=== PATIENT | female | born 1985 | race Caucasian/White ===

== ENCOUNTER 2018-05-14 17:45 | Emergency (ER) | payer MEDICAID, SELFPAY ==
[2018-05-14 17:47] VITALS: BP 125/72; PULSE 72; RESP 18; TEMP 37; O2SAT 99; BMI 26.4
--- NOTE | 2018-05-14 19:09 | ED.RN ---
CALLED FOR PT, NO ANSWER
== END 2018-05-14 19:31 | disposition left against medical advice (07) ==
LOC: ED 19:28
PROVIDERS: Emergency Provider Emergency Medicine; Family Provider Internal Medicine; PCP Internal Medicine
DX: R69 Illness, unspecified (principal)

== ENCOUNTER 2018-08-30 18:57 | Emergency (ER) | payer MEDICAID, SELFPAY ==
[2018-08-30 18:58] VITALS: BP 123/68; PULSE 89; RESP 15; TEMP 37.2; O2SAT 100; BMI 26.9
--- NOTE | 2018-08-30 19:32 | EKG12_ITS ---
Test Reason : WEAKNESS Blood Pressure : / mmHG Vent. Rate : 066 BPM Atrial Rate : 066 BPM P-R Int : 178 ms QRS Dur : 086 ms QT Int : 402 ms P-R-T Axes : 040 047 047 degrees QTc Int : 421 ms Normal sinus rhythm Normal ECG Confirmed by VANESA COKER, MATTEO ([id number]), editor producer ALEX JOSHI ([id number]) on 09/03/2018 9:01:15 AM Referred By: MAIKEL Confirmed By:MATTEO ALEXIS MD
--- NOTE | 2018-08-30 19:33 | CT_ITS ---
STUDY: CT BRAIN WITHOUT CONTRAST REASON FOR EXAM: Female, 32 years old. Dizziness. RADIATION DOSAGE (If Supplied By Facility): CTDIvol = ( 44.99 ) mGy, DLP = ( 745.49 ) mGycm TECHNIQUE: Transaxial CT imaging of the brain was performed without administration of intravenous contrast material. Individualized dose optimization techniques were used for this CT. COMPARISON: No relevant priors. FINDINGS: Normal soft tissue structures. Normal calvarium. Normal size ventricles and extra-axial spaces for the patient's age. Normal white matter tracts of the cerebral hemispheres. Normal basal ganglia and thalami. Normal brainstem. Normal cerebellum. There is no intracranial hemorrhage. There are no findings of an acute ischemic infarction. Normal visualized paranasal sinuses. CT/Brain/Head without Contrast IMPRESSION: No acute intracranial process. Electronically Signed: Kayla Borden MD at 20:53 EDT Tel , Service support ,
--- NOTE | 2018-08-30 19:45 | ED.VISSUMM ---
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 but for the most part she really has no past medical history and is on no routine daily meds, her chief complaint now really is the harsh nature of the cough she is not dizzy she denies being she has no cardiovascular history no history of [place] PE DVT stroke she is eating and drinking well bowel habits are normal urinary habits are normal denies Physical Examination: [] Vital signs within normal range General, no distress resting comfortably HEENT is generally unremarkable for some rhinorrhea, her head exam and facial exams unremarkable she can move her head in every direction without nystagmus or complaints of dizziness The neck is supple no adenopathy Cardiovascular, regular rate and rhythm Lungs, clear bilateral Abdomen, soft nontender Extremities, no clubbing cyanosis or edema Neurologic, awake alert answering questions appropriately moving all 4 extremities NIH is 0 she has no symptoms or signs of dizziness now her speech is clear he does understand Test Results: [] Emergency Department Course and Treatment: [] She really has 2 complaints one is intermittent dizziness for months and to the harsh coughing and runny nose for the last week that may have made the dizziness slightly worse at this time screening labs are obtained Patient screening labs are all generally unremarkable EKG shows a sinus rhythm nothing acute, head CT shows no acute abnormality no signs of sinusitis I explained all the test results the patient I explained to the exact etiology of the intermittent dizziness had for months is unclear she likely has a URI she is to continue the antibiotic she was in by her physicians provide an inhaler suggest use [id number] Flonase nasal steroid follow with her outpatient providers and return for change in symptoms and she is comfortable with this plan Treatment Plan: [] Disposition: [] Home stable Impression: [] URI with harsh cough, intermittent dizziness for months This note was generated with [employer] software. It may contain incorrect words, spelling, and punctuation that were not noted in review of the chart prior to signing ED Disposition - Plan for ED Patient: Referrals: Khushi Raman MD [Primary Care Provider] -
--- NOTE | 2018-08-30 19:48 | ED.DCSUM_ITS ---
- ER Visit Summary Date of Service: 08/30/18 Chief Complaint: [] Runny nose harsh cough for about a week dizziness on and off for many months History of Present Illness: The patient is a 32 F [] patient has a history of dizziness consisting of intermittent spinning sensations for many months unrelated to the fact that recently she is developed a URI over the last week with runny nose and a harsh cough, she was seen by her physicians recently and started on azithromycin first dose was today, she indicates is a prior history for treatment treatment for sinusitis, she works in a [employer] is around sick people but for the most part she really has no past medical history and is on no routine daily meds, her chief complaint now really is the harsh nature of the cough she is not dizzy she denies being she has no cardiovascular history no history of [place] PE DVT stroke she is eating and drinking well bowel habits are normal urinary habits are normal denies Physical Examination: [] Vital signs within normal range General, no distress resting comfortably HEENT is generally unremarkable for some rhinorrhea, her head exam and facial exams unremarkable she can move her head in every direction without nystagmus or complaints of dizziness The neck is supple no adenopathy Cardiovascular, regular rate and rhythm Lungs, clear bilateral Abdomen, soft nontender Extremities, no clubbing cyanosis or edema Neurologic, awake alert answering questions appropriately moving all 4 extremities NIH is 0 she has no symptoms or signs of dizziness now her speech is clear he does understand Test Results: [] Emergency Department Course and Treatment: [] She really has 2 complaints one is intermittent dizziness for months and to the harsh coughing and runny nose for the last week that may have made the dizziness slightly worse at this time screening labs are obtained Patient screening labs are all generally unremarkable EKG shows a sinus rhythm nothing acute, head CT shows no acute abnormality no signs of sinusitis I explained all the test results the patient I explained to the exact etiology of the intermittent dizziness had for months is unclear she likely has a URI she is to continue the antibiotic she was in by her physicians provide an inhaler suggest use [id number] Flonase nasal steroid follow with her outpatient providers and return for change in symptoms and she is comfortable with this plan Treatment Plan: [] Disposition: [] Home stable Impression: [] URI with harsh cough, intermittent dizziness for months This note was generated with [employer] software. It may contain incorrect words, spelling, and punctuation that were not noted in review of the chart prior to signing ED Disposition - Plan for ED Patient: Referrals: Khushi Raman MD [Primary Care Provider] -
[2018-08-30 19:52] VITALS: PULSE 75; RESP 16
[2018-08-30] MEDS: Ipratropium/Albuterol Sulfate 3 ML AMPUL.NEB INHALATION (19:52)
[2018-08-30] MEDS: 0.9% Normal Saline 1,000 ML 1000 ML IV (20:09)
[2018-08-30 20:30] LABS: Absolute Lymphocyte Count 3.68 X10^3/ul (0.83-4.51); Absolute Neutrophil Count 3.6 X10^3/uL (2.0-7.7); Basophil# 0.02 X10^3/uL; Basophil% 0.3 % (0-1); Eosinophil# 0.12 X10^3/uL; Eosinophils% 1.5 % (0-5); Hematocrit 37.8 % (37-47); Hemoglobin 13.1 g/dl (12.0-15.0); Lymphocyte # 3.68 X10^3/ul (4.0); Lymphocyte % 47.5 % (19-41); Mean Corp Hgb Conc 34.7 g/gl (32-36); Mean Corpuscular Hgb 31.7 pg (27.0-32.0); Mean Corpuscular Volume 91.5 fL (81-99); Mean Platelet Vol. 9.3 fl (6.2-12.0); Monocyte# 0.33 X10^3/uL; Monocyte% 4.3 % (0-10); Neutrophil # 3.59 X10^3/uL (2.7-7.7); Neutrophil % 46.3 % (47-70); Platelet Count 249 K/mm3 (150-450); RBC Distribution Width CV 11.7 % (11.6-14.6); RBC Distribution Width SD 39.7 fl (35.1-43.9); Red Blood Count 4.13 M/mm3 (4.2-5.4); White Blood Count 7.8 K/mm3 (4.4-11.0)
[2018-08-30 20:31] LABS: POSITIVE COUNT NO; POSITIVE DIFFERENTIAL NO; POSITIVE MORPHOLOGY NO
--- NOTE | 2018-08-30 20:31 | RAD_ITS ---
STUDY: X-RAY CHEST REASON FOR EXAM: Female, 32 years old. Chest pain. TECHNIQUE: PA and lateral views of the chest. COMPARISON: None. FINDINGS: The lungs are clear and expanded. There is no demonstrated pleural abnormality. Normal size heart. Normal mediastinum and luis. Normal visualized pulmonary arteries. Normal visualized aortic arch and descending thoracic aorta. Normal visualized thoracic spine. Normal visualized ribs, clavicles, and shoulders. There is no demonstrated abnormality of the visualized soft tissue structures of the upper abdomen. RAD/Chest PA and Lateral IMPRESSION: No acute cardiopulmonary process. Electronically Signed: Kayla Borden MD at 20:47 EDT Tel , Service support ,
[2018-08-30 20:51] LABS: Anion Gap 5 (5-15); BUN 12 mg/dL (7-18); BUN/Creat Ratio 17.3 RATIO (10-20); Calcium,Total 8.7 mg/dL (8.5-10.1); Chloride 109 mmol/L (98-107); EST Glomerular Filtration Rate 102 mL/min (>60); Est Glom Filt Rate - Afr Amer 124 mL/min (>60); Estimated Creatinine Clearance 85.45 ml/min; Glucose 98 mg/dL (74-106); Potassium 3.4 mmol/L (3.5-5.1); Sodium Level 142 mmol/L (136-145)
[2018-08-30 20:56] LABS: Pregnancy, Serum, hCG Quali. NEGATIVE Negative (0-9 Nonpreg)
[2018-08-30 21:31] VITALS: PULSE 66; RESP 14; O2SAT 95
--- NOTE | 2018-08-30 21:50 | ED.DEP ---
ED Disposition - Plan for ED Patient: Instructions: ED Dizziness UKO, ED Upper Resp Infec No Abx Tx Prescriptions: Albuterol Inhaler [Ventolin Hfa] 1 - 2 puff INHALATION Q4H PRN PRN #1 inhaler PRN Reason: Wheezing Referrals: Khushi Raman MD [Primary Care Provider] -
== END 2018-08-30 21:58 | disposition home or self-care (01) ==
LOC: ED 19:41
PROVIDERS: Emergency Provider Emergency Medicine; Family Provider Internal Medicine; PCP Internal Medicine
DX: J06.9 Acute upper respiratory infection, unspecified (principal); R05 Cough; R42 Dizziness and giddiness
CPT/HCPCS: 70450; 71046; 80048; 84484; 84703; 85025; 93005; 94640; 96360; 99284; J7030; A4216

== ENCOUNTER → 2020-02-08 17:19 | Outpatient (CLI) | payer MEDICAID, SELFPAY | PROVIDERS: PCP Internal Medicine; Referring Provider Clinical Nurse Specialist; Visit Provider Clinical Nurse Specialist | DX: J40 Bronchitis, not specified as acute or chronic (principal); J34.89 Other specified disorders of nose and nasal sinuses; H93.8X3 Other specified disorders of ear, bilateral | CPT/HCPCS: 87635; C9803; U0003 ==

== ENCOUNTER 2020-06-26 20:28 | Emergency (ER) | payer MEDICAID, SELFPAY ==
[2020-06-26 20:29] VITALS: BP 128/72; PULSE 78; RESP 16; TEMP 36.8; O2SAT 99; BMI 27.3
--- NOTE | 2020-06-26 20:44 | ED.DCSUM_ITS ---
History of Present Illness Chief Complaint: Flank Pain Informant: Patient Narrative: 34-year-old female presenting with left flank pain. She states it radiates to the left inguinal area and left proximal thigh. Patient states this started yesterday and has been intermittent. She has nausea and sweats with this. Patient states that the onset was abrupt and the pain is sharp. Patient has a history of kidney stones but states she has a history of diverticulitis. She states he did not feel the same as this. She is not had fever or chills. She denies urinary or bowel complaints. Past Medical History - Allergies and Home Meds Allergies/Adverse Reactions: Allergies tramadol Allergy (Verified 06/26/20 20:31) [facility] Physician: Khushi Raman MD [Primary Care Provider] - Prior records reviewed: Yes Past Medical History: - - Asthma and GERD Surgical History: noncontributory Lives: Alone Smoking Status: Current every day smoker Alcohol: None Drugs: None Review of Systems General: Reports: Sweats. Denies: Chills, Fever Eyes: Denies: Visual changes - bilaterally, Diplopia ENT: Denies: Rhinorrhea, Sore throat Cardiovascular: Denies: Chest pain, Palpitations Respiratory: Denies: Dyspnea, Cough, Dyspnea on exertion Gastrointestinal: Reports: Abdominal pain, Nausea. Denies: Vomiting, Diarrhea, Constipation Genitourinary: Denies: Dysuria, Hematuria, Frequency Musculoskeletal: Reports: Back pain - Left flank. Denies: Myalgias, Arthralgias Skin: Denies: Rash, Abscess Physical Exam Vital Signs/Narrative: Vital Signs Temp Pulse Resp BP Pulse Ox 06/26/20 20:29 98.2 F 78 16 128/72 H 99 Inital Vital Signs reviewed: Yes General: Well nourished, No Acute Distress Head: Normocephalic, Atraumatic Eyes: Perrl, EOMI ENT: Moist mucous membranes, No rhinorrhea Cardiovascular: Regular rate, Regular rhythm Skin: Normal color, No rash Neurological: Alert, Oriented x3 Psychological: Normal affect, Normal Mood Diagnostic/Tx/Re-eval Clinical Impression(s) from Imaging Studies Abdomen/Pelvis CT 06/26/20 21:08 IMPRESSION: Minor diverticular changes of the descending and sigmoid colon without evidence for acute diverticulitis. No other significant abnormality Electronically Signed: Jeff Agarwal MD at 22:01 EST , Service support , Laboratory Data 06/26/20 06/26/20 06/26/20 20:37 20:50 20:50 WBC 8.6 RBC 4.17 L Hgb 13.3 Hct 39.0 MCV 93.5 MCH 31.9 MCHC 34.1 RDW Std Deviation 39.4 RDW Coeff of Jeri 11.5 L Plt Count 290 MPV 9.1 Immature Gran % (Auto) 0.200 Neut % (Auto) 55.7 Lymph % (Auto) 37.0 [place] % (Auto) 5.5 Eos % (Auto) 1.3 Baso % (Auto) 0.3 Absolute Neuts (auto) 4.8 Absolute Lymphs (auto) 3.19 Nucleated RBC % 0 Sodium 140 Potassium 3.3 L Chloride 107 Carbon Dioxide 27.0 Anion Gap 6 BUN 12 Creatinine 0.74 Estim Creat Clear Calc 79.31 Est GFR (MDRD) Af Amer 115 Est GFR (MDRD) Non-Af 95 BUN/Creatinine Ratio 16.3 Glucose 91 Calcium 9.2 Urine Color Yellow Urine Clarity Clear Urine pH 8.0 Ur Specific [place] 1.020 Urine Protein Negative Urine Glucose (UA) Normal Urine Ketones Negative Urine Occult Blood Negative Urine Nitrite Negative Urine Bilirubin Negative Urine Urobilinogen Normal Ur Leukocyte Esterase 25 H Urine RBC 0 SEEN Urine WBC 0 SEEN Ur Squamous Epith Cells 0-5 SEEN Urine Bacteria 0 SEEN Urine Mucus 0 SEEN - Medical Decision Making 34-year-old female presenting with left flank and left lower abdominal pain since yesterday. Patient does have nausea and sweats with this. Initially I thought she seemed to have a kidney stone however she has no blood in her urine. Like to get lab work and she has no leukocytosis. Her renal function electrolytes are normal. She declined more than Toradol and Zofran. She had CT of the abdomen pelvis with IV contrast did not show acute diverticulitis however given the patient's symptoms and her history of diverticulitis I will treat her with Augmentin. She requests prescription for ibuprofen 600 mg for home. She is given return precautions. She stable for discharge. Impression: 1. Acute diverticulitis ED Disposition - Plan for ED Patient: Prescriptions: Amox/Clavulanate Tablet [Augmentin Tablet] 875 mg PO Q12H #20 tab Transmission Status: Pending to [id number] Ibuprofen 600 mg PO Q8H PRN PRN #30 tab PRN Reason: Pain Transmission Status: Pending to [id number] Referrals: Khushi Raman MD [Primary Care Provider] -
[2020-06-26] MEDS: Ketorolac 15 MG/ML Vial IV (20:53)
[2020-06-26] MEDS: Ondansetron 4 MG/2 ML Vial IV (20:54)
[2020-06-26 20:57] LABS: Bacteria 0 SEEN /hpf (None Seen); Mucous, Urine 0 SEEN /hpf (<or=2+); Red Blood Cells-Urine 0 SEEN /hpf (0-5); White Blood Cells 0 SEEN /hpf (0-5)
[2020-06-26 20:58] LABS: Absolute Lymphocyte Count 3.19 X10^3/uL (0.83-4.51); Absolute Neutrophil Count 4.8 X10^3/uL (2.0-7.7); Basophil# 0.03 X10^3/uL; Basophil% 0.3 % (0-1); Eosinophil# 0.11 X10^3/uL; Eosinophils% 1.3 % (0-5); Hemoglobin 13.3 g/dL (12.0-15.0); Lymphocyte # 3.19 X10^3/ul (4.0); Mean Corp Hgb Conc 34.1 g/dL (32-36); Mean Corpuscular Hgb 31.9 pg (27.0-32.0); Mean Corpuscular Volume 93.5 fL (81-99); Mean Platelet Vol. 9.1 fl (6.2-12.0); Monocyte# 0.47 X10^3/uL; Monocyte% 5.5 % (0-10); NRBC Flagged by Analyzer 0 % (0-5); Neutrophil # 4.79 X10^3/uL (2.7-7.7); Neutrophil % 55.7 % (47-70); Platelet Count 290 K/mm3 (150-450); RBC Distribution Width CV 11.5 % (11.6-14.6); RBC Distribution Width SD 39.4 fl (35.1-43.9); Red Blood Count 4.17 M/mm3 (4.2-5.4); White Blood Count 8.6 K/mm3 (4.4-11.0)
[2020-06-26 21:02] LABS: Color, Urine Yellow (Yellow); Glucose, Dipstick Normal (Normal); Ketone-Dipstick Negative (Negative); Leukocyte Esterase-Dipstick 25 /ul (Negative); Nitrite-Dipstick Negative (Negative); Occult Blood-Urine Negative /ul (Negative); Protein-Dipstick Negative (Negative); Urine Bilirubin Dipstick Negative (Negative); Urine Clarity Clear (Clear); Urine Urobilinogen Normal (Normal)
[2020-06-26 21:07] LABS: Squamous Epithelial Cells - UA 0-5 SEEN /hpf (5-10)
--- NOTE | 2020-06-26 21:08 | CT_ITS ---
STUDY: CT ABDOMEN AND PELVIS WITH CONTRAST REASON FOR EXAM: Female, 34 years old. LT ABD PAIN X ONE DAY RADIATION DOSAGE (If Supplied By Facility): CTDIvol = ( 11.21 ) mGy, DLP = ( 585.92 ) mGycm TECHNIQUE: Transaxial images were obtained from the dome of the diaphragm to the symphysis pubis without oral contrast. IV 100mL Isovue-370 was administered. Sagittal and coronal images were reconstructed. Individualized dose optimization techniques were used for this CT. COMPARISON: 10/16/2013 FINDINGS: The visualized lung bases are unremarkable. The visualized portions of the heart are within normal limits. Normal liver. Normal gallbladder and extrahepatic biliary system. Normal spleen. Normal pancreas. Normal bilateral adrenal glands. Normal right kidney. Normal left kidney. Normal visualized stomach. Normal small intestine. Minor diverticular changes in the descending and sigmoid colon without evidence for acute diverticulitis. The appendix is visualized and appears normal. Normal abdominal aorta. Normal inferior vena cava. Normal retroperitoneum. Normal urinary bladder. IUD noted within the endometrial canal of the uterine fundus Normal abdominal wall. Normal osseous structures. No significant change since prior exam CT/Abdomen/Pelvis W IV Cont ONLY IMPRESSION: Minor diverticular changes of the descending and sigmoid colon without evidence for acute diverticulitis. No other significant abnormality Electronically Signed: Jeff Agarwal MD at 22:01 EST , Service support ,
[2020-06-26 21:11] LABS: Anion Gap 6 (5-15); BUN 12 mg/dL (7-18); BUN/Creat Ratio 16.3 RATIO (10-20); Calcium,Total 9.2 mg/dL (8.5-10.1); Chloride 107 mmol/L (98-107); Creatinine, Serum 0.74 mg/dL (0.55-1.02); EST Glomerular Filtration Rate 95 mL/min (>60); Est Glom Filt Rate - Afr Amer 115 mL/min (>60); Estimated Creatinine Clearance 79.31 ml/min; Glucose 91 mg/dL (74-106); Potassium 3.3 mmol/L (3.5-5.1); Sodium Level 140 mmol/L (136-145)
[2020-06-26] MEDS: Amox/Clavulanate 875 MG Tablet PO (22:44)
[2020-06-26] MEDS: Ibuprofen 600 MG Tablet PO (22:44)
[2020-06-26 22:47] VITALS: BP 110/66; PULSE 78; RESP 15; O2SAT 98
== END 2020-06-26 22:50 | disposition home or self-care (01) ==
PROVIDERS: Emergency Provider Student in an Organized Health Care Education/Training Program; PCP Internal Medicine
DX: K57.32 Diverticulitis of large intestine without perforation or abscess without bleeding (principal); K21.9 Gastro-esophageal reflux disease without esophagitis; J45.909 Unspecified asthma, uncomplicated; Z87.442 Personal history of urinary calculi; F17.200 Nicotine dependence, unspecified, uncomplicated
CPT/HCPCS: 74177; 80048; 81001; 85025; 96374; 96375; 99283; Q9967; A4216; J2405

== ENCOUNTER 2022-03-08 18:27 | Emergency (ER) | payer MEDICAID, SELFPAY ==
[2022-03-08 18:28] VITALS: BP 134/68; PULSE 77; RESP 16; TEMP 37; O2SAT 98; BMI 26.6
== END 2022-03-08 18:44 | disposition left against medical advice (07) ==
LOC: ED 18:46
PROVIDERS: PCP Internal Medicine
DX: Z53.21 Procedure and treatment not carried out due to patient leaving prior to being seen by health care provider (principal)

== ENCOUNTER 2022-05-16 00:12 | Emergency (ER) | payer MEDICAID, SELFPAY ==
[2022-05-16 00:13] VITALS: BP 122/75; PULSE 68; RESP 18; TEMP 36.7; O2SAT 97; BMI 26.8
--- NOTE | 2022-05-16 00:31 | EDS_ITS ---
HPI History of Present Illness Chief Complaint: Lower Extremity Injury Detail of Chief Complaint: Left leg pain Informant: patient Onset/Context/Timing Onset: Days Narrative Narrative: Patient presents with intermittent left lower leg pain for the past week or so. She states she will get spasms and swelling along the lateral portion of her left lower leg. She will feel that her toes are cold. This sensation often occurs when she notes the swelling and tenseness in her leg. She has been taking ibuprofen intermittently. She states she has gastritis and stomach problems so therefore cannot take too much anti-inflammatory. Her brother had a history of a blood clot after a hernia surgery. No known family clotting disorders. PFSH PFSH no medical history Home Medications Omeprazole [Prilosec] 40 mg PO BID 02/19/13 [History Last Taken 05/30/17] cyclobenzaprine 10 mg tablet 10 mg PO TID PRN PRN Pain 07/27/15 [History Last Taken 05/30/17] levonorgestrel 20 mcg/24 hours (8 yrs) 52 mg intrauterine device (Mirena) 1 ea IY X1 06/22/16 [History Last Taken 08/19/15] albuterol sulfate 90 mcg/actuation aerosol inhaler 1 - 2 puff Inhalation Q4H PRN PRN Wheezing ##1 08/30/18 [Rx Last Taken Unknown] amoxicillin 875 mg-potassium clavulanate 125 mg tablet 875 mg PO Q12H #20 tabs 06/26/20 [Rx Last Taken Unknown] ibuprofen 600 mg tablet 600 mg PO Q8H PRN PRN Pain #30 tabs 06/26/20 [Rx Last Taken Unknown] loratadine 10 mg capsule 10 mg PO DAILY 06/26/20 [History Last Taken Unknown] Allergy/AdvReac Type Severity Reaction Status Date / Time tramadol Allergy Hives Verified 03/08/22 18:30 Social History Smoking Status: Current every day smoker tobacco type: cigarettes ROS ROS ED Constitutional Constitutional ED: Denies chills or fever(s) Eyes Eyes: Denies change in vision or discharge from eye(s) ENT ENT ED: Denies discharge from eye(s), rhinorrhea or sore throat Cardiovascular Cardiovascular: Denies chest pain or palpitations Respiratory/Chest Respiratory/Chest: Denies cough or dyspnea Gastrointestinal Gastrointestinal: Denies abdominal pain, nausea or vomiting Genitourinary Genitourinary ED: Denies dysuria Musculoskeletal Musculoskeletal: Reports extremity pain; Denies back pain Integumentary Denies Abrasions or rash Neurologic Neurologic: Denies headache(s) or weakness Psychiatric Psychiatric: Denies anxiety or depression Allergic/Immunologic Allergic/Immunologic ED: Denies lip swelling or urticaria EXAM Physical Exam Const Vital Signs: 05/16/22 00:13 Temperature 98.1 F Temperature Source Oral Pulse Rate 68 Respiratory Rate 18 Blood Pressure 122/75 H Blood Pressure Mean 90 Pulse Ox 97 Oxygen Delivery Method Room Air Positive well nourished and well developed General Appearance ED: well developed HEENT Reports normocephalic and head/scalp atraumatic Eyes PERRL and EOMs intact bilaterally Neck supple Chest Wall inspection of chest normal and palpation of chest normal Resp normal respiratory effort and clear to auscultation bilaterally Cardio regular rate and regular rhythm GI non-tender Palpation: soft Extremity normal to inspection Extremity Narrative: No obvious lower extremity edema or overlying skin change. Strong distal pulses distally. No temperature difference noted with palpation of her right leg versus left. No palpable cords. Neuro oriented x3 and no sensory deficits noted Sensorium / Orientation: alert Motor Exam: strength 5/5 throughout Psych mental status grossly normal Skin no rashes or lesions noted MDM MDM MDM Narrative Medical decision making narrative: Patient presents just after midnight for evaluation. I advised her I do not have anyone here at this time that can do an ultrasound of her leg. I will write her to come back tomorrow for an ultrasound to ensure no evidence of DVT. We discussed increasing her fluids to ensure her muscles are hydrated and therefore decreasing spasm. I recommended using topical Voltaren cream for anti-inflammatory effect so that she does not have to take so much ibuprofen given her gastritis. We discussed using an Dread wrap for light pressure support as well. Return instructions are given. Discharge Plan Triage Chief Complaint: Lower Extremity Injury ED Provider: Saranya Mercer Dx/Rx/DC Orders Clinical Impression: Acute leg pain, Muscle spasm Instructions: ED Muscle Strain, Extremity Prescriptions: No Action Omeprazole [Prilosec] 40 MG capsule 40 mg PO BID Label Comments: GERD cyclobenzaprine 10 MG tablet 10 mg PO TID PRN PRN (Reason: Pain) Label Comments: FLEXERIL Mirena 1 EACH intrauterine device 1 ea IY X1 albuterol sulfate 1 INHALER inhaler 1 - 2 puff Inhalation Q4H PRN PRN (Reason: Wheezing) Qty: 1 0RF loratadine 10 MG capsule 10 mg PO DAILY amoxicillin-pot clavulanate 875 MG tablet 875 mg PO Q12H Qty: 20 0RF ibuprofen 600 MG tablet 600 mg PO Q8H PRN PRN (Reason: Pain) Qty: 30 0RF Other Ambulatory Orders: Venous Duplex US, Unilateral (Stat) Facility: [facility] - Location: [facility] Ordered By: Dr. Saranya Mercer Primary Care Provider: Khushi Raman Referrals: Khushi Raman MD [Primary Care Provider] - Activity Restrictions/Additional Instructions: As discussed, you can use Voltaren cream topically for anti-inflammatory. This will help you avoid too much ibuprofen given your gastritis. The hospital will call you tomorrow to have you return for an ultrasound of your leg. Disposition Disposition: Home, Self Care
== END 2022-05-16 00:46 | disposition home or self-care (01) ==
LOC: ED 00:38
PROVIDERS: Emergency Provider Emergency Medicine; PCP Internal Medicine; Visit Provider Emergency Medicine
DX: M62.838 Other muscle spasm (principal); M79.606 Pain in leg, unspecified; M79.89 Other specified soft tissue disorders; F17.210 Nicotine dependence, cigarettes, uncomplicated
CPT/HCPCS: 93971; 99282

== ENCOUNTER → 2022-05-16 | Outpatient (CLI) | payer MEDICAID, SELFPAY ==
--- NOTE | 2022-05-16 10:56 | VDLE_ITS ---
Reason For Study: LEG PAIN AND SWELLING RIGHT LEFT CFV is compressible, spontaneous, phasic, GSV is normal. competent and demonstrates normal CFV is compressible, spontaneous, phasic, augmentation. competent, and demonstrates normal Procedure augmentation. This is a venous duplex using B-mode, color FV is compressible, spontaneous, phasic, flow and spectral Doppler. competent and demonstrates normal Exam performed in department. augmentation. The exam was diagnostic. POP V is compressible, spontaneous, phasic, A preliminary report was called and/or faxed competent and demonstrates normal to Dr. Raman. augmentation. T/P Trunk is compressible. PTV is compressible. LT PerV is compressible. VL/Venous Duplex US, Unilateral Interpretation Summary There is no evidence of left lower extremity deep vein thrombosis. Left great s aphenous vein appears patent and compressible segmentally. Normal flow patterns right common femoral vein Ordering Physician: Saranya Mercer Referring Physician: Khushi Raman M.D. Performed By: Stewart Leija RVT
== END | disposition home or self-care (01) ==
LOC: CVS 10:55
PROVIDERS: PCP Internal Medicine; Referring Provider Emergency Medicine; Visit Provider Emergency Medicine
DX: M79.606 Pain in leg, unspecified (principal); M79.89 Other specified soft tissue disorders
CPT/HCPCS: 93971

== ENCOUNTER 2023-06-07 21:32 | Emergency (ER) | payer MEDICAID, SELFPAY ==
[2023-06-07 21:34] VITALS: BP 125/71; PULSE 74; RESP 16; TEMP 36.2; BMI 27.8
[2023-06-07 21:36] VITALS: BP 125/71; PULSE 74; RESP 16; TEMP 36.2
--- NOTE | 2023-06-07 21:56 | EX.ED.DYSGE1 ---
HPI History of Present Illness Chief Complaint: Allergic Reaction Narrative Narrative: 37-year-old female with history of right knee pain. She states that about a week and a half ago she injured it while rollerskating with her daughter. She has been seen at [facility] and had x-rays of the knee. Initially sent home on [place] and ibuprofen. She was taken this and did not have any reactions or anything. She states she followed up again and was put on Percocet. Continues to have some mild pain in the right knee but is ambulatory. 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 She is trying knee braces [id number] and Dread wrap's but they make her leg hurt worse. Denies any new trauma. She is here today not for an evaluation of her knee but for evaluation of a rash. She has some spots on her lower neck and upper chest and some spondylotic areas on her arms and she states she started googling things and became worried that she had something severe. She states he is might be a little bit itchy but she is not really scratching on them. She states that she does scratch at them they do itch. They are not painful. She has not any systemic signs or symptoms. PFSH PFSH Home Medications Omeprazole [Prilosec] 40 mg PO BID 02/19/13 [History Last Taken 05/30/17] cyclobenzaprine 10 mg tablet 10 mg PO TID PRN PRN Pain 07/27/15 [History Last Taken 05/30/17] levonorgestrel 21 mcg/24 hours (8 yrs) 52 mg intrauterine device (Mirena) 1 ea IY X1 06/22/16 [History Last Taken 08/19/15] albuterol sulfate 90 mcg/actuation aerosol inhaler 1 - 2 puff Inhalation Q4H PRN PRN Wheezing ##1 08/30/18 [Rx Last Taken Unknown] ibuprofen 600 mg tablet 600 mg PO Q8H PRN PRN Pain #30 tabs 06/26/20 [Rx Last Taken Unknown] loratadine 10 mg capsule 10 mg PO DAILY 06/26/20 [History Last Taken Unknown] prednisone 50 mg tablet 50 mg PO DAILY #3 tabs 06/07/23 [Rx Last Taken Unknown] Allergy/AdvReac Type Severity Reaction Status Date / Time tramadol Allergy Hives Verified 01/19/24 21:33 Social History Smoking Status: Current every day smoker tobacco type: cigarettes ROS ROS ED Constitutional Constitutional ED: Denies chills, fever(s) or sweats Eyes Eyes: Denies blurry vision or change in vision ENT ENT ED: Denies ear pain or sore throat Cardiovascular Cardiovascular: Denies chest pain, palpitations or racing heartbeat Respiratory/Chest Respiratory/Chest: Denies cough, dyspnea or sputum Gastrointestinal Gastrointestinal: Denies abdominal pain, constipation, diarrhea, nausea or vomiting Genitourinary Genitourinary ED: Denies dysuria, hematuria or urinary frequency Musculoskeletal Musculoskeletal: Reports other Details: Right knee pain ; Denies arthralgias, myalgias or neck pain Integumentary Denies abscess, Abrasions or rash Neurologic Neurologic: Denies headache(s), paresthesias or weakness Psychiatric Psychiatric: Denies anxiety, depression, suicidal ideation or suicidal thoughts Endocrine Endocrinology: Denies polydipsia or polyuria EXAM Physical Exam Const Vital Signs: 06/07/23 21:34 06/07/23 21:36 Temperature 97.2 F L 97.2 F L Temperature Source Temporal Temporal Pulse Rate 74 74 Respiratory Rate 16 16 Blood Pressure 125/71 H 125/71 H Blood Pressure Mean 89 89 Positive well nourished General Appearance ED: NAD; Negative for pallor HEENT Reports moist mucous membranes Eyes PERRL and EOMs intact bilaterally Neck no lymphadenopathy Resp normal respiratory effort Cardio regular rate and regular rhythm Neuro oriented x3 and CN's II-XII intact bilaterally Sensorium / Orientation: alert Skin Skin Narrative: Small punctate areas of erythema on the forearms which are very sporadic. There are some areas on the lower neck and upper chest wall as well. She points to some small areas on her lower back. This does not appear to be hive-like. They do not look infectious. General Skin Exam: Negative for jaundice or pallor MDM MDM MDM Narrative Medical decision making narrative: Patient presenting for evaluation of rash. She states she was googling the rash and became concerned although on exam there is a very sporadic small area of erythema noted on the lower neck and upper chest as well as the back and some on the forearms. He does not look infectious or necessarily allergic. Counseled the patient if they are itchy she could use topical calamine lotion or systemic Benadryl. Counseled if this does not get better I can give her prescription for prednisone to see if that would help. I do not think it has anything infectious. The patient did speak a lot about her knee and I offered to examine it but she states she is already under care for her knee he does not need any other evaluation of her knee. She is however walking around the room with an antalgic gait. She appears to be stable. Impression: 1. Rash 2. Right knee pain Lab Data Attestation: I reviewed the patient's lab results. Discharge Plan Triage Chief Complaint: Allergic Reaction ED Provider: David Acevedo Dx/Rx/DC Orders Instructions: ED Erythema Prescriptions: New prednisone 50 mg tablet 50 mg PO DAILY Qty: 3 0RF No Action Omeprazole [Prilosec] 40 MG capsule 40 mg PO BID Patient Comments: GERD cyclobenzaprine 10 MG tablet 10 mg PO TID PRN PRN (Reason: Pain) Patient Comments: FLEXERIL Mirena 1 EACH intrauterine device 1 ea IY X1 albuterol sulfate 1 INHALER inhaler 1 - 2 puff Inhalation Q4H PRN PRN (Reason: Wheezing) Qty: 1 0RF loratadine 10 MG capsule 10 mg PO DAILY ibuprofen 600 MG tablet 600 mg PO Q8H PRN PRN (Reason: Pain) Qty: 30 0RF Primary Care Provider: Khushi Raman Referrals: Khushi Raman MD [Primary Care Provider] - Disposition Disposition: Home, Self Care
[2023-06-07] MEDS: DiphenhydrAMINE 25 MG Capsule PO (21:58)
--- OUTSIDE RECORDS SUMMARY | 2023-06-07 22:02 | XMS RPT_ITS | CCD ---
Author Name Unknown Address [address] [place] [address] Organization [facility] Care Team Providers Care Rn Lactation Consultant Name Role Phone JOSE LUIS COKER, DR VELASCO Primary Care Physician Rod Amaya MD Primary Care Provider JOSE LUIS COKER, DR VELASCO Primary Care Physician Rod Amaya MD Primary Care Provider Rod Amaya MD Primary Care Provider JEFERSON GLEZ Attending Unavailable TALAMPAS, ROD D Primary Care Unavailable AUREA CONTRERAS Attending Unavailable TALAMPAS, ROD D Primary Care Unavailable TALAMPAS, ROD D Primary Care Unavailable TALAMPAS, ROD D Primary Care Unavailable JEFERSON GLEZ Referring Unavailable TALAMPAS, ROD D Primary Care Unavailable TALAMPAS, ROD D Primary Care Unavailable TALAMPAS, ROD D Primary Care Unavailable GWYN CHACON Referring Unavailable MOHAMUD, MILAGRO Referring Unavailable TALAMPAS, ROD D Primary Care Unavailable TALAMPAS, ROD D Attending Unavailable RICHMOND FISHER Attending Unavailable TALAMPAS, ROD D Primary Care Unavailable MOHAMUD, MILAGRO Attending Unavailable TALAMPAS, ROD D Primary Care Unavailable ALMA SEYMOUR Attending Unavail able TALAMPAS, ROD D Primary Care Unavailable LINDY CASH Referring Unavailable TALAMPAS, ROD D Primary Care Unavailable MOHAMUD, MILAGRO Referring Unavailable TALAMPAS, ROD D Primary Care Unavailable TALAMPAS, ROD D Primary Care Unavailable MOHAMUD, MILAGRO Referring Unavailable MOHAMUD, MILAGRO Attending Unavailable ROD AMAYA Primary Care Unavailable JEFERSON GLEZ Referring Unavailable LINDY CASH Attending Unavailable ROD AMAYA Primary Care Unavailable JOSE LUIS COKER, DR VELASCO Primary Care Unavailable SAMANTHA TURNER Attending Unavailable Allergies Allergy Classification Reported Allergen(s) Allergy Type Date of Onset Reaction(s) Facility (20 sources) traMADol; Translations: [tramadol] Drug Allergy 04-13-2011 Other: See Comments [facility] Work Phone: Medications Current Medications Medication Drug Class(es) Dates Sig (Normalized) Sig (Original) acetaminophen 325 mg / oxyCODONE hydrochloride 5 mg oral tablet (1 source) Opioid Agonist Start: 06-05-2023 End: 06-08-2023 take 1 tablet by mouth every six hours as needed for pain Percocet 5 mg-325 mg oral tablet Dose = 1 tab(s), Oral, q6h, PRN Pain, X 3 day(s), # 12 tab(s), 0 Refill(s), Knee pain, 63.5 Start Date: 06/05/23 Stop Date: 06/08/23 Status: Ordered Albuterol (Eqv-ProAir HFA) 90 mcg/inh inhalation aerosol (6 sources) Start: 02-08-2020 Albuterol (Eqv-ProAir HFA) 90 mcg/inh inhalation aerosol 0 Refill(s) Start Date: 02/08/20 Status: Ordered amoxicillin 875 mg / clavulanate 125 mg oral tablet (9 sources) Penicillin-class Antibacterial Start: 08-02-2022 End: 08-09-2022 take 1 tablet by mouth twice daily amoxicillin-clav ulanic acid (AUGMENTIN) 875-125 mg per tablet Take 1 tablet by mouth twice daily for 7 days. 14 tablet 0 08/02/2022 08/09/2022 Active Completed/Discontinued Medications Medication Drug Class(es) Dates Sig (Normalized) Sig (Original) acetaminophen 325 mg / HYDROcodone bitartrate 5 mg oral tablet (20 sources) Opioid Agonist Start: 03-09-2022 HYDROcodone-acetam inophen (NORCO) 5-325 mg per tablet Problems Active Problems Problem Classification Problem Date Documented Da te Episodic/Chronic Adjustment disorders (20 sources) Reactive depression (situational); Translations: [Adjustment disorder with depressed mood] Onset: 8 04-02-2018 Chronic Anxiety disorders (20 sources) Generalized anxiety disorder; Translations: [Generalized anxiety disorder] Onset: 8 04-02-2018 Chronic Asthma (1 source) Exacerbation of asthma; Translations: [Unspecified asthma with (acute) exacerbation] Chronic Cancer of cervix (1 source) Atypical squamous cells of undetermined significance on cervical Papanicolaou smear; Translations: [Atypical squamous cells of undetermined significance on cytologic smear of cervix (ASC-US)] Episodic Diverticulosis and diverticulitis (7 sources) Diverticulitis of colon; Translations: [Diverticular disease] 09-14-2013 Chronic Esophageal disorders (20 sources) Gastroesophageal reflux disease; Translations: [Gastro-esophageal reflux disease without esophagitis] Onset: 9 09-14-2013 Chronic Genitourinary symptoms and ill-defined conditions (1 source) Increased frequency of urination; Translations: [Frequency of micturition] Episodic Hemorrhoids (1 source) Internal hemorrhoids; Translations: [Other hemorrhoids] 02-28-2023 Episodic Immunizations and screening for infectious disease (9 sources) Patient encounter status; Translations: [Encounter for screening for infections with a predominantly sexual mode of transmission] Episodic Malaise and fatigue (1 source) Fatigue; Translations: [Other fatigue] Episodic Nausea and vomiting (2 sources) Nausea; Translations: [Nausea] Episodic Nonmalignant breast conditions (2 sources) Breast finding ; Translations: [Dense breast tissue] 03-18-2023 Episodic Nutritional deficiencies (1 source) Vitamin D deficiency; Translations: [Vitamin D deficiency, unspecified] Chronic Other aftercare (1 source) Post-discharge follow-up; Translations: [Encounter for follow-up examination after completed treatment for conditions other than malignant neoplasm] Episodic Other connective tissue disease (6 sources) Pain in right arm 09-14-2013 Episodic Other connective tissue disease (1 source) Muscle spasm of cervical muscle of neck; Translations: [Other muscle spasm] Episodic Other connective tissue disease (1 source) Disorder of soft tissue; Translations: [Other specified soft tissue disorders] Onset: 2 Episodic Other female genital disorders (2 sources) Vaginal discharge; Translations: [Other specified noninflammatory disorders of vagina] Episodic Other female genital disorders (3 sources) History of gynecological disorder; Translations: [Personal history of other diseases of the female genital tract] Episodic Other gastrointestinal disorders (1 source) Irritable bowel syndrome; Translations: [Mixed irritable bowel syndrome] Chronic Other gastrointestinal disorders (3 sources) Abdominal bloating; Translations: [Abdominal distension (gaseous)] Episodic Other gastrointestinal disorders (3 sources) Loose stool; Translations: [Other fecal abnormalities] Episodic Other gastrointestinal disorders (1 source) Constipation; Translations: [Constipation, unspecified] Episodic Other lower respiratory disease (2 sources) Dyspnea; Translations: [Shortness of breath] Episodic Other non-traumatic joint disorders (1 source) Pain in right hip; Translations: [Right hip pain] Onset: 4 Episodic Other non-traumatic joint disorders (1 source) Pain in right knee; Translations: [Acute pain of right knee] Onset: 4 Episodic Other non-traumatic joint disorders (1 source) Pain in unspecified knee; Translations: [Pain of joint of knee] Onset: 4 Episodic Other and delivery including normal (6 sources) 01-07-2015 Episodic Past or Other Problems Problem Classification Problem Date Documented Date Episodic/Chronic Abdominal pain (14 sources) Pain in female pelvis; Translations: [Pelvic and perineal pain] Onset: 02-10-2022 Episodic Contraceptive and procreative management (4 sources) Intrauterine contraceptive device in situ; Translations: [Presence of (intrauterine) contraceptive device] Onset: 07-30-2022 Episodic Heart valve disorders (20 sources) Heart murmur; Translations: [Cardiac murmur, unspecified] Onset: 04-17-2010 05-15-2021 Episodic Inflammation; infection of eye (except that caused by tuberculosis or sexually transmitteddisease) (2 sources) Conjunctivitis; Translations: [Other mucopurulent conjunctivitis, left eye] Onset: 10-11-2022 Episodic Other connective tissue disease (1 source) Other muscle spasm; Translations: [Neck muscle spasm] Onset: 10-11-2022 Episodic Other eye disorders (1 source) Unspecified epiphora, bilateral; Translations: [Watery eyes] Onset: 10-11-2022 Episodic Ovarian cyst (4 sources) Cyst of right ovary; Translations: [Unspecified ovarian cyst, right side] Onset: 07-30-2022 Episodic Residual codes; unclassified (20 sources) Past history of procedure; Translations: [Personal history of other medical treatment] Onset: 04-12-2020 04-12-2020 Episodic Results Test Name Value Interpretation Reference Range Facil ity Vital Signs Date Time Vital Sign Value Performing Clinician Facility 06-05-2023 17:56-0500 Blood Pressure Location SAMANTHA TURNER DO [facility] 06-05-2023 17:56-0500 Blood Pressure Method SAMANTHA Reyes O [facility] 06-05-2023 17:56-0500 Body temperature 98.24 [degF] SAMANTHA TURNER DO [facility] 06-05-2023 17:56-0500 Diastolic Blood Pressure Non-Invasive 81 mm[Hg] SAMANTHA TURNER DO [facility] 06-05-2023 17:56-0500 Heart rate 76 /min SAMANTHA TURNER DO [facility] 06-05-2023 17:56-0500 Respiratory rate 18 /min SAMANTHA TURNER DO [facility] 06-05-2023 17:56-0500 Systolic Blood Pressure Non-Invasive 127 mm[Hg] SAMATNHA TURNER DO [facility] 05-02-2023 11:02-0500 Body weight 66.22 kg Celeste Guerrero MD Work Phone: [facility] 05-02-2023 11:02-0500 Diastolic blood pressure 64 mm[Hg] Celeste Guerrero MD Work Phone: [facility] 05-02-2023 11:02-0500 Systolic blood pressure 100 mm[Hg] Celeste Guerrero MD Work Phone: [facility] 03-18-2023 10:51-0400 Body height 154.9 cm Lindy Cash TIE MAKER.CNM Work Phone: [facility] 03-18-2023 10:51-0400 Body weight 66.68 kg Lindy Cash TIE MAKER.CNM Work Phone: [facility] 03-18-2023 10:51-0400 Diastolic blood pressure 70 mm[Hg] Lindy Cash TIE MAKER.CNM Work Phone: [facility] 03-18-2023 10:51-0400 Systolic blood pressure 108 mm[Hg] Lindy Cash TIE MAKER.CNM Work Phone: [facility] 11-12-2022 14:40-0400 Diastolic blood pressure 78 mm[Hg] Aurea Kalka PA-C Work Phone: [facility] 11-12-2022 14:40-0400 Heart rate 74 /min Aurea Kalka PA-C Work Phone: [facility] 11-12-2022 14:40-0400 Systolic blood pressure 128 mm[Hg] Aurea Kalka PA-C Work Phone: [facility] 09-30-2022 14:34-0400 Body temperature 98.1 [degF] Eva Glez APRN.FRAME STRIPPER Work Phone: [facility] 09-30-2022 14:34-0400 Body weight 64.86 kg Eva Glez APRN.FRAME STRIPPER Work Phone: [facility] 09-30-2022 14:34-0400 Diastolic blood pressure 78 mm[Hg] Eva Glez APRN.FRAME STRIPPER Work Phone: [facility] 09-30-2022 14:34-0400 Heart rate 75 /min Eva Glez APRN.FRAME STRIPPER Work Phone: [facility] 09-30-2022 14:34-0400 Respiratory rate 16 /min Eva Glez APRN.FRAME STRIPPER Work Phone: [facility] 09-30-2022 14:34-0400 SaO2% (BldA) [Mass fraction] 98 % Eva Glez TIE MAKER.FRAME STRIPPER Work Phone: [facility] 09-30-2022 14:34-0400 Systolic blood pressure 118 mm[Hg] Eva Glez TIE MAKER.FRAME STRIPPER Work Phone: [facility] 08-02-2022 19:22-0400 Body temperature 98.91 [degF] Miladis Older TIE MAKER.FRAME STRIPPER Work Phone: [facility] 08-02-2022 19:22-0400 Body weight 66.59 kg Miladis Older TIE MAKER.FRAME STRIPPER Work Phone: [facility] 08-02-2022 19:22-0400 Diastolic blood pressure 82 mm[Hg] Miladis Older TIE MAKER.FRAME STRIPPER Work Phone: [facility] 08-02-2022 19:22-0400 Heart rate 69 /min Miladis Older TIE MAKER.FRAME STRIPPER Work Phone: [facility] 08-02-2022 19:22-0400 Respiratory rate 16 /min Miladis Older TIE MAKER.FRAME STRIPPER Work Phone: [facility] 08-02-2022 19:22-0400 SaO2% (BldA) [Mass fraction] 96 % Miladis Older TIE MAKER.FRAME STRIPPER Work Phone: [facility] 08-02-2022 19:22-0400 Systolic blood pressure 110 mm[Hg] Miladis Older TIE MAKER.FRAME STRIPPER Work Phone: [facility] 05-15-2022 23:18-0500 Body temperature 98.06 [degF] ESTELA DORMAN MD [facility] 05-15-2022 23:18-0500 Diastolic Blood Pressure Non-Invasive 90 1 ESTELA DORMAN MD [facility] 05-15-2022 23:18-0500 Heart rate 85 /min ESTELA DORMAN MD [facility] 05-15-2022 23:18-0500 Respiratory rate 18 /min ESTELA DORMAN MD [facility] 05-15-2022 23:18-0500 Systolic Blood Pressure Non-Invasive 150 1 ESTELA DORMAN MD [facility] 05-04-2022 14:16-0500 Body weight 64.41 kg Kandy Metzger MD Work Phone: [facility] 05-04-2022 14:16-0500 Diastolic blood pressure 80 mm[Hg] Kandy Metzger MD Work Phone: [facility] 05-04-2022 14:16-0500 Systolic blood pressure 120 mm[Hg] Kandy Metzger MD Work Phone: [facility] 04-17-2022 14:41-0500 Body height 154.9 cm Lindy Cash TIE MAKER.CNM Work Phone: [facility] 04-17-2022 14:41-0500 Body weight 65.5 kg Lindy Cash APRN.CNM Work Phone: [facility] 04-17-2022 14:41-0500 Diastolic blood pressure 68 mm[Hg] Lindy Cash TIE MAKER.CNM Work Phone: [facility] 04-17-2022 14:41-0500 Systolic blood pressure 110 mm[Hg] Lindy Cash TIE MAKER.CNM Work Phone: [facility] 03-20-2022 19:08-0400 Body weight 65.32 kg Rod Amaya MD Work Phone: [facility] 03-20-2022 19:08-0400 Diastolic blood pressure 72 mm[Hg] Rod Amaya MD Work Phone: [facility] 03-20-2022 19:08-0400 Heart rate 76 /min Rod Amaya MD Work Phone: [facility] 03-20-2022 19:08-0400 SaO2% (BldA) [Mass fraction] 96 % Rod Amaya MD Work Phone: [facility] 03-20-2022 19:08-0400 Systolic blood pressure 116 mm[Hg] Rod Amaya MD Work Phone: [facility] 03-19-2022 13:29-0400 Body height 154.9 cm Analy Romero TIE MAKER.FRAME STRIPPER Work Phone: [facility] 03-19-2022 13:29-0400 Body weight 64.41 kg Analy Romero TIE MAKER.FRAME STRIPPER Work Phone: [facility] 03-19-2022 13:29-0400 Diastolic blood pressure 72 mm[Hg] Analy Romero TIE MAKER.FRAME STRIPPER Work Phone: [facility] 03-19-2022 13:29-0400 Heart rate 66 /min Analy Romero TIE MAKER.FRAME STRIPPER Work Phone: [facility] 03-19-2022 13:29-0400 Systolic blood pressure 112 mm[Hg] Analy Romero TIE MAKER.FRAME STRIPPER Work Phone: [facility] 03-08-2022 20:44-0400 Diastolic blood pressure 64 mm[Hg] ALINE CHAPA MD [facility] 03-08-2022 20:44-0400 Heart rate 70 /min ALINE CHAPA MD [facility] 03-08-2022 20:44-0400 Reason For Taking VItal Signs ALINE CHAPA MD [facility] 03-08-2022 20:44-0400 Respiratory rate 16 /min ALINE CHAPA MD [facility] 03-08-2022 20:44-0400 Systolic blood pressure 112 mm[Hg] ALINE CHAPA MD [facility] 03-08-2022 19:08-0400 Body temperature 99.14 [degF] ALINE CHAPA MD [facility] 03-08-2022 19:08-0400 Diastolic blood pressure 71 mm[Hg] ALINE CHAPA MD [facility] 03-08-2022 19:08-0400 Heart rate 69 /min ALINE CHAPA MD [facility] 03-08-2022 19:08-0400 Respiratory rate 16 /min ALINE CHAPA MD [facility] 03-08-2022 19:08-0400 Systolic blood pressure 132 mm[Hg] ALINE CHAPA MD [facility] 03-05-2022 09:22-0400 Body weight 63.96 kg Milagro Mohamud TIE MAKER.STEMHOLE BORER Work Phone: [facility] 03-05-2022 09:22-0400 Diastolic blood pressure 60 mm[Hg] Milagro Mohamud TIE MAKER.STEMHOLE BORER Work Phone: [facility] 03-05-2022 09:22-0400 Heart rate 68 /min Milagro Mohamud TIE MAKER.STEMHOLE BORER Work Phone: [facility] 03-05-2022 09:22-0400 Respiratory rate 16 /min Milagro Mohamud TIE MAKER.STEMHOLE BORER Work Phone: [facility] 03-05-2022 09:22-0400 Systolic blood pressure 108 mm[Hg] Milagro Mohamud TIE MAKER.STEMHOLE BORER Work Phone: [facility] 03-02-2022 16:05-0400 Body temperature 99.3 [degF] Jeff Smith TIE MAKER.FRAME STRIPPER Work Phone: [facility] 03-02-2022 16:05-0400 Body weight 64.41 kg Jeff Smith TIE MAKER.FRAME STRIPPER Work Phone: [facility] 03-02-2022 16:05-0400 Diastolic blood pressure 72 mm[Hg] [facility] TIE MAKER.FRAME STRIPPER Work Phone: [facility] 03-02-2022 16:05-0400 Heart rate 69 /min [facility] TIE MAKER.FRAME STRIPPER Work Phone: [facility] 03-02-2022 16:05-0400 Respiratory rate 18 /min [facility] TIE MAKER.FRAME STRIPPER Work Phone: [facility] 03-02-2022 16:05-0400 SaO2% (BldA) [Mass fraction] 97 % [facility] TIE MAKER.FRAME STRIPPER Work Phone: [facility] 03-02-2022 16:05-0400 Systolic blood pressure 112 mm[Hg] [facility] TIE MAKER.FRAME STRIPPER Work Phone: [facility] 02-10-2022 01:24-0400 Diastolic blood pressure 70 mm[Hg] DR KAROL BACA MD [facility] 02-10-2022 01:24-0400 Heart rate 72 /min DR KAROL BACA MD [facility] 02-10-2022 01:24-0400 Respiratory rate 16 /min DR KAROL BACA MD [facility] 02-10-2022 01:24-0400 Systolic blood pressure 128 mm[Hg] DR KAROL BACA MD [facility] 02-10-2022 00:02-0400 Body temperature 98.96 [degF] DR KAROL BACA MD [facility] 02-10-2022 00:02-0400 Diastolic blood pressure 79 mm[Hg] DR KAROL BACA MD [facility] 02-10-2022 00:02-0400 Heart rate 82 /min DR KAROL BACA MD [facility] 02-10-2022 00:02-0400 Respiratory rate 16 /min DR KAROL BCAA MD [facility] 02-10-2022 00:02-0400 Systolic blood pressure 128 mm[Hg] DR KAROL BACA MD [facility] 02-08-2022 11:22-0400 Body height 154.9 cm Milagro Mohamud TIE MAKER.STEMHOLE BORER Work Phone: [facility] 02-08-2022 11:22-0400 Body weight 63.5 kg Milagro Mohamud TIE MAKER.STEMHOLE BORER Work Phone: [facility] 02-08-2022 11:22-0400 Diastolic blood pressure 68 mm[Hg] Milagro Mohamud TIE MAKER.STEMHOLE BORER Work Phone: [facility] 02-08-2022 11:22-0400 Heart rate 72 /min Milagro Mohamud TIE MAKER.STEMHOLE BORER Work Phone: [facility] 02-08-2022 11:22-0400 Respiratory rate 16 /min Milagro Mohamud TIE MAKER.STEMHOLE BORER Work Phone: [facility] 02-08-2022 11:22-0400 Systolic blood pressure 102 mm[Hg] Milagro Mohamud TIE MAKER.STEMHOLE BORER Work Phone: [facility] 01-09-2022 13:50-0400 Body weight 64.86 kg Jeferson Glez MD Work Phone: [facility] 01-09-2022 13:50-0400 Diastolic blood pressure 60 mm[Hg] Jeferson Glez MD Work Phone: [facility] 01-09-2022 13:50-0400 Systolic blood pressure 100 mm[Hg] Jeferson Glez MD Work Phone: [facility] 12-22-2021 13:59-0400 Diastolic blood pressure 69 mm[Hg] Zonia Casas MD Work Phone: [facility] 12-22-2021 13:59-0400 Heart rate 84 /min Zonia Casas MD Work Phone: [facility] 12-22-2021 13:59-0400 Respiratory rate 16 /min Zonia Casas MD Work Phone: [facility] 12-22-2021 13:59-0400 SaO2% (BldA) [Mass fraction] 98 % Zonia Casas MD Work Phone: [facility] 12-22-2021 13:59-0400 Systolic blood pressure 104 mm[Hg] Zonia Casas MD Work Phone: [facility] 12-22-2021 13:42-0400 Body temperature 97.9 [degF] Zonia Casas MD Work Phone: [facility] 12-22-2021 13:05-0400 Body height 154.9 cm Zonia Casas MD Work Phone: [facility] 12-22-2021 13:05-0400 Body weight 63.05 kg Zonia Casas MD Work Phone: [facility] 11-27-2021 08:49-0400 Body height 157 cm Analy Romero TIE MAKER.FRAME STRIPPER Work Phone: [facility] 11-27-2021 08:49-0400 Body weight 63.05 kg Analy Romero TIE MAKER.FRAME STRIPPER Work Phone: [facility] 11-27-2021 08:49-0400 Diastolic blood pressure 58 mm[Hg] Analy Romero TIE MAKER.FRAME STRIPPER Work Phone: [facility] 11-27-2021 08:49-0400 Heart rate 77 /min Analy Romero TIE MAKER.FRAME STRIPPER Work Phone: [facility] 11-27-2021 08:49-0400 SaO2% (BldA) [Mass fraction] 98 % Analy Romero TIE MAKER.FRAME STRIPPER Work Phone: [facility] 11-27-2021 08:49-0400 Systolic blood pressure 98 mm[Hg] Analy Romero TIE MAKER.FRAME STRIPPER Work Phone: [facility] 09-25-2021 14:12-0400 Body weight 64.41 kg Amparoradha Cartwrighthof TIE MAKER.FRAME STRIPPER Work Phone: [facility] 09-25-2021 14:12-0400 Diastolic blood pressure 78 mm[Hg] Amparo Tannhof TIE MAKER.FRAME STRIPPER Work Phone: [facility] 09-25-2021 14:12-0400 Heart rate 79 /min Amparo Tannhof TIE MAKER.FRAME STRIPPER Work Phone: [facility] 09-25-2021 14:12-0400 Respiratory rate 16 /min Amparoradha Cartwrighthof TIE MAKER.FRAME STRIPPER Work Phone: [facility] 09-25-2021 14:12-0400 SaO2% (BldA) [Mass fraction] 97 % Amparo Tannhof TIE MAKER.FRAME STRIPPER Work Phone: [facility] 09-25-2021 14:12-0400 Systolic blood pressure 110 mm[Hg] Amparo Cartwrighthof TIE MAKER.FRAME STRIPPER Work Phone: [facility] 09-21-2021 23:12-0400 Diastolic blood pressure 70 mm[Hg] ORTEGA BUITRAGO MD [facility] 09-21-2021 23:12-0400 Heart rate 60 /min ORTEGA BUITRAGO MD [facility] 09-21-2021 23:12-0400 Respiratory rate 18 /min ORTEGA BUITRAGO MD [facility] 09-21-2021 23:12-0400 Systolic blood pressure 113 mm[Hg] ORTEGA BUITRAGO MD [facility] 09-21-2021 22:00-0400 Diastolic blood pressure 58 mm[Hg] ORTEGA BUITRAGO MD [facility] 09-21-2021 22:00-0400 Heart rate 61 /min ORTEGA BUITRAGO MD [facility] 09-21-2021 22:00-0400 Systolic blood pressure 109 mm[Hg] ORTEGA BUITRAGO MD [facility] 09-21-2021 20:39-0400 Body temperature 99.32 [degF] ORTEGA BUITRAGO MD [facility] 09-21-2021 20:39-0400 Body weight 65.8 kg ORTEGA BUITRAGO MD [facility] 09-21-2021 20:39-0400 Diastolic blood pressure 91 mm[Hg] ORTEGA BUITRAGO MD [facility] 09-21-2021 20:39-0400 Heart rate 88 /min ORTEGA BUITRAGO MD [facility] 09-21-2021 20:39-0400 Respiratory rate 16 /min ORTEGA BUITRAGO MD [facility] 09-21-2021 20:39-0400 Systolic blood pressure 138 mm[Hg] ORTEGA BUITRAGO MD [facility] 09-06-2021 15:39-0400 Body weight 65.77 kg Lindy Cash APRN.CNM Work Phone: [facility] 09-06-2021 15:39-0400 Diastolic blood pressure 64 mm[Hg] Lindy Cash APRN.CNM Work Phone: [facility] 09-06-2021 15:39-0400 Systolic blood pressure 102 mm[Hg] Lindy Cash APRN.CNM Work Phone: [facility] 04-05-2021 15:32-0500 Body temperature 98.96 [degF] TABATHA FIGUEROA MD [facility] 04-05-2021 15:32-0500 Diastolic blood pressure 72 mm[Hg] TABATHA FIGUEROA MD [facility] 04-05-2021 15:32-0500 Heart rate 82 /min TABATHA FIGUEROA MD [facility] 04-05-2021 15:32-0500 Respiratory rate 18 /min TABATHA FIGUEROA MD [facility] 04-05-2021 15:32-0500 Systolic blood pressure 111 mm[Hg] TABATHA FIGUEROA MD [facility] Encounters Encounter Date Encounter Type Care Provider Facility Start: 06-05-2023 End: 06-05-2023 Emergency department patient visit DR ROD AMAYA MD Facility:[facility] Start: 06-05-2023 End: 06-05-2023 Emergency department patient visit SAMANTHA OBDULIOSonal DICK [facility] Start: 06-03-2023 End: 06-03-2023 ambulatory [place]RO [place] Facility:[facility] Start: 05-28-2023 End: 05-28-2023 ambulatory RICHMOND FISHER Facility:[facility] Start: 05-27-2023 ambulatory [facility] Facility:[facility] Start: 05-14-2023 End: 05-14-2023 ambulatory ROD AMAYA Facility:[facility] Start: 05-02-2023 End: 05-02-2023 ambulatory JEFERSON GLEZ Facility:[facility] Start: 05-02-2023 End: 05-02-2023 Patient encounter procedure Celeste Guerrero MD Work Phone: OB/Gynecology Procedures Date Procedure Procedure Detail Performing Clinician Start: 05-02-2023 Urine test visual color cmprsn nadya Glez MD Work Phone: Start: 03-18-2023 Iadna trichomonas vaginalis amplified probe tech Lindy Cash TIE MAKER.CNM Work Phone: Start: 03-18-2023 Screening digital breast tomosynthesis bi Jeferson Glez MD Work Phone: Start: 07-30-2022 Us pelvic nonobstetric real-time image complete Martha Villalobos TIE MAKER.CNM Work Phone: Start: 05-04-2022 Urine test visual color cmprsn nadya Metzger MD Work Phone: Start: 05-02-2022 Us abdominal real time w/image limited Analy Romero TIE MAKER.FRAME STRIPPER Work Phone: Start: 05-01-2022 Us pelvic nonobstetric real-time image complete Lindy Cash TIE MAKER.CNM Work Phone: Start: 12-22-2021 Esophagogastroduodenoscopy transoral diagnostic Analy Romero TIE MAKER.FRAME STRIPPER Work Phone: Start: 09-29-2021 Us retroperitoneal real time w/image complete Amparo Arteaga TIE MAKER.FRAME STRIPPER Work Phone: Start: 09-06-2021 Urnls dip stick/tablet rgnt auto w/o microscopy Lindy Cash TIE MAKER.CNM Work Phone: delivery - delivered (finding) TABATHA FIGUEROA MD Colonoscopy TABATHA FIGUEROA MD Loop electrosurgical excision procedure of cervix TABATHA FIGUEROA MD Plan of Treatment Date Care Activity Detail Author Start: 03-18-2028 HPV Testing HPV Testing [facility] Start: 03-18-2028 Pap Testing Pap Testing [facility] Start: 03-18-2028 Screening for malign ant neoplasm of cervix [facility] Start: 04-17-2027 HPV TESTING HPV TESTING [facility] Start: 04-17-2027 PAP TESTING PAP TESTING [facility] Start: 03-31-2025 Urine microalbumin profile [facility] Start: 03-18-2024 End: 04-16-2024 TAB SCREENING W [facility]LAYNE TAB SCREENING W [facility] Radiology Routine Encounter for screening mammogram for breast cancer Dense breast tissue Expected: 03/18/2024 (Approximate), Expires: 04/16/2024 [facility] Work Phone: Immunizations Immunization Date Immunization Notes Care Provider Fa george 06-28-2017 influenza virus vaccine, unspecified formulation Scottie Cerrato MA [facility] 05-11-2015 RHO(D) immune globul in- IV or IM Rod Amaya MD Work Phone: [facility] 03-31-2015 RHO(D) immune globul in- IV or IM Rod Amaya MD Work Phone: [facility] Work Phone: 03-31-2015 tetanus toxoid, redu logan diphtheria toxoid, and acellular pertussis vaccine, adsorbed Rod Amaya MD Work Phone: [facility] Work Phone: 02-09-2015 influenza, injectabl e, quadrivalent, contains preservative Rod Amaya MD Work Phone: [facility] Work Phone: 04-07-2014 influenza, seasonal, injectable Rod Amaya MD Work Phone: [facility] 03-29-2009 novel [id number], all formulations Rod Amaya MD Work Phone: [facility] 02-23-2009 influenza virus vaccine, unspecified formulation Rod Amaya MD Work Phone: [facility] 12-16-2008 RHO(D) immune globul in- IV or IM Rod Amaya MD Work Phone: [facility] Work Phone: 12-06-2004 diphtheria and tetan us toxoids, adsorbed for pediatric use Rod Amaya MD Work Phone: [facility] Work Phone: NEGATED: Highlighted row has not occurred!05-02-2023 Human Papillomavirus 9-valent vaccine Celeste Guerrero MD Work Phone: [facility] Payers Date Payer Category Payer Medicaid [id number] 2022 Medicaid [id number] 2008 Medicaid [employer] [facility] [facility] MEDICAID [id number] 2008-Present [phone] [address] [place] [address] Medicaid [id number] 2008 Medicaid [id number] 1983 Unknown [id number] Social History Date Type Detail Facility Start: 04-23-2018 End: 06-05-2023 Heavy tobacco smoker (finding) [facility] Assigned At [facility] Start: 10-28-2014 End: 01-09-2022 Tobacco smoking status PAIS Smokes tobacco daily [facility] History of tobacco use Cigarette Smoker C [facility] Start: 06-30-2021 End: 04-17-2022 Alcohol intake Current non-drinker of alcohol (finding) [facility] Start: 1985 Sex Assigned At Not on file C [facility] Start: 06-26-2021 End: 04-20-2022 Exposure to SARS-CoV-2 (event) Not sure [facility] Start: 10-28-2014 End: 09-27-2022 Cigarettes smoked current (pack per day) - Reported 0.5 [facility] Start: 10-28-2014 End: 01-09-2022 Tobacco use and exposure Smokeless tobacco non-user [facility] Work Phone: Start: 12-25-2021 End: 01-04-2022 Exposure to SARS-CoV-2 (event) Unable to assess [facility] Start: 09-27-2022 End: 11-12-2022 Tobacco use panel [facility] Adult Depression Screening Assessment 0 [facility] Start: 03-18-2023 End: 05-02-2023 Alcohol intake Current drinker of alcohol (finding) [facility] Functional Status Date Assessment Result Facility 06-05-2023 Functional Status Independent [facility] 06-05-2023 Functional Status Standard Safet y ID band on, Allergy Band on, Call device within reach, Bed in low position, Wheels locked, Upper/Half-Length side-rails up, Bedside Cart Locked, Safety level maintained [facility] 05-15-2022 Functional Status Independent [facility] 03-08-2022 Functional Status Standard Safet y ID band on, Allergy Band on, Call device within reach, Bed in low position, Wheels locked, Upper/Half-Length side-rails up, Bedside Cart Locked, Visitor at bedside, Safety level maintained [facility] 03-08-2022 Functional Status [facility] 02-10-2022 Functional Status Assistive Device None A [facility] 02-10-2022 Functional Status Standard Safet y ID band on, Call device within reach, Bed in low position [facility] 09-21-2021 Functional Status [facility] 09-21-2021 Functional Status [facility] Mental Status Date Assessment Result Facility 06-05-2023 Mental Status Orientation Oriented x 4 [facility] 05-15-2022 Mental Status Orientation Oriented x 4 [facility] 03-08-2022 Mental Status Orientation Oriented x 4 [facility] 03-08-2022 Mental Status [facility] 03-08-2022 Mental Status [facility] 02-10-2022 Mental Status Orientation Oriented x 4 [facility] 09-21-2021 Mental Status [facility] 09-21-2021 Mental Status [facility] Clinical Notes 11-16-2014 to 06-05-2023 Patient InstructionsCeleste Guerrero MD - 05/02/2023 10:53 AM ESTTelephone Encounter - Brooke Sneed RN - 04/01/2023 2:25 PM ESTTelephone Encounter - Debbie Bryant RN - 04/01/2023 2:19 PM EST Note Date & Type Note Facility 06-05-2023 Hospital Discharge instructions Patient Education 06/05/2023 20:25:20 Knee Pain of Uncertain Cause Knee Pain with Uncertain Cause There are several common causes for knee pain. These can include: A sprain of the ligaments that support the joint An injury to the cartilage lining of the joint Arthritis from bgco-zku-oiah or inflammation There are other causes as well. There may also be swelling, reduced movement of the knee joint, and pain with walking. A definite diagnosis will still need to be made. If your symptoms don't improve, further follow-up and testing may be needed. Home care Stay off the injured leg as much as possible until pain improves. Apply an ice pack over the injured area for 15 to 20 minutes every 3 to 6 hours. You should do this for the first 24 to 48 hours. You can make an ice pack by filling a plastic bag that seals at the top with ice cubes and then wrapping it with a thin towel. Continue to use ice packs for relief of pain and swelling as needed. As the ice melts, be careful not to get your wrap, splint, or cast wet. After 48 hours, apply heat (warm shower or warm bath) for 15 to 20 minutes several times a day, or alternate ice and heat. If you have to wear a fvsd-tnl-ocpm knee brace, you can open it to apply the ice pack, or heat, directly to the knee. Never put ice directly on the skin. Always wrap the ice in a towel or other type of cloth. You may use jxtn-qdm-rpwxpwy pain medicine to control pain, unless another pain medicine was prescribed. If you have chronic liver or kidney disease or ever had a stomach ulcer or gastrointestinal bleeding, talk with your healthcare provider before using these medicines. If crutches or a walker have been recommended, don't put weight on the injured leg until you can do so without pain. Check with your healthcare provider before returning to sports or full work duties. If you have a oifm-pqh-aafo knee brace, you can remove it to bathe and sleep, unless told otherwise. Follow-up care Follow up with your healthcare provider as advised. This is usually within 1 to 2 weeks. If X-rays were taken, you will be told of any new findings that may affect your care Call 911 Call 911 if you have: Shortness of breath Chest pain When to seek medical advice Call your healthcare provider right away if any of these occur: Toes or foot becomes swollen, cold, blue, numb, or tingly Pain or swelling spreads over the knee or calf Warmth or redness appears over the knee or calf Other joints become painful Rash appears Fever of 100.4 F (38 C) or higher, or as directed by your healthcare provider Yonas [id number] [employer]. [address] [place] [address]. All rights reserved. This information is not intended as a substitute for professional medical care. Always follow your healthcare professional's instructions. Follow Up Care 06/05/2023 17:52:10 With:KENDY JOHNSON MD Address: [address] [place], [place] [address] [address] [place] [address] [phone] When:2-4 days With:ROD AMAYA MD Address: [address] [place] [address]- When:2-4 days [facility] 06-05-2023 Note Discharge Instructions Thank you for allowing [place] to assist you with your healthcare needs. The following is important discharge information regarding your hospital visit. Diagnosis from Today's Visit Knee pain Leg pain-swelling What to Do Next Instructions from Your Care Team No qualifying data available. Post Acute Orders No qualifying data available. You Need to Schedule the Following Appointments Follow Up with KENDY JOHNSON MD When Within 2-4 days Where: [address] [facility] [place] [address] [place] [address]- [phone] Follow Up with ROD AMAYA MD When Within 2-4 days Where: [address] [place] [address]- Allergies traMADol Medications Please ask your primary doctor or pharmacist before taking any other medication not listed, including over the counter drugs, herbal medications, vitamins and or supplements as they may interact with your home medications. What How Much When Why Instructions Last Dose New acetaminophen-oxyCODONE (Percocet 5 mg-325 mg oral tablet) 1 tab(s) by mouth Every 6 hours as needed for Pain Knee pain Duration: 3 Days Printed Prescription Unchanged albuterol (Albuterol (Eqv-ProAir HFA) 90 mcg/ inh inhalation aerosol) Unchanged amoxicillin-clavulanate (amoxicillin-clavulanate 875 mg-125 mg oral tablet) 1 tab(s) by mouth Every 12 hours Duration: 10 Days Unchanged azithromycin (azithromycin 250 mg oral tablet) 1 tab(s) by mouth Once a day Duration: 5 Days Unchanged cyclobenzaprine (Flexeril) by mouth Three (3) times a day Unchanged dicyclomine (dicyclomine 10 mg oral capsule) 1 cap by mouth Four (4) times a day Abdominal pain - cause unknown Duration: 7 Days Unchanged ibuprofen (ibuprofen 800 mg oral tablet) 1 tab(s) by mouth Three (3) times a day as needed for for pain Unchanged levonorgestrel (Mirena) Intrauterine Once Unchanged loratadine (loratadine 10 mg oral tablet) 1 tab(s) by mouth Once a day Unchanged omeprazole (omeprazole 40 mg oral delayed release capsule) 1 cap by mouth Once a day Unchanged ondansetron (ondansetron 4 mg oral tablet, disintegrating) 1 tab(s) by mouth Every 8 hours as needed for as needed for nausea/vomiting Unchanged promethazine (promethazine 25 mg oral tablet) 1 tab(s) by mouth Every 4 hours Abdominal pain - cause unknown Unchanged tiZANidine (tiZANidine 2 mg oral tablet) 1 tab(s) by mouth Every 8 hours Muscle spasm - tone Please take this list to your next doctor s visit. Bring all medications you take, including over the counter medications, herbals and other supplements with you to your doctor s visit. Patients and families are reminded to discard old lists and to update any records with all medication providers or retail pharmacies. Education Materials Knee Pain with Uncertain Cause There are several common causes for knee pain. These can include: A sprain of the ligaments that support the joint An injury to the cartilage lining of the joint Arthritis from uadh-kww-vmfa or inflammation There are other causes as well. There may also be swelling, reduced movement of the knee joint, and pain with walking. A definite diagnosis will still need to be made. If your symptoms don't improve, further follow-up and testing may be needed. Home care Stay off the injured leg as much as possible until pain improves. Apply an ice pack over the injured area for 15 to 20 minutes every 3 to 6 hours. You should do this for the first 24 to 48 hours. You can make an ice pack by filling a plastic bag that seals at the top with ice cubes and then wrapping it with a thin towel. Continue to use ice packs for relief of pain and swelling as needed. As the ice melts, be careful not to get your wrap, splint, or cast wet. After 48 hours, apply heat (warm shower or warm bath) for 15 to 20 minutes several times a day, or alternate ice and heat. If you have to wear a mrsk-cll-chbb knee brace, you can open it to apply the ice pack, or heat, directly to the knee. Never put ice directly on the skin. Always wrap the ice in a towel or other type of cloth. You may use ydkj-qhp-mitrkuw pain medicine to control pain, unless another pain medicine was prescribed. If you have chronic liver or kidney disease or ever had a stomach ulcer or gastrointestinal bleeding, talk with your healthcare provider before using these medicines. If crutches or a walker have been recommended, don't put weight on the injured leg until you can do so without pain. Check with your healthcare provider before returning to sports or full work duties. If you have a yuka-iot-imsb knee brace, you can remove it to bathe and sleep, unless told otherwise. Follow-up care Follow up with your healthcare provider as advised. This is usually within 1 to 2 weeks. If X-rays were taken, you will be told of any new findings that may affect your care Call 911 Call 911 if you have: Shortness of breath Chest pain When to seek medical advice Call your healthcare provider right away if any of these occur: Toes or foot becomes swollen, cold, blue, numb, or tingly Pain or swelling spreads over the knee or calf Warmth or redness appears over the knee or calf Other joints become painful Rash appears Fever of 100.4 F (38 C) or higher, or as directed by your healthcare provider [employer] [id number] [employer]. [address] [place] [address], [place] [address]. All rights reserved. This information is not intended as a substitute for professional medical care. Always follow your healthcare professional's instructions. Additional Information VACCINATE! IT SAVES LIVES! Members of the community who have not yet received the COVID-19 vaccine and would like to receive it can visit one of [facility] vaccine clinics. There are many vaccine clinic locations within the [facility]. For locations and available times, please visit [email or web address] It is important to note that some COVID mobile vaccine clinics are held outdoors and may be canceled in rainy or stormy conditions. To learn more about pediatric vaccinations (ages 5-11), we invite you to visit the [facility] webpage. [email or web address] To learn more about the COVID-19 vaccine, we invite you to visit the CDC website for a list of frequently asked questions. https://www.cdc.gov/coronavirus/2 019-ncov/vaccines/faq.html [facility] Patient Portal Access Instructions: Stay connected with your healthcare team and access your personal medical information anytime with the [facility] Patient Portal. If you would like a full copy of your medical records please contact the [facility] Medical Records Department Saturday through Saturday between 8a.m. and 4:30p.m. Please follow the directions below to access the portal: 1.Access the email account you provided upon registration to the hospital.2.Look for an invitation email from [facility].3.Open the email and access the invitation link: Accept Invitation to [facility]4.Fill in the required wilcox to create your account. Sign into [email or web address] with your username and password that you created in the above steps to stay up to date. You can then view a summary of results, a summary of your visits, and the ability to download your summaries to your computer or send the information securely to a physician. Remember that your healthcare information is confidential, so carefully consider who you will allow to register on the [facility] Patient Portal for access to your information. You can also access the [facility] Patient Portal on the [place] [facility]. Simply click on Health Records under Health Data and then click on the [facility] logo. HOW TO SAFELY DISPOSE OF PRESCRIPTION MEDICATIONS Please use one of the following methods to safely dispose of your unused medications. 1.Use a drug disposal kit: the drug disposal pouch allows you to safely discard your old and unused drugs. Ask your nurse to give you one when you are discharged.2.Visit a local take-back location: Many local pharmacies and police departments have programs that collect old and unwanted prescription drugs. Call your local pharmacy or go to http://[employer].FunPuntos/2F2Ua8b to find one close to you.3.Make use of household items: Use cat litter or old coffee grounds to dispose medications if other options are not available. Mix your drugs with these household products, seal them in an airtight container and throw it into the garbage. Call [facility]: [phone] to be sure your drugs can be disposed of in this way. Some medicines may require a different approach.4.Never flush your medications down the toilet. IF YOU HAVE BEEN PRESCRIBED AN OPIOIDS FOR PAIN If you have been prescribed an opioid (such as hydrocodone, oxycodone or morphine), it is critical to understand the possible side effects and risks of opioid pain medications. Even when taken as directed, opioids can have several side effects including: Tolerance, meaning you might need to take more of a medication for the same pain relief. Nausea, vomiting and/or constipation. Sleepiness, dizziness, dry mouth, confusion, depression or itching. Physical dependence, meaning you have withdrawal symptoms when a medication is stopped ? this can develop within a few days. KNOW YOUR RESPONSIBILITIES It is important to know exactly how much and how often to take the opioid pain medications you are prescribed. Never take opioids in higher amounts or more often than prescribed. Do not combine opioids with alcohol or other drugs that cause drowsiness, such as benzodiazepines, also known as benzos, including diazepam and alprazolam, muscle relaxants or sleep aids. Never sell or share prescription opioids. This is illegal. Store opioids in a secure place and out of reach of others (including children, family, friends and visitors). The last page(s) of this document has been signed and retained as a CHART COPY Signatures Patient Education Materials Knee Pain of Uncertain Cause Medication Leaflets My discharge plan and instructions have been reviewed and explained to me and IFARIDA MYSTICA E understand my current condition and have read and understand these discharge instructions. I have received a written copy of the plan/instructions. If I have questions, I am aware that I should contact my doctor. 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 HISTORY: ORDERING SYSTEM PROVIDED HISTORY: Reason for Exam: fall FINDINGS: No fracture or dislocation. No significant joint fluid. No radiopaque foreign body. IMPRESSION: No acute osseous abnormality by radiograph. Interpreted by: Micah Rubi Preliminary Report By: Micah Rubi Electronically signed By Micah Rubi Dictated Date: 06/05/2023 8:16:00 PM Prelim Date: 06/05/2023 8:16:28 PM Sign Date: 06/05/2023 8:16:28 PM Ordering Provider: [facility] 06-03-2023 Note HNO ID: [id number] Author: ZOEY ROWAN RT(R) Service: Radiology Author Type: Technologist Type: Progress Notes Filed: 06/03/2023 12:42 Note Text: Radiology Service Progress Note PATIENT NAME: Deena Iqbal DATE OF SERVICE: June 03, 2023 TIME: 12:29 PM PATIENT IDENTITY VERIFICATION COMPLETED USING TWO (2) IDENTIFIERS: Name and Date of confirmed by patient verbally. FALL SCREENING: Has the patient had 2 falls in the last year or 1 fall with injury or currently using an Ambulatory Assistive Device (Walker, Cane, Wheelchair, Crutches, etc.)? No PATIENT GENDER DATA: Female. status: : No status: NO. PATIENT RELEVANT IMPLANT DATA REVIEWED: Not Applicable RADIOLOGY DEPARTMENT: General X-ray: Exam(s) Completed: Lower Extremity X-Ray(s): Femur, Right PERIPHERAL IV DATA: Not applicable SIGNED BY: RT Edwige(R) June 03, 2023 12:29 PM [facility] 06-03-2023 Note HNO ID: [id number] Author: MILAGRO MOHAMUD APRN.STEMHOLE BORER Service: ? Author Type: Nurse Specialist Type: Progress Notes Filed: 06/03/2023 12:23 Note Text: SUBJECTIVE: Hepatitis B Vaccine(1 of 3 - 3-dose series) Never done Covid-19 Vaccine(1) Never done Pneumococcal Vaccine(1 of 2 - PCV) Never done Influenza Vaccine(1) due on 01/18/2023 HPI Deena Iqbal is a 37 year old female. PMH significant for ACTIVE PROBLEM LIST Gerd (Gastroesophageal Reflux Disease) Heart Murmur Generalized Anxiety Disorder Situational Depression History of Ca 125 Test Smoker Diverticulitis of Colon Cervical High Risk Hpv (Human Papillomavirus) Test Positive She presents today regarding leg pain after sustaining a fall approximately 1 week ago. She reports rollerskating and falling on a hard surface, possibly cement on her right side right hip and right knee. She has continued to note pain from the SI region down to her right knee. Moderate amount of pain. Worse with walking. Sensation of pulling when she is sitting. There is burning sensation in her knee. She notes pain to be sharp with movement. She notes not currently using compression on her knee. She notes Flexeril has helped somewhat. Tylenol IcyHot and ice and heat have not helped very much. Review of Systems Musculoskeletal: Positive for arthralgias. Objective BP 105/70 Pulse 85 Resp 16 Wt 66.7 kg (147 lb) LMP 04/30/2016 (Exact Date) BMI 27.78 kg/m? Physical Exam Vitals and nursing note reviewed. Constitutional: General: She is not in acute distress. Appearance: Normal appearance. She is not ill-appearing, toxic-appearing or diaphoretic. HENT: Head: Normocephalic and atraumatic. Neck: Vascular: No carotid bruit. Cardiovascular: Rate and Rhythm: Normal rate and regular rhythm. Pulses: Carotid pulses are 2+ on the right side and 2+ on the left side. Radial pulses are 2+ on the right side and 2+ on the left side. Dorsalis pedis pulses are 2+ on the right side and 2+ on the left side. Heart sounds: Normal heart sounds. Pulmonary: Effort: Pulmonary effort is normal. Abdominal: General: Bowel sounds are normal. Palpations: Abdomen is soft. Musculoskeletal: Right hip: Tenderness and bony tenderness present. No crepitus. Right knee: No crepitus. Decreased range of motion. Tenderness present. Right lower leg: No edema. Left lower leg: No edema. Comments: TTP patellar ligament, right SI Skin: General: Skin is warm and dry. Neurological: General: No focal deficit present. Mental Status: She is alert and oriented to person, place, and time. ALLERGIES Allergen Reactions Ultram [Tramadol] Other: See Comments nausea; felt bad Medications dicyclomine (BENTYL) 20 mg tablet Take 1 tablet by mouth three times a day as needed (for abdominal pain). cyclobenzaprine (FLEXERIL) 10 mg tablet Take 1 tablet by mouth three times a day as needed for muscle spasm or pain (May make very drowsy). omeprazole (PRILOSEC) 40 mg capsule Take 1 capsule by mouth once daily. albuterol HFA (PROVENTIL HFA, VENTOLIN HFA) 90 mcg/actuation inhaler Inhale 2 Puffs as instructed every 4 hours as needed. Bifidobacterium Infantis (ALIGN) 4 mg cap Take 1 capsule by mouth once daily. Dextran 70-Hypromellose, PF, (TEARS NATURAL PF) 0.1-0.3 % dpet Use 1 Drop in both eyes as needed. fluticasone (FLOVENT) 110 mcg/actuation inhaler Inhale 1 Puff as instructed two times a day. Shake well before use. Rinse mouth after use. cetirizine (ZYRTEC) 10 mg tablet Take 1 tablet by mouth once daily. ergocalciferol 50,000 unit capsule (VITAMIN D2, DRISDOL) Take 1 capsule by mouth one time a week. levonorgestrel (MIRENA) 20 mcg/24 hr (5 years) IUD 1 Each by INTRAUTERINE route continuous. Lidocaine-Hydrocortisone Ac 3-0.5 % crea by RECTAL route once daily as needed for up to 7 days. PAST MEDICAL HISTORY Diagnosis Date Abnormal glandular Papanicolaou smear of cervix 2002 Abn. 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 Acute pain of right knee - ICD9: 719.46, ICD10: M25.561 (primary diagnosis) 2. Right hip pain - ICD9: 719.45, ICD10: (more content not included)... [facility] 05-28-2023 Note HNO ID: [id number] Author: RICHMOND FISHER APRN.FRAME STRIPPER Service: ? Author Type: Nurse Practitioner Type: Progress Notes Filed: 05/28/2023 14:00 Note Text: SUBJECTIVE Mystica E Farida is a 37 year old female here today for a check up on her medical problems. Chief Complaint Patient presents with: F/U 6 months HPI Deena Iqbal is a 37 year old female. Here today for follow up. Seen in recently. Concerns that she is still having a lot of congestion and cough. Eyes watering a lot. Short of breath. Not having chest tightness. Some wheezing. She is a smoker, history of asthma. Albuterol helps some. Follows with Maurice VASQUEZ for stomach issues. Her medications were reviewed today and her list is now up to date. Medications Current Outpatient Medications Medication Sig cetirizine (ZYRTEC) 10 mg tablet Take 1 tablet by mouth once daily. ergocalciferol 50,000 unit capsule (VITAMIN D2, DRISDOL) Take 1 capsule by mouth one time a week. levonorgestrel (MIRENA) 20 mcg/24 hr (5 years) IUD 1 Each by INTRAUTERINE route continuous. dicyclomine (BENTYL) 20 mg tablet Take 1 tablet by mouth three times a day as needed (for abdominal pain). cyclobenzaprine (FLEXERIL) 10 mg tablet Take 1 tablet by mouth three times a day as needed for muscle spasm or pain (May make very drowsy). omeprazole (PRILOSEC) 40 mg capsule Take 1 capsule by mouth once daily. albuterol HFA (PROVENTIL HFA, VENTOLIN HFA) 90 mcg/actuation inhaler Inhale 2 Puffs as instructed every 4 hours as needed. Bifidobacterium Infantis (ALIGN) 4 mg cap Take 1 capsule by mouth once daily. Dextran 70-Hypromellose, PF, (TEARS NATURAL PF) 0.1-0.3 % dpet Use 1 Drop in both eyes as needed. fluticasone (FLOVENT) 110 mcg/actuation inhaler Inhale 1 Puff as instructed two times a day. Shake well before use. Rinse mouth after use. Lidocaine-Hydrocortisone Ac 3-0.5 % crea by RECTAL route once daily as needed for up to 7 days. No current facility-administered medications for this visit. ALLERGIES Allergen Reactions Ultram [Tramadol] Other: See Comments nausea; felt bad ACTIVE PROBLEM LIST Diverticulitis of Colon - 05/06/2023 Cervical High Risk Hpv (Human Papillomavirus) Test Positive - 05/06/2023 Comment: 02/2023 non 16/18 type. 05/11 colp w/ bx and ECC neg for dysplasia. repeat HPV in 1 year. Celeste Guerrero MD Smoker - 10/18/2020 Comment: Cigarettes History of Ca 125 Test - 04/12/2020 Comment: 04/11/20-Ca 125 mildly elevated 48 then repeat 45. Premenopausal. Repeat level with pelvic US in one year. Lindy Cash APRN.CNM Generalized Anxiety Disorder - 04/02/2018 Situational Depression - 04/02/2018 Heart Murmur - 04/17/2010 Comment: Per chart Gerd (Gastroesophageal Reflux Disease) - 03/29/2009 Social History Tobacco Use Smoking status: Every Day Packs/day: 0.50 Years: 20.00 Additional pack years: 0.00 Total pack years: 10.00 Types: Cigarettes Smokeless tobacco: Never Vaping Use Vaping Use: Never used Substance Use Topics Alcohol use: Yes Drug use: No Comment: MARIJUANA and CocaineIN PAST, NONE SINCE 2006 Review of Systems Respiratory: Positive for cough, shortness of breath and wheezing. Negative for apnea, choking, chest tightness and stridor. Cardiovascular: Negative. OBJECTIVE BP 100/60 Pulse 79 Wt 144 lb (65.3kg) SpO2 97% LMP 04/30/2016 Physical Exam Vitals and nursing note reviewed. Constitutional: General: She is awake. She is not in acute distress. Appearance: Normal appearance. She is well-developed and well-groomed. She is not ill-appearing, toxic-appearing or diaphoretic. HENT: Head: Normocephalic. Right Ear: External ear normal. Left Ear: External ear normal. Nose: Nose normal. Eyes: General: Vision grossly intact. Conjunctiva/sclera: Conjunctivae normal. Pupils: Pupils are equal, round, and reactive to light. Neck: Vascular: No JVD. Trachea: Trachea normal. Cardiovascular: Rate and Rhythm: Normal rate and regular rhythm. Pulses: Normal pulses. Heart sounds: Normal heart sounds. No murmur heard. Pulmonary: Effort: Pulmonary effort is normal. No accessory muscle usage, prolonged expiration or respiratory distress. Breath sounds: Normal breath sounds. Comments: Lung sounds tight Musculoskeletal: Cervical back: Neck supple. Skin: General: Skin is warm and dry. Capillary Refill: Capillary refill takes less than 2 seconds. Neurological: General: No focal deficit present. Mental Status: She is alert and oriented to person, place, and time. Mental status is at baseline. Psychiatric: Attention and Perception: Attention and perception normal. Mood and Affect: Mood and affect normal. Speech: Speech normal. Behavior: Behavior normal. Behavior is cooperative. Thought Content: Thought content normal. Cognition and Memory: Cognition and memory normal. Judgment: Judgment normal. ASSESSMENT/PLAN: 1. Moderate persistent a (more content not included)... [facility] 05-14-2023 Note HNO ID: [id number] Author: Zoey Rowan RT(R) Service: Radiology Author Type: Technologist Type: Progress Notes Filed: 05/14/2023 7:47 PM Note Text: Radiology Service Progress Note PATIENT NAME: Deena Iqbal DATE OF SERVICE: May 14, 2023 TIME: 7:41 PM PATIENT IDENTITY VERIFICATION COMPLETED USING TWO (2) IDENTIFIERS: Name and Date of confirmed by patient verbally. FALL SCREENING: Has the patient had 2 falls in the last year or 1 fall with injury or currently using an Ambulatory Assistive Device (Walker, Cane, Wheelchair, Crutches, etc.)? No PATIENT GENDER DATA: Female. status: : No status: NO. PATIENT RELEVANT IMPLANT DATA REVIEWED: Not Applicable RADIOLOGY DEPARTMENT: General X-ray: Exam(s) Completed: Chest X-Ray PERIPHERAL IV DATA: Not applicable SIGNED BY: RT Edwige(R) May 14, 2023 7:41 PM [facility] 05-14-2023 Note HNO ID: [id number] Author: Gwyn Chacon PA-C Service: ? Author Type: Physician Deck Specialist Type: Progress Notes Filed: 05/14/2023 7:49 PM Note Text: This note was created using [employer]. Subjective Deena Iqbal is a 37 year old female. HPI Presents with cough and wheezing over the past 4 days. She has had a fever for 4 days as well. Earlier today was 101.7 . She has been using her inhaler more. She did take a home COVID test today which was negative. Have history of asthma. No vomiting or diarrhea. Her daughter was sick with some congestion as well. Review of Systems Constitutional: Positive for fatigue and fever. HENT: Positive for congestion. Negative for ear pain. Respiratory: Positive for cough and wheezing. Cardiovascular: Negative. Gastrointestinal: Negative. Genitourinary: Negative. Musculoskeletal: Positive for myalgias. Neurological: Positive for headaches. All other systems reviewed and are negative. PAST MEDICAL HISTORY Diagnosis Date Abnormal glandular Papanicolaou smear of cervix 2002 Abn. 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 42 capsule 2 dicyclomine (BENTYL) 20 mg tablet Take 1 tablet by mouth three times daily as needed (for abdominal pain). 30 tablet 2 cetirizine (ZYRTEC) 10 mg tablet Take 1 tablet by mouth once daily. 30 tablet 11 cyclobenzaprine (FLEXERIL) 10 mg tablet Take 1 tablet by mouth three times daily as needed for muscle spasm or pain (May make very drowsy). 30 tablet 0 fluticasone (FLONASE) 50 mcg/actuation nasal spray Use 2 Sprays in each nostril once daily. Rinse mouth after use. 1 Each 5 alcaftadine (LASTACAFT ONCE DAILY RELIEF) 0.25 % drop Use 1 Drop in eyes once daily. Use antihistamine eyedrops as directed by your eye doctor albuterol HFA (PROVENTIL HFA, VENTOLIN HFA) 90 mcg/actuation inhaler Inhale 2 Puffs as instructed every 4 hours as needed. 1 Each 0 HYDROcodone-acetaminophen (NORCO) 5-325 mg per tablet promethazine (PHENERGAN) 25 mg tablet escitalopram oxalate (LEXAPRO) 5 mg tablet Take 1 tablet by mouth once daily. 30 tablet 11 ondansetron (ZOFRAN) 4 mg tablet as needed. ergocalciferol 50,000 unit capsule (VITAMIN D2, DRISDOL) Take 1 capsule by mouth one time a week. 12 capsule 3 omeprazole (PRILOSEC) 40 mg capsule Take 1 capsule by mouth once daily. 30 capsule 11 ondansetron orally disintegrating (ZOFRAN ODT) 4 mg disintegrating tablet Take 1 tablet by mouth every 8 hours as needed. 30 tablet 0 loratadine (CLARITIN) 10 mg tablet Take 1 tablet by mouth once daily. Can try this instead of cetirizine 30 Each 11 levonorgestrel (MIRENA) 20 mcg/24 hr (5 years) IUD 1 Each by INTRAUTERINE route continuous. 1 Each 0 Lidocaine-Hydrocortisone Ac 3-0.5 % crea by RECTAL route once daily as needed for up to 7 days. 7 g 0 No current facility-administered medications for this visit. PAST SURGICAL HISTORY Procedure Laterality Date ANESTH, SECTION DELIVERY ONLY 02/24/04, 2008 , low cervical DELIVERY ONLY 06/14/2015 , low transverse COLONOSCOPY 06/01/2022 COLSC FLX W/REMOVAL LESION BY HOT BX FORCEPS 07/25/2012 EGD W/O BRSH SPEC VARICIES INJ 12/22/2021 INSERT INTRAUTERINE DEVICE 05/20/2010 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 04/19/2014 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)_*FL 03/04/2003 FAMILY HISTORY Problem Relation Age of Onset No Known Problems Brother Heart Father Cancer Father small cell carcinoma of lung Cancer Maternal Grandmother stomach cancer Cancer Maternal Grandfather lung cancer Arthritis Maternal Grandfather Stroke Maternal Grandfather Heart Paternal Grandfather Heart Paternal Grandmother Diabetes Maternal Aunt other (Panic attacks) Sister Cancer Sister 29 Hodgkin's Lymphoma No Known Problems Brother Social History Tobacco Use Smoking status: Every Day Packs/day: 0.50 Years: 20.00 Additional pack years: 0.00 Total pack years: 10.00 Types: Cigarettes Smokeless tobacco: Never Vaping Use Vaping Use: Never used Substance Use Topics Alcohol use: Yes Drug use: No Comment: MARIJUANA and CocaineIN PAST, NONE SINCE 2006 Objective BP 102/70 Pulse 94 Temp 37.4 ?C (99.4 ?F) (Left Tympanic) Resp 16 Wt 66.1 kg (145 lb 12.8 oz) LMP 04/30/2016 (Exact Date) SpO2 96% BMI 27.55 kg/m? Physical Exam Vitals reviewed. Consti (more content not included)... [facility] 05-02-2023 Note HNO ID: [id number] Author: Celeste Guerrero MD Service: ? Author Type: Physician Type: Progress Notes Filed: 05/02/2023 5:13 PM Note Text: Deena is a 37 year old who presents today for a colposcopy. The patient's last pap smear was Positive HPV from February 2023. Patient has a history of abnormal pap: Yes. The patient has had prior treatment: none. test: negative UNIVERSAL PROTOCOL / SAFETY CHECKLIST Procedure to be Performed: Colposcopy with possible Biopsy Sign In: A Moment of CARE was completed. Personnel directly involved with the procedure wore the appropriate PPE (Personal Protective Equipment). Patient/Surrogate Stated/Verified: PATIENT VERIFIED(optional for EMERGENT procedures): Patient name, Date of , Relevant allergies, and The intended procedure Time Out Communication: Intended patient and procedure match the source documents. Consent documented and matches the intended procedure. Relevant labs, photos, and/or imaging studies have been reviewed. No implant(s) inserted. Sign Out: SIGN OUT (optional for EMERGENT procedures): All specimen containers correctly labeled. All instruments, equipment, possible retained foreign bodies accounted for. Post-procedure follow-up management communicated and Plan of Care Visit completed when applicable. PROCEDURE: EXTERNAL GENITALIA: Normal in appearance without lesions VAGINA: Normal in appearance without lesions CERVIX: Speculum placed in vagina and excellent visualization of cervix achieved. Cervix swabbed x 3 with 3% acetic acid solution. Cervix grossly normal. Squamocolumnar junction visualized. acetowhite changes noted 4 and 7 oclcock, punctations noted -none, mosaicism noted 4 oclock, and atypical vasculature noted -none. BIOPSY: Done at 4:00 and 7:00 ECC: done HEMOSTASIS: Obtained with silver nitrate and pressure Procedure Summary: Patient tolerated procedure well and colposcopy was adequate. ASSESSMENT: HPV effect PLAN: Specimens labeled and sent to Pathology. Will notify patient of results in 1-2 weeks. Post-procedure instructions reviewed and written material given to the patient. If indicated, lesion by colpo is amenable to office LEEP as lesion is small. encouraged HPV vaccine today and accepts- will call to schedule .Celeste Guerrero MD [facility] 05-02-2023 Instructions Celeste Guerrero MD - 05/02/2023 10:54 AM EST YOUR RECOVERY It may take a few weeks for your cervix to heal. While your cervix heals, you may have: - Vaginal bleeding (less than a normal menstrual period) - Mild cramping - A brown-black vaginal discharge (similar to coffee grounds) which is a result of the paste used to help stop bleeding from the procedure Do NOT put anything in the vagina for 1 week after your colposcopy if your doctor does a biopsy of your cervix. This includes sex, tampons, and douches. If you have any discomfort, you may take an over the counter pain medication (motrin, advil, ibuprofen, tylenol, etc). If this does not relieve your discomfort, contact your doctor's office for a prescription strength pain medication. It is okay to wear a sanitary pad until the discharge and spotting stops. RISKS Although problems seldom occur with colposcopy, there can be some complications. You may feel faint during and shortly after the procedure as well as have some bleeding and vaginal discharge after the procedure. There is also a risk of infection after the procedure. These complications are rare and can be easily treated. You should contact you doctor is you have any of the following: - Heavy bleeding (more than your normal period) - Bleeding with clots - Severe abdominal pain - Fever (more than 100.4F) - Foul smelling vaginal discharge RESULTS If a biopsy was taken, we will have the results of your biopsy in 1-2 weeks. If you do not hear the results of your biopsy after 2 weeks, please contact your physicians office for the results. Depending on the biopsy results, your doctor will determine your follow up plan which may include further testing or treatments. STAYING HEALTHY After the procedure, you will need to see your doctor for follow up visits during the year. At these visits your doctor will check the health of your cervix with a pap smear. After three normal pap smears, your doctor will allow you to return to having exams once a year. If you have another abnormal pap smear, you may need closer follow up for longer or you may need additional treatment. By making a few lifestyle changes after the procedure, you can help protect the health of your cervix: - Have regular pelvic exams and pap smears as ordered by your doctor. - Stop smoking as smoking increases your risk of developing a cancer of the cervix - If you have more than one sexual partner, limit your number of partners and use condoms to reduce your risks of STDs. If you have any additional questions, please contact your doctor's office. Gardasil Gardasil is a vaccine to protect against Human Papillomavirus (HPV) types 6, 11, 16, 18, 31,33,45, 52, 58. These viruses cause cancer and precancerous lesions on the cervix (opening between vagina and uterus), in the vagina and on the vulva (skin around the outside of the vagina) as well as genital warts. The vaccine cannot cause these diseases and cannot treat them if already present. Gardasil works best if given before contact with HPV. Most people are exposed to HPV soon after starting sexual activity. The vaccine is recommended between the ages of 9 and 45. Gardasil does not protect against all strains of HPV. Women who receive the vaccine still need to have regular pelvic exams and cervical cancer screening with the pap smear. You should ask your doctor if Gardasil is right for you if you have a weakened immune system, a bleeding disorder, plan to become soon or have a current illness causing fever. Gardasil is not recommended for women. You should be sure your doctor is aware of any allergies you have and all medications and herbal supplements you take. Gardasil is given to those ages 9-14 in 2 doses at 0 and 8 months. In ages 15-45, three injections are given at 0,2,6 months. Common side effects include pain, redness, itching and swelling at the injection site, nausea, fever, dizziness and fainting. Rare but potentially serious reactions have been reported. These include allergic reaction, swollen glands, joint and muscle pain, weakness and Guillain-Appleton syndrome. documented in this encounter [facility] 05-02-2023 History of Present illness Narrative Deena is a 37 year old who presents today for a colposcopy. The patient's last pap smear was Positive HPV from February 2023. Patient has a history of abnormal pap: Yes. The patient has had prior treatment: none. test: negative UNIVERSAL PROTOCOL / SAFETY CHECKLIST Procedure to be Performed: Colposcopy with possible Biopsy Sign In: A Moment of CARE was completed. Personnel directly involved with the procedure wore the appropriate PPE (Personal Protective Equipment). Patient/Surrogate Stated/Verified: PATIENT VERIFIED(optional for EMERGENT procedures): Patient name, Date of , Relevant allergies, and The intended procedure Time Out Communication: Intended patient and procedure match the source documents. Consent documented and matches the intended procedure. Relevant labs, photos, and/or imaging studies have been reviewed. No implant(s) inserted. Sign Out: SIGN OUT (optional for EMERGENT procedures): All specimen containers correctly labeled. All instruments, equipment, possible retained foreign bodies accounted for. Post-procedure follow-up management communicated and Plan of Care Visit completed when applicable. PROCEDURE: EXTERNAL GENITALIA: Normal in appearance without lesions VAGINA: Normal in appearance without lesions CERVIX: Speculum placed in vagina and excellent visualization of cervix achieved. Cervix swabbed x 3 with 3% acetic acid solution. Cervix grossly normal. Squamocolumnar junction visualized. acetowhite changes noted 4 and 7 oclcock, punctations noted -none, mosaicism noted 4 oclock, and atypical vasculature noted -none. BIOPSY: Done at 4:00 and 7:00 ECC: done HEMOSTASIS: Obtained with silver nitrate and pressure Procedure Summary: Patient tolerated procedure well and colposcopy was adequate. ASSESSMENT: HPV effect PLAN: Specimens labeled and sent to Pathology. Will notify patient of results in 1-2 weeks. Post-procedure instructions reviewed and written material given to the patient. If indicated, lesion by colpo is amenable to office LEEP as lesion is small. encouraged HPV vaccine today and accepts- will call to schedule .Celeste Guerrero MD documented in this encounter [facility] 04-01-2023 Miscellaneous Notes Patient notified and voiced understanding. Colposcopy appointment scheduled. Brooke Sneed RN Left message for patient to call office. Debbie Bryant RN ----- Message from Lindy Cash APRN.CNM sent at 04/01/2023 12:59 PM EST ----- Based on prior ASCUS HPV other HR positive and current HPV other HR positive, patient needs a colposcopy. Please schedule with a physician. Lindy Cash APRN.CNM Patient calling for results of PAP and HPV testing done on 03/18. Patient notified PAP is negative and HPV is positive. What follow up do you recommend for patient? Brooke Sneed RN documented in this encounter [facility] 03-18-2023 Note HNO ID: [id number] Author: Lindy Cash APRN.CNM Service: ? Author Type: Telephone Order Clerk Room Service Type: Progress Notes Filed: 03/18/2023 3:27 PM Note Text: Deena is a 37 year old who presents for an annual gynecologic exam Menses: Mirena IUD in place. 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 PAST MEDICAL HISTORY Diagnosis Date Abnormal glandular Papanicolaou smear of cervix 2002 Abn. 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 Rh negative state in antepartum period 11/16/2014 Sciatic pain Smoker 10/18/2020 Cigarettes Unspecified , without mention of complication, unspecified PAST SURGICAL HISTORY Procedure Laterality Date ANESTH, SECTION DELIVERY ONLY 02/24/04, 2008 , low cervical DELIVERY ONLY 06/14/2015 , low transverse COLONOSCOPY 06/01/2022 COLSC FLX W/REMOVAL LESION BY HOT BX FORCEPS 07/25/2012 EGD W/O BRSH SPEC VARICIES INJ 12/22/2021 INSERT INTRAUTERINE DEVICE 05/20/2010 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 04/19/2014 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00 Types: Cigarettes Smokeless tobacco: Never Vaping Use Vaping Use: Never used Substance Use Topics Alcohol use: Yes Drug use: No Comment: MARIJUANA and CocaineIN PAST, NONE SINCE 2006 REVIEW OF SYSTEMS Abdomen: No abdominal pain, nausea, vomiting, diarrhea, or constipation. No bloating, early satiety, indigestion, or increased flatulence. Bladder: No dysuria, gross hematuria, urinary frequency, urinary urgency, or incontinence. Breast: No breast lumps, nipple d/c, overlying skin changes, redness or skin retraction. Allergies and current medication updated:Yes EXAM: BP 108/70 Ht 5' 1 (1.55m) Wt 147 lb (66.7kg) LMP 04/30/2016 BMI 27.79 kg/(m2). GENERAL: pleasant, female in no apparent distress HEENT: Normocephalic, atraumatic, mucus membranes moist, and no lesions NECK: Supple, full range of motion, no adenopathy, and thyroid normal DERMATOLOGY: Normal, without lesions, non-icteric, and non-hirsute BREAST: soft, non-tender, symmetric, no dominant mass, normal nipple-areolar complex, no lymphadenopathy, and no nipple discharge CHEST: Clear to auscultation, Normal inspiratory effort, Regular rate and rhythm, and No murmurs, clicks, rubs or gallops ABDOMEN: soft, non-tender, and no masses PELVIC: external genitalia normal, normal Bartholin's glands, urethra, [place]'s glands, no vulvar lesions, no cervical lesions, good vaginal support, physiologic discharge present, normal appearing perineal body and perianal region BIMANUAL: uterus normal size, shape and consistency, no adnexal masses, and non-tender RECTOVAGINAL: deferred. NEURO: alert and oriented x3,exam grossly non-focal EXTREMITIES: normal ASSESSMENT/PLAN: 1. Encounter for gynecological examination (general) (routine) with abnormal findings - ICD9: V72.31, ICD10: Z01.411 (primary diagnosis) - Completed pelvic and breast exam - Encouraged monthly BSE - Follow up for annual exam in one year. - PAP TEST - SEVEN/TRICHOMONAS NAAT - BACTERIAL VAGINOSIS NAAT - GONORRHEA/CHLAMYDIA NAAT 2. Screening for cervical cancer - ICD9: V76.2, ICD10: Z12.4 - Completed pelvic and breast exam - Encouraged monthly BSE - Follow up for annual exam in one year. - PAP TEST 3. Encounter for screening for human papillomavirus (HPV) - ICD9: V73.81, ICD10: Z11.51 - PAP TEST 4. Encounter for screening mammogram for breast cancer - ICD9: V76.12, ICD10: Z12.31 - Completed pelvic and breast exam - Encouraged monthly BSE - (more content not included)... [facility] 03-18-2023 Note HNO ID: [id number] Author: Natasha Sosa, Mammo Efficient [employer] Conversion Service: ? Author Type: Senior Control Systems Engineer Type: Progress Notes Filed: 03/18/2023 10:37 AM Note Text: Radiology Service Progress Note PATIENT NAME: Deena Iqbal DATE OF SERVICE: March 18, 2023 TIME: 10:17 AM PATIENT IDENTITY VERIFICATION COMPLETED USING TWO (2) IDENTIFIERS: Name and Date of confirmed by patient verbally. FALL SCREENING: Has the patient had 2 falls in the last year or 1 fall with injury or currently using an Ambulatory Assistive Device (Walker, Cane, Wheelchair, Crutches, etc.)? No PATIENT GENDER DATA: Female. status: : No status: NO. PATIENT RELEVANT IMPLANT DATA REVIEWED: Not Applicable RADIOLOGY DEPARTMENT: Mammography PERIPHERAL IV DATA: Not applicable SIGNED BY: Maria M Sextono Tech March 18, 2023 10:17 AM [facility] 03-18-2023 Instructions Lindy Cash APRN.CNM - 03/18/2023 11:17 AM EDT [facility] LOW FODMAP diet documented in this encounter [facility] 03-18-2023 Miscellaneous Notes March 20, 2023 PID: [id number] Deena Farley [address] [place] [address] Dear Ms. Iqbal, We are pleased to inform you that the results of your recent breast imaging exam on 03/18/2023 are normal. Your mammogram demonstrates that you have dense breast tissue, which could hide abnormalities. Dense breast tissue, in and of itself, is a relatively common condition. Therefore, this information is not provided to cause undue concern; rather, it is to raise your awareness and promote discussion with your health care provider regarding the presence of dense breast tissue in addition to other risk factors. Early detection of cancer is very important. We also understand recommendations regarding breast cancer screening are controversial. Please discuss with your primary care provider which strategy is best for you and whether a mammogram is right for you. Your imaging studies and report will be kept on file at [facility] as part of your permanent medical record and are available for your continuing care. Thank you for allowing us to help in meeting your health care needs. Sincerely, Dr. Godwin Interpreting Radiologist [facility] (Normal over 40) documented in this encounter [facility] 03-18-2023 History of Present illness Narrative Deena is a 37 year old who presents for an annual gynecologic exam Menses: Mirena IUD in place. 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 PAST MEDICAL HISTORY Diagnosis Date Abnormal glandular Papanicolaou smear of cervix 2002 Abn. 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 Rh negative state in antepartum period 11/16/2014 Sciatic pain Smoker 10/18/2020 Cigarettes Unspecified , without mention of complication, unspecified PAST SURGICAL HISTORY Procedure Laterality Date ANESTH, SECTION DELIVERY ONLY 02/24/04, 2008 , low cervical DELIVERY ONLY 06/14/2015 , low transverse COLONOSCOPY 06/01/2022 COLSC FLX W/REMOVAL LESION BY HOT BX FORCEPS 07/25/2012 EGD W/O BRSH SPEC VARICIES INJ 12/22/2021 INSERT INTRAUTERINE DEVICE 05/20/2010 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 04/19/2014 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00 Types: Cigarettes Smokeless tobacco: Never Vaping Use Vaping Use: Never used Substance Use Topics Alcohol use: Yes Drug use: No Comment: MARIJUANA and CocaineIN PAST, NONE SINCE 2006 REVIEW OF SYSTEMS Abdomen: No abdominal pain, nausea, vomiting, diarrhea, or constipation. No bloating, early satiety, indigestion, or increased flatulence. Bladder: No dysuria, gross hematuria, urinary frequency, urinary urgency, or incontinence. Breast: No breast lumps, nipple d/c, overlying skin changes, redness or skin retraction. Allergies and current medication updated:Yes EXAM: BP 108/70 Ht 5' 1 (1.55m) Wt 147 lb (66.7kg) LMP 04/30/2016 BMI 27.79 kg/(m^2). GENERAL: pleasant, female in no apparent distress HEENT: Normocephalic, atraumatic, mucus membranes moist, and no lesions NECK: Supple, full range of motion, no adenopathy, and thyroid normal DERMATOLOGY: Normal, without lesions, non-icteric, and non-hirsute BREAST: soft, non-tender, symmetric, no dominant mass, normal nipple-areolar complex, no lymphadenopathy, and no nipple discharge CHEST: Clear to auscultation, Normal inspiratory effort, Regular rate and rhythm, and No murmurs, clicks, rubs or gallops ABDOMEN: soft, non-tender, and no masses PELVIC: external genitalia normal, normal Bartholin's glands, urethra, [place]'s glands, no vulvar lesions, no cervical lesions, good vaginal support, physiologic discharge present, normal appearing perineal body and perianal region BIMANUAL: uterus normal size, shape and consistency, no adnexal masses, and non-tender RECTOVAGINAL: deferred. NEURO: alert and oriented x3,exam grossly non-focal EXTREMITIES: normal ASSESSMENT/PLAN: 1. Encounter for gynecological examination (general) (routine) with abnormal findings - ICD9: V72.31, ICD10: Z01.411 (primary diagnosis) - Completed pelvic and breast exam - Encouraged monthly BSE - Follow up for annual exam in one year. - PAP TEST - SEVEN/TRICHOMONAS NAAT - BACTERIAL VAGINOSIS NAAT - GONORRHEA/CHLAMYDIA NAAT 2. Screening for cervical cancer - ICD9: V76.2, ICD10: Z12.4 - Completed pelvic and breast exam - Encouraged monthly BSE - Follow up for annual exam in one year. - PAP TEST 3. Encounter for screening for human papillomavirus (HPV) - ICD9: V73.81, ICD10: Z11.51 - PAP TEST 4. Encounter for screening mammogram for breast cancer - ICD9: V76.12, ICD10: Z12.31 - Completed pelvic and breast exam - Encouraged monthly BSE - Follow up for annual exam in one year. - TAB SCREENING W BLAYNE 5. Dense breast tissue - ICD9: 793.82, ICD10: R92.30 - TAB SCREENING W BLAYNE 6. History of ovarian cyst - ICD9: V13.29, ICD10: Z87.42 -Repeat US 08/10, will schedule. 1) Health maintenance: Pap/HPV up to date. Mammogram ordered. Nutrition, exercise and routine health maintenance exams reviewed. Calcium/Vitamin D supplementation information provided. Smoking cessation: Smoking cessation encouraged and resources provided. Lipids/glucose: followed by PCP Vitamin D: followed by PCP 2) Contraception: IUD. Contraceptive options reviewed and information provided. 3) STD screening: Accepted STD check for Gonorrhea and Chlamydia. 4) Follow up one year or sooner as needed Lindy Cash APRN.CNM documented in this encounter [facility] 03-18-2023 History of Present illness Narrative Radiology Service Progress Note PATIENT NAME: Deena Iqbal DATE OF SERVICE: March 18, 2023 TIME: 10:17 AM PATIENT IDENTITY VERIFICATION COMPLETED USING TWO (2) IDENTIFIERS: Name and Date of confirmed by patient verbally. FALL SCREENING: Has the patient had 2 falls in the last year or 1 fall with injury or currently using an Ambulatory Assistive Device (Walker, Cane, Wheelchair, Crutches, etc.)? No PATIENT GENDER DATA: Female. status: : No status: NO. PATIENT RELEVANT IMPLANT DATA REVIEWED: Not Applicable RADIOLOGY DEPARTMENT: Mammography PERIPHERAL IV DATA: Not applicable SIGNED BY: Maria M Sextono Viral March 18, 2023 10:17 AM documented in this encounter [facility] 02-28-2023 Miscellaneous Notes Addended by: AUREA CONTRERAS on: 02/28/2023 08:50 AM Modules accepted: Orders Patient called in stating that she had some bright red blood in one of her bowel movements. She had another bowel movement the blood was a little darker. Once she had a third bowel movement the blood was gone. Patient did state that she was straining during those bowel movements. Suggested that she could take an otc stool softener to help with the straining. Patient has an upcoming appointment on 05/21/23. documented in this encounter [facility] 01-22-2023 Miscellaneous Notes 1st call attempt, left vm PSS please contact pt and assist with scheduling yearly and mammogram. Concepción Van LPN Filed Jeferson Glez MD Patient requesting Mammogram and annual exam with ALFREDITO on the same day. Needs Mamm with BLAYNE order due to dense breast tissue. Once signed, please forward to PSS to call patient and assist with scheduling. Saranya Bhatia RN documented in this encounter [facility] 11-12-2022 Note HNO ID: [id number] Author: Aurea Contreras PA-C Service: ? Author Type: Physician Deck Specialist Type: Progress Notes Filed: 11/12/2022 3:11 PM Note Text: abdominal bloating after meals, discuss possible sibo HPI Mystica E Farida is a 36 year old female here today for bloating, discuss SIBO testing. Admits to chronic issues with bloating for the past year. Has tested neg for Celiac, H. Pylori via EGD 12/2021. Bms are formed to loose, no blood. Last solid BM was today. Includes that certain dietary changes will worsen bloating for her such as carb rich foods. Has looked into FODMAP diet but has not tried yet. Admits to flank/abd pains that will subside with BM. Denies weight loss. Colon 05/2022 Impression: - Normal mucosa in the entire examined colon. Biopsied. - Internal hemorrhoids. - The examined portion of the ileum was normal. FINAL DIAGNOSIS A. Colon, random, biopsy: -Colonic mucosa with no diagnostic abnormality. EGD 12/2021 Impression: - Z-line irregular, 36 cm from the incisors. - Erythematous mucosa in the antrum. Biopsied. - Normal duodenal bulb and second portion of the duodenum. Biopsied. - Normal gastric fundus and gastric body. FINAL DIAGNOSIS A. Duodenum, biopsy: - Duodenal mucosa with no diagnostic alteration. - No evidence of celiac sprue. B. Stomach, biopsy: - Antral mucosa with mild foveolar hyperplasia; no evidence of H. pylori. Record Review: [facility] records reviewed Current Outpatient Medications Medication Sig cetirizine (ZYRTEC) 10 mg tablet Take 1 tablet by mouth once daily. cyclobenzaprine (FLEXERIL) 10 mg tablet Take 1 tablet by mouth three times daily as needed for muscle spasm or pain (May make very drowsy). fluticasone (FLONASE) 50 mcg/actuation nasal spray Use 2 Sprays in each nostril once daily. Rinse mouth after use. alcaftadine (LASTACAFT ONCE DAILY RELIEF) 0.25 % drop Use 1 Drop in eyes once daily. Use antihistamine eyedrops as directed by your eye doctor albuterol HFA (PROVENTIL HFA, VENTOLIN HFA) 90 mcg/actuation inhaler Inhale 2 Puffs as instructed every 4 hours as needed. HYDROcodone-acetaminophen (NORCO) 5-325 mg per tablet promethazine (PHENERGAN) 25 mg tablet escitalopram oxalate (LEXAPRO) 5 mg tablet Take 1 tablet by mouth once daily. ondansetron (ZOFRAN) 4 mg tablet as needed. ergocalciferol 50,000 unit capsule (VITAMIN D2, DRISDOL) Take 1 capsule by mouth one time a week. omeprazole (PRILOSEC) 40 mg capsule Take 1 capsule by mouth once daily. ondansetron orally disintegrating (ZOFRAN ODT) 4 mg disintegrating tablet Take 1 tablet by mouth every 8 hours as needed. loratadine (CLARITIN) 10 mg tablet Take 1 tablet by mouth once daily. Can try this instead of cetirizine levonorgestrel (MIRENA) 20 mcg/24 hr (5 years) IUD 1 Each by INTRAUTERINE route continuous. No current facility-administered medications for this visit. ALLERGIES Allergen Reactions Ultram [Tramadol] Other: See Comments nausea; felt bad Social History Tobacco Use Smoking status: Every Day Packs/day: 0.50 Years: 20.00 Pack years: 10.00 Types: Cigarettes Smokeless tobacco: Never Vaping Use Vaping Use: Never used Substance Use Topics Alcohol use: No Comment: history of being recovering alcholic Drug use: No Comment: MARIJUANA and CocaineIN PAST, NONE SINCE 2006 PAST MEDICAL HISTORY Diagnosis Date Abnormal glandular Papanicolaou smear of cervix 2002 Abn. 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 Rh negative state in antepartum period 11/16/2014 Sciatic pain Smoker 10/18/2020 Cigarettes Unspecified , without mention of complication, unspecified PAST SURGICAL HISTORY Procedure Laterality Date ANESTH, SECTION DELIVERY ONLY 02/24/04, 2008 , low cervical DELIVERY ONLY 06/14/2015 , low transverse COLONOSCOPY 06/01/2022 COLSC FLX W/REMOVAL LESION BY HOT BX FORCEPS 07/25/2012 EGD W/O BRSH SPEC VARICIES INJ 12/22/2021 INSERT INTRAUTERINE DEVICE 05/20/2010 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 04/19/2014 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)_*FL 03/04/2003 FAMILY HISTORY Problem Relation Age of Onset No Known Problems Brother Heart Father Cancer Father small cell carcinoma of lung Cancer Maternal Grandmother stomach cancer Cancer Maternal Grandfather lung cancer Arthritis Maternal Grandfather Stroke Maternal Grandfather Heart Paternal Grandfather Heart Paternal Grandmother Diabetes Maternal Aunt other (Panic attacks) Sister Cancer Sister 29 Hodgkin's Lymphoma No Known Problems Brother REVIEW OF SYSTEMS Review of Systems Gastrointestinal: Positive for abdominal di (more content not included)... [facility] 11-12-2022 Instructions Aurea Contreras PA-C - 11/12/2022 3:00 PM EDT - Start Align - Drink around 64 oz water daily - Benefiber daily: 2 teaspoons added to 8 ounces of water up to 3 times daily. - If no relief with fiber powder, start Miralax daily to induce bowel movement Miralax generally will help produce bowel movement in 1-3 days Fill to top of white section in cap which is marked to indicate the correct dose (17 g) Stir and dissolve in any 8 ounces of non-carbonated beverage (cold, hot or room temperature) then drink If diarrhea occurs, reduce usage to every other day Irritable Bowel Syndrome (IBS) Irritable bowel syndrome (IBS) goes by many names. Some people call this condition nervous stomach. Others call it irritable bowel, irritable colon, or spastic colon. The condition most often occurs in people in their late teens to early forties. Women suffer from IBS more often than men, and it might affect more than one family member. What is IBS? IBS is a common though uncomfortable disorder of the colon or lower bowel. While the basic cause of IBS is unknown, researchers have found that the colon muscle in people with IBS contracts more readily than in people without IBS. Also, patients with IBS have a lower tolerance for pain. A number of factors can trigger IBS, including certain foods, medicines, and emotional stress. Some research has suggested that excess bacteria in the GI tract may contribute to symptoms. The good news is that IBS is not a life-threatening condition. IBS does not make a person more likely to develop other colon conditions, such as colitis, Crohn's disease, or colon cancer. Yet, IBS can be frustrating because it can come and go throughout life. What are the symptoms of IBS? Some people think of IBS as the gut's response to stress in the world. Symptoms include: Abdominal pains or cramps, usually in the lower half of the abdomen Excess gas Harder or looser bowel movements than usual Diarrhea, constipation, or an alternating pattern between the two Because these symptoms can happen over and over, a person with IBS can feel stressed or saddened by his or her condition. These feelings often become less severe as the person gains control over IBS. Who treats IBS? If you are having symptoms and think you may have irritable bowel syndrome (IBS), you should talk to your primary care physician or other health care provider. Your doctor may treat you or may refer you to a collector. A collector is a physician who specializes in the diagnosis and treatment of diseases of the digestive system. These diseases include, among others: IBS, colorectal cancer, liver disease, swallowing and esophageal disorders, and pancreas disorders. In some cases of IBS, the symptoms may not respond to the medical treatment prescribed by the doctor. In these cases, the patient may be referred for psychosocial therapies. Some patients may improve with counseling and alternative treatments such as hypnosis and biofeedback. How can my health care provider help? Your health care provider can: Make sure there is no other cause for your symptoms Order blood tests or X-rays if needed Offer appropriate medicines Suggest dietary therapies Answer any questions you have about stress and other IBS triggers Advise you about calcium supplements, if needed Offer support as you gain control over IBS How is IBS diagnosed? When you see your doctor about irritable bowel syndrome (IBS), he or she will take your medical history and perform a physical examination. Depending on your symptoms, your doctor may want to run certain tests in order to make a diagnosis, including blood tests and stool samples. These tests are usually normal, but they rule out other diseases which may mimic IBS. Depending on the symptoms and other pertinent factors in the medical history, your doctor may perform a procedure called flexible sigmoidoscopy. Flexible sigmoidoscopy is a routine outpatient procedure in which the inside of the lower large intestine is examined. Flexible sigmoidoscopies are commonly used to evaluate bowel disorders, rectal bleeding, or polyps (benign growths). During the procedure, a physician uses a sigmoidoscope (a long, flexible instrument about 1/2 inch in diameter) to view the lining of the rectum and lower portion of the colon. The sigmoidoscope is inserted through the rectum and advanced to the descending colon. Another option for examining the colon is a colonoscopy. Colonoscopy is also an outpatient procedure, similar to a sigmoidoscopy, in which the entire colon is examined with a colonoscope. If necessary during a colonoscopy, small amounts of tissue can be removed for analysis (biopsy) and polyps can be identified and removed. In many cases, colonoscopy allows accurate diagnosis and treatment without the need for a major operation. How can I gain control over IBS? Nearly all people with IBS can be helped, but no one treatment works for everyone. Usually, with a few basic changes in diet and activities, IBS will improve over time. Here are some steps you can take to help you reduce symptoms of IBS: Avoid caffeine (found in coffee, teas, and sodas). Minimize lactose-containing foods. Lactose is the sugar found in milk products. Increase fiber in your diet (found in fruits, vegetables, grains, and nuts). Drink three to four glasses of water per day. Don't smoke. Learn to relax, either by getting more exercise or by reducing stress in your life. Try limiting how much milk you consume. (Women should get 1,500 milligrams of calcium per day. If you have IBS and are concerned about your calcium intake, you can try other sources of calcium. These sources include broccoli, spinach, turnip greens, tofu, yogurt, sardines and salmon with bones, calcium-fortified breads, calcium supplements, and some calcium carbonate antacid tablets). Keep a record of foods you eat so you can figure out which foods bring on bouts of IBS. Common food triggers of IBS are red peppers, green onions, red wine, wheat, and milk. You can also ask a veneer splicer for samples of healthy diets to follow. documented in this encounter [facility] 11-12-2022 History of Present illness Narrative abdominal bloating after meals, discuss possible sibo HPI Deena Iqbal is a 36 year old female here today for bloating, discuss SIBO testing. Admits to chronic issues with bloating for the past year. Has tested neg for Celiac, H. Pylori via EGD 12/2021. Bms are formed to loose, no blood. Last solid BM was today. Includes that certain dietary changes will worsen bloating for her such as carb rich foods. Has looked into FODMAP diet but has not tried yet. Admits to flank/abd pains that will subside with BM. Denies weight loss. Colon 05/2022 Impression: - Normal mucosa in the entire examined colon. Biopsied. - Internal hemorrhoids. - The examined portion of the ileum was normal. FINAL DIAGNOSIS A. Colon, random, biopsy: -Colonic mucosa with no diagnostic abnormality. EGD 12/2021 Impression: - Z-line irregular, 36 cm from the incisors. - Erythematous mucosa in the antrum. Biopsied. - Normal duodenal bulb and second portion of the duodenum. Biopsied. - Normal gastric fundus and gastric body. FINAL DIAGNOSIS A. Duodenum, biopsy: - Duodenal mucosa with no diagnostic alteration. - No evidence of celiac sprue. B. Stomach, biopsy: - Antral mucosa with mild foveolar hyperplasia; no evidence of H. pylori. Record Review: [facility] records reviewed Current Outpatient Medications Medication Sig cetirizine (ZYRTEC) 10 mg tablet Take 1 tablet by mouth once daily. cyclobenzaprine (FLEXERIL) 10 mg tablet Take 1 tablet by mouth three times daily as needed for muscle spasm or pain (May make very drowsy). fluticasone (FLONASE) 50 mcg/actuation nasal spray Use 2 Sprays in each nostril once daily. Rinse mouth after use. alcaftadine (LASTACAFT ONCE DAILY RELIEF) 0.25 % drop Use 1 Drop in eyes once daily. Use antihistamine eyedrops as directed by your eye doctor albuterol HFA (PROVENTIL HFA, VENTOLIN HFA) 90 mcg/actuation inhaler Inhale 2 Puffs as instructed every 4 hours as needed. HYDROcodone-acetaminophen (NORCO) 5-325 mg per tablet promethazine (PHENERGAN) 25 mg tablet escitalopram oxalate (LEXAPRO) 5 mg tablet Take 1 tablet by mouth once daily. ondansetron (ZOFRAN) 4 mg tablet as needed. ergocalciferol 50,000 unit capsule (VITAMIN D2, DRISDOL) Take 1 capsule by mouth one time a week. omeprazole (PRILOSEC) 40 mg capsule Take 1 capsule by mouth once daily. ondansetron orally disintegrating (ZOFRAN ODT) 4 mg disintegrating tablet Take 1 tablet by mouth every 8 hours as needed. loratadine (CLARITIN) 10 mg tablet Take 1 tablet by mouth once daily. Can try this instead of cetirizine levonorgestrel (MIRENA) 20 mcg/24 hr (5 years) IUD 1 Each by INTRAUTERINE route continuous. No current facility-administered medications for this visit. ALLERGIES Allergen Reactions Ultram [Tramadol] Other: See Comments nausea; felt bad Social History Tobacco Use Smoking status: Every Day Packs/day: 0.50 Years: 20.00 Pack years: 10.00 Types: Cigarettes Smokeless tobacco: Never Vaping Use Vaping Use: Never used Substance Use Topics Alcohol use: No Comment: history of being recovering alcholic Drug use: No Comment: MARIJUANA and CocaineIN PAST, NONE SINCE 2006 PAST MEDICAL HISTORY Diagnosis Date Abnormal glandular Papanicolaou smear of cervix 2002 Abn. 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 Rh negative state in antepartum period 11/16/2014 Sciatic pain Smoker 10/18/2020 Cigarettes Unspecified , without mention of complication, unspecified PAST SURGICAL HISTORY Procedure Laterality Date ANESTH, SECTION DELIVERY ONLY 02/24/04, 2008 , low cervical DELIVERY ONLY 06/14/2015 , low transverse COLONOSCOPY 06/01/2022 COLSC FLX W/REMOVAL LESION BY HOT BX FORCEPS 07/25/2012 EGD W/O BRSH SPEC VARICIES INJ 12/22/2021 INSERT INTRAUTERINE DEVICE 05/20/2010 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 04/19/2014 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)_*FL 03/04/2003 FAMILY HISTORY Problem Relation Age of Onset No Known Problems Brother Heart Father Cancer Father small cell carcinoma of lung Cancer Maternal Grandmother stomach cancer Cancer Maternal Grandfather lung cancer Arthritis Maternal Grandfather Stroke Maternal Grandfather Heart Paternal Grandfather Heart Paternal Grandmother Diabetes Maternal Aunt other (Panic attacks) Sister Cancer Sister 29 Hodgkin's Lymphoma No Known Problems Brother REVIEW OF SYSTEMS Review of Systems Gastrointestinal: Positive for abdominal distention, abdominal pain and constipation. Gas, heartburn, nausea All other systems reviewed and are negative. PHYSICAL EXAM BP 128/78 Pulse 74 LMP 04/30/2016 (Exact Date) Physical Exam Constitutional: General: She is not in acute distress. Appearance: Normal appearance. She is normal weight. She is not diaphoretic. HENT: Head: Normocephalic and atraumatic. Eyes: Extraocular Movements: Extraocular movements intact. Conjunctiva/sclera: Conjunctivae normal. Pupils: Pupils are equal, round, and reactive to light. Neck: Vascular: No carotid bruit. Cardiovascular: Rate and Rhythm: Normal rate and regular rhythm. Heart sounds: Normal heart sounds. No murmur heard. No friction rub. No gallop. Pulmonary: Effort: Pulmonary effort is normal. No respiratory distress. Breath sounds: Normal breath sounds. No wheezing or rales. Chest: Chest wall: No tenderness. Abdominal: General: Bowel sounds are normal. There is no distension. Palpations: Abdomen is soft. There is no mass. Tenderness: There is no abdominal tenderness. There is no guarding or rebound. Hernia: No hernia is present. Musculoskeletal: General: Normal range of motion. Cervical back: Normal range of motion and neck supple. No rigidity or tenderness. Lymphadenopathy: Cervical: No cervical adenopathy. Skin: General: Skin is warm and dry. Neurological: General: No focal deficit present. Mental Status: She is alert and oriented to person, place, and time. Psychiatric: Mood and Affect: Mood and affect normal. Behavior: Behavior normal. Assessment/Plan (R14.0) Abdominal bloating (primary encounter diagnosis) (K58.2) Irritable bowel syndrome with both constipation and diarrhea 1. Abdominal bloating - BREATH TEST - LACTULOSE; Future - Bifidobacterium Infantis (ALIGN) 4 mg cap; Take 1 capsule by mouth once daily. Dispense: 42 capsule; Refill: 2 - CALPROTECTIN,FECAL - PANC ELASTASE, FECAL - US ABDOMEN COMPLETE; Future - Negative EGD, Colonoscopy w/ random biopsies - Discussed IBS and provided printed edu handout - Start Bentyl PRN - Start Align daily - Discussed starting benefiber powders - Recheck calp, check elastase, US abd - Pt interested in pursuing testing to r/o SIBO - Consider FODMAP diet pending testing results 2. Irritable bowel syndrome with both constipation and diarrhea - dicyclomine (BENTYL) 20 mg tablet; Take 1 tablet by mouth three times daily as needed (for abdominal pain). Dispense: 30 tablet; Refill: 2 - CALPROTECTIN,FECAL - PANC ELASTASE, FECAL I spent a total of 22 minutes on the date of the service which included preparing to see the patient, [id number] patient care, completing clinical documentation, obtaining and/or reviewing separately obtained history, performing a medically appropriate examination, counseling and educating the patient/family/caregiver, ordering medications, tests, or procedures, communicating with other HCPs (not separately reported), independently interpreting results (not separately reported), communicating results to the patient/family/caregiver, and care coordination (not separately reported). Aurea Contreras PA-C November 12, 2022 3:02 PM documented in this encounter [facility] 10-11-2022 Note HNO ID: [id number] Author: Milagro Mohamud APRN.[employer] BORER Service: ? Author Type: Nurse Specialist Type: Progress Notes Filed: 10/11/2022 12:21 PM Note Text: SUBJECTIVE: There are no preventive care reminders to display for this patient. HPI Deena Iqbal is a 36 year old female. PMH significant for ACTIVE PROBLEM LIST Gerd (Gastroesophageal Reflux Disease) Heart Murmur Generalized Anxiety Disorder Situational Depression History of Ca 125 Test Smoker Presents for routine follow-up visit. Since last seen in she was seen in 03/02/2022 for possible sinus infection x 8 days. Treated with Augmentin. She was seen in urgent care September 30, 2022. Treated with polymyxin/trimethoprim left eye eyedrops. Seen at 10/08/2022 for conjunctivitis, treated with ciprofloxacin eye drops. Today reports pinkeye is persisting. She notes itchy and watery eyes. States she was seen by eye doctor Jonathon within the last week and was provided with antihistamine eyedrops but did not start it. States continues to smoke. States using either cetirizine or Benadryl for allergy symptoms. Notes loratadine made her drowsy in the past. Not using Flonase. Review of Systems HENT: Positive for rhinorrhea. Eyes: Positive for discharge and itching. Respiratory: Positive for cough. Objective BP 112/70 Pulse 71 Resp 16 Wt 64 kg (141 lb) LMP 04/30/2016 (Exact Date) SpO2 98% BMI 26.64 kg/m? Physical Exam Vitals and nursing note reviewed. Constitutional: General: She is not in acute distress. Appearance: Normal appearance. She is not ill-appearing, toxic-appearing or diaphoretic. HENT: Head: Normocephalic and atraumatic. Right Ear: Tympanic membrane and ear canal normal. Left Ear: Tympanic membrane and ear canal normal. Nose: Mucosal edema and rhinorrhea present. Mouth/Throat: Lips: [place]. Mouth: Mucous membranes are moist. Pharynx: Oropharynx is clear. Eyes: General: Lids are normal. Comments: slight pink tinge bilateral eyes, watery, itchy Neck: Thyroid: No thyromegaly. Vascular: Normal carotid pulses. No carotid bruit or JVD. Cardiovascular: Rate and Rhythm: Normal rate and regular rhythm. Pulses: Carotid pulses are 2+ on the right side and 2+ on the left side. Radial pulses are 2+ on the right side and 2+ on the left side. Dorsalis pedis pulses are 2+ on the right side and 2+ on the left side. Heart sounds: Normal heart sounds. Pulmonary: Effort: Pulmonary effort is normal. Abdominal: General: Bowel sounds are normal. Palpations: Abdomen is soft. Musculoskeletal: Right lower leg: No edema. Left lower leg: No edema. Lymphadenopathy: Cervical: Left cervical: No superficial cervical adenopathy. Skin: General: Skin is warm and dry. Neurological: General: No focal deficit present. Mental Status: She is alert and oriented to person, place, and time. ALLERGIES Allergen Reactions Ultram [Tramadol] Other: See Comments nausea; felt bad Medications cetirizine (ZYRTEC) 10 mg tablet Take 1 tablet by mouth once daily. ciprofloxacin HCl (CILOXAN) 0.3 % ophthalmic solution Use 1 Drop in both eyes four times daily for 7 days. albuterol HFA (PROVENTIL HFA, VENTOLIN HFA) 90 mcg/actuation inhaler Inhale 2 Puffs as instructed every 4 hours as needed. promethazine (PHENERGAN) 25 mg tablet escitalopram oxalate (LEXAPRO) 5 mg tablet Take 1 tablet by mouth once daily. ondansetron (ZOFRAN) 4 mg tablet as needed. ergocalciferol 50,000 unit capsule (VITAMIN D2, DRISDOL) Take 1 capsule by mouth one time a week. omeprazole (PRILOSEC) 40 mg capsule Take 1 capsule by mouth once daily. ondansetron orally disintegrating (ZOFRAN ODT) 4 mg disintegrating tablet Take 1 tablet by mouth every 8 hours as needed. loratadine (CLARITIN) 10 mg tablet Take 1 tablet by mouth once daily. Can try this instead of cetirizine levonorgestrel (MIRENA) 20 mcg/24 hr (5 years) IUD 1 Each by INTRAUTERINE route continuous. cyclobenzaprine (FLEXERIL) 10 mg tablet Take 1 tablet by mouth three times daily as needed for muscle spasm or pain (May make very drowsy). fluticasone (FLONASE) 50 mcg/actuation nasal spray Use 2 Sprays in each nostril once daily. Rinse mouth after use. alcaftadine (LASTACAFT ONCE DAILY RELIEF) 0.25 % drop Use 1 Drop in eyes once daily. Use antihistamine eyedrops as directed by your eye doctor HYDROcodone-acetaminophen (NORCO) 5-325 mg per tablet TAKE 1 TABLET BY MOUTH EVERY 6 HOURS NEEDED FOR PAIN FOR 3 DAYS (Patient not taking: Reported on 10/08/2022) PAST MEDICAL HISTORY Diagnosis Date Abnormal glandular Papanicolaou smear of cervix 2002 Abn. Pap smear (cervix) Anemia with Anxiety Dysthymic disorder Depression (non-psychotic), Eczematous skin lesions GERD (Gastroesophageal Reflux Disease) 03/29/2009 Herpes exposure 07/17/2011 never had an outbreak Other abnormal heart sounds Ovarian cyst Postpart (more content not included)... [facility] 10-08-2022 Note HNO ID: [id number] Author: Delma Kemp PA-C Service: ? Author Type: Physician Deck Specialist Type: Progress Notes Filed: 10/08/2022 1:36 PM Note Text: 10/08/2022 Patient presents with: Eye Problem: left eye red and drainage x 1 week SUBJECTIVE: This is a 36 year old that is here today for Complaint(s) of BRIANA eye redness and drainage x 1 week. She was seen lat week and started on polytrim eye drops. Overall not improving. Her two daughters have had the same symptoms and were switched to cipro eye drops and seemed to improve. She does not wear contact lenses. Taking allergy medication. PAST MEDICAL HISTORY Diagnosis Date Abnormal glandular Papanicolaou smear of cervix 2002 Abn. 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 promethazine (PHENERGAN) 25 mg tablet escitalopram oxalate (LEXAPRO) 5 mg tablet Take 1 tablet by mouth once daily. cyclobenzaprine (FLEXERIL) 10 mg tablet Take 1 tablet by mouth three times daily as needed for muscle spasm. ondansetron (ZOFRAN) 4 mg tablet as needed. ergocalciferol 50,000 unit capsule (VITAMIN D2, DRISDOL) Take 1 capsule by mouth one time a week. omeprazole (PRILOSEC) 40 mg capsule Take 1 capsule by mouth once daily. ondansetron orally disintegrating (ZOFRAN ODT) 4 mg disintegrating tablet Take 1 tablet by mouth every 8 hours as needed. levonorgestrel (MIRENA) 20 mcg/24 hr (5 years) IUD 1 Each by INTRAUTERINE route continuous. cetirizine HCl (ZYRTEC ORAL) Take by mouth. HYDROcodone-acetaminophen (NORCO) 5-325 mg per tablet TAKE 1 TABLET BY MOUTH EVERY 6 HOURS NEEDED FOR PAIN FOR 3 DAYS (Patient not taking: Reported on 10/08/2022) loratadine (CLARITIN) 10 mg tablet Take 1 tablet by mouth once daily. Can try this instead of cetirizine (Patient not taking: Reported on 10/08/2022) No current facility-administered medications for this visit. SOCIAL HISTORY Social History Tobacco Use Smoking status: Every Day Packs/day: 0.50 Years: 20.00 Pack years: 10.00 Types: Cigarettes Smokeless tobacco: Never Vaping Use Vaping Use: Never used Substance Use Topics Alcohol use: No Comment: history of being recovering alcholic Drug use: No Comment: MARIJUANA and CocaineIN PAST, NONE SINCE 2006 REVIEW OF SYSTEMS See HPI OBJECTIVE: BP 118/70 Pulse 70 Temp 37.4 ?C (99.3 ?F) Resp 18 Wt 64.2 kg (141 lb 9.6 oz) LMP 04/30/2016 (Exact Date) SpO2 99% BMI 26.76 kg/m? APPEARANCE alert, in no acute distress, well-hydrated, well nourished. EYES PERRLA, conjunctiva mildly erythematous iwht clear draingae. Some matting/crusting in left lash line. EOMs intact. No periorbital edema or erythema. Limbus clear BRIANA. EARS External ears normal, canals clear. TMs normal BRIANA NOSE/SINUS Nares normal. Septum midline. Mucosa normal. No drainage or sinus tenderness. THROAT normal, no erythema NECK Supple, no adenopathy; HEART RRR with normal S1 and S2 LUNG clear to auscultation, No wheezing, rhonchi, rales. ASSESSMENT/PLAN: 1. Bacterial conjunctivitis - ICD9: 372.39, 041.9, ICD10: H10.9 - see medication orders - course and contagiousness issues discussed, including hand washing. - Instructed to call if high fever, development of periorbital redness or swelling, eye pain, visual changes, concerns or if symptoms persist. - CIPROFLOXACIN 0.3 % EYE DROPS F/u in 3-5 days if not improving, sooner if worsening The patient indicates understanding of these issues and agrees with the plan. Reviewed red flags and when to seek care sooner. Delma Kemp PA-C 10/08/2022 [facility] 09-30-2022 Note HNO ID: [id number] Author: Eva Glez APRN.FRAME STRIPPER Service: ? Author Type: Nurse Practitioner Type: Progress Notes Filed: 09/30/2022 2:56 PM Note Text: Subjective Patient came in with complaints of left eye redness irritation. Patient also has a swollen lymph node on the right and ear pressure. Patient denies any other symptoms at this time. Patient denies any eyeball pain or vision changes. The history is provided by the patient. No foreign language teacher was used. Conjunctivitis Review of Systems Constitutional: Negative. Skin: Negative. Objective Physical Exam Constitutional: Appearance: Normal appearance. Eyes: Conjunctiva/sclera: Right eye: Right conjunctiva is not injected. No exudate or hemorrhage. Left eye: Left conjunctiva is injected. No exudate or hemorrhage. Comments: Patient has erythema located in the areas marked above. Pulmonary: Effort: Pulmonary effort is normal. Neurological: Mental Status: She is alert. PAST MEDICAL HISTORY Diagnosis Date Abnormal glandular Papanicolaou smear of cervix 2002 Abn. 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 Rh negative state in antepartum period 11/16/2014 Sciatic pain Smoker 10/18/2020 Cigarettes Unspecified , without mention of complication, unspecified PAST SURGICAL HISTORY Procedure Laterality Date ANESTH, SECTION DELIVERY ONLY 02/24/04, 2008 , low cervical DELIVERY ONLY 06/14/2015 , low transverse COLONOSCOPY 06/01/2022 COLSC FLX W/REMOVAL LESION BY HOT BX FORCEPS 07/25/2012 EGD W/O BRSH SPEC VARICIES INJ 12/22/2021 INSERT INTRAUTERINE DEVICE 05/20/2010 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 04/19/2014 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)_*FL 03/04/2003 ALLERGIES Ultram [Tramadol] MEDICATIONS albuterol HFA (PROVENTIL HFA, VENTOLIN HFA) 90 mcg/actuation inhaler Inhale 2 Puffs as instructed every 4 hours as needed. HYDROcodone-acetaminophen (NORCO) 5-325 mg per tablet TAKE 1 TABLET BY MOUTH EVERY 6 HOURS NEEDED FOR PAIN FOR 3 DAYS promethazine (PHENERGAN) 25 mg tablet escitalopram oxalate (LEXAPRO) 5 mg tablet Take 1 tablet by mouth once daily. cyclobenzaprine (FLEXERIL) 10 mg tablet Take 1 tablet by mouth three times daily as needed for muscle spasm. ondansetron (ZOFRAN) 4 mg tablet as needed. ergocalciferol 50,000 unit capsule (VITAMIN D2, DRISDOL) Take 1 capsule by mouth one time a week. omeprazole (PRILOSEC) 40 mg capsule Take 1 capsule by mouth once daily. ondansetron orally disintegrating (ZOFRAN ODT) 4 mg disintegrating tablet Take 1 tablet by mouth every 8 hours as needed. loratadine (CLARITIN) 10 mg tablet Take 1 tablet by mouth once daily. Can try this instead of cetirizine levonorgestrel (MIRENA) 20 mcg/24 hr (5 years) IUD 1 Each by INTRAUTERINE route continuous. trimethoprim-polymyxin (POLYTRIM) 10,000 unit- 1 mg/mL ophthalmic solution Use 1 Drop in the left eye every 4 hours for 7 days. FAMILY HISTORY Problem Relation Age of Onset No Known Problems Brother Heart Father Cancer Father small cell carcinoma of lung Cancer Maternal Grandmother stomach cancer Cancer Maternal Grandfather lung cancer Arthritis Maternal Grandfather Stroke Maternal Grandfather Heart Paternal Grandfather Heart Paternal Grandmother Diabetes Maternal Aunt other (Panic attacks) Sister Cancer Sister 29 Hodgkin's Lymphoma No Known Problems Brother Social History Tobacco Use Smoking status: Every Day Packs/day: 0.50 Years: 20.00 Pack years: 10.00 Types: Cigarettes Smokeless tobacco: Never Vaping Use Vaping Use: Never used Substance Use Topics Alcohol use: No Comment: history of being recovering alcholic Drug use: No Comment: MARIJUANA and CocaineIN PAST, NONE SINCE 2006 ASSESSMENT/PLAN: 1. [place] eye disease of left eye - ICD9: 372.03, ICD10: H10.022 - POLYMYXIN B SULFATE 10,000 UNIT-TRIMETHOPRIM 1 MG/ML EYE DROPS She was educated about proper use of medication and supportive therapies. Patient will follow-up if signs and symptoms seem to getting worse not better. Patient was okay with this care plan. Eva Glez APRN.[facility] 09-30-2022 History of Present illness Narrative Images from the original note were not included. Subjective Patient came in with complaints of left eye redness irritation. Patient also has a swollen lymph node on the right and ear pressure. Patient denies any other symptoms at this time. Patient denies any eyeball pain or vision changes. The history is provided by the patient. No foreign language teacher was used. Conjunctivitis Review of Systems Constitutional: Negative. Skin: Negative. Objective Physical Exam Constitutional: Appearance: Normal appearance. Eyes: Conjunctiva/sclera: Right eye: Right conjunctiva is not injected. No exudate or hemorrhage. Left eye: Left conjunctiva is injected. No exudate or hemorrhage. Comments: Patient has erythema located in the areas marked above. Pulmonary: Effort: Pulmonary effort is normal. Neurological: Mental Status: She is alert. PAST MEDICAL HISTORY Diagnosis Date Abnormal glandular Papanicolaou smear of cervix 2002 Abn. 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 Rh negative state in antepartum period 11/16/2014 Sciatic pain Smoker 10/18/2020 Cigarettes Unspecified , without mention of complication, unspecified PAST SURGICAL HISTORY Procedure Laterality Date ANESTH, SECTION DELIVERY ONLY 02/24/04, 2008 , low cervical DELIVERY ONLY 06/14/2015 , low transverse COLONOSCOPY 06/01/2022 COLSC FLX W/REMOVAL LESION BY HOT BX FORCEPS 07/25/2012 EGD W/O BRSH SPEC VARICIES INJ 12/22/2021 INSERT INTRAUTERINE DEVICE 05/20/2010 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 04/19/2014 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)_*FL 03/04/2003 ALLERGIES Ultram [Tramadol] MEDICATIONS albuterol HFA (PROVENTIL HFA, VENTOLIN HFA) 90 mcg/actuation inhaler Inhale 2 Puffs as instructed every 4 hours as needed. HYDROcodone-acetaminophen (NORCO) 5-325 mg per tablet TAKE 1 TABLET BY MOUTH EVERY 6 HOURS NEEDED FOR PAIN FOR 3 DAYS promethazine (PHENERGAN) 25 mg tablet escitalopram oxalate (LEXAPRO) 5 mg tablet Take 1 tablet by mouth once daily. cyclobenzaprine (FLEXERIL) 10 mg tablet Take 1 tablet by mouth three times daily as needed for muscle spasm. ondansetron (ZOFRAN) 4 mg tablet as needed. ergocalciferol 50,000 unit capsule (VITAMIN D2, DRISDOL) Take 1 capsule by mouth one time a week. omeprazole (PRILOSEC) 40 mg capsule Take 1 capsule by mouth once daily. ondansetron orally disintegrating (ZOFRAN ODT) 4 mg disintegrating tablet Take 1 tablet by mouth every 8 hours as needed. loratadine (CLARITIN) 10 mg tablet Take 1 tablet by mouth once daily. Can try this instead of cetirizine levonorgestrel (MIRENA) 20 mcg/24 hr (5 years) IUD 1 Each by INTRAUTERINE route continuous. trimethoprim-polymyxin (POLYTRIM) 10,000 unit- 1 mg/mL ophthalmic solution Use 1 Drop in the left eye every 4 hours for 7 days. FAMILY HISTORY Problem Relation Age of Onset No Known Problems Brother Heart Father Cancer Father small cell carcinoma of lung Cancer Maternal Grandmother stomach cancer Cancer Maternal Grandfather lung cancer Arthritis Maternal Grandfather Stroke Maternal Grandfather Heart Paternal Grandfather Heart Paternal Grandmother Diabetes Maternal Aunt other (Panic attacks) Sister Cancer Sister 29 Hodgkin's Lymphoma No Known Problems Brother Social History Tobacco Use Smoking status: Every Day Packs/day: 0.50 Years: 20.00 Pack years: 10.00 Types: Cigarettes Smokeless tobacco: Never Vaping Use Vaping Use: Never used Substance Use Topics Alcohol use: No Comment: history of being recovering alcholic Drug use: No Comment: MARIJUANA and CocaineIN PAST, NONE SINCE 2006 ASSESSMENT/PLAN: 1. [place] eye disease of left eye - ICD9: 372.03, ICD10: H10.022 - POLYMYXIN B SULFATE 10,000 UNIT-TRIMETHOPRIM 1 MG/ML EYE DROPS She was educated about proper use of medication and supportive therapies. Patient will follow-up if signs and symptoms seem to getting worse not better. Patient was okay with this care plan. Eva Glez APRN.ELIAS documented in this encounter [facility] 08-02-2022 Note HNO ID: [id number] Author: Miladis Pillai APRN.CNP Service: ? Author Type: Nurse Practitioner Type: Progress Notes Filed: 08/02/2022 7:51 PM Note Text: CC: Patient presents with: Ear Pain: Right ear pain, St, cough, PAUL and fatigue x 1 week HPI: Deena Iqbal is a 36 year old female who presents to the office with complaint of respiratory symptoms for about 10 days. Symptoms are worsening Associated symptoms includes sore throat, nasal congestion, rhinorrhea, facial pain/pressure, headache, body aches, ear pressure , cough, wheezing, and fatigue. Denies fever. Treatments tried include OTC cold medicine with no relief of symptoms. Sick contacts: no. History of asthma, frequent episodes of bronchitis, chronic bronchitis, bronchiectasis or COPD: Yes asthma Smoker: Yes The ROS is otherwise negative. The patient's pmh, medications, allergies, and past visits are reviewed. PHYSICAL EXAM: BP 110/82 Pulse 69 Temp 37.2 ?C (98.9 ?F) (Tympanic) Resp 16 Wt 66.6 kg (146 lb 12.8 oz) LMP 04/30/2016 (Exact Date) SpO2 96% BMI 27.74 kg/m? General appearance: tired/ill appearing, alert, cooperative, pleasant, in no acute distress Head: Normocephalic Eyes: conjunctiva pink and moist, no icterus, sclera white, non-injected Ears: Right ear: External ear/canal- Normal, TM - clear with good landmarks, erythematous streaking. Left ear: External ear/canal- Normal, TM - clear with good landmarks, erythematous streaking Nose: mucosa erythematous and swollen, sinus tenderness over maxillary sinuses bilateral. Oropharynx:no erythema, without exudates present Neck:supple and no adenopathy Heart: Negative. RRR without obvious murmur, gallop, or rubs. No ectopy. Lungs: clear to auscultation, without rales or wheeze, good air exchange ASSESSMENT/PLAN: 1. Acute non-recurrent sinusitis, unspecified location - ICD9: 461.9, ICD10: J01.90 (primary diagnosis) - Will begin treatment with Augmentin 875 mg PO BID for 7 days - Supportive care with plenty of fluids, rest, and analgesia prn. - Follow up in 3-5 days if symptoms persist or worsen. 2. Exacerbation of asthma, unspecified asthma severity, unspecified whether persistent - ICD9: 493.92, ICD10: J45.901 Secondary to URI Start prednisone x 5 days Prescription instructions reviewed with patient as applicable. Potential red flag symptoms discussed with the patient. Reviewed appropriate action plan to take if red flag symptoms occur. Patient agreeable to treatment plan. Miladis Pillai, TIE MAKER.[facility] 08-02-2022 History of Present illness Narrative CC: Patient presents with: Ear Pain: Right ear pain, St, cough, PAUL and fatigue x 1 week HPI: Deena Iqbal is a 36 year old female who presents to the office with complaint of respiratory symptoms for about 10 days. Symptoms are worsening Associated symptoms includes sore throat, nasal congestion, rhinorrhea, facial pain/pressure, headache, body aches, ear pressure , cough, wheezing, and fatigue. Denies fever. Treatments tried include OTC cold medicine with no relief of symptoms. Sick contacts: no. History of asthma, frequent episodes of bronchitis, chronic bronchitis, bronchiectasis or COPD: Yes asthma Smoker: Yes The ROS is otherwise negative. The patient's pmh, medications, allergies, and past visits are reviewed. PHYSICAL EXAM: BP 110/82 Pulse 69 Temp 37.2 C (98.9 F) (Tympanic) Resp 16 Wt 66.6 kg (146 lb 12.8 oz) LMP 04/30/2016 (Exact Date) SpO2 96% BMI 27.74 kg/m General appearance: tired/ill appearing, alert, cooperative, pleasant, in no acute distress Head: Normocephalic Eyes: conjunctiva pink and moist, no icterus, sclera white, non-injected Ears: Right ear: External ear/canal- Normal, TM - clear with good landmarks, erythematous streaking. Left ear: External ear/canal- Normal, TM - clear with good landmarks, erythematous streaking Nose: mucosa erythematous and swollen, sinus tenderness over maxillary sinuses bilateral. Oropharynx:no erythema, without exudates present Neck:supple and no adenopathy Heart: Negative. RRR without obvious murmur, gallop, or rubs. No ectopy. Lungs: clear to auscultation, without rales or wheeze, good air exchange ASSESSMENT/PLAN: 1. Acute non-recurrent sinusitis, unspecified location - ICD9: 461.9, ICD10: J01.90 (primary diagnosis) - Will begin treatment with Augmentin 875 mg PO BID for 7 days - Supportive care with plenty of fluids, rest, and analgesia prn. - Follow up in 3-5 days if symptoms persist or worsen. 2. Exacerbation of asthma, unspecified asthma severity, unspecified whether persistent - ICD9: 493.92, ICD10: J45.901 Secondary to URI Start prednisone x 5 days Prescription instructions reviewed with patient as applicable. Potential red flag symptoms discussed with the patient. Reviewed appropriate action plan to take if red flag symptoms occur. Patient agreeable to treatment plan. Miladis Pillai APRN.CNP documented in this encounter [facility] 05-16-2022 Hospital Discharge instructions Patient Education 05/15/2022 23:37:13 Muscle Spasm Muscle Spasm A muscle spasm is a sudden tightening of the muscle you can t control. This may be caused by strain, overworking the muscle, or injury. It can also be caused by dehydration, electrolyte imbalance, diabetes, alcohol use, and certain medicines. If it goes on long enough the muscle spasm causes pain. Common areas for muscle spasm are the legs, neck, and back. Home care Heat, massage, and stretching will help relax muscle spasm. When the spasm is in your arm or leg, stretch the muscle passively. To do this, have someone bend or straighten the joint above or below the muscle until you feel the stretch on the sore muscle. You can stretch the muscle actively by moving the affected body part. This will stretch the muscle that is in spasm. For example, if the spasm is in your calf, bend the ankle so your toes point upward toward your knee. This will stretch your calf muscle. You may use ueud-kgb-fanwpta pain medicine to control pain, unless another medicine was prescribed. If you have chronic liver or kidney disease or ever had a stomach ulcer or gastrointestinal bleeding, talk with your healthcare provider before using these medicines. Follow-up care Follow up with your healthcare provider, or as advised. When to seek medical advice Call your healthcare provider right away if any of the following occur: Fingers or toes become swollen, cold, blue, numb, or tingly You develop weakness in the affected arm or leg Pain increases and is not controlled by the above measures 3077-[address] [employer]. [address] [place] [address], [place] [address]. All rights reserved. This information is not intended as a substitute for professional medical care. Always follow your healthcare professional's instructions. Follow Up Care 05/15/2022 23:18:01 With:ROD AMAYA MD Address: [address] [place] [address]- When:2-4 days [facility] Oscar Ramos 05-15-2022 Emergency department Discharge summary Discharge Instructions Thank you for allowing [place] to assist you with your healthcare needs. The following is important discharge information regarding your hospital visit. Diagnosis from Today's Visit Muscle swelling Foot pain-swelling What to Do Next Instructions from Your Care Team No qualifying data available. Post Acute Orders No qualifying data available. You Need to Schedule the Following Appointments Follow Up with ROD AMAYA MD When Within 2-4 days Where: [address] [place] [address]- Allergies traMADol Medications Please ask your primary doctor or pharmacist before taking any other medication not listed, including over the counter drugs, herbal medications, vitamins and or supplements as they may interact with your home medications. What How Much When Why Instructions Last Dose Changed cyclobenzaprine (Flexeril use cyclobenzaprine ) 10 Milligram by mouth Two (2) times a day Muscle swelling Duration: 10 Days Printed Prescription Changed cyclobenzaprine (Flexeril) by mouth Three (3) times a day Unchanged albuterol (Albuterol (Eqv-ProAir HFA) 90 mcg/ inh inhalation aerosol) Unchanged amoxicillin-clavulanate (amoxicillin-clavulanate 875 mg-125 mg oral tablet) 1 tab(s) by mouth Every 12 hours Duration: 10 Days Unchanged azithromycin (azithromycin 250 mg oral tablet) 1 tab(s) by mouth Once a day Duration: 5 Days Unchanged dicyclomine (dicyclomine 10 mg oral capsule) 1 cap by mouth Four (4) times a day Abdominal pain - cause unknown Duration: 7 Days Unchanged ibuprofen (ibuprofen 800 mg oral tablet) 1 tab(s) by mouth Three (3) times a day as needed for for pain Unchanged levonorgestrel (Mirena) Intrauterine Once Unchanged loratadine (loratadine 10 mg oral tablet) 1 tab(s) by mouth Once a day Unchanged omeprazole (omeprazole 40 mg oral delayed release capsule) 1 cap by mouth Once a day Unchanged ondansetron (ondansetron 4 mg oral tablet, disintegrating) 1 tab(s) by mouth Every 8 hours as needed for as needed for nausea/vomiting Unchanged promethazine (promethazine 25 mg oral tablet) 1 tab(s) by mouth Every 4 hours Abdominal pain - cause unknown Unchanged tiZANidine (tiZANidine 2 mg oral tablet) 1 tab(s) by mouth Every 8 hours Muscle spasm - tone Please take this list to your next doctor s visit. Bring all medications you take, including over the counter medications, herbals and other supplements with you to your doctor s visit. Patients and families are reminded to discard old lists and to update any records with all medication providers or retail pharmacies. Medication Leaflets cyclobenzaprine (gibson felder) Amrix, Comfort Pac with Cyclobenzaprine, Fexmid What is the most important information I should know about cyclobenzaprine? You should not use cyclobenzaprine if you have a thyroid disorder, heart block, congestive heart failure, a heart rhythm disorder, or you have recently had a heart attack. Do not use cyclobenzaprine if you have taken an MAO inhibitor in the past 14 days, such as isocarboxazid, linezolid, phenelzine, rasagiline, selegiline, or tranylcypromine. What is cyclobenzaprine? Cyclobenzaprine is a muscle relaxant. It works by blocking nerve impulses (or pain sensations) that are sent to your brain. Cyclobenzaprine is used together with rest and physical therapy to relieve muscle spasms caused by painful conditions such as an injury. Cyclobenzaprine may also be used for purposes not listed in this medication guide. What should I discuss with my healthcare provider before taking cyclobenzaprine? You should not use cyclobenzaprine if you are allergic to it, or if you have: a thyroid disorder; heart block, heart rhythm disorder, congestive heart failure; or if you have recently had a heart attack. Cyclobenzaprine is not approved for use by anyone younger than 15 years old. Do not use cyclobenzaprine if you have taken an MAO inhibitor in the past 14 days. A dangerous drug interaction could occur. MAO inhibitors include isocarboxazid, linezolid, phenelzine, rasagiline, selegiline, and tranylcypromine. Some medicines can interact with cyclobenzaprine and cause a serious condition called serotonin syndrome. Be sure your doctor knows if you also take stimulant medicine, opioid medicine, herbal products, or medicine for depression, mental illness, Parkinson's disease, migraine headaches, serious infections, or prevention of nausea and vomiting. Ask your doctor before making any changes in how or when you take your medications. Tell your doctor if you have ever had: liver disease; glaucoma; enlarged prostate; or problems with urination. It is not known whether this medicine will harm an unborn baby. Tell your doctor if you are or plan to become . It may not be safe to breast-feed while using this medicine. Ask your doctor about any risk. Older adults may be more sensitive to the effects of this medicine. How should I take cyclobenzaprine? Follow all directions on your prescription label and read all medication guides or instruction sheets. Your doctor may occasionally change your dose. Use the medicine exactly as directed. Cyclobenzaprine is usually taken once daily for only 2 or 3 weeks. Follow your doctor's dosing instructions very carefully. Swallow the capsule whole and do not crush, chew, break, or open it. Take the medicine at the same time each day. Call your doctor if your symptoms do not improve after 3 weeks, or if they get worse. Store at room temperature away from moisture, heat, and light. What happens if I miss a dose? Take the medicine as soon as you can, but skip the missed dose if it is almost time for your next dose. Do not take two doses at one time. What happens if I overdose? Seek emergency medical attention or call the Poison Help line at . An overdose of cyclobenzaprine can be fatal. Overdose symptoms may include severe drowsiness, vomiting, fast heartbeats, tremors, agitation, or hallucinations. What should I avoid while taking cyclobenzaprine? Avoid driving or hazardous activity until you know how this medicine will affect you. Your reactions could be impaired. Avoid drinking alcohol. Dangerous side effects could occur. What are the possible side effects of cyclobenzaprine? Get emergency medical help if you have signs of an allergic reaction: hives; difficult breathing; swelling of your face, lips, tongue, or throat. Stop using cyclobenzaprine and call your doctor at once if you have: fast or irregular heartbeats; chest pain or pressure, pain spreading to your jaw or shoulder; or sudden numbness or weakness (especially on one side of the body), slurred speech, balance problems. Seek medical attention right away if you have symptoms of serotonin syndrome, such as: agitation, hallucinations, fever, sweating, shivering, fast heart rate, muscle stiffness, twitching, loss of coordination, nausea, vomiting, or diarrhea. Serious side effects may be more likely in older adults. Common side effects may include: drowsiness, tiredness; headache, dizziness; dry mouth; or upset stomach, nausea, constipation. This is not a complete list of side effects and others may occur. Call your doctor for medical advice about side effects. You may report side effects to FDA at 7-050-RZX-3687. What other drugs will affect cyclobenzaprine? Using cyclobenzaprine with other drugs that make you drowsy can worsen this effect. Ask your doctor before using opioid medication, a sleeping pill, a muscle relaxer, or medicine for anxiety or seizures. Tell your doctor about all your other medicines, especially: bupropion (Zyban, for smoking cessation); meperidine; tramadol; verapamil; cold or allergy medicine that contains an antihistamine (Benadryl and others); medicine to treat Parkinson's disease; medicine to treat excess stomach acid, stomach ulcer, motion sickness, or irritable bowel syndrome; medicine to treat overactive bladder; or bronchodilator asthma medication. This list is not complete. Other drugs may affect cyclobenzaprine, including prescription and elys-fuk-leqeuzf medicines, vitamins, and herbal products. Not all possible drug interactions are listed here. Where can I get more information? Your pharmacist can provide more information about cyclobenzaprine. Remember, keep this and all other medicines out of the reach of children, never share your medicines with others, and use this medication only for the indication prescribed. Every effort has been made to ensure that the information provided by [employer]. [employer]') is accurate, up-to-date, and complete, but no guarantee is made to that effect. Drug information contained herein may be time sensitive. [employer] information has been compiled for use by healthcare practitioners and consumers in the [place] and therefore [employer] does not warrant that uses outside of the [place] are appropriate, unless specifically indicated otherwise. [employer]'s drug information does not endorse drugs, diagnose patients or recommend therapy. [employer] drug information is an informational resource designed to assist licensed healthcare practitioners in caring for their patients and/or to serve consumers viewing this service as a supplement to, and not a substitute for, the expertise, skill, knowledge and judgment of healthcare practitioners. The absence of a warning for a given drug or drug combination in no way should be construed to indicate that the drug or drug combination is safe, effective or appropriate for any given patient. [facility] does not assume any responsibility for any aspect of healthcare administered with the aid of information [facility] provides. The information contained herein is not intended to cover all possible uses, directions, precautions, warnings, drug interactions, allergic reactions, or adverse effects. If you have questions about the drugs you are taking, check with your doctor, nurse or pharmacist. Copyright 4644-0649 [facility], [employer]. Version: 5.01. Revision Date: 02/12/2018. Education Materials Muscle Spasm A muscle spasm is a sudden tightening of the muscle you can t control. This may be caused by strain, overworking the muscle, or injury. It can also be caused by dehydration, electrolyte imbalance, diabetes, alcohol use, and certain medicines. If it goes on long enough the muscle spasm causes pain. Common areas for muscle spasm are the legs, neck, and back. Home care Heat, massage, and stretching will help relax muscle spasm. When the spasm is in your arm or leg, stretch the muscle passively. To do this, have someone bend or straighten the joint above or below the muscle until you feel the stretch on the sore muscle. You can stretch the muscle actively by moving the affected body part. This will stretch the muscle that is in spasm. For example, if the spasm is in your calf, bend the ankle so your toes point upward toward your knee. This will stretch your calf muscle. You may use ahmv-ort-jrxyinj pain medicine to control pain, unless another medicine was prescribed. If you have chronic liver or kidney disease or ever had a stomach ulcer or gastrointestinal bleeding, talk with your healthcare provider before using these medicines. Follow-up care Follow up with your healthcare provider, or as advised. When to seek medical advice Call your healthcare provider right away if any of the following occur: Fingers or toes become swollen, cold, blue, numb, or tingly You develop weakness in the affected arm or leg Pain increases and is not controlled by the above measures 9442-3679 [employer]. [address] [place] [address], [place] [address]. All rights reserved. This information is not intended as a substitute for professional medical care. Always follow your healthcare professional's instructions. Additional Information VACCINATE! IT SAVES LIVES! Members of the community who have not yet received the COVID-19 vaccine and would like to receive it can visit one of [facility] vaccine clinics. There are many vaccine clinic locations within the [facility]. For locations and available times, please visit [email or web address]. It is important to note that some COVID mobile vaccine clinics are held outdoors and may be canceled in rainy or stormy conditions. To learn more about pediatric vaccinations (ages 5-11), we invite you to visit the [facility] webpage. [email or web address] To learn more about the COVID-19 vaccine, we invite you to visit the [place] website for a list of frequently asked questions. [email or web address] [email or web address] [facility] Patient Portal Access Instructions: Stay connected with your healthcare team and access your personal medical information anytime with the [facility] Patient Portal. If you would like a full copy of your medical records please contact the [facility] Medical Records Department Saturday through Saturday between 8a.m. and 4:30p.m. Please follow the directions below to access the portal: 1.Access the email account you provided upon registration to the [facility].2.Look for an invitation email from [facility].3.Open the email and access the invitation link: Accept Invitation to [facility]4.Fill in the required wilcox to create your account. Sign into [email or web address] with your username and password that you created in the above steps to stay up to date. You can then view a summary of results, a summary of your visits, and the ability to download your summaries to your computer or send the information securely to a physician. Remember that your healthcare information is confidential, so carefully consider who you will allow to register on the [facility] Patient Portal for access to your information. You can also access the [facility] Patient Portal on the [employer] bi. Simply click on Health Records under Health Data and then click on the [employer] logo. HOW TO SAFELY DISPOSE OF PRESCRIPTION MEDICATIONS Please use one of the following methods to safely dispose of your unused medications. 1.Use a drug disposal kit: the drug disposal pouch allows you to safely discard your old and unused drugs. Ask your nurse to give you one when you are discharged.2.Visit a local take-back location: Many local pharmacies and police departments have programs that collect old and unwanted prescription drugs. Call your local pharmacy or go to http://[employer].FunPuntos/2B1Qt1y to find one close to you.3.Make use of household items: Use cat litter or old coffee grounds to dispose medications if other options are not available. Mix your drugs with these household products, seal them in an airtight container and throw it into the garbage. Call [facility]: [phone] to be sure your drugs can be disposed of in this way. Some medicines may require a different approach.4.Never flush your medications down the toilet. IF YOU HAVE BEEN PRESCRIBED AN OPIOIDS FOR PAIN If you have been prescribed an opioid (such as hydrocodone, oxycodone or morphine), it is critical to understand the possible side effects and risks of opioid pain medications. Even when taken as directed, opioids can have several side effects including: Tolerance, meaning you might need to take more of a medication for the same pain relief. Nausea, vomiting and/or constipation. Sleepiness, dizziness, dry mouth, confusion, depression or itching. Physical dependence, meaning you have withdrawal symptoms when a medication is stopped ? this can develop within a few days. KNOW YOUR RESPONSIBILITIES It is important to know exactly how much and how often to take the opioid pain medications you are prescribed. Never take opioids in higher amounts or more often than prescribed. Do not combine opioids with alcohol or other drugs that cause drowsiness, such as benzodiazepines, also known as benzos, including diazepam and alprazolam, muscle relaxants or sleep aids. Never sell or share prescription opioids. This is illegal. Store opioids in a secure place and out of reach of others (including children, family, friends and visitors). The last page(s) of this document has been signed and retained as a CHART COPY Signatures Patient Education Materials Muscle Spasm Medication Leaflets cyclobenzaprine My discharge plan and instructions have been reviewed and explained to me and I,DEENA IQBAL E understand my current condition and have read and understand these discharge instructions. I have received a written copy of the plan/instructions. If I have questions, I am aware that I should contact my doctor. 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 documented in this encounter [facility] 05-04-2022 History of Present illness Narrative Deena is a 36 year old who presents today for a colposcopy. The patient's last pap smear was ASCUS with positive HPV from March 2022. Patient has a history of abnormal pap: Yes. The patient has had prior treatment: LEEP. test: negative UNIVERSAL PROTOCOL / SAFETY CHECKLIST Procedure to be Performed: Colposcopy Sign In: A Moment of CARE was completed. Personnel directly involved with the procedure wore the appropriate PPE (Personal Protective Equipment). Patient/Surrogate Stated/Verified: PATIENT VERIFIED(optional for EMERGENT procedures): Patient name, Date of , Relevant allergies, and The intended procedure Time Out Communication: Intended patient and procedure match the source documents. Consent documented and matches the intended procedure. Sign Out: SIGN OUT (optional for EMERGENT procedures): All specimen containers correctly labeled. All instruments, equipment, possible retained foreign bodies accounted for. Post-procedure follow-up management communicated and Plan of Care Visit completed when applicable. PROCEDURE: EXTERNAL GENITALIA: Normal in appearance without lesions VAGINA: Normal in appearance without lesions CERVIX: Speculum placed in vagina and excellent visualization of cervix achieved. Cervix swabbed x 3 with 3% acetic acid solution. Cervix grossly normal. Squamocolumnar junction visualized. acetowhite changes noted 6. BIOPSY: Done at 6:00 ECC: done HEMOSTASIS: Obtained with pressure Procedure Summary: Patient tolerated procedure well and colposcopy was adequate. ASSESSMENT: HPV effect PLAN: Specimens labeled and sent to Pathology. Will notify patient of results in 1-2 weeks. Post-procedure instructions reviewed and written material given to the patient. Kandy Metzger DO documented in this encounter [facility] 05-04-2022 Instructions Dennise Marquez MA - 05/04/2022 2:02 PM EST YOUR RECOVERY It may take a few weeks for your cervix to heal. While your cervix heals, you may have: - Vaginal bleeding (less than a normal menstrual period) - Mild cramping - A brown-black vaginal discharge (similar to coffee grounds) which is a result of the paste used to help stop bleeding from the procedure Do NOT put anything in the vagina for 1 week after your colposcopy if your doctor does a biopsy of your cervix. This includes sex, tampons, and douches. If you have any discomfort, you may take an over the counter pain medication (motrin, advil, ibuprofen, tylenol, etc). If this does not relieve your discomfort, contact your doctor's office for a prescription strength pain medication. It is okay to wear a sanitary pad until the discharge and spotting stops. RISKS Although problems seldom occur with colposcopy, there can be some complications. You may feel faint during and shortly after the procedure as well as have some bleeding and vaginal discharge after the procedure. There is also a risk of infection after the procedure. These complications are rare and can be easily treated. You should contact you doctor is you have any of the following: - Heavy bleeding (more than your normal period) - Bleeding with clots - Severe abdominal pain - Fever (more than 100.4F) - Foul smelling vaginal discharge RESULTS If a biopsy was taken, we will have the results of your biopsy in 1-2 weeks. If you do not hear the results of your biopsy after 2 weeks, please contact your physicians office for the results. Depending on the biopsy results, your doctor will determine your follow up plan which may include further testing or treatments. STAYING HEALTHY After the procedure, you will need to see your doctor for follow up visits during the year. At these visits your doctor will check the health of your cervix with a pap smear. After three normal pap smears, your doctor will allow you to return to having exams once a year. If you have another abnormal pap smear, you may need closer follow up for longer or you may need additional treatment. By making a few lifestyle changes after the procedure, you can help protect the health of your cervix: - Have regular pelvic exams and pap smears as ordered by your doctor. - Stop smoking as smoking increases your risk of developing a cancer of the cervix - If you have more than one sexual partner, limit your number of partners and use condoms to reduce your risks of STDs. If you have any additional questions, please contact your doctor's office. documented in this encounter [facility] 05-02-2022 History of Present illness Narrative Radiology Service Progress Note PATIENT NAME: Deena Iqbal DATE OF SERVICE: May 02, 2022 TIME: 11:48 AM PATIENT IDENTITY VERIFICATION COMPLETED USING TWO (2) IDENTIFIERS: Name and Date of confirmed by patient verbally. FALL SCREENING: Has the patient had 2 falls in the last year or 1 fall with injury or currently using an Ambulatory Assistive Device (Walker, Cane, Wheelchair, Crutches, etc.)? No PATIENT GENDER DATA: Female. status: : No status: NO. PATIENT RELEVANT IMPLANT DATA REVIEWED: Not Applicable RADIOLOGY DEPARTMENT: Ultrasound PERIPHERAL IV DATA: Not applicable SIGNED BY: Lindy Das RDMS T May 02, 2022 11:48 AM documented in this encounter [facility] 05-01-2022 Miscellaneous Notes LV Unfortunately scheduling cannot set up colonoscopy until C. Diff test is performed due to protocol. I apologize for the inconvenience. Thank you for communicating this to her Aurea Contreras PA-C Spoke with patient she is wondering if an order for a colonoscopy can be placed due to her past medical history. She will get the c diff testing done first. She just wants have it scheduled so she can start looking for a ride and not have to wait as long if it comes out negative. documented in this encounter [facility] 05-01-2022 Miscellaneous Notes Spoke to patient, will do Cdiff test Janel Rosenberg TRAVEL REGISTERED NURSE ICU documented in this encounter [facility] 04-27-2022 Miscellaneous Notes Tried to call both number in chart neither phone number was in service. Brainient message sent. Gastro responded to patient via My Chart results note. If labs were ordered by gastro then they should be following up with her on the results. Let her know to give it about a week or so and if does not hear back from gastro then let us know. Pt called in and reports she had seen Analy Romero NP for Gastro and her lab results are in. She reports that Analy is no longer with them, I told her she should call Gastro and go through them to get the results. Pt wanted to see if PCP could look at the results and call back with advise since she states, I was complaining of the same things when I saw Dr Amaya. . Please call and advise. documented in this encounter [facility] 04-25-2022 Miscellaneous Notes Addended by: AUREA CONTRERAS on: 04/25/2022 11:44 AM Modules accepted: Orders Addended by: AUREA CONTRERAS on: 04/25/2022 11:38 AM Modules accepted: Orders Pt called regarding stool studies, mildly elevated calprotectin. Recommend C. Diff testing. If WNL, will plan for colonoscopy. Aurea Contreras PA-C documented in this encounter [facility] 04-18-2022 Miscellaneous Notes Left message for patient to call the office or review Mychart message. Saranya Bhatia RN It is normal for blood to look different shades of red in the tube. Please reassure her that it is nothing to worry about. Jeferson Glez MD ALFREDITO patient was seen in office yesterday and had lab work done. Asking why her blood may have looked darker than normal. Patient mentioned it to the refinery operator light ends recovery who also agreed. Advised that ALFREDITO is not back in the office until Saturday. Patient asking for KJ to review in ALFREDITO's absence. Saranya Bhatia RN documented in this encounter [facility] 04-17-2022 Instructions Lindy Cash APRN.CNM - 04/17/2022 3:15 PM EST SIBO Low Fodmap Diet Discuss with GI treatment with Rifaximin documented in this encounter [facility] 04-17-2022 History of Present illness Narrative Water Superintendent offered: Patient declines. Deena is a 36 year old who presents for an annual gynecologic exam without complaints. Cathleen recently from drug overdose. Her and children are coping ok. 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 PAST MEDICAL HISTORY Diagnosis Date Abnormal glandular Papanicolaou smear of cervix 2002 Abn. 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 Rh negative state in antepartum period 11/16/2014 Sciatic pain Smoker 10/18/2020 Cigarettes Unspecified , without mention of complication, unspecified PAST SURGICAL HISTORY Procedure Laterality Date ANESTH, SECTION DELIVERY ONLY 02/24/04, 2008 , low cervical DELIVERY ONLY 06/14/2015 , low transverse COLSC FLX W/REMOVAL LESION BY HOT BX FORCEPS 07/25/2012 EGD W/O BRSH SPEC VARICIES INJ 12/22/2021 INSERT INTRAUTERINE DEVICE 05/20/2010 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 04/19/2014 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)_*FL 03/04/2003 FAMILY HISTORY Problem Relation Age of Onset No Known Problems Brother Heart Father Cancer Father small cell carcinoma of lung Cancer Maternal Grandmother stomach cancer Cancer Maternal Grandfather lung cancer Arthritis Maternal Grandfather Stroke Maternal Grandfather Heart Paternal Grandfather Heart Paternal Grandmother Diabetes Maternal Aunt other (Panic attacks) Sister Cancer Sister 29 Hodgkin's Lymphoma No Known Problems Brother SOCIAL HISTORY Social History Tobacco Use Smoking status: Every Day Packs/day: 0.50 Years: 20.00 Pack years: 10.00 Types: Cigarettes Smokeless tobacco: Never Vaping Use Vaping Use: Never used Substance Use Topics Alcohol use: No Comment: history of being recovering alcholic Drug use: No Comment: MARIJUANA and CocaineIN PAST, NONE SINCE 2006 REVIEW OF SYSTEMS Abdomen: No abdominal pain, nausea, vomiting, diarrhea, or constipation. No bloating, early satiety, indigestion, or increased flatulence. Bladder: No dysuria, gross hematuria, urinary frequency, urinary urgency, or incontinence. Breast: No breast lumps, nipple d/c, overlying skin changes, redness or skin retraction. Allergies and current medication updated:Yes EXAM: BP 110/68 Ht 5' 1 (1.55m) Wt 144 lb 6.4 oz (65.5kg) LMP 04/30/2016 BMI 27.30 kg/(m^2). GENERAL: pleasant, female in no apparent distress HEENT: Normocephalic, atraumatic, mucus membranes moist, and no lesions NECK: Supple, full range of motion, no adenopathy, and thyroid normal DERMATOLOGY: Normal, without lesions, non-icteric, and non-hirsute BREAST: soft, non-tender, symmetric, no dominant mass, normal nipple-areolar complex, no lymphadenopathy, and no nipple discharge CHEST: Normal inspiratory effort ABDOMEN: soft, non-tender, and no masses PELVIC: external genitalia normal, normal Bartholin's glands, urethra, [place]'s glands, no vulvar lesions, no cervical lesions, good vaginal support, physiologic discharge present, normal appearing perineal body and perianal region BIMANUAL: uterus normal size, shape and consistency, no adnexal masses, and non-tender RECTOVAGINAL: deferred. NEURO: alert and oriented x3,exam grossly non-focal EXTREMITIES: normal ASSESSMENT/PLAN: 1. Encounter for gynecological examination (general) (routine) without abnormal findings - ICD9: V72.31, ICD10: Z01.419 (primary diagnosis) - Completed pelvic and breast exam - Encouraged monthly BSE - Follow up for annual exam in one year. - PAP FLUID CERVICAL SCREENING 2. Screening for cervical cancer - ICD9: V76.2, ICD10: Z12.4 - Completed pelvic and breast exam - Encouraged monthly BSE - Follow up for annual exam in one year. - PAP FLUID CERVICAL SCREENING - SYPHILIS TOTAL W/REFLEX 3. Encounter for screening for human papillomavirus (HPV) - ICD9: V73.81, ICD10: Z11.51 - PAP FLUID CERVICAL SCREENING 4. Screening examination for STD (sexually transmitted disease) - ICD9: V74.5, ICD10: Z11.3 - GC/CHLAMYDIA DNA DET - SYPHILIS TOTAL W/REFLEX - HEP C AB IA W/CONF SCRN - HEP B SURF AG SCRN - HIV 1 2 COMBO(AG/AB),WITH REFLEX TO DIFFERENTIATION 5. Vaginal discharge - ICD9: 623.5, ICD10: N89.8 - BACT/SEVEN VAG GRAM STAIN 6. History of ovarian cyst - ICD9: V13.29, ICD10: Z87.42 - CA 125 BLD - PELVIC US [facility] -History of elevated CA 125. Will get lab and US this year. If normal, will not need further follow up. 1) Health maintenance: Pap done with HPV. Mammogram starting age 40. Nutrition, exercise and routine health maintenance exams reviewed. Calcium/Vitamin D supplementation information provided. Smoking cessation: Smoking cessation encouraged and resources provided. Benefits of smoking cessation reviewed. Patient encouraged to avoid smoking. Lipids/glucose: followed by PCP Vitamin D: followed by PCP 2) Contraception: IUD. Contraceptive options reviewed and information provided. 3) STD screening: Accepts full STD screeening including HIV, Syphilis and Hepatitis. 4) Follow up one year or sooner as needed Lindy Cash APRN.CNM documented in this encounter [facility] 03-20-2022 History of Present illness Narrative This note was created using [employer] Academy[employer]. Subjective Deena Iqbal is a 36 year old female. Patient presents with: Abdominal Pain SUBJECTIVE: Deena Iqbal is a 36 year old year old lady here today for follow up appointment for review of medical conditions. RUQ pain mostly. BMs are off. Wonders if what is eating. Feels full with abdominal pain, nausea. Even if eats a small amount of food. Wheat bread is worse. Dairy not as bad. Cheese will cause constipation. Bloating. Has had scope done. Pain stays for a few days then returns. Was taking ibuprofen a lot. Told by Analy to stop NSAIDs for now. no mucousy stools or bloody stools persistently PAST MEDICAL HISTORY Diagnosis Date Abnormal glandular Papanicolaou smear of cervix 2002 Abn. 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 albuterol HFA (PROVENTIL HFA, VENTOLIN HFA) 90 mcg/actuation inhaler Inhale 2 Puffs as instructed every 4 hours as needed. cyclobenzaprine (FLEXERIL) 10 mg tablet Take 1 tablet by mouth three times daily as needed for muscle spasm. ondansetron (ZOFRAN) 4 mg tablet as needed. ergocalciferol 50,000 unit capsule (VITAMIN D2, DRISDOL) Take 1 capsule by mouth one time a week. omeprazole (PRILOSEC) 40 mg capsule Take 1 capsule by mouth once daily. ondansetron orally disintegrating (ZOFRAN ODT) 4 mg disintegrating tablet Take 1 tablet by mouth every 8 hours as needed. loratadine (CLARITIN) 10 mg tablet Take 1 tablet by mouth once daily. Can try this instead of cetirizine levonorgestrel (MIRENA) 20 mcg/24 hr (5 years) IUD 1 Each by INTRAUTERINE route continuous. No current facility-administered medications for this visit. Review of Systems Objective BP 116/72 Pulse 76 Wt 65.3 kg (144 lb) LMP 04/30/2016 (Exact Date) SpO2 96% BMI 27.21 kg/m Physical Exam Constitutional: Appearance: Normal appearance. HENT: Head: Normocephalic. Eyes: Conjunctiva/sclera: Conjunctivae normal. Cardiovascular: Rate and Rhythm: Normal rate and regular rhythm. Heart sounds: Normal heart sounds. Pulmonary: Effort: Pulmonary effort is normal. Breath sounds: Normal breath sounds. Abdominal: General: There is no distension. Palpations: Abdomen is soft. Tenderness: There is no abdominal tenderness. There is no guarding or rebound. Skin: General: Skin is warm and dry. Neurological: General: No focal deficit present. Mental Status: She is alert and oriented to person, place, and time. Psychiatric: Mood and Affect: Mood normal. Behavior: Behavior normal. Thought Content: Thought content normal. Judgment: Judgment normal. Assessment and Plan Encounter Diagnosis ICD-10-CM 1. RUQ pain R10.11 2. Constipation, unspecified constipation type K59.00 Above issues addressed with patient. Patient involved in shared decision making for management of medical issues. History and medications reviewed. Epic updated as needed Refills and/or prescriptions taken care of and meds adjusted as indicated after reviewed history, exam and labs. Health Maintenance reviewed. Updated record and/or ordered tests as recorded. Encouraged on efforts at healthy diet and regular exercise and adequate sleep. Reassured that though do not yet have answers or effective treatment for her RUQ pain, she has been getting appropriate tests and has seen GI for working things up. Reviewed studies that had been done. Work on diet to get BMs regular and avoid constipation. Follow up recommendations as had been given by GI plus management of diet and meds. Follow up with GI. Further evaluation and treatment as indicated. Rod Amaya MD documented in this encounter [facility] 03-19-2022 Instructions Analy Romero APRN.ELIAS - 03/19/2022 2:02 PM EDT Gas -X OTC 1-2 tablets 30 min after a meal. Stool studies RUQ US - possible HIDA scan Request [place] ED visit records Follow up as needed - Acid Reflux - Avoid NSAIDs (such as Advil, Ibuprofen, Excedrin, Mobic), tobacco, alcohol, carbonated beverages, caffeine, chocolate, tomato based sauces, spicy/fatty foods, and peppermint Avoid eating large meals. Avoid eating less than 3 hours before bed. Weight loss. Elevate the head of the bed 6 inches, or at least invest in a wedge pillow. documented in this encounter [facility] 03-19-2022 History of Present illness Narrative CHIEF COMPLAINT: Patient presents with: Procedure Follow Up: EGD 12/22/21 Labs 11/27/21 Impression: - Z-line irregular, 36 cm from the incisors. - Erythematous mucosa in the antrum. Biopsied. - Normal duodenal bulb and second portion of the duodenum. Biopsied. - Normal gastric fundus and gastric body. FINAL DIAGNOSIS A. Duodenum, biopsy: - Duodenal mucosa with no diagnostic alteration. - No evidence of celiac sprue. B. Stomach, biopsy: - Antral mucosa with mild foveolar hyperplasia; no evidence of H. pylori. LAst OV 11/27/2021: HPI: The patient denies change in bowel habits,denies black stool, rectal bleeding or abdominal pain. Having a bowel movement alternating bowels constipation and diarrhea. She reports when she feels constipated she will drink coffee which helps get things moving. She reports usually has multiple stools in the morning. She reports rarely constipated. she reports in the Spring time she went to the ED for abdominal pain had CT ABD - no acute intra abdominal process, does note to have a punctuate left renal calcification. She reports of acid reflux symptoms worsening and taking omeprazole 40mg takes at night (symptoms worsen in the evening) if she does not take she will have symptoms of heartburn. She reports she drinks DrNaveedPepper and reports she tries to stay stay away from trigger foods however she like tomatoes. She reports nauseated in the morning. She reports bloating and thinks this is related to eating bread. denies vomiting, at times will feel like she gets full fast d/t bloating and reports she is gaining weight denies weight loss. She reports she likes tomatoes and this will cause abdominal pain On the left side. She reports was hospitalized 2012 for diverticulitis? flare has not had any flares since. Current smoker HPI Deena Iqbal is a 36 year old female here today for Procedure Follow Up bloating (EGD 12/22/21 Labs 11/27/21) Patient reports flares with bloating and abdominal pain and loose stools. She reports bowels are always loose. She reports the pain comes a goes - she reports this is on her right side - she reports this pain can be with or without food. She reports still feeling full fast. Current Outpatient Medications Medication Sig escitalopram oxalate (LEXAPRO) 5 mg tablet Take 1 tablet by mouth once daily. albuterol HFA (PROVENTIL HFA, VENTOLIN HFA) 90 mcg/actuation inhaler Inhale 2 Puffs as instructed every 4 hours as needed. cyclobenzaprine (FLEXERIL) 10 mg tablet Take 1 tablet by mouth three times daily as needed for muscle spasm. ergocalciferol 50,000 unit capsule (VITAMIN D2, DRISDOL) Take 1 capsule by mouth one time a week. omeprazole (PRILOSEC) 40 mg capsule Take 1 capsule by mouth once daily. loratadine (CLARITIN) 10 mg tablet Take 1 tablet by mouth once daily. Can try this instead of cetirizine levonorgestrel (MIRENA) 20 mcg/24 hr (5 years) IUD 1 Each by INTRAUTERINE route continuous. HYDROcodone-acetaminophen (NORCO) 5-325 mg per tablet TAKE 1 TABLET BY MOUTH EVERY 6 HOURS NEEDED FOR PAIN FOR 3 DAYS promethazine (PHENERGAN) 25 mg tablet ondansetron (ZOFRAN) 4 mg tablet as needed. ondansetron orally disintegrating (ZOFRAN ODT) 4 mg disintegrating tablet Take 1 tablet by mouth every 8 hours as needed. No current facility-administered medications for this visit. ALLERGIES Allergen Reactions Ultram [Tramadol] Other: See Comments nausea; felt bad Social History Tobacco Use Smoking status: Every Day Packs/day: 0.50 Years: 20.00 Pack years: 10.00 Types: Cigarettes Smokeless tobacco: Never Vaping Use Vaping Use: Never used Substance Use Topics Alcohol use: No Comment: history of being recovering alcholic Drug use: No Comment: MARIJUANA and CocaineIN PAST, NONE SINCE 2006 PAST MEDICAL HISTORY Diagnosis Date Abnormal glandular Papanicolaou smear of cervix 2002 Abn. 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 Rh negative state in antepartum period 11/16/2014 Sciatic pain Smoker 10/18/2020 Cigarettes Unspecified , without mention of complication, unspecified PAST SURGICAL HISTORY Procedure Laterality Date ANESTH, SECTION DELIVERY ONLY 02/24/04, 2008 , low cervical DELIVERY ONLY 06/14/2015 , low transverse COLSC FLX W/REMOVAL LESION BY HOT BX FORCEPS 07/25/2012 EGD W/O BRSH SPEC VARICIES INJ 12/22/2021 INSERT INTRAUTERINE DEVICE 05/20/2010 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 04/19/2014 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 Gastrointestinal: Positive for abdominal distention, abdominal pain and nausea. Change in bowel habits, Gas, Heartburn All other systems reviewed and are negative. PHYSICAL EXAM Pulse 66 Ht 5' 1 (1.55m) Wt 142 lb (64.4kg) LMP 04/30/2016 BMI 26.84 kg/(m^2). Physical Exam Assessment/Plan (R19.5) Loose stools (primary encounter diagnosis) (R10.11) RUQ pain 1. Loose stools - CALPROTECTIN,FECAL - FECAL LACTOFERRIN/LEUKOCYTES - US ABD RT UPPER QUADRANT; Future - ENTERIC BACTERIAL PANEL BY PCR - Discussed possible colonoscopy for biopsy to r/o microscopic colitis - 2. RUQ pain - US ABD RT UPPER QUADRANT; Future - Consider Bentyl before meals Follow up in office 3 months/PRN. Recommended to please call office/go to ER if fever, chills, chest pain, SOB, diarrhea, nausea, emesis, worsening abdominal pain, dehydration occurs I spent a total of 30 minutes on the date of the service which included preparing to see the patient, rckk-ef-mwyv patient care, completing clinical documentation, obtaining and/or reviewing separately obtained history, performing a medically appropriate examination, counseling and educating the patient/family/caregiver, ordering medications, tests, or procedures, communicating with other HCPs (not separately reported), independently interpreting results (not separately reported), communicating results to the patient/family/caregiver, and care coordination (not separately reported). Analy Romero APRN.CNP March 19, 2022 2:11 PM Possible colonoscopy possible Xifaxan treatment ? Will do stool studies and US r/o gallbladder documented in this encounter [facility] 03-14-2022 Miscellaneous Notes PATIENT NOTIFIED OF SAME. Patient scheduled 03/20/22. Left message for patient to call office I reviewed the most recent appointment notes. She has been seen by GI and Milagro for LLQ pain. There has been no mention of RUQ or right sided abdominal pain Not sure if the RUQ symptoms is new or just not documented in records, but if she had RUQ pains, I believe Milagro would have addressed that, even if it was to recommend keeping her appointment with GI appointment since she has had EGD already so they need to decide what is the next test to do for her ongoing symptoms. Noted that she has had [facility]ET[facility] CONSULTANT evaluations as well. Noted she also ahd CT scans of her abdomen and pelvis September and January of this year. I understand that she is frustrated that so far nothing has been done to get her feeling better, but it appears that over the past several months, she has been seen to try to figure out what is going on but nothing yet has been found. Whether the RUQ pain is new or has been ongoing but not mentioned until now, I would consider doing the RUQ US if she does not want to wait to see what GI recommends. Last one done since 2019 (normal back then with gallbladder). See what she prefers to do at this time. If she chooses to see another, I understand. In the meanwhile, will work with her on finding the cause of her symptoms. Can work her into my schedule for when I am back in the office. Patient calling complaining of sharp pain abdominal and bloating, fullness and nausea, sharp pain on right side, not eating much. Patient is not happy with appt that she had with Milagro Mohamud on Monday 03/05. She is asking to have her gall bladder checked or if she has an infection? Patient said she is having brown loose stools. Patient said she is going to have to find another Dr because nothing is getting done. Patient did not do hemoccult test that was ordered in September from [facility], order is not there now. Patient has appt with Gastro on 03/19, she is anxious thinks something needs done right now. Patient said can not be my GERD that is causing all the issues. She just kept repeating same things over again. Please advise documented in this encounter [facility] 03-08-2022 Hospital Discharge instructions Patient Education 03/08/2022 21:14:52 Ovarian Cyst Ovarian Cysts The ovaries are two small organs located on each side of a woman s uterus (womb). They are part of the female reproductive system. Ovarian cysts are sacs filled with fluid or tissue that form on or inside the ovaries. Ovarian cysts are common in women, especially during childbearing years. There are different types of cysts. Most are harmless (benign) and go away on their own. They often cause no symptoms. If symptoms do occur, they can include mild pain or pressure in the lower belly (abdomen). Cysts that are large or break (rupture) may cause more severe pain and symptoms. In these cases, you may need hospital care or treatment such as surgery. You may need more extensive treatment if a cyst causes an ovary to twist (called torsion) or if your doctor suspects your cyst is cancerous. Keep in mind that most cysts are not cancerous, however. General care To help relieve pain, your healthcare provider may recommend using ovfa-iui-gpzhijo pain medicine. If needed, your provide may prescribe stronger pain medicine. Depending on the type of cyst you have, your healthcare provider may advise taking control pills. These help shrink cysts in certain cases. They may also help prevent new cysts from forming. Be sure to take these medicines as directed if they are prescribed. Your healthcare provider may advise you to watch your symptoms over time to see if they go away or worsen. Regular ultrasound tests may also be advised. These can help check if a cyst goes away or grows in size. Follow-up care Follow up with your healthcare provider, or as advised. When to seek medical advice Call your healthcare provider right away if any of these occur: Pain worsens or fails to get better with home treatment Fever of 100.4 F (38 C) or higher (or other fever amount directed by your healthcare provider) Nausea and vomiting Weakness, dizziness, or fainting Abnormal vaginal bleeding [id number] [employer] [place] [id number]. All rights reserved. This information is not intended as a substitute for professional medical care. Always follow your healthcare professional's instructions. 03/08/2022 21:14:46 Abdominal Pain Abdominal Pain Abdominal pain is pain in the stomach or belly area. Everyone has this pain from time to time. In many cases it goes away on its own. But abdominal pain can sometimes be due to a serious problem, such as appendicitis. So it s important to know when to get help. Causes of abdominal pain There are many possible causes of abdominal pain. Common causes in adults include: Constipation, diarrhea, or gas Stomach acid flowing back up into the esophagus (acid reflux or heartburn) Severe acid reflux, called GERD (gastroesophageal reflux disease) A sore in the lining of the stomach or small intestine (peptic ulcer) Inflammation of the gallbladder, liver, or pancreas Gallstones or kidney stones Appendicitis Intestinal blockage An internal organ pushing through a muscle or other tissue (hernia) Urinary tract infections In women, menstrual cramps, fibroids, ovarian cysts, pelvic inflammatory disease, or endometriosis Inflammation or infection of the intestines, including Crohn's disease and ulcerative colitis Irritable bowel syndrome Diagnosing the cause of abdominal pain Your healthcare provider will give you a physical exam help find the cause of your pain. If needed, you will have tests. Belly pain has many possible causes. So it can be hard to find the reason for your pain. Giving details about your pain can help. Tell your provider where and when you feel the pain, and what makes it better or worse. Also let your provider know if you have other symptoms such as: Fever Tiredness Upset stomach (nausea) Vomiting Changes in bathroom habits Blood in the stool or black, tarry stool Weight loss that you can't explain (involuntary weight loss?) Also report any family history of stomach or intestinal problems, or cancers. Tell your provider about all your alcohol use and drug use. Tell your provider about all medicines you use, including herbs, vitamins, and supplements. Treating abdominal pain Some causes of pain need emergency medical treatment right away. These include appendicitis or a bowel blockage. Other problems can be treated with rest, fluids, or medicines. Your healthcare provider can give you specific instructions for treatment or self-care based on what is causing your pain. If you have vomiting or diarrhea, sip water or other clear fluids. When you are ready to eat solid foods again, start with small amounts of lbns-es-uqqyov, low-fat foods. These include apple sauce, toast, or crackers. When to get medical care Call 911 or go to the hospital right away if you: Can t pass stool and are vomiting Are vomiting blood or have bloody diarrhea or black, tarry diarrhea Have chest, neck, or shoulder pain Feel like you might pass out Have pain in your shoulder blades with nausea Have sudden, severe belly pain Have new, severe pain unlike any you have felt before Have a belly that is rigid, hard, and hurts to touch Call your healthcare provider if you have: Pain for more than 5 days Bloating for more than 2 days Diarrhea for more than 5 days A fever of 100.4 F (38 C) or higher, or as directed by your healthcare provider Pain that gets worse Weight loss for no reason Continued lack of appetite Blood in your stool How to prevent abdominal pain Here are some tips to help prevent abdominal pain: Eat smaller amounts of food at each meal. Don't eat greasy, fried, or other high-fat foods. Don't eat foods that give you gas. Exercise regularly. Drink plenty of fluids. To help prevent GERD symptoms: Quit smoking. Reduce alcohol and foods that increase stomach acid. Don't use aspirin or dqkn-ffv-lzzbzrn pain and fever medicines, if possible. This includes nonsteroidal anti-inflammatory drugs (NSAIDs). Lose excess weight. Finish eating at least 2 hours before you go to bed or lie down. Raise the head of your bed. [id number] [employer]. [address] [place] [address]. All rights reserved. This information is not intended as a substitute for professional medical care. Always follow your healthcare professional's instructions. 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 With:Your collector at the [facility] Address:Unknown When:03/19/2022 Comments:Follow-up as scheduled at the end of the month or sooner if necessary. With:ROD AMAYA Address: [address] [place] [id number] [facility] (1) When:2-4 days Comments:Schedule appointment for close follow-up.Use Tylenol, Advil or Aleve for pain as needed.Use Brooklyn as prescribed for severe pain as needed.Return to the ED if symptoms worsen. [facility] 03-08-2022 Emergency department Discharge summary Discharge Instructions Thank you for allowing [place] to assist you with your healthcare needs. The following is important discharge information regarding your hospital visit. Diagnosis from Today's Visit Abdominal pain Abdominal pain What to Do Next Instructions from Your Care Team No qualifying data available. Post Acute Orders No qualifying data available. You Need to Schedule the Following Appointments Follow Up with Your collector at the [facility] When 03/19/2022 12:00 AM EDT Why: Follow-up as scheduled at the end of the month or sooner if necessary. Follow Up with Your drill rig operator When In 1 week Why: Schedule appointment for follow-up. Follow Up with ROD AMAYA When Within 2-4 days Why: Schedule appointment for close follow-up. Use Tylenol, Advil or Aleve for pain as needed. Use Brooklyn as prescribed for severe pain as needed. Return to the ED if symptoms worsen. Where: [address] [facility] [place] [address]- [facility] (1) Allergies traMADol Medications Please ask your primary doctor or pharmacist before taking any other medication not listed, including over the counter drugs, herbal medications, vitamins and or supplements as they may interact with your home medications. What How Much When Why Instructions Last Dose New acetaminophen-hydrocodone (Brooklyn 325- 5 mg oral tablet) 1 tab(s) by mouth Every 6 hours as needed for As needed for severe pain Abdominal pain Duration: 3 Days Printed Prescription Unchanged albuterol (Albuterol (Eqv-ProAir HFA) 90 mcg/ inh inhalation aerosol) Unchanged amoxicillin-clavulanate (amoxicillin-clavulanate 875 mg-125 mg oral tablet) 1 tab(s) by mouth Every 12 hours Duration: 10 Days Unchanged azithromycin (azithromycin 250 mg oral tablet) 1 tab(s) by mouth Once a day Duration: 5 Days Unchanged cyclobenzaprine (Flexeril) by mouth Three (3) times a day Unchanged dicyclomine (dicyclomine 10 mg oral capsule) 1 cap by mouth Four (4) times a day Abdominal pain - cause unknown Duration: 7 Days Unchanged ibuprofen (ibuprofen 800 mg oral tablet) 1 tab(s) by mouth Three (3) times a day as needed for for pain Unchanged levonorgestrel (Mirena) Intrauterine Once Unchanged loratadine (loratadine 10 mg oral tablet) 1 tab(s) by mouth Once a day Unchanged omeprazole (omeprazole 40 mg oral delayed release capsule) 1 cap by mouth Once a day Unchanged ondansetron (ondansetron 4 mg oral tablet, disintegrating) 1 tab(s) by mouth Every 8 hours as needed for as needed for nausea/vomiting Unchanged promethazine (promethazine 25 mg oral tablet) 1 tab(s) by mouth Every 4 hours Abdominal pain - cause unknown Unchanged tiZANidine (tiZANidine 2 mg oral tablet) 1 tab(s) by mouth Every 8 hours Muscle spasm - tone Please take this list to your next doctor s visit. Bring all medications you take, including over the counter medications, herbals and other supplements with you to your doctor s visit. Patients and families are reminded to discard old lists and to update any records with all medication providers or retail pharmacies. Education Materials Ovarian Cysts The ovaries are two small organs located on each side of a woman s uterus (womb). They are part of the female reproductive system. Ovarian cysts are sacs filled with fluid or tissue that form on or inside the ovaries. Ovarian cysts are common in women, especially during childbearing years. There are different types of cysts. Most are harmless (benign) and go away on their own. They often cause no symptoms. If symptoms do occur, they can include mild pain or pressure in the lower belly (abdomen). Cysts that are large or break (rupture) may cause more severe pain and symptoms. In these cases, you may need hospital care or treatment such as surgery. You may need more extensive treatment if a cyst causes an ovary to twist (called torsion) or if your doctor suspects your cyst is cancerous. Keep in mind that most cysts are not cancerous, however. General care To help relieve pain, your healthcare provider may recommend using wmdo-wjr-rlyhrii pain medicine. If needed, your provide may prescribe stronger pain medicine. Depending on the type of cyst you have, your healthcare provider may advise taking control pills. These help shrink cysts in certain cases. They may also help prevent new cysts from forming. Be sure to take these medicines as directed if they are prescribed. Your healthcare provider may advise you to watch your symptoms over time to see if they go away or worsen. Regular ultrasound tests may also be advised. These can help check if a cyst goes away or grows in size. Follow-up care Follow up with your healthcare provider, or as advised. When to seek medical advice Call your healthcare provider right away if any of these occur: Pain worsens or fails to get better with home treatment Fever of 100.4 F (38 C) or higher (or other fever amount directed by your healthcare provider) Nausea and vomiting Weakness, dizziness, or fainting Abnormal vaginal bleeding [id number] [employer]. [address] [place] [address]. All rights reserved. This information is not intended as a substitute for professional medical care. Always follow your healthcare professional's instructions. Abdominal Pain Abdominal pain is pain in the stomach or belly area. Everyone has this pain from time to time. In many cases it goes away on its own. But abdominal pain can sometimes be due to a serious problem, such as appendicitis. So it s important to know when to get help. Causes of abdominal pain There are many possible causes of abdominal pain. Common causes in adults include: Constipation, diarrhea, or gas Stomach acid flowing back up into the esophagus (acid reflux or heartburn) Severe acid reflux, called GERD (gastroesophageal reflux disease) A sore in the lining of the stomach or small intestine (peptic ulcer) Inflammation of the gallbladder, liver, or pancreas Gallstones or kidney stones Appendicitis Intestinal blockage An internal organ pushing through a muscle or other tissue (hernia) Urinary tract infections In women, menstrual cramps, fibroids, ovarian cysts, pelvic inflammatory disease, or endometriosis Inflammation or infection of the intestines, including Crohn's disease and ulcerative colitis Irritable bowel syndrome Diagnosing the cause of abdominal pain Your healthcare provider will give you a physical exam help find the cause of your pain. If needed, you will have tests. Belly pain has many possible causes. So it can be hard to find the reason for your pain. Giving details about your pain can help. Tell your provider where and when you feel the pain, and what makes it better or worse. Also let your provider know if you have other symptoms such as: Fever Tiredness Upset stomach (nausea) Vomiting Changes in bathroom habits Blood in the stool or black, tarry stool Weight loss that you can't explain (involuntary weight loss?) Also report any family history of stomach or intestinal problems, or cancers. Tell your provider about all your alcohol use and drug use. Tell your provider about all medicines you use, including herbs, vitamins, and supplements. Treating abdominal pain Some causes of pain need emergency medical treatment right away. These include appendicitis or a bowel blockage. Other problems can be treated with rest, fluids, or medicines. Your healthcare provider can give you specific instructions for treatment or self-care based on what is causing your pain. If you have vomiting or diarrhea, sip water or other clear fluids. When you are ready to eat solid foods again, start with small amounts of cphs-tg-zxewgk, low-fat foods. These include apple sauce, toast, or crackers. When to get medical care Call 911 or go to the hospital right away if you: Can t pass stool and are vomiting Are vomiting blood or have bloody diarrhea or black, tarry diarrhea Have chest, neck, or shoulder pain Feel like you might pass out Have pain in your shoulder blades with nausea Have sudden, severe belly pain Have new, severe pain unlike any you have felt before Have a belly that is rigid, hard, and hurts to touch Call your healthcare provider if you have: Pain for more than 5 days Bloating for more than 2 days Diarrhea for more than 5 days A fever of 100.4 F (38 C) or higher, or as directed by your healthcare provider Pain that gets worse Weight loss for no reason Continued lack of appetite Blood in your stool How to prevent abdominal pain Here are some tips to help prevent abdominal pain: Eat smaller amounts of food at each meal. Don't eat greasy, fried, or other high-fat foods. Don't eat foods that give you gas. Exercise regularly. Drink plenty of fluids. To help prevent GERD symptoms: Quit smoking. Reduce alcohol and foods that increase stomach acid. Don't use aspirin or zvpj-pfv-oepvdzb pain and fever medicines, if possible. This includes nonsteroidal anti-inflammatory drugs (NSAIDs). Lose excess weight. Finish eating at least 2 hours before you go to bed or lie down. Raise the head of your bed. [id number] [employer]. [address] [place] [address]. All rights reserved. This information is not intended as a substitute for professional medical care. Always follow your healthcare professional's instructions. Additional Information VACCINATE! IT SAVES LIVES! Members of the community who have not yet received the COVID-19 vaccine and would like to receive it can visit one of [facility] vaccine clinics. There are many vaccine clinic locations within the [facility]. For locations and available times, please visit [email or web address]. It is important to note that some COVID mobile vaccine clinics are held outdoors and may be canceled in rainy or stormy conditions. To learn more about pediatric vaccinations (ages 5-11), we invite you to visit the [facility] webpage. [email or web address] To learn more about the COVID-19 vaccine, we invite you to visit the [place] website for a list of frequently asked questions. [email or web address] [email or web address] [facility] Patient Portal Access Instructions: Stay connected with your healthcare team and access your personal medical information anytime with the [facility] Patient Portal. If you would like a full copy of your medical records please contact the [facility] Medical Records Department Saturday through Saturday between 8a.m. and 4:30p.m. Please follow the directions below to access the portal: 1.Access the email account you provided upon registration to the [facility].2.Look for an invitation email from [facility].3.Open the email and access the invitation link: Accept Invitation to [facility]4.Fill in the required wilcox to create your account. Sign into [email or web address] with your username and password that you created in the above steps to stay up to date. You can then view a summary of results, a summary of your visits, and the ability to download your summaries to your computer or send the information securely to a physician. Remember that your healthcare information is confidential, so carefully consider who you will allow to register on the [facility] Patient Portal for access to your information. You can also access the [facility] Patient Portal on the [employer] bi. Simply click on Health Records under Health Data and then click on the [employer] logo. HOW TO SAFELY DISPOSE OF PRESCRIPTION MEDICATIONS Please use one of the following methods to safely dispose of your unused medications. 1.Use a drug disposal kit: the drug disposal pouch allows you to safely discard your old and unused drugs. Ask your nurse to give you one when you are discharged.2.Visit a local take-back location: Many local pharmacies and police departments have programs that collect old and unwanted prescription drugs. Call your local pharmacy or go to http://bit.FunPuntos/2M6Jj0h to find one close to you.3.Make use of household items: Use cat litter or old coffee grounds to dispose medications if other options are not available. Mix your drugs with these household products, seal them in an airtight container and throw it into the garbage. Call [facility]: [phone] to be sure your drugs can be disposed of in this way. Some medicines may require a different approach.4.Never flush your medications down the toilet. IF YOU HAVE BEEN PRESCRIBED AN OPIOIDS FOR PAIN If you have been prescribed an opioid (such as hydrocodone, oxycodone or morphine), it is critical to understand the possible side effects and risks of opioid pain medications. Even when taken as directed, opioids can have several side effects including: Tolerance, meaning you might need to take more of a medication for the same pain relief. Nausea, vomiting and/or constipation. Sleepiness, dizziness, dry mouth, confusion, depression or itching. Physical dependence, meaning you have withdrawal symptoms when a medication is stopped ? this can develop within a few days. KNOW YOUR RESPONSIBILITIES It is important to know exactly how much and how often to take the opioid pain medications you are prescribed. Never take opioids in higher amounts or more often than prescribed. Do not combine opioids with alcohol or other drugs that cause drowsiness, such as benzodiazepines, also known as benzos, including diazepam and alprazolam, muscle relaxants or sleep aids. Never sell or share prescription opioids. This is illegal. Store opioids in a secure place and out of reach of others (including children, family, friends and visitors). The last page(s) of this document has been signed and retained as a CHART COPY Signatures Patient Education Materials Ovarian Cyst Abdominal Pain Medication Leaflets My discharge plan and instructions have been reviewed and explained to me and IFARIDA MYSTICA E understand my current condition and have read and understand these discharge instructions. I have received a written copy of the plan/instructions. If I have questions, I am aware that I should contact my doctor. 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 Multiplanar reformatted images are provided for review. Automated exposure control, iterative reconstruction, and/or weight based adjustment of the mA/kV was utilized to reduce the radiation dose to as low as reasonably achievable. COMPARISON: 09/21/2021 HISTORY: ORDERING SYSTEM PROVIDED HISTORY: Reason for Exam: Acute on chronic right-sided abdominal and flank pain FINDINGS: The included lung bases are clear. There is no visible pleural or pericardial effusion. The heart is normal in size. The liver, spleen, adrenal glands, kidneys, gallbladder and pancreas are within normal limits. The large and small bowel are normal in course and caliber. The appendix is normal. No free intraperitoneal fluid or air is identified. The aorta is normal in caliber. There is no lymphadenopathy. The uterus is normal in contour and again contains a intrauterine device. There is a 4 cm complex ovarian cyst containing a fluid -fluid level. There is no visible fracture or aggressive osseous lesion. IMPRESSION: No acute inflammatory abnormality. Complex 4 cm right ovarian cyst with a fluid-fluid level. Correlation with non emergent pelvic ultrasound may be helpful. Normal appearance to the kidneys and appendix. Interpreted by: Perry Duong DO Preliminary Report By: Perry Duong DO Electronically signed By Perry Duong DO Dictated Date: 03/08/2022 8:48:48 PM Prelim Date: 03/08/2022 8:55:02 PM Sign Date: 03/08/2022 8:55:02 PM Ordering Provider: ALINE CHAPA [facility] 03-08-2022 Note ORIGINAL EXAMINATION: CT OF THE ABDOMEN AND PELVIS WITH DYMKRYHC00/20/2022 8:34 pm TECHNIQUE: CT of the abdomen and pelvis was performed with the administration of intravenous contrast. Multiplanar reformatted images are provided for review. Automated exposure control, iterative reconstruction, and/or weight based adjustment of the mA/kV was utilized to reduce the radiation dose to as low as reasonably achievable. COMPARISON: 09/21/2021 HISTORY: ORDERING SYSTEM PROVIDED HISTORY: Reason for Exam: Acute on chronic right-sided abdominal and flank pain FINDINGS: The included lung bases are clear. There is no visible pleural or pericardial effusion. The heart is normal in size. The liver, spleen, adrenal glands, kidneys, gallbladder and pancreas are within normal limits. The large and small bowel are normal in course and caliber. The appendix is normal. No free intraperitoneal fluid or air is identified. The aorta is normal in caliber. There is no lymphadenopathy. The uterus is normal in contour and again contains a intrauterine device. There is a 4 cm complex ovarian cyst containing a fluid -fluid level. There is no visible fracture or aggressive osseous lesion. IMPRESSION: No acute inflammatory abnormality. Complex 4 cm right ovarian cyst with a fluid-fluid level. Correlation with non emergent pelvic ultrasound may be helpful. Normal appearance to the kidneys and appendix. Interpreted by: Perry Duong DO Preliminary Report By: Perry Duong DO Electronically signed By Perry Duong DO Dictated Date: 03/08/2022 8:48:48 PM Prelim Date: 03/08/2022 8:55:02 PM Sign Date: 03/08/2022 8:55:02 PM Ordering Provider: [facility] 03-05-2022 Instructions Milagro Mohamud APRN.CNS - 03/05/2022 9:38 AM EDT Stop taking Buspar. Start taking escitalopram once daily. documented in this encounter [facility] 03-05-2022 History of Present illness Narrative SUBJECTIVE: PAP TESTING due on 04/08/2022 HPV TESTING due on 04/08/2022 HPI Deena Iqbal is a 34 year old female. PMH significant for ACTIVE PROBLEM LIST Gerd (Gastroesophageal Reflux Disease) Heart Murmur Generalized Anxiety Disorder Situational Depression History of Ca 125 Test Smoker HPI excerpted from previous visit: Last seen in office IM 2019. She was seen by family medicine provider September 25, 2021 for ER follow-up visit. She was seen for abdominal and back pain. She was seen by Dr. 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 Has seen gastroenterology providers for left lower quadrant abdominal pain bloating nausea early satiety and diverticular disease. Gastroenterology, endoscopy, EGD December 22, 2021. FINAL DIAGNOSIS A. Duodenum, biopsy: - Duodenal mucosa with no diagnostic alteration. - No evidence of celiac sprue. B. Stomach, biopsy: - Antral mucosa with mild foveolar hyperplasia; no evidence of H. pylori. Labs 09/2021 overall in acceptable range, vitamin D was low. Taking supplemental vitamin D. Presents today noting multiple social stressors since last seen.Would like to resume treatment for anxiety. States she would like something temporary. Counseling at 180. Notes PPI helps bloating and abdominal pain. No report GERD or heartburn complaints with medication of nausea vomiting diarrhea and constipation. Since last seen in she was seen in 03/02/2022 for possible sinus infection x 8 days. Treated with Augmentin. Returns for recheck having started Buspar at her last visit. Noted AE, dizziness so stopped taking. Notes anxiety continue notes, feels like it is increased from previous. Continues to go to counseling, has been helpful. Notes counselor is off this week. Review of Systems Constitutional: Negative. Gastrointestinal: Positive for abdominal distention (intermittent bloating) and abdominal pain. Psychiatric/Behavioral: The patient is nervous/anxious. Objective BP 108/60 Pulse 68 Resp 16 Wt 64 kg (141 lb) LMP 04/30/2016 (Exact Date) BMI 26.64 kg/m Physical Exam Vitals and nursing note reviewed. Constitutional: General: She is not in acute distress. Appearance: Normal appearance. She is not ill-appearing, toxic-appearing or diaphoretic. HENT: Head: Normocephalic and atraumatic. Neck: Vascular: No carotid bruit. Cardiovascular: Rate and Rhythm: Normal rate and regular rhythm. Pulses: Carotid pulses are 2+ on the right side and 2+ on the left side. Radial pulses are 2+ on the right side and 2+ on the left side. Dorsalis pedis pulses are 2+ on the right side and 2+ on the left side. Heart sounds: Normal heart sounds. Pulmonary: Effort: Pulmonary effort is normal. Abdominal: General: Bowel sounds are normal. Palpations: Abdomen is soft. Musculoskeletal: Right shoulder: No deformity or bony tenderness. Right lower leg: No edema. Left lower leg: No edema. Comments: no TTP right shoulder, left lower ribs/abdomen Skin: General: Skin is warm and dry. Neurological: General: No focal deficit present. Mental Status: She is alert and oriented to person, place, and time. ALLERGIES Allergen Reactions Ultram [Tramadol] Other: See Comments nausea; felt bad Medications amoxicillin-clavulanic acid (AUGMENTIN) 875-125 mg per tablet Take 1 tablet by mouth twice daily for 5 days. albuterol HFA (PROVENTIL HFA, VENTOLIN HFA) 90 mcg/actuation inhaler Inhale 2 Puffs as instructed every 4 hours as needed. cyclobenzaprine (FLEXERIL) 10 mg tablet Take 1 tablet by mouth three times daily as needed for muscle spasm. ondansetron (ZOFRAN) 4 mg tablet TAKE 1 TABLET BY MOTH EVERY 6HRS FOR 3 DAYS ergocalciferol 50,000 unit capsule (VITAMIN D2, DRISDOL) Take 1 capsule by mouth one time a week. omeprazole (PRILOSEC) 40 mg capsule Take 1 capsule by mouth once daily. fluticasone (FLONASE) 50 mcg/actuation nasal spray Use 2 Sprays in each nostril once daily. Rinse mouth after use. mometasone (NASONEX) 50 mcg/actuation nasal spray Use 2 Sprays in the nose once daily. Rinse mouth after use. loratadine (CLARITIN) 10 mg tablet Take 1 tablet by mouth once daily. Can try this instead of cetirizine levonorgestrel (MIRENA) 20 mcg/24 hr (5 years) IUD 1 Each by INTRAUTERINE route continuous. escitalopram oxalate (LEXAPRO) 5 mg tablet Take 1 tablet by mouth once daily. ondansetron orally disintegrating (ZOFRAN ODT) 4 mg disintegrating tablet Take 1 tablet by mouth every 8 hours as needed. PAST MEDICAL HISTORY Diagnosis Date Abnormal glandular Papanicolaou smear of cervix 2002 Abn. 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 Gastroesophageal reflux disease, unspecified whether esophagitis present - ICD9: 530.81, ICD10: K21.9 Negative pathology on EGD Endorse mild diet, avoidance of alcohol, caffeine, spicy foods and fast foods. Keep gastroenterology appointment 2.. Anxiety - ICD9: 300.00, ICD10: F41.9 (primary diagnosis) Intolerant BuSpar. Discontinue. Start taking escitalopram 5 mg daily. Continue counseling at 180. - BUSPIRONE 10 MG TABLET Milagro Mohamud APRN.STEMHOLE BORER Medical Decision Making: Problems: Moderate: 1+ chronic illnesses with change Risk: Moderate: Drug management Medical Decision Making Level: 4 - Moderate documented in this encounter [facility] 03-02-2022 History of Present illness Narrative Subjective HPI Nontoxic-appearing female presents urgent care chief plaint possible sinus infection. Duration of symptoms 8 days. Associated symptoms sinus pressure bilateral ear pain headache and nonproductive cough. History of sinus infection in the past this feels similar. No OTC medication use recently. Denies any significant pain. Most bothersome symptom is maxillary sinus pressure. Denies any known sick contacts. Denies any fevers productive cough chest pain shortness of breath pleuritic pain hemoptysis nausea vomiting abdominal pain change in bowel or bladder habits. Past medical history prescription medication use allergies reviewed. .Patient presents with: Cough: Sinus pain and pressure, PAUL, BRIANA ear pressure x1 week PAST MEDICAL HISTORY Diagnosis Date Abnormal glandular Papanicolaou smear of cervix 2002 Abn. 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 Rh negative state in antepartum period 11/16/2014 Sciatic pain Smoker 10/18/2020 Cigarettes Unspecified , without mention of complication, unspecified PAST SURGICAL HISTORY Procedure Laterality Date ANESTH, SECTION DELIVERY ONLY 02/24/04, 2008 , low cervical DELIVERY ONLY 06/14/15 , low transverse COLSC FLX W/REMOVAL LESION BY HOT BX FORCEPS 07-25-12 INSERT INTRAUTERINE DEVICE 05/2010 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 04/2014 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)_*FL 03/04/03 ALLERGIES Ultram [Tramadol] MEDICATIONS busPIRone (BUSPAR) 10 mg tablet Take 1 tablet by mouth three times daily as needed. albuterol HFA (PROVENTIL HFA, VENTOLIN HFA) 90 mcg/actuation inhaler Inhale 2 Puffs as instructed every 4 hours as needed. cyclobenzaprine (FLEXERIL) 10 mg tablet Take 1 tablet by mouth three times daily as needed for muscle spasm. ondansetron (ZOFRAN) 4 mg tablet TAKE 1 TABLET BY MOTH EVERY 6HRS FOR 3 DAYS ergocalciferol 50,000 unit capsule (VITAMIN D2, DRISDOL) Take 1 capsule by mouth one time a week. omeprazole (PRILOSEC) 40 mg capsule Take 1 capsule by mouth once daily. fluticasone (FLONASE) 50 mcg/actuation nasal spray Use 2 Sprays in each nostril once daily. Rinse mouth after use. mometasone (NASONEX) 50 mcg/actuation nasal spray Use 2 Sprays in the nose once daily. Rinse mouth after use. ondansetron orally disintegrating (ZOFRAN ODT) 4 mg disintegrating tablet Take 1 tablet by mouth every 8 hours as needed. loratadine (CLARITIN) 10 mg tablet Take 1 tablet by mouth once daily. Can try this instead of cetirizine levonorgestrel (MIRENA) 20 mcg/24 hr (5 years) IUD 1 Each by INTRAUTERINE route continuous. FAMILY HISTORY Problem Relation Age of Onset No Known Problems Brother Heart Father Cancer Father small cell carcinoma of lung Cancer Maternal Grandmother stomach cancer Cancer Maternal Grandfather lung cancer Arthritis Maternal Grandfather Stroke Maternal Grandfather Heart Paternal Grandfather Heart Paternal Grandmother Diabetes Maternal Aunt other (Panic attacks) Sister Cancer Sister 29 Hodgkin's Lymphoma No Known Problems Brother Social History Tobacco Use Smoking status: Every Day Packs/day: 0.50 Years: 20.00 Pack years: 10.00 Types: Cigarettes Smokeless tobacco: Never Vaping Use Vaping Use: Never used Substance Use Topics Alcohol use: No Comment: history of being recovering alcholic Drug use: No Comment: MARIJUANA and CocaineIN PAST, NONE SINCE 2006 BP 112/72 Pulse 69 Temp 37.4 C (99.3 F) Resp 18 Wt 64.4 kg (142 lb) LMP 04/30/2016 (Exact Date) SpO2 97% BMI 26.83 kg/m Review of Systems Constitutional: Negative for chills, fever and malaise/fatigue. HENT: Positive for congestion, ear pain and sinus pain. Negative for ear discharge and sore throat. Eyes: Negative for blurred vision, pain, discharge and redness. Respiratory: Positive for cough. Negative for hemoptysis, sputum production, shortness of breath, wheezing and stridor. Cardiovascular: Negative for chest pain. Gastrointestinal: Negative for abdominal pain, diarrhea, nausea and vomiting. Musculoskeletal: Negative for myalgias. Skin: Negative for itching and rash. Neurological: Positive for headaches. Negative for dizziness. Objective Physical Exam Constitutional: General: She is not in acute distress. Appearance: She is not diaphoretic. HENT: Head: Normocephalic. Right Ear: Tympanic membrane, ear canal and external ear normal. Left Ear: Tympanic membrane, ear canal and external ear normal. Nose: Right Sinus: Maxillary sinus tenderness present. Left Sinus: Maxillary sinus tenderness present. Mouth/Throat: Lips: [place]. Mouth: Mucous membranes are moist. Pharynx: Oropharynx is clear. Uvula midline. No pharyngeal swelling, oropharyngeal exudate, posterior oropharyngeal erythema or uvula swelling. Eyes: Conjunctiva/sclera: Conjunctivae normal. Pupils: Pupils are equal, round, and reactive to light. Cardiovascular: Rate and Rhythm: Normal rate and regular rhythm. Heart sounds: Normal heart sounds. Pulmonary: Effort: Pulmonary effort is normal. No tachypnea, accessory muscle usage or respiratory distress. Breath sounds: Normal breath sounds. No stridor. No wheezing, rhonchi or rales. Abdominal: Palpations: Abdomen is soft. Tenderness: There is no abdominal tenderness. Musculoskeletal: Cervical back: Normal range of motion and neck supple. No rigidity or tenderness. Lymphadenopathy: Cervical: No cervical adenopathy. Skin: General: Skin is warm and dry. Neurological: Mental Status: She is alert and oriented to person, place, and time. ASSESSMENT/PLAN: 1. Acute sinusitis, recurrence not specified, unspecified location - ICD9: 461.9, ICD10: J01.90 Patient diagnosed with acute sinusitis. Will be placed on amoxicillin clavulanic acid. Patient was educated on supportive therapies. Patient will follow up with primary care provider as needed. Patient was instructed to immediately proceed to emergency room for any new, worsening, or symptoms lasting longer than anticipated. The patient's clinical presentation is otherwise unremarkable at this time. Based on exam and clinical finding, the patient is stable for discharge. Plan of care was discussed with patient. Patient verbalizes understanding and agrees to plan of care. This note was generated using [employer] software. It may contain errors in wording, punctuation, or spelling. Jeff Smith APRN.ELIAS This note was created using [employer]. Selam Iqbal is a 36 year old female. HPI PAST MEDICAL HISTORY Diagnosis Date Abnormal glandular Papanicolaou smear of cervix 2002 Abn. 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 Rh negative state in antepartum period 11/16/2014 Sciatic pain Smoker 10/18/2020 Cigarettes Unspecified , without mention of complication, unspecified PAST SURGICAL HISTORY Procedure Laterality Date ANESTH, SECTION DELIVERY ONLY 02/24/04, 2008 , low cervical DELIVERY ONLY 06/14/15 , low transverse COLSC FLX W/REMOVAL LESION BY HOT BX FORCEPS 3-8-13 INSERT INTRAUTERINE DEVICE 05/2010 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 04/2014 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)_*FL 03/04/03 ALLERGIES Ultram [Tramadol] MEDICATIONS busPIRone (BUSPAR) 10 mg tablet Take 1 tablet by mouth three times daily as needed. albuterol HFA (PROVENTIL HFA, VENTOLIN HFA) 90 mcg/actuation inhaler Inhale 2 Puffs as instructed every 4 hours as needed. cyclobenzaprine (FLEXERIL) 10 mg tablet Take 1 tablet by mouth three times daily as needed for muscle spasm. ondansetron (ZOFRAN) 4 mg tablet TAKE 1 TABLET BY MOTH EVERY 6HRS FOR 3 DAYS ergocalciferol 50,000 unit capsule (VITAMIN D2, DRISDOL) Take 1 capsule by mouth one time a week. omeprazole (PRILOSEC) 40 mg capsule Take 1 capsule by mouth once daily. fluticasone (FLONASE) 50 mcg/actuation nasal spray Use 2 Sprays in each nostril once daily. Rinse mouth after use. mometasone (NASONEX) 50 mcg/actuation nasal spray Use 2 Sprays in the nose once daily. Rinse mouth after use. ondansetron orally disintegrating (ZOFRAN ODT) 4 mg disintegrating tablet Take 1 tablet by mouth every 8 hours as needed. loratadine (CLARITIN) 10 mg tablet Take 1 tablet by mouth once daily. Can try this instead of cetirizine levonorgestrel (MIRENA) 20 mcg/24 hr (5 years) IUD 1 Each by INTRAUTERINE route continuous. FAMILY HISTORY Problem Relation Age of Onset No Known Problems Brother Heart Father Cancer Father small cell carcinoma of lung Cancer Maternal Grandmother stomach cancer Cancer Maternal Grandfather lung cancer Arthritis Maternal Grandfather Stroke Maternal Grandfather Heart Paternal Grandfather Heart Paternal Grandmother Diabetes Maternal Aunt other (Panic attacks) Sister Cancer Sister 29 Hodgkin's Lymphoma No Known Problems Brother Social History Tobacco Use Smoking status: Every Day Packs/day: 0.50 Years: 20.00 Pack years: 10.00 Types: Cigarettes Smokeless tobacco: Never Vaping Use Vaping Use: Never used Substance Use Topics Alcohol use: No Comment: history of being recovering alcholic Drug use: No Comment: MARIJUANA and CocaineIN PAST, NONE SINCE 2006 Review of Systems Objective BP 112/72 Pulse 69 Temp 37.4 C (99.3 F) Resp 18 Wt 64.4 kg (142 lb) LMP 04/30/2016 (Exact Date) SpO2 97% BMI 26.83 kg/m Physical Exam Assessment and Plan documented in this encounter [facility] 02-10-2022 Hospital Discharge instructions Patient Education 02/10/2022 01:14:57 Abdominal Pain, Unknown Cause, (Female) Abdominal Pain (Female) The exact cause of your belly (abdominal) pain is not clear. This does not mean that this is something to worry about. Everyone likes to know the exact cause of the problem. But sometimes with belly pain, there is no clear-cut cause, and this could be a good thing. The good news is that your symptoms can be treated, and you will feel better. Your condition does not seem serious now. But sometimes the signs of a serious problem may take more time to appear. For this reason, it is important for you to watch for any new symptoms, problems, or worsening of your condition. Over the next few days, the abdominal pain may come and go. Or it may be constant. Other common symptoms can include nausea and vomiting. Sometimes it can be difficult to tell if you feel nauseous. You may just feel bad and not connect that feeling to nausea. Constipation, diarrhea, and a fever may go along with the pain. The pain may continue even if treated correctly over the following days. Depending on how things go, sometimes the cause can become clear and may need more or different treatment. Additional evaluations, medicines, or tests may also be needed. Home care Your healthcare provider may prescribe medicine for pain, symptoms, or an infection. Follow the healthcare provider's instructions for taking these medicines. General care Rest as much as you can until your next exam. No strenuous activities. Try to find positions that ease discomfort. A small pillow placed on the abdomen may help relieve pain. Something warm on your abdomen (such as a heating pad) may help, but be careful not to burn yourself. Diet Don t force yourself to eat, especially if having cramps, vomiting, or diarrhea. Water is important so you don't get dehydrated. Soup may also be good. Sports drinks may also help, especially if they are not too acidic. Don't drink sugary drinks as this can make things worse. Take liquids in small amounts. Don t guzzle them. Caffeine sometimes makes the pain and cramping worse. Don t take dairy products if you have vomiting or diarrhea. Don't eat large amounts at a time. Wait a few minutes between bites. Eat a diet low in fiber (called a low-residue diet). Foods allowed include refined breads, white rice, fruit and vegetable juices without pulp, tender meats. These foods will pass more easily through the intestine. Don t have whole-grain foods, whole fruits and vegetables, meats, seeds and nuts, fried or fatty foods, dairy, alcohol and spicy foods until your symptoms go away. Follow-up care Follow up with your healthcare provider, or as advised, if your pain does not begin to improve in the next 24 hours. Call 911 Call 911 if any of these occur: Trouble breathing Confusion Fainting or loss of consciousness Rapid heart rate Seizure When to seek medical advice Call your healthcare provider right away if any of these occur: Pain gets worse or moves to the right lower abdomen New or worsening vomiting or diarrhea Swelling of the abdomen Unable to pass stool for more than 3 days Fever of 100.4 F (38 C) or higher, or as directed by your healthcare provider. Blood in vomit or bowel movements (dark red or black color) Yellow color of eyes and skin (jaundice) Weakness, dizziness Chest, arm, back, neck, or jaw pain Unexpected vaginal bleeding or missed period Can't keep down liquids or water and you are getting dehydrated [id number] [employer]. [address] [place] [address]. All rights reserved. This information is not intended as a substitute for professional medical care. Always follow your healthcare professional's instructions. Follow Up Care 02/10/2022 00:01:27 With:your GI doctor Address: When:2-4 days [facility] 02-10-2022 Note Discharge Instructions Thank you for allowing [place] to assist you with your healthcare needs. The following is important discharge information regarding your hospital visit. Diagnosis from Today's Visit Abdominal pain - cause unknown Medical screening exam What to Do Next Instructions from Your Care Team No qualifying data available. Post Acute Orders No qualifying data available. You Need to Schedule the Following Appointments Follow Up with your GI doctor When Within 2-4 days Where: Allergies traMADol Medications Please ask your primary doctor or pharmacist before taking any other medication not listed, including over the counter drugs, herbal medications, vitamins and or supplements as they may interact with your home medications. What How Much When Why Instructions Last Dose New dicyclomine (dicyclomine 10 mg oral capsule) 1 cap by mouth Four (4) times a day Abdominal pain - cause unknown Duration: 7 Days Printed Prescription New promethazine (promethazine 25 mg oral tablet) 1 tab(s) by mouth Every 4 hours Abdominal pain - cause unknown Printed Prescription Unchanged albuterol (Albuterol (Eqv-ProAir HFA) 90 mcg/ inh inhalation aerosol) Unchanged amoxicillin-clavulanate (amoxicillin-clavulanate 875 mg-125 mg oral tablet) 1 tab(s) by mouth Every 12 hours Duration: 10 Days Unchanged azithromycin (azithromycin 250 mg oral tablet) 1 tab(s) by mouth Once a day Duration: 5 Days Unchanged cyclobenzaprine (Flexeril) by mouth Three (3) times a day Unchanged ibuprofen (ibuprofen 800 mg oral tablet) 1 tab(s) by mouth Three (3) times a day as needed for for pain Unchanged levonorgestrel (Mirena) Intrauterine Once Unchanged loratadine (loratadine 10 mg oral tablet) 1 tab(s) by mouth Once a day Unchanged omeprazole (omeprazole 40 mg oral delayed release capsule) 1 cap by mouth Once a day Unchanged ondansetron (ondansetron 4 mg oral tablet, disintegrating) 1 tab(s) by mouth Every 8 hours as needed for as needed for nausea/vomiting Unchanged tiZANidine (tiZANidine 2 mg oral tablet) 1 tab(s) by mouth Every 8 hours Muscle spasm - tone Please take this list to your next doctor s visit. Bring all medications you take, including over the counter medications, herbals and other supplements with you to your doctor s visit. Patients and families are reminded to discard old lists and to update any records with all medication providers or retail pharmacies. Education Materials Abdominal Pain (Female) The exact cause of your belly (abdominal) pain is not clear. This does not mean that this is something to worry about. Everyone likes to know the exact cause of the problem. But sometimes with belly pain, there is no clear-cut cause, and this could be a good thing. The good news is that your symptoms can be treated, and you will feel better. Your condition does not seem serious now. But sometimes the signs of a serious problem may take more time to appear. For this reason, it is important for you to watch for any new symptoms, problems, or worsening of your condition. Over the next few days, the abdominal pain may come and go. Or it may be constant. Other common symptoms can include nausea and vomiting. Sometimes it can be difficult to tell if you feel nauseous. You may just feel bad and not connect that feeling to nausea. Constipation, diarrhea, and a fever may go along with the pain. The pain may continue even if treated correctly over the following days. Depending on how things go, sometimes the cause can become clear and may need more or different treatment. Additional evaluations, medicines, or tests may also be needed. Home care Your healthcare provider may prescribe medicine for pain, symptoms, or an infection. Follow the healthcare provider's instructions for taking these medicines. General care Rest as much as you can until your next exam. No strenuous activities. Try to find positions that ease discomfort. A small pillow placed on the abdomen may help relieve pain. Something warm on your abdomen (such as a heating pad) may help, but be careful not to burn yourself. Diet Don t force yourself to eat, especially if having cramps, vomiting, or diarrhea. Water is important so you don't get dehydrated. Soup may also be good. Sports drinks may also help, especially if they are not too acidic. Don't drink sugary drinks as this can make things worse. Take liquids in small amounts. Don t guzzle them. Caffeine sometimes makes the pain and cramping worse. Don t take dairy products if you have vomiting or diarrhea. Don't eat large amounts at a time. Wait a few minutes between bites. Eat a diet low in fiber (called a low-residue diet). Foods allowed include refined breads, white rice, fruit and vegetable juices without pulp, tender meats. These foods will pass more easily through the intestine. Don t have whole-grain foods, whole fruits and vegetables, meats, seeds and nuts, fried or fatty foods, dairy, alcohol and spicy foods until your symptoms go away. Follow-up care Follow up with your healthcare provider, or as advised, if your pain does not begin to improve in the next 24 hours. Call 911 Call 911 if any of these occur: Trouble breathing Confusion Fainting or loss of consciousness Rapid heart rate Seizure When to seek medical advice Call your healthcare provider right away if any of these occur: Pain gets worse or moves to the right lower abdomen New or worsening vomiting or diarrhea Swelling of the abdomen Unable to pass stool for more than 3 days Fever of 100.4 F (38 C) or higher, or as directed by your healthcare provider. Blood in vomit or bowel movements (dark red or black color) Yellow color of eyes and skin (jaundice) Weakness, dizziness Chest, arm, back, neck, or jaw pain Unexpected vaginal bleeding or missed period Can't keep down liquids or water and you are getting dehydrated [id number] [employer]. [address] [place] [address]. All rights reserved. This information is not intended as a substitute for professional medical care. Always follow your healthcare professional's instructions. Additional Information VACCINATE! IT SAVES LIVES! Members of the community who have not yet received the COVID-19 vaccine and would like to receive it can visit one of [facility] vaccine clinics. There are many vaccine clinic locations within the [facility]. For locations and available times, please visit [email or web address]. It is important to note that some COVID mobile vaccine clinics are held outdoors and may be canceled in rainy or stormy conditions. To learn more about pediatric vaccinations (ages 5-11), we invite you to visit the [facility] webpage. [email or web address] To learn more about the COVID-19 vaccine, we invite you to visit the [place] website for a list of frequently asked questions. [email or web address] [facility] Patient Portal Access Instructions: Stay connected with your healthcare team and access your personal medical information anytime with the [facility] Patient Portal. If you would like a full copy of your medical records please contact the [facility] Medical Records Department Saturday through Saturday between 8a.m. and 4:30p.m. Please follow the directions below to access the portal: 1.Access the email account you provided upon registration to the [facility].2.Look for an invitation email from [facility].3.Open the email and access the invitation link: Accept Invitation to [facility]4.Fill in the required wilcox to create your account. Sign into [email or web address] with your username and password that you created in the above steps to stay up to date. You can then view a summary of results, a summary of your visits, and the ability to download your summaries to your computer or send the information securely to a physician. Remember that your healthcare information is confidential, so carefully consider who you will allow to register on the [facility] Patient Portal for access to your information. You can also access the [facility] Patient Portal on the [employer] bi. Simply click on Health Records under Health Data and then click on the [employer] logo. HOW TO SAFELY DISPOSE OF PRESCRIPTION MEDICATIONS Please use one of the following methods to safely dispose of your unused medications. 1.Use a drug disposal kit: the drug disposal pouch allows you to safely discard your old and unused drugs. Ask your nurse to give you one when you are discharged.2.Visit a local take-back location: Many local pharmacies and police departments have programs that collect old and unwanted prescription drugs. Call your local pharmacy or go to http://[employer].FunPuntos/8H8Jr9l to find one close to you.3.Make use of household items: Use cat litter or old coffee grounds to dispose medications if other options are not available. Mix your drugs with these household products, seal them in an airtight container and throw it into the garbage. Call [facility]: [phone] to be sure your drugs can be disposed of in this way. Some medicines may require a different approach.4.Never flush your medications down the toilet. IF YOU HAVE BEEN PRESCRIBED AN OPIOIDS FOR PAIN If you have been prescribed an opioid (such as hydrocodone, oxycodone or morphine), it is critical to understand the possible side effects and risks of opioid pain medications. Even when taken as directed, opioids can have several side effects including: Tolerance, meaning you might need to take more of a medication for the same pain relief. Nausea, vomiting and/or constipation. Sleepiness, dizziness, dry mouth, confusion, depression or itching. Physical dependence, meaning you have withdrawal symptoms when a medication is stopped ? this can develop within a few days. KNOW YOUR RESPONSIBILITIES It is important to know exactly how much and how often to take the opioid pain medications you are prescribed. Never take opioids in higher amounts or more often than prescribed. Do not combine opioids with alcohol or other drugs that cause drowsiness, such as benzodiazepines, also known as benzos, including diazepam and alprazolam, muscle relaxants or sleep aids. Never sell or share prescription opioids. This is illegal. Store opioids in a secure place and out of reach of others (including children, family, friends and visitors). The last page(s) of this document has been signed and retained as a CHART COPY Signatures Patient Education Materials Abdominal Pain, Unknown Cause, (Female) Medication Leaflets My discharge plan and instructions have been reviewed and explained to me and I,DEENA IQBAL E understand my current condition and have read and understand these discharge instructions. I have received a written copy of the plan/instructions. If I have questions, I am aware that I should contact my doctor. 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 No dilated loops of intestine are present. There are a few air-fluid levels in the right colon. No free intraperitoneal air is present. There is no pneumatosis. Punctate left renal calculus is unchanged since 09/21/2021. There is no evidence of ureteral stone. Intrauterine contraceptive device is in place. There is no sign of organomegaly. The skeletal structures are unremarkable. IMPRESSION: No sign of intestinal obstruction. Few air-fluid levels in right colon may be sign of mild ileus. Unchanged punctate left renal calculus. Interpreted by: Matias Dahl MD Preliminary Report By: Matias Dahl MD Electronically signed By Matias Dahl MD Dictated Date: 02/10/2022 1:04:45 AM Prelim Date: 02/10/2022 1:07:54 AM Sign Date: 02/10/2022 1:07:54 AM Ordering Provider: [facility] 02-10-2022 Note ORIGINAL EXAMINATION: THREE XRAY VIEWS OF THE ABDOMEN 02/10/2022 1:01 am COMPARISON: CT abdomen and pelvis on 09/21/2021 HISTORY: ORDERING SYSTEM PROVIDED HISTORY: Reason for Exam: abdominal pain FINDINGS: The bowel gas pattern is nonobstructive. No dilated loops of intestine are present. There are a few air-fluid levels in the right colon. No free intraperitoneal air is present. There is no pneumatosis. Punctate left renal calculus is unchanged since 09/21/2021. There is no evidence of ureteral stone. Intrauterine contraceptive device is in place. There is no sign of organomegaly. The skeletal structures are unremarkable. IMPRESSION: No sign of intestinal obstruction. Few air-fluid levels in right colon may be sign of mild ileus. Unchanged punctate left renal calculus. Interpreted by: Matias Dahl MD Preliminary Report By: Matias Dahl MD Electronically signed By Matias Dahl MD Dictated Date: 02/10/2022 1:04:45 AM Prelim Date: 02/10/2022 1:07:54 AM Sign Date: 02/10/2022 1:07:54 AM Ordering Provider: [facility] 02-08-2022 Rick Mohamud APRN.STEMHOLE BORER - 02/08/2022 11:52 AM EDT Start taking buspirone for anxiety. Consider stopping smoking if you have not already done so documented in this encounter [facility] 02-08-2022 History of Present illness Narrative SUBJECTIVE: Deena Iqbal is a 34 year old female. PAP TESTING due on 04/08/2022 HPV TESTING due on 04/08/2022 HPI Last seen in office IM 2019. She was seen by family medicine provider September 25, 2021 for ER follow-up visit. She was seen for abdominal and back pain. She was seen by Dr. 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 Has seen gastroenterology providers for left lower quadrant abdominal pain bloating nausea early satiety and diverticular disease. Gastroenterology, endoscopy, EGD December 22, 2021. FINAL DIAGNOSIS A. Duodenum, biopsy: - Duodenal mucosa with no diagnostic alteration. - No evidence of celiac sprue. B. Stomach, biopsy: - Antral mucosa with mild foveolar hyperplasia; no evidence of H. pylori. Labs 09/2021 overall in acceptable range, vitamin D was low. Taking supplemental vitamin D. Presents today noting multiple social stressors since last seen.Would like to resume treatment for anxiety. States she would like something temporary. Counseling at 180. Notes PPI helps bloating and abdominal pain. No report GERD or heartburn complaints with medication of nausea vomiting diarrhea and constipation. Review of Systems Constitutional: Negative. Gastrointestinal: Positive for abdominal distention (intermittent bloating). Psychiatric/Behavioral: The patient is nervous/anxious. Objective BP 102/68 Pulse 72 Resp 16 Ht 154.9 cm (5' 1 ) Wt 63.5 kg (140 lb) LMP 04/30/2016 (Exact Date) BMI 26.45 kg/m Physical Exam Vitals and nursing note reviewed. Constitutional: General: She is not in acute distress. Appearance: Normal appearance. She is not ill-appearing, toxic-appearing or diaphoretic. HENT: Head: Normocephalic and atraumatic. Neck: Vascular: No carotid bruit. Cardiovascular: Rate and Rhythm: Normal rate and regular rhythm. Pulses: Carotid pulses are 2+ on the right side and 2+ on the left side. Radial pulses are 2+ on the right side and 2+ on the left side. Dorsalis pedis pulses are 2+ on the right side and 2+ on the left side. Heart sounds: Normal heart sounds. Pulmonary: Effort: Pulmonary effort is normal. Abdominal: General: Bowel sounds are normal. Palpations: Abdomen is soft. Musculoskeletal: Right shoulder: No deformity or bony tenderness. Right lower leg: No edema. Left lower leg: No edema. Comments: no TTP right shoulder, left lower ribs/abdomen Skin: General: Skin is warm and dry. Neurological: General: No focal deficit present. Mental Status: She is alert and oriented to person, place, and time. ALLERGIES Allergen Reactions Ultram [Tramadol] Other: See Comments nausea; felt bad Medications cyclobenzaprine (FLEXERIL) 10 mg tablet Take 1 tablet by mouth three times daily as needed for muscle spasm. ondansetron (ZOFRAN) 4 mg tablet TAKE 1 TABLET BY MOTH EVERY 6HRS FOR 3 DAYS ergocalciferol 50,000 unit capsule (VITAMIN D2, DRISDOL) Take 1 capsule by mouth one time a week. albuterol HFA (PROVENTIL HFA, VENTOLIN HFA) 90 mcg/actuation inhaler Inhale 2 Puffs as instructed every 4 hours as needed. omeprazole (PRILOSEC) 40 mg capsule Take 1 capsule by mouth once daily. fluticasone (FLONASE) 50 mcg/actuation nasal spray Use 2 Sprays in each nostril once daily. Rinse mouth after use. loratadine (CLARITIN) 10 mg tablet Take 1 tablet by mouth once daily. Can try this instead of cetirizine levonorgestrel (MIRENA) 20 mcg/24 hr (5 years) IUD 1 Each by INTRAUTERINE route continuous. naproxen (NAPROSYN) 500 mg tablet Take 1 tablet by mouth twice daily as needed (pain/inflammation, take with food.). (Patient not taking: No sig reported) guaiFENesin (MUCINEX) 600 mg 12 hr tablet Take 1 tablet by mouth twice daily. (Patient not taking: No sig reported) benzonatate (TESSALON PERLES) 100 mg capsule Take 1 capsule by mouth three times daily as needed. (Patient not taking: No sig reported) cetirizine (ZYRTEC) 10 mg tablet Take 1 tablet by mouth once daily. (Patient not taking: No sig reported) ibuprofen (MOTRIN) 800 mg tablet Take 1 tablet by mouth every 8 hours as needed for Pain. Take with food. (Patient not taking: No sig reported) mometasone (NASONEX) 50 mcg/actuation nasal spray Use 2 Sprays in the nose once daily. Rinse mouth after use. (Patient not taking: No sig reported) ondansetron orally disintegrating (ZOFRAN ODT) 4 mg disintegrating tablet Take 1 tablet by mouth every 8 hours as needed. (Patient not taking: No sig reported) hydrocortisone 1 % cream Apply to affected area twice daily. (Patient not taking: No sig reported) PAST MEDICAL HISTORY Diagnosis Date Abnormal glandular Papanicolaou smear of cervix 2002 Abn. 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 Gastroesophageal reflux disease, unspecified whether esophagitis present - ICD9: 530.81, ICD10: K21.9 (primary diagnosis) Notes controlled on current treatments. Negative pathology on EGD 2. Generalized anxiety disorder - ICD9: 300.02, ICD10: F41.1 4. Anxiety - ICD9: 300.00, ICD10: F41.9 Would like to resume medication for anxiety. We will resume BuSpar. Counseling at 180. - BUSPIRONE 10 MG TABLET 3. Smoker - ICD9: 305.1, ICD10: F17.200 7. SOB (shortness of breath) - ICD9: 786.05, ICD10: R06.02 Smoking cessation endorsed - ALBUTEROL SULFATE HFA 90 MCG/ACTUATION AEROSOL INHALER 5. Vitamin D deficiency - ICD9: 268.9, ICD10: E55.9 Continue supplemental for now, check lab work - VITAMIN D 25 HYDROXY schedule follow up Analy Romero gastro 6 mo follow up Rod Amaya MD 1 mo follow up Milagro Mohamud APRN.STEMHOLE BORER anxiety - video ok Advised: Start taking buspirone for anxiety. Consider stopping smoking if you have not already done so Milagro Mohamud APRN.CNS Medical Decision Making: Problems: Low: Stable chronic illness Moderate: 1+ chronic illnesses with change Data: Unique test(s) ordered: 1 Risk: Moderate: Drug management Medical Decision Making Level: 4 - Moderate documented in this encounter [facility] 01-09-2022 History of Present illness Narrative BREAST LUMP HISTORY: This is a 36 year old female Presents with possible breast mass right Mass has been present for 5 days. She has dense breast tissue. Tenderness Yes, Change in sizeNo Any history breast mass No Caffeine use Yes Last [id number] normal - right sided diagnostic imaging Any previous breast surgery No Any family history breast disease/ breast cancer Yes - 2nd cousin OB History T3 L3 SAB1 IAB0 Ectopic0 Multiple0 Live Births3 PAST MEDICAL HISTORY Diagnosis Date Abnormal glandular Papanicolaou smear of cervix 2002 Abn. 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 Rh negative state in antepartum period 11/16/2014 Sciatic pain Smoker 10/18/2020 Cigarettes Unspecified , without mention of complication, unspecified PAST SURGICAL HISTORY Procedure Laterality Date ANESTH, SECTION DELIVERY ONLY 02/24/042008 , low cervical DELIVERY ONLY 06/14/15 , low transverse COLSC FLX W/REMOVAL LESION BY HOT BX FORCEPS 07-25-12 INSERT INTRAUTERINE DEVICE 05/2010 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 04/2014 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)_*FL 03/04/03 FAMILY HISTORY Problem Relation Age of Onset No Known Problems Brother Heart Father Cancer Father small cell carcinoma of lung Cancer Maternal Grandmother stomach cancer Cancer Maternal Grandfather lung cancer Arthritis Maternal Grandfather Stroke Maternal Grandfather Heart Paternal Grandfather Heart Paternal Grandmother Diabetes Maternal Aunt other (Panic attacks) Sister Cancer Sister 29 Hodgkin's Lymphoma No Known Problems Brother SOCIAL HISTORY Social History Tobacco Use Smoking status: Every Day Packs/day: 0.50 Years: 20.00 Pack years: 10.00 Types: Cigarettes Smokeless tobacco: Never Vaping Use Vaping Use: Never used Substance Use Topics Alcohol use: No Comment: history of being recovering alcholic Drug use: No Comment: MARIJUANA and CocaineIN PAST, NONE SINCE 2006 PAST SURGICAL HISTORY Procedure Laterality Date ANESTH, SECTION DELIVERY ONLY 02/24/04, 2008 , low cervical DELIVERY ONLY 06/14/15 , low transverse COLSC FLX W/REMOVAL LESION BY HOT BX FORCEPS 07-25-12 INSERT INTRAUTERINE DEVICE 05/2010 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 04/2014 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)_*FL 03/04/03 Current Outpatient Medications Medication Sig cyclobenzaprine (FLEXERIL) 10 mg tablet Take 1 tablet by mouth three times daily as needed for muscle spasm. ondansetron (ZOFRAN) 4 mg tablet TAKE 1 TABLET BY MOTH EVERY 6HRS FOR 3 DAYS ergocalciferol 50,000 unit capsule (VITAMIN D2, DRISDOL) Take 1 capsule by mouth one time a week. albuterol HFA (PROVENTIL HFA, VENTOLIN HFA) 90 mcg/actuation inhaler Inhale 2 Puffs as instructed every 4 hours as needed. omeprazole (PRILOSEC) 40 mg capsule Take 1 capsule by mouth once daily. fluticasone (FLONASE) 50 mcg/actuation nasal spray Use 2 Sprays in each nostril once daily. Rinse mouth after use. loratadine (CLARITIN) 10 mg tablet Take 1 tablet by mouth once daily. Can try this instead of cetirizine levonorgestrel (MIRENA) 20 mcg/24 hr (5 years) IUD 1 Each by INTRAUTERINE route continuous. naproxen (NAPROSYN) 500 mg tablet Take 1 tablet by mouth twice daily as needed (pain/inflammation, take with food.). (Patient not taking: Reported on 09/06/2021 ) guaiFENesin (MUCINEX) 600 mg 12 hr tablet Take 1 tablet by mouth twice daily. (Patient not taking: Reported on 09/06/2021 ) benzonatate (TESSALON PERLES) 100 mg capsule Take 1 capsule by mouth three times daily as needed. (Patient not taking: Reported on 09/06/2021 ) cetirizine (ZYRTEC) 10 mg tablet Take 1 tablet by mouth once daily. (Patient not taking: Reported on 06/30/2021 ) ibuprofen (MOTRIN) 800 mg tablet Take 1 tablet by mouth every 8 hours as needed for Pain. Take with food. (Patient not taking: Reported on 01/09/2022) mometasone (NASONEX) 50 mcg/actuation nasal spray Use 2 Sprays in the nose once daily. Rinse mouth after use. (Patient not taking: Reported on 06/30/2021 ) ondansetron orally disintegrating (ZOFRAN ODT) 4 mg disintegrating tablet Take 1 tablet by mouth every 8 hours as needed. (Patient not taking: Reported on 09/06/2021 ) hydrocortisone 1 % cream Apply to affected area twice daily. (Patient not taking: Reported on 09/06/2021 ) No current facility-administered medications for this visit. Allergies As of Date: 01/09/2022 Allergen Noted Reaction ULTRAM [TRAMADOL] 04/13/2011 Other: See Comments Fully Assessed 01/09/2022 EXAMINATION: There is no concerning cervical, supraclavicular, or axillary lymphadenopathy. She has bilateral fibrocystic changes. On the bilaterally are no dominant masses, skin changes or nipple discharge. On the bilaterally there are fibrocysytic changes present but no skin changes or nipple discharge. IMPRESSION: Dense breast tissue and no breast mass PLAN: No orders found for this visit on 01/09/22. A discussion was held with the patient and she was reassured of her normal breast exam. Discussed dense breast tissue and that caffeine can be a factor. She agrees with the plan to Monitor area and return as needed. Medical Decision Making: Problems: Low: Acute, uncomplicated illness or injury Data: Unique test result(s) reviewed: 2 Risk: Low: Low risk from testing/treatment Medical Decision Making Level: 3 - Low Jeferson Glez MD documented in this encounter [facility] 12-28-2021 Miscellaneous Notes Needs follow up in th next 6 months since not seen in primary care for follow up (seen in [facility] care and by [facility])--just VV last few times since June last year when saw me The following approved medication requests have been transmitted electronically. Requested Prescriptions Signed Prescriptions Disp Refills cyclobenzaprine (FLEXERIL) 10 mg tablet 30 tablet 0 Sig: Take 1 tablet by mouth three times daily as needed for muscle spasm. Authorizing Provider: ROD AMAYA MD Last Office Visit: 09/25/2021 Future Office Visit: None Last Medication Refill: cyclobenzaprine 09/23/2020 30 tab 1 refill Date of Last Labs: 09/25/2021 documented in this encounter [facility] 12-22-[address] Casas at bedside speaking with patient Pt states readines for discharge. documented in this encounter [facility] 12-22-2021 History and physical note HISTORY AND PHYSICAL Deena Cammy Iqbal, 36 year old female here for EGD to evaluate nausea, bloating and early satiety Current history and physical on file: Yes Is a new History and Physical required for today's visit? No Indication for procedure: Nausea PROCEDURE(S) SCHEDULED FOR: EGD (Esophagogastroduodenoscopy) with or without biopsies, removal of polyps or lesions, dilation ( any means), treatment of bleeding ( any means), Barrx treatment of Alireza's Esophagus, image tube placement or cryo therapy treatment based on clinical findings. BASELINE BEHAVIOR: Calm BASELINE ORIENTATION: A & O x3 All medications and allergies reviewed: Yes Skin Assessment: Warm dry muscus membranes pink Airway/Respiratory Assessment: Airway: visualization of the uvula- Yes Mouth: opening greater than 2 fingerbreadths- Yes Neck: full range of motion- Yes Breath sounds clear/equal- Yes Cardiac Assessment: Regular rate and rhythm without murmur Abdominal Assessment: Abdomen soft, non-tender, no masses or organomegaly. Sedation Plan: Deep Additional Comments: None Zonia Casas MD documented in this encounter [facility] 12-18-2021 Miscellaneous Notes Responded in [facility] Analy Romero APRN.ELIAS Pt calls and states she was not given results of lab work from 11-27-21. Please review and advise pt. Nicole Calzada LPN documented in this encounter [facility] 11-27-2021 Instructions Analy Romero APRN.ELIAS - 11/27/2021 9:29 AM EDT Images from the original note were not included. Schedule EGD at [facility] work Continue Prilosec 40mg Avoid NSAIDs (such as Advil, Ibuprofen, Excedrin, Mobic), tobacco, alcohol, carbonated beverages, caffeine, chocolate, tomato based sauces, spicy/fatty foods, and peppermint Avoid eating large meals Avoid eating less than 3 hours before bed. Weight loss. Elevate the head of the bed 6 inches, or at least invest in a wedge pillow. Drink at least 64 oz water daily Benefiber daily or Metamucil 2 teaspoons added to 8 ounces of water SLOWLY increase up to 2 TBP daily Improving Your Health with Fiber This guide provides basic information to help you start increasing dietary fiber in your diet. These are general guidelines that may be tailored to meet your needs. Fiber is an important dietary substance to help support your health. Making changes in your current eating habits will help you eat more healthfully. Most fiber-containing foods are also good sources of vitamins, minerals, and antioxidants, which offer many health benefits. A registered dietitian can provide in-depth nutrition education to help you develop a personal action plan. What is fiber? Fiber is the structural part of plant foods--such as fruits, vegetables, and grains--that our bodies cannot digest or break down. There are two kinds of fiber: soluble and insoluble. Soluble fiber: dissolves in water to form a gummy gel. It can slow down the passage of food from the stomach to the intestine. Examples: dried beans, oats, barley, banana, potatoes, and soft parts of apples and pears Insoluble fiber: often referred to as roughage because it does not dissolve in water. It holds onto water, which helps produce softer, bulkier stools to help regulate bowel movements. Examples: whole bran, whole grain products, nuts, corn, carrots, grapes, berries, and peels of apples and pears What other things does fiber do? Research has shown that a diet rich in fiber is associated with many health benefits, including the followin. Lowers cholesterol--Soluble fiber has been shown to lower cholesterol by binding to bile (composed of cholesterol) and taking it out of the body. This may help reduce the risk of heart disease. 2. Better regulates blood sugar levels--A high-fiber meal slows down the digestion of food into the intestines, which may help to keep blood sugars from rising rapidly. 3. Weight control--A high-fiber diet may help keep you miller longer, which prevents overeating and hunger between meals. 4. May prevent intestinal cancer--Insoluble fiber increases the bulk and speed of food moving through the intestinal tract, which reduces time for harmful substances to build up. 5. Constipation--Constipation can often be relieved by increasing the fiber or roughage in your diet. Fiber works to help regulate bowel movements by pulling water into the colon to produce softer, bulkier stools. This action helps to promote better regularity. How much fiber should I eat? The recommendation is to consume about 20-35 grams of total fiber per day, with 10-15 grams from soluble fiber. This can be accomplished by choosing 6 ounces of grains (3 or more ounces from whole grains), 2 cups of vegetables, and 2 cups of fruit per day (based on a 2,000 calorie/day pattern). Note: Eating a high-fiber diet may interfere with the absorption and effectiveness of some medications. Speak to your doctor about which medications to take with caution and when to take them. Fiber also binds with certain nutrients and carries them out of the body. To avoid this, aim for the recommended 20-35 grams of fiber per day. Some studies indicate that up to 50 grams of dietary fiber may help control blood sugars for people with diabetes. When eating a high-fiber diet, be sure to drink at least eight glasses of fluid each day. Tips for increasing dietary fiber in your diet: Add fiber to your diet slowly. Too much fiber all at once may cause cramping, bloating, and constipation. When adding fiber to your diet, be sure to increase fluids (at least 64 ounces per day) to prevent constipation. Buy bread with 2-4 grams of dietary fiber per slice. Buy cereals with at least 5 grams of dietary fiber per serving. Choose cereals with a whole grain such as whole wheat or whole grain rolled oats. Choose raw fruits and vegetables in place of juice. Choose products that have a whole grain listed as the first ingredient, not enriched flour. Whole wheat flour is a whole grain--wheat flour is not. Try alternative fiber choices such as whole buckwheat, whole wheat couscous, quinoa, and bulgur. Popcorn is a whole grain. Serve it low-fat without butter for a healthier snack choice. Try whole wheat bread and whole wheat pastas. Sprinkle bran in soups, cereals, baked products, spaghetti sauce, ground meat, and casseroles. Bran also mixes well with orange juice. Use dried peas, beans, and legumes in main dishes, salads, or side dishes such as rice or pasta. Eat the skins of raw fruits and vegetables. Add dried fruit to yogurt, cereal, rice, and muffins. Try brown rice and whole grain pastas. Choose crackers with a whole grain listed as the first ingredient. Look for whole grain rye and wheat crackers. How to read a food label Food labels are standardized by the [place]. government's National Labeling and Education Act (NLEA). Nutrition labels and an ingredient list are required on most foods, so that you can make the best selection for a healthy lifestyle. Review the food label. Determine the total amount of fiber in this product or ask your dietitian or health care provider to show you how to read food labels and apply the information to your personal needs. In order for a product to be labeled high fiber, it must contain 5 grams or more of dietary fiber per serving. Fiber supplements Fiber supplements may be an option if you are not able to get enough fiber from your diet. Fiber supplements can be used to normalize both constipation and diarrhea. Check with your doctor before starting any kind of supplement. Read labels for fiber carefully. Drink at least 8 ounces of liquids with your supplement. Taking some fiber supplements without adequate liquids may cause the fiber to swell and may cause choking. Some fiber supplements to consider are Benefiber (hydrolyzed guar gum-soluble fiber), Metamucil (psyllium), Konsyl (psyllium), Citrucel (methylcellulose), Fibercon (calcium polycarbophil), and Fiberall (multiple sources of fiber). Psyllium husk and guar gum are soluble fibers. Consider keeping a food journal and tracking how much fiber you eat in a typical day. Use the fiber content chart in this handout as a guide to meeting your high fiber goal or check with www.NAL.usda.gov/fnic for additional information on the dietary fiber content of food. Food Category Food Serving Size Total Fiber (grams) Soluble Fiber (grams) Starches, Grains, Starchy vegetables Breads: Bagel-whole wheat Light white/wheat Sujata-Whole wheat Pumpernickel Whole wheat [place] 3 1/2 inches 2 slices 7 inches slice slice slice 3 1 4 3 2 2 1 trace 1 1 trace 1 Cereals: Bran Flakes Cheerios Oatmeal Fiber One All Bran Kashi Heart to Heart 3/4 cup 1 1/4 cup 1 cup cooked 1/2 cup 2/3 cup 3/4 cup 5 4 4 14 13 5 trace 1 2 1 1 1 Grains: Barley Brown rice Pasta-whole wheat 1/2 cup cooked 1/2 cup 1/2 cup cooked 4 2 3 1 trace 1 Legumes and starchy vegetables: Garbanzo beans Kidney beans Lentils Potato (with skin) Potatoes, sweet Squash (winter) Green peas, cooked [place] beans [place], cooked 1/2 cup 1/2 cup 1/2 cup 1 medium 1/2 cup 1/2 cup 1/2 cup 1/2 cup 1/2 cup 4 6 5 3 4 3 4 7 2 1 3 1 1 2 2 1 3 trace Nuts and Seeds Almonds Peanuts [place] seeds Walnuts 1/4 cup 1/4 cup 1/4 cup 1/4 cup 3 3 3 2 1 1 1 trace Fruits Apple with skin Banana Blueberries Grapefruit [place] Pear with skin Prunes Strawberries 1 medium 1 medium 1 cup 1/2 cup 1 medium 1 medium 3 1 cup 3 2 2 1 3 4 2 4 1 1 trace 1 2 2 1 1 Vegetables, non-starchy Broccoli [place] sprouts Cabbage-green Carrot Cauliflower Green beans Kale Spinach Squash (zucchini) 1/2 cup 1/2 cup 1 cup, fresh 1/2 cup cooked 1/2 cup cooked 1/2 cup 1/2 cup 1/2 cup 1/2 cup 3 4 2 2 1 2 3 2 1 1 2 1 1 trace 1 1 1 1 Copyright 0982-3162 The [employer]. All rights reserved. This information is provided by the [facility] and is not intended to replace the medical advice of your doctor or health care provider. Please consult your health care provider for advice about a specific medical condition. For additional health information, please contact the [facility] for Consumer [facility] Information at the [facility] or toll-free extension [phone]. If you prefer, you may visit [email or web address] or [email or web address]. This document was last reviewed on: 2009 index#[id number] documented in this encounter [facility] 11-27-2021 History of Present illness Narrative CHIEF COMPLAINT: Patient presents with: GERD: taking with prilosec Diverticulitis: 2013 last major flare up Irritable Bowel Syndrome: questionable but never diagnosis Abdominal Pain: on left side off and on with bloating and gasy gluten intolerance This consult was requested by Lindy Pritchett APRN.CNP for an opinion regarding LLQ [pain . My final recommendations will be communicated to the requesting health care provider by way of the shared medical record for internal providers or letter via the [employer] for external providers. Deena Iqbal is a 36 year old female with a past medical history of GERD.who presents for LLQ pain Last Colonoscopy 2012: diverticulosis - one diminutive sessile polyp in the rectum hyperplastic polyp - consideration of propofol anesthesia for future colonoscopy. HPI: The patient denies change in bowel habits,denies black stool, rectal bleeding or abdominal pain. Having a bowel movement alternating bowels constipation and diarrhea. She reports when she feels constipated she will drink coffee which helps get things moving. She reports usually has multiple stools in the morning. She reports rarely constipated. she reports in the Spring time she went to the ED for abdominal pain had CT ABD - no acute intra abdominal process, does note to have a punctuate left renal calcification. She reports of acid reflux symptoms worsening and taking omeprazole 40mg takes at night (symptoms worsen in the evening) if she does not take she will have symptoms of heartburn. She reports she drinks Dr.Pepper and reports she tries to stay stay away from trigger foods however she like tomatoes. She reports nauseated in the morning. She reports bloating and thinks this is related to eating bread. denies vomiting, at times will feel like she gets full fast d/t bloating and reports she is gaining weight denies weight loss. She reports she likes tomatoes and this will cause abdominal pain On the left side. She reports was hospitalized 2013 for diverticulitis? flare has not had any flares since. Current smoker Record Review: [facility] / Outside records reviewed. Component Latest Ref Rng & Units 09/06/2021 09/25/2021 WBC 3.70 - 11.00 k/uL 7.43 RBC 3.90 - 5.20 m/uL 3.92 Hemoglobin 11.5 - 15.5 g/dL 12.6 Hematocrit 36.0 - 46.0 % 36.9 MCV 80.0 - 100.0 fL 94.1 MCH 26.0 - 34.0 pg 32.1 MCHC 30.5 - 36.0 g/dL 34.1 RDW-CV 11.5 - 15.0 % 11.4 (L) Platelet Count 150 - 400 k/uL 273 MPV 9.0 - 12.7 fL 9.7 Neut% % 55.3 Abs Neut (ANC) 1.45 - 7.50 k/uL 4.11 Lymph% % 37.3 Abs Lymph 1.00 - 4.00 k/uL 2.77 Sublette% % 5.5 Abs Sublette <0.87 k/uL 0.41 Eosin% % 1.1 Abs Eosin <0.46 k/uL 0.08 Baso% % 0.4 Abs Baso <0.11 k/uL 0.03 Immature Gran % % 0.4 IMMATURE GRANS (ABS) <0.10 k/uL 0.03 NRBC /100 WBC 0.0 Absolute nRBC <0.01 k/uL <0.01 DTYPE Auto Protein, Total 6.3 - 8.0 g/dL 6.5 Albumin 3.9 - 4.9 g/dL 4.4 Calcium 8.5 - 10.2 mg/dL 9.3 Bilirubin, Total 0.2 - 1.3 mg/dL 0.4 Alkaline Phosphatase 34 - 123 U/L 82 AST 13 - 35 U/L 15 ALT 7 - 38 U/L 13 Glucose 74 - 99 mg/dL 82 BUN 7 - 21 mg/dL 8 Creatinine 0.58 - 0.96 mg/dL 0.75 Sodium 136 - 144 mmol/L 139 Potassium 3.7 - 5.1 mmol/L 3.6 (L) Chloride 97 - 105 mmol/L 104 CO2 22 - 30 mmol/L 24 Anion Gap 9 - 18 mmol/L 11 eGFR >=60 mL/min/1.73m 105 HIV 12 Combo (Ag/Ab) Nonreactive Nonreactive HIV 1/2 Ab HIV Interpretation Hep C Antibody IA Negative Negative Hep B Surface Ag Negative Negative Vitamin D 25 Hydroxy 31.0 - 80.0 ng/mL 28.0 (L) Vitamin B12 232-1,245 pg/mL 395 Folate >4.7 ng/mL 9.4 TSH 0.270 - 4.200 mIU/L 0.984 PAST MEDICAL HISTORY Diagnosis Date Abnormal glandular Papanicolaou smear of cervix 2002 Abn. 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 Rh negative state in antepartum period 11/16/2014 Sciatic pain Smoker 10/18/2020 Cigarettes Unspecified , without mention of complication, unspecified PAST SURGICAL HISTORY Procedure Laterality Date ANESTH, SECTION DELIVERY ONLY 02/24/04, 2008 , low cervical DELIVERY ONLY 06/14/15 , low transverse COLSC FLX W/REMOVAL LESION BY HOT BX FORCEPS 07-25-12 INSERT INTRAUTERINE DEVICE 05/2010 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 04/2014 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)_*[place] 03/04/03 Allergies: ALLERGIES Allergen Reactions Ultram [Tramadol] Other: See Comments nausea; felt bad Medications: ergocalciferol 50,000 unit capsule (VITAMIN D2, DRISDOL) Take 1 capsule by mouth one time a week. albuterol HFA (PROVENTIL HFA, VENTOLIN HFA) 90 mcg/actuation inhaler Inhale 2 Puffs as instructed every 4 hours as needed. omeprazole (PRILOSEC) 40 mg capsule Take 1 capsule by mouth once daily. cyclobenzaprine (FLEXERIL) 10 mg tablet Take 1 tablet by mouth three times daily as needed for Muscle Spasm. ibuprofen (MOTRIN) 800 mg tablet Take 1 tablet by mouth every 8 hours as needed for Pain. Take with food. loratadine (CLARITIN) 10 mg tablet Take 1 tablet by mouth once daily. Can try this instead of cetirizine levonorgestrel (MIRENA) 20 mcg/24 hr (5 years) IUD 1 Each by INTRAUTERINE route continuous. omeprazole 20 mg disintegrating tablet (PriLOSEC) Take 1 tablet by mouth once daily. naproxen (NAPROSYN) 500 mg tablet Take 1 tablet by mouth twice daily as needed (pain/inflammation, take with food.). guaiFENesin (MUCINEX) 600 mg 12 hr tablet Take 1 tablet by mouth twice daily. benzonatate (TESSALON PERLES) 100 mg capsule Take 1 capsule by mouth three times daily as needed. cetirizine (ZYRTEC) 10 mg tablet Take 1 tablet by mouth once daily. fluticasone (FLONASE) 50 mcg/actuation nasal spray Use 2 Sprays in each nostril once daily. Rinse mouth after use. mometasone (NASONEX) 50 mcg/actuation nasal spray Use 2 Sprays in the nose once daily. Rinse mouth after use. ondansetron orally disintegrating (ZOFRAN ODT) 4 mg disintegrating tablet Take 1 tablet by mouth every 8 hours as needed. hydrocortisone 1 % cream Apply to affected area twice daily. 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 All other systems reviewed and are negative. Are you taking any blood thinners? No Physical Examination: BP 98/58 Pulse 77 Ht 5' 1.811 (1.57m) Wt 139 lb (63.1kg) SpO2 98% LMP 04/30/2016 BMI 25.58 kg/(m^2). Physical Exam Constitutional: Appearance: Normal appearance. She is normal weight. HENT: Head: Normocephalic and atraumatic. Eyes: Extraocular Movements: Extraocular movements intact. Pupils: Pupils are equal, round, and reactive to light. Cardiovascular: Rate and Rhythm: Normal rate and regular rhythm. Pulses: Normal pulses. Heart sounds: Normal heart sounds. Pulmonary: Effort: Pulmonary effort is normal. Breath sounds: Normal breath sounds. Abdominal: General: Abdomen is flat. Bowel sounds are normal. Palpations: Abdomen is soft. Musculoskeletal: General: Normal range of motion. Cervical back: Normal range of motion and neck supple. Skin: General: Skin is warm and dry. Neurological: General: No focal deficit present. Mental Status: She is alert and oriented to person, place, and time. Psychiatric: Mood and Affect: Mood normal. Behavior: Behavior normal. ASSESSMENT: Left lower quadrant abdominal pain Bloating (primary encounter diagnosis) Nausea Early satiety Diverticular disease PLAN: Assessment/Plan (R14.0) Bloating (primary encounter diagnosis) (R10.32) Left lower quadrant abdominal pain (R11.0) Nausea (R68.81) Early satiety (K57.90) Diverticular disease 1. Left lower quadrant abdominal pain - CONSULT TO GASTROENTEROLOGY - EGD DIAGNOSTIC; Future 2. Bloating - Patient reports of GERD symptoms spite taking PPI - Discussed GERD lifestyle changes but never having EGD in the past. Recommend EGD with biopsy - CELIAC SCREEN WITH REFLEX; Future - H PYLORI IGG AB; Future - EGD DIAGNOSTIC; Future 3. Nausea - CELIAC SCREEN WITH REFLEX; Future - H PYLORI IGG AB; Future - EGD DIAGNOSTIC; Future 4. Early satiety - CELIAC SCREEN WITH REFLEX; Future - H PYLORI IGG AB; Future 5. Diverticular disease - discussed high fiber Follow up in office 3 months/PRN. Recommended to please call office/go to ER if fever, chills, chest pain, SOB, diarrhea, nausea, emesis, worsening abdominal pain, dehydration occurs I spent a total of 30 minutes on the date of the service which included preparing to see the patient, [id number] patient care, completing clinical documentation, obtaining and/or reviewing separately obtained history, performing a medically appropriate examination, counseling and educating the patient/family/caregiver, ordering medications, tests, or procedures, communicating with other HCPs (not separately reported), independently interpreting results (not separately reported), communicating results to the patient/family/caregiver, and care coordination (not separately reported). Analy Romero APRN.CNP November 27, 2021 1:02 PM documented in this encounter [facility] 10-02-2021 Miscellaneous Notes Patient returned call and given provider's message below with verbalized understanding. No questions at this time. TC to pt. LM to call office, ask for triage nurse to get results. Bess Mckinley LPN Can you please call the patient and let her know that I reviewed her ultrasound results. Ultrasound of the bladder and kidney was relatively normal however it does show a simple cyst in the right kidney. These are normally benign findings however if the flank pain is not improving then I would recommend a follow-up with nephrology for further evaluation. Please let me know if the patient has any questions. Thank you. Amparo Arteaga APRN.ELIAS documented in this encounter [facility] 09-25-2021 Instructions Amparo Arteaga APRN.ELIAS - 09/25/2021 2:38 PM EDT 1. Get labs completed. 2.) Schedule appointment for ultrasound. 3.) May continue to use NSAIDS and flexeril as needed for pain. 4.) Increase water intake. 5.) Follow up pending test results or sooner as needed. Provided stool sample, keep appointment with GI. documented in this encounter [facility] 09-25-2021 History of Present illness Narrative This is a 35 year old female who presents today with: Patient presents with: Follow Up: [facility] HISTORY OF PRESENT ILLNESS: Deena Iqbal is a 35 year old female. Patient presents with: Follow Up: [facility] Here in the office for hospital follow up. HOSPITAL/ER FOLLOW UP: Reason for visit: abdominal/back pian Which facility: [facility] Date of visit: 09/21/2021 Diagnosis: Abdominal pain Testing done: UA negative for UTI, CT scan of abdomen no acute intra-abdominal process. Does note a punctate left renal calcification. test negative. Treatment given: IV fluids, Toradol, and Zofran. Current symptoms: Still having ongoing left flank pain. Has been feeling bloated. No dysuria. Haven't been urinating as much. Drinking Dr. Pepper about 2 per day and 1 glass of water. Lower abdominal fullness. Ongoing fatigue and leg weakness for some time now. No fever or chills. Has consult to GI, appt has been rescheduled by dept, appointment in November. Having about 2 BM's per day. Over all just has not felt well. PAST MEDICAL HISTORY: PAST MEDICAL HISTORY Diagnosis Date Abnormal glandular Papanicolaou smear of cervix 2002 Abn. 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 Rh negative state in antepartum period 11/16/2014 Sciatic pain Smoker 10/18/2020 Cigarettes Unspecified , without mention of complication, unspecified PAST SURGICAL HISTORY Procedure Laterality Date ANESTH, SECTION DELIVERY ONLY 02/24/042008 , low cervical DELIVERY ONLY 06/14/15 , low transverse COLSC FLX W/REMOVAL LESION BY HOT BX FORCEPS -8- INSERT INTRAUTERINE DEVICE 05/2010 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 04/2014 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)_*FL 03/04/03 ALLERGIES Ultram [Tramadol] MEDICATIONS Current Outpatient Medications Medication Sig omeprazole 20 mg disintegrating tablet (PriLOSEC) Take 1 tablet by mouth once daily. (Patient not taking: Reported on 09/06/2021 ) naproxen (NAPROSYN) 500 mg tablet Take 1 tablet by mouth twice daily as needed (pain/inflammation, take with food.). (Patient not taking: Reported on 09/06/2021 ) guaiFENesin (MUCINEX) 600 mg 12 hr tablet Take 1 tablet by mouth twice daily. (Patient not taking: Reported on 09/06/2021 ) benzonatate (TESSALON PERLES) 100 mg capsule Take 1 capsule by mouth three times daily as needed. (Patient not taking: Reported on 09/06/2021 ) albuterol HFA (PROVENTIL HFA, VENTOLIN HFA) 90 mcg/actuation inhaler Inhale 2 Puffs as instructed every 4 hours as needed. cetirizine (ZYRTEC) 10 mg tablet Take 1 tablet by mouth once daily. (Patient not taking: Reported on 06/30/2021 ) fluticasone (FLONASE) 50 mcg/actuation nasal spray Use 2 Sprays in each nostril once daily. Rinse mouth after use. (Patient not taking: Reported on 06/30/2021 ) cyclobenzaprine (FLEXERIL) 10 mg tablet Take 1 tablet by mouth three times daily as needed for Muscle Spasm. ibuprofen (MOTRIN) 800 mg tablet Take 1 tablet by mouth every 8 hours as needed for Pain. Take with food. mometasone (NASONEX) 50 mcg/actuation nasal spray Use 2 Sprays in the nose once daily. Rinse mouth after use. (Patient not taking: Reported on 06/30/2021 ) ondansetron orally disintegrating (ZOFRAN ODT) 4 mg disintegrating tablet Take 1 tablet by mouth every 8 hours as needed. (Patient not taking: Reported on 09/06/2021 ) omeprazole (PRILOSEC) 40 mg capsule Take 1 capsule by mouth once daily. loratadine (CLARITIN) 10 mg tablet Take 1 tablet by mouth once daily. Can try this instead of cetirizine hydrocortisone 1 % cream Apply to affected area twice daily. (Patient not taking: Reported on 09/06/2021 ) levonorgestrel (MIRENA) 20 mcg/24 hr (5 years) IUD 1 Each by INTRAUTERINE route continuous. No current facility-administered medications for this visit. FAMILY HISTORY Problem Relation Age of Onset No Known Problems Brother Heart Father Cancer Father small cell carcinoma of lung Cancer Maternal Grandmother stomach cancer Cancer Maternal Grandfather lung cancer Arthritis Maternal Grandfather Stroke Maternal Grandfather Heart Paternal Grandfather Heart Paternal Grandmother Diabetes Maternal Aunt other (Panic attacks) Sister Cancer Sister 29 Hodgkin's Lymphoma No Known Problems Brother Social History Tobacco Use Smoking status: Current Every Day Smoker Packs/day: 0.50 Years: 20.00 Pack years: 10.00 Types: Cigarettes Smokeless tobacco: Never Used Vaping Use Vaping Use: Never used Substance Use Topics Alcohol use: No Comment: history of being recovering alcholic Drug use: No Comment: MARIJUANA and CocaineIN PAST, NONE SINCE 2006 REVIEW OF SYSTEMS GENERAL: + Fatigue HEENT: Negative for frequent or significant headaches, No changes in hearing or vision. NECK: Negative for lumps, goiter, pain and significant neck swelling RESPIRATORY: Negative for cough, hemoptysis, wheezing, dyspnea or shortness of breath CARDIOVASCULAR: Negative for chest pain, leg swelling, orthopnea, or palpitations GI: + Left flank pain : No history of dysuria, frequency or incontinence MUSCULOSKELETAL: Negative for joint pain or swelling. SKIN: Negative for lesions, rash, and itching ENDOCRINE: Negative for cold or heat intolerance, polyuria, polydipsia and goiter NEURO: No history of headaches, syncope, paralysis, seizures or tremors MOOD: Negative for depression, anxiety, or suicidal ideation. EXAM: BP 110/78 Pulse 79 Resp 16 Wt 64.4 kg (142 lb) LMP 04/30/2016 (Exact Date) SpO2 97% BMI 27.28 kg/m PHYSICAL EXAM: General Appearance: Well appearing, alert, in no acute distress, well-hydrated, well nourished. Skin: Skin color, texture, turgor normal, no suspicious rashes or lesions. Head: Normocephalic, no masses, lesions, tenderness or abnormalities. Eyes: Anicteric sclera. Extraocular movements are intact. Neck: Supple, no adenopathy; thyroid symmetric, normal size, no bruits. Lungs: Lungs clear to auscultation. No wheezing, rhonchi, rales. Heart: RRR without murmur, gallop, or rubs. No ectopy. Abdomen: Abdomen soft. Bowel sounds normal. No masses, organomegaly. + Suprapubic fullness. Extremities: No deformities, edema, skin discoloration, clubbing or cyanosis. Good capillary refill. Peripheral Pulses: Normal, Capillary refill <2secs, strong peripheral pulses, Pulses palpable. ASSESSMENT/PLAN: 1. Hospital discharge follow-up - ICD9: V67.59, ICD10: Z09 (primary diagnosis) - Still having ongoing flank pain and abdominal fullness 2. Left flank pain - ICD9: 789.09, ICD10: R10.9 - Work up with US bladder and kidney. - Recommend increasing water intake. - US KIDNEY/BLADDER 3. Fatigue, unspecified type - ICD9: 780.79, ICD10: R53.83 - Get the following labs completed to further evaluate acute causes of her symptoms. - CBC + DIFF - COMP METABOLIC PANEL - VITAMIN D 25 HYDROXY - VITAMIN B12 BLOOD - FOLATE SERUM - TSH BLD - T4 FREE/FREE THYROX 4. SOB (shortness of breath) - ICD9: 786.05, ICD10: R06.02 - Refill provided. - ALBUTEROL SULFATE HFA 90 MCG/ACTUATION AEROSOL INHALER 5. Screening for colon cancer - ICD9: V76.51, ICD10: Z12.11 - FECAL OCCULT BLOOD TEST Follow-up pending test results or sooner as needed. Discussed treatment plan and patient voices understanding. Patient's questions answered appropriately. Medications and potential side effects were discussed and patient voices understanding. Amparo Arteaga APRN.FRAME STRIPPER This note was partially generated using [employer] voice recognition system. Note was reviewed for accuracy. There may be minor misspellings or grammar miscues with [employer] voice recognition. documented in this encounter [facility] 09-22-2021 Hospital Discharge instructions Patient Education 09/21/2021 22:57:23 Kidney Stone, Undescended (No Symptoms) Kidney Stone, Undescended, No Symptoms A kidney stone (nephrolithiasis) begins as tiny crystals that form inside the kidney where urine is made. Most kidney stones enlarge to about 1/8 to 1/4 inch in size before leaving the kidney and moving toward the bladder. There are 4 types of kidney stones. Eighty percent are calcium stones mostly calcium oxalate but also some with calcium phosphate. The other 3 types include uric acid stones, struvite stones (from a preceding infection), and rarely, cystine stones. When the stone breaks free and begins to move down the ureter (the narrow tube joining the kidney to the bladder) it often causes sharp back and side pain, often with nausea and vomiting. When the stone reaches the bladder, the pain stops. Once in your bladder, the kidney stone may pass through the urethra (urinary opening) while you are urinating (which may cause pain to start again). Or, it may break into such small fragments that you don t notice it passing. Your kidney stone is still inside the kidney. There is no way to predict how long it will be before it breaks free and causes any symptoms. Most stones will pass on their own within a few hours to a few days (sometimes longer). You may notice a red, pink, or brown color to your urine. This is normal while passing a kidney stone. A large stone may not pass on its own and may require special procedures to remove it. These procedures include lithotripsy, which uses ultrasound waves to break up the stone; ureteroscopy, which pushes a thin, basket-like instrument through the urethra and bladder and into the ureter to pull out the stone; and various types of direct surgery through the skin. Home care The following guidelines will help you care for yourself at home: Drink plenty of fluids. This increases urine flow and reduces the risk of further stone formation. Healthy adults (no heart/liver/kidney disease) who have had a kidney stone should drink 12, 8-ounce glasses of fluids per day. Most of this should be water. The goal is to produce 1.5 to 2 quarts of almost colorless urine per 24 hours. You should collect your urine in a container and then drain it through a strainer to collect any stones or pieces of stones. Take these to your healthcare provider to help identify your specific type of stone to aid in future treatment and dietary changes. Try to stay as active as possible since this will help the stone pass. Don't stay in bed unless you have pain that prevents you from getting up. If you develop pain, you may take ibuprofen or naproxen for pain, unless another medicine was prescribed. If you have chronic liver or kidney disease or ever had a stomach ulcer or GI bleeding, talk with your healthcare provider before using these medicines. Prevention Each year, there is a 5% to 10% chance that a new stone will form (50% chance over the next 5 to 7 years). The risk is higher if you have a family history of kidney stones or have certain chronic illnesses such as hypertension, obesity, or diabetes. However, there are lifestyle and dietary changes that you can make to reduce the risk of a recurrence. Most kidney stones are made of calcium. The following is advice for preventing a recurrence of calcium stones. If you don t know the type of stone you have, follow this advice until the cause of your stone is determined. Things that help: The most important thing you can do is to drink plenty of fluids each day, as described above. Certain foods, such as wheat, rice, rye, barley and beans, contain phytate, a compound that may lower the risk of recurrence of any type of stone. Eat more fruits and vegetables (especially those high in potassium). Eat foods high in natural citrate like fruit and fruit juices (using low sugar). Low calcium contributes to the formation of calcium type kidney stones. Eat a normal calcium diet and speak with your doctor if you are taking calcium supplements. It may be detrimental to reduce your calcium intake. New research shows that eating calcium-rich and oxalate-rich foods together lowers your risk of stones by binding the minerals in the stomach and intestines before they can reach the kidneys. Limit salt intake to 2 grams (1 teaspoon) per day. Use limited amounts when cooking, and don t add salt at the table. Processed and canned foods are usually high in salt. Spinach, rhubarb, peanuts, cashews and almonds, grapefruit and grapefruit juice are all high oxalate foods and should be reduced, or eaten with calcium rich foods. These foods include dairy, dark leafy greens, soy products, and calcium enriched foods. Reducing the amount of animal meat in your diet may lower your risk of uric acid stones. Don't have excess sugar (sucrose) and fructose (sweetener in many soft drinks) in your diet. If you take vitamin C as a supplement, do not take more than 1,000 milligrams (mg) per day. A dietitian or your healthcare provider can provide you with specific details about dietary changes to prevent kidney stone recurrence. Follow-up care Follow up with your healthcare provider, or as advised. Talk with your healthcare provider about urine and blood tests to find out the cause of your stone. If you had an X-ray, CT scan, or other diagnostic test, you will be notified of any findings that may affect your care. Call 911 Call 911 if you have any of these: Weakness, dizziness, or fainting When to seek medical advice Call your healthcare provider right away if any of the these occur: Severe sharp back or side pain Repeated vomiting or unable to keep down fluids Fever of 100.4 F (38 C) or higher, or as directed by your health care provider Blood (pink or red color) in your urine Foul smelling or cloudy urine Unable to pass urine for 8 hours or increasing bladder pressure [id number] [employer]. [address] [place] [address], [place] [address]. All rights reserved. This information is not intended as a substitute for professional medical care. Always follow your healthcare professional's instructions. 09/21/2021 22:57:15 Abdominal Pain Abdominal Pain Abdominal pain is pain in the stomach or belly area. Everyone has this pain from time to time. In many cases it goes away on its own. But abdominal pain can sometimes be due to a serious problem, such as appendicitis. So it s important to know when to get help. Causes of abdominal pain There are many possible causes of abdominal pain. Common causes in adults include: Constipation, diarrhea, or gas Stomach acid flowing back up into the esophagus (acid reflux or heartburn) Severe acid reflux, called GERD (gastroesophageal reflux disease) A sore in the lining of the stomach or small intestine (peptic ulcer) Inflammation of the gallbladder, liver, or pancreas Gallstones or kidney stones Appendicitis Intestinal blockage An internal organ pushing through a muscle or other tissue (hernia) Urinary tract infections In women, menstrual cramps, fibroids, ovarian cysts, pelvic inflammatory disease, or endometriosis Inflammation or infection of the intestines, including Crohn's disease and ulcerative colitis Irritable bowel syndrome Diagnosing the cause of abdominal pain Your healthcare provider will give you a physical exam help find the cause of your pain. If needed, you will have tests. Belly pain has many possible causes. So it can be hard to find the reason for your pain. Giving details about your pain can help. Tell your provider where and when you feel the pain, and what makes it better or worse. Also let your provider know if you have other symptoms such as: Fever Tiredness Upset stomach (nausea) Vomiting Changes in bathroom habits Blood in the stool or black, tarry stool Weight loss that you can't explain (involuntary weight loss?) Also report any family history of stomach or intestinal problems, or cancers. Tell your provider about all your alcohol use and drug use. Tell your provider about all medicines you use, including herbs, vitamins, and supplements. Treating abdominal pain Some causes of pain need emergency medical treatment right away. These include appendicitis or a bowel blockage. Other problems can be treated with rest, fluids, or medicines. Your healthcare provider can give you specific instructions for treatment or self-care based on what is causing your pain. If you have vomiting or diarrhea, sip water or other clear fluids. When you are ready to eat solid foods again, start with small amounts of [id number], low-fat foods. These include apple sauce, toast, or crackers. When to get medical care Call 911 or go to the hospital right away if you: Can t pass stool and are vomiting Are vomiting blood or have bloody diarrhea or black, tarry diarrhea Have chest, neck, or shoulder pain Feel like you might pass out Have pain in your shoulder blades with nausea Have sudden, severe belly pain Have new, severe pain unlike any you have felt before Have a belly that is rigid, hard, and hurts to touch Call your healthcare provider if you have: Pain for more than 5 days Bloating for more than 2 days Diarrhea for more than 5 days A fever of 100.4 F (38 C) or higher, or as directed by your healthcare provider Pain that gets worse Weight loss for no reason Continued lack of appetite Blood in your stool How to prevent abdominal pain Here are some tips to help prevent abdominal pain: Eat smaller amounts of food at each meal. Don't eat greasy, fried, or other high-fat foods. Don't eat foods that give you gas. Exercise regularly. Drink plenty of fluids. To help prevent GERD symptoms: Quit smoking. Reduce alcohol and foods that increase stomach acid. Don't use aspirin or cchc-rid-[id number] pain and fever medicines, if possible. This includes nonsteroidal anti-inflammatory drugs (NSAIDs). Lose excess weight. Finish eating at least 2 hours before you go to bed or lie down. Raise the head of your bed. [id number] [employer]. [address] [place] [address]. All rights reserved. This information is not intended as a substitute for professional medical care. Always follow your healthcare professional's instructions. Follow Up Care 09/21/2021 20:32:54 With:ROD AMAYA MD Address: [address] [place] [phone] When:2-4 days [facility] 09-06-2021 History of Present illness Narrative Mystica E Farida is a 35 year old female who presents for problem visit for pelvic pain HPI: Left sided pain, pressure and discomfort. Does come midline and onto right side of pelvis. Rates pain 10/27, has used tylenol and heating pad, helps some. Increased urination and incomplete empyting. No dysuria or hematuria. New partner, would like STD testing, together for 7 months. Started 2 weeks ago on and off every day. Mirena IUD placed 04/2016. Started spotting one week ago and small amount of vaginal discharge, clear, no odor. 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 PAST MEDICAL HISTORY Diagnosis Date Abnormal glandular Papanicolaou smear of cervix 2002 Abn. 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 Rh negative state in antepartum period 11/16/2014 Sciatic pain Smoker 10/18/2020 Cigarettes Unspecified , without mention of complication, unspecified PAST SURGICAL HISTORY Procedure Laterality Date ANESTH, SECTION DELIVERY ONLY 02/24/042008 , low cervical DELIVERY ONLY 06/14/15 , low transverse COLSC FLX W/REMOVAL LESION BY HOT BX FORCEPS 07-25-12 INSERT INTRAUTERINE DEVICE 05/2010 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 04/2014 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)_*FL 03/04/03 FAMILY HISTORY Problem Relation Age of Onset No Known Problems Brother Heart Father Cancer Father small cell carcinoma of lung Cancer Maternal Grandmother stomach cancer Cancer Maternal Grandfather lung cancer Arthritis Maternal Grandfather Stroke Maternal Grandfather Heart Paternal Grandfather Heart Paternal Grandmother Diabetes Maternal Aunt other (Panic attacks) Sister Cancer Sister 29 Hodgkin's Lymphoma No Known Problems Brother Social History Tobacco Use Smoking status: Current Every Day Smoker Packs/day: 0.50 Years: 20.00 Pack years: 10.00 Types: Cigarettes Smokeless tobacco: Never Used Vaping Use Vaping Use: Never used Substance Use Topics Alcohol use: No Comment: history of being recovering alcholic Drug use: No Comment: MARIJUANA and CocaineIN PAST, NONE SINCE 2006 Current Outpatient Medications Medication Sig albuterol HFA (PROVENTIL HFA, VENTOLIN HFA) 90 mcg/actuation inhaler Inhale 2 Puffs as instructed every 4 hours as needed. cyclobenzaprine (FLEXERIL) 10 mg tablet Take 1 tablet by mouth three times daily as needed for Muscle Spasm. ibuprofen (MOTRIN) 800 mg tablet Take 1 tablet by mouth every 8 hours as needed for Pain. Take with food. omeprazole (PRILOSEC) 40 mg capsule Take 1 capsule by mouth once daily. loratadine (CLARITIN) 10 mg tablet Take 1 tablet by mouth once daily. Can try this instead of cetirizine levonorgestrel (MIRENA) 20 mcg/24 hr (5 years) IUD 1 Each by INTRAUTERINE route continuous. omeprazole 20 mg disintegrating tablet (PriLOSEC) Take 1 tablet by mouth once daily. (Patient not taking: Reported on 09/06/2021 ) naproxen (NAPROSYN) 500 mg tablet Take 1 tablet by mouth twice daily as needed (pain/inflammation, take with food.). (Patient not taking: Reported on 09/06/2021 ) guaiFENesin (MUCINEX) 600 mg 12 hr tablet Take 1 tablet by mouth twice daily. (Patient not taking: Reported on 09/06/2021 ) benzonatate (TESSALON PERLES) 100 mg capsule Take 1 capsule by mouth three times daily as needed. (Patient not taking: Reported on 09/06/2021 ) cetirizine (ZYRTEC) 10 mg tablet Take 1 tablet by mouth once daily. (Patient not taking: Reported on 06/30/2021 ) fluticasone (FLONASE) 50 mcg/actuation nasal spray Use 2 Sprays in each nostril once daily. Rinse mouth after use. (Patient not taking: Reported on 06/30/2021 ) mometasone (NASONEX) 50 mcg/actuation nasal spray Use 2 Sprays in the nose once daily. Rinse mouth after use. (Patient not taking: Reported on 06/30/2021 ) ondansetron orally disintegrating (ZOFRAN ODT) 4 mg disintegrating tablet Take 1 tablet by mouth every 8 hours as needed. (Patient not taking: Reported on 09/06/2021 ) hydrocortisone 1 % cream Apply to affected area twice daily. (Patient not taking: Reported on 09/06/2021 ) No current facility-administered medications for this visit. Allergies As of Date: 09/06/2021 Allergen Noted Reaction ULTRAM [TRAMADOL] 04/13/2011 Other: See Comments Fully Assessed 09/06/2021 REVIEW OF SYSTEMS Abdomen: No bloating, early satiety, indigestion, or increased flatulence. No abdominal pain, nausea, vomiting, diarrhea, or constipation. Bladder: No dysuria, gross hematuria, urinary frequency, urinary urgency, or incontinence. Breast: No breast lumps, nipple d/c, overlying skin changes, redness or skin retraction. Expanded ROS: N/A Allergies and current medication updated:Yes EXAM: BP 102/64 Wt 145 lb (65.8kg) LMP 04/30/2016 GENERAL: pleasant, female in no apparent distress HEENT: Normocephalic and atraumatic NECK: Supple and full range of motion DERMATOLOGY: Normal and without lesions CHEST: Normal inspiratory effort ABDOMEN: soft, non-tender and no masses PELVIC: external genitalia normal, normal Bartholin's glands, urethra, [place]'s glands, no vulvar lesions, no cervical lesions, good vaginal support, mucous yellow vaginal discharge present, normal appearing perineal body and perianal region BIMANUAL: uterus normal size, shape and consistency, no adnexal masses. Discomfort but no pain with exam. NEURO: alert and oriented x3,exam grossly non-focal EXTREMITIES: normal ASSESSMENT AND PLAN: 1. Vaginal discharge - ICD9: 623.5, ICD10: N89.8 (primary diagnosis) - GC/CHLAMYDIA DNA DET - SEVEN / TRICHOMONAS AMPLIFICATION - BACTERIAL VAGINOSIS AMPLIFICATION 2. Pelvic pain in female - ICD9: 625.9, ICD10: R10.2 - PELVIC US WHI - SEVEN / TRICHOMONAS AMPLIFICATION - BACTERIAL VAGINOSIS AMPLIFICATION - SYPHILIS TOTAL W/REFLEX - HIV 1 2 COMBO(AG/AB),WITH REFLEX TO DIFFERENTIATION - HEP C AB IA W/CONF SCRN - HEP B SURF AG SCRN 3. Screening examination for STD (sexually transmitted disease) - ICD9: V74.5, ICD10: Z11.3 - SEVEN / TRICHOMONAS AMPLIFICATION - BACTERIAL VAGINOSIS AMPLIFICATION - SYPHILIS TOTAL W/REFLEX - HIV 1 2 COMBO(AG/AB),WITH REFLEX TO DIFFERENTIATION - HEP C AB IA W/CONF SCRN - HEP B SURF AG SCRN 4. Urinary frequency - ICD9: 788.41, ICD10: R35.0 - URINE CULTURE Lindy Cash APRN.CNM documented in this encounter [facility] 09-01-2021 Miscellaneous Notes LEFT MESSAGE FOR PATIENT TO CALL OFFICE. Please work patient in scheduled in an admin blocked time slot. Appointment will need to be forced. Triage nurse was going to transfer patient to wi to r/s 08/28 appt with Analy. Patient had hung up. Nurse states patient was really upset, she had an original appt on 10/03, was worked in for 08/28 and is now expected to r/s mid October. Please call patient and advise if she is able to be worked in again. She is very unhappy about having to wait so long. documented in this encounter [facility] 08-18-2021 Miscellaneous Notes Patient has been identified by name and date of : Yes Patient phones for refill(s): Pending Prescriptions Disp Refills OMEPRAZOLE 20 MG DELAYED RELEASE,DISINTEGRATING TABLET 30 tablet 1 Sig: Take 1 tablet by mouth once daily. NINA: No Date of last office visit in primary care: 04/03/2021; Future Appt. none Last 2 Encounter Wt Readings: Date: Wt: 06/30/2021 64.9 kg (143 lb) 06/16/2021 63.5 kg (140 lb) Previous labs/tests for medication: Blood Pressure: BUN (mg/dL) Date Value 02/16/2021 8 Sodium (mmol/L) Date Value 02/16/2021 140 Last 1 Encounter BP Readings: Date: BP: 06/30/2021 120/62 Liver Function: ALT (U/L) Date Value 02/16/2021 11 AST (U/L) Date Value 02/16/2021 15 Please advise. Thank you. Maria Teresa Pierce RN documented in this encounter [facility] documented as of this encounter (statuses as of 08/18/2021) [facility] History of Past illness Narrative* Problem Noted Date Resolved Date Rh negative state in antepartum period 5 02/19/2020 Need for rhogam due to Rh negative mother 201411/16/2014 History of LEEP (loop electr osurgical excision procedure) of cervix complicating 10/28/2014 02/19/2020 Overview: 10/28/14 - needs baseline cervical length - KJ History of section complicating pregnan cy 10/28/2014 02/19/2020 Overview: 11/11/14 - 2 prior c-sections, proceed with repeat - KJ History of depression, currently preg nant 10/28/2014 02/19/2020 Tobacco use during 10/28/201406/2019 Overview: 12/09/14 - patient wants to stop smoking & requests nicotine patch, she is aware that she can't smoke while using the nicotine patch - KJ 10/28/14 - counseled on risks & cessation - KJ Supervision of high-risk 10/28/2014 02/19/2020 Overview: 10/28/14 - needs PNB with CF & HIV once viable IUP established - KJ Patient requested diagnostic testing 10/28/2014 02/19/2020 Overview: 10/28/14 - desires NT, will order once has viable IUP - KJ Family history of defect 10/28/2014 1 Overview: 10/28/14 - son born with hole in his heart, he had surgical correction done - KJ Anxiety 07/28/2012 10/28/2014 Diverticulitis 07/28/2012 10/28/2014 Herpes exposure 07/17/2011 02/19/2020 Overview: 10/28/14 - patient has never had an outbreak - KJ Cutaneous skin tags 10/14/2010 10/28/2014 Skin tags 10/05/2010 10/28/2014 Benign neoplasm of skin of trunk, except scrotum 10/05/2010 10/28/2014 Supervision of other high-risk (V23.89) 10/29/2008 03/29/2009 Previous delivery, antepartum condition or complication 08/13/2008 03/29/2009 Supervision of other normal 10/24/2006 08/13/2008 documented as of this encounter (statuses as of 09/03/2021) [facility] History of Past illness Narrative* Problem Noted Date Resolved Date Rh negative state in antepartum period 5 02/19/2020 Need for rhogam due to Rh negative mother 201411/16/2014 History of LEEP (loop electr osurgical excision procedure) of cervix complicating 10/28/2014 02/19/2020 Overview: 10/28/14 - needs baseline cervical length - KJ History of section complicating pregnan cy 10/28/2014 02/19/2020 Overview: 11/11/14 - 2 prior c-sections, proceed with repeat - KJ History of depression, currently preg nant 10/28/2014 02/19/2020 Tobacco use during 10/28/201406/2019 Overview: 12/09/14 - patient wants to stop smoking & requests nicotine patch, she is aware that she can't smoke while using the nicotine patch - KJ 10/28/14 - counseled on risks & cessation - KJ Supervision of high-risk 10/28/2014 02/19/2020 Overview: 10/28/14 - needs PNB with CF & HIV once viable IUP established - KJ Patient requested diagnostic testing 10/28/2014 02/19/2020 Overview: 10/28/14 - desires NT, will order once has viable IUP - KJ Family history of defect 10/28/2014 1 Overview: 10/28/14 - son born with hole in his heart, he had surgical correction done - KJ Anxiety 07/28/2012 10/28/2014 Diverticulitis 07/28/2012 10/28/2014 Herpes exposure 07/17/2011 02/19/2020 Overview: 10/28/14 - patient has never had an outbreak - KJ Cutaneous skin tags 10/14/2010 10/28/2014 Skin tags 10/05/2010 10/28/2014 Benign neoplasm of skin of trunk, except scrotum 10/05/2010 10/28/2014 Supervision of other high-risk (V23.89) 10/29/2008 03/29/2009 Previous delivery, antepartum condition or complication 08/13/2008 03/29/2009 Supervision of other normal 10/24/2006 08/13/2008 documented as of this encounter (statuses as of 09/06/2021) [facility] History of Past illness Narrative* Problem Noted Date Resolved Date Rh negative state in antepartum period 5 02/19/2020 Need for rhogam due to Rh negative mother 201411/16/2014 History of LEEP (loop electr osurgical excision procedure) of cervix complicating 10/28/2014 02/19/2020 Overview: 10/28/14 - needs baseline cervical length - KJ History of section complicating pregnan cy 10/28/2014 02/19/2020 Overview: 11/11/14 - 2 prior c-sections, proceed with repeat - KJ History of depression, currently preg nant 10/28/2014 02/19/2020 Tobacco use during 10/28/201406/2019 Overview: 12/09/14 - patient wants to stop smoking & requests nicotine patch, she is aware that she can't smoke while using the nicotine patch - KJ 10/28/14 - counseled on risks & cessation - KJ Supervision of high-risk 10/28/2014 02/19/2020 Overview: 10/28/14 - needs PNB with CF & HIV once viable IUP established - KJ Patient requested diagnostic testing 10/28/2014 02/19/2020 Overview: 10/28/14 - desires NT, will order once has viable IUP - KJ Family history of defect 10/28/2014 1 Overview: 10/28/14 - son born with hole in his heart, he had surgical correction done - KJ Anxiety 07/28/2012 10/28/2014 Diverticulitis 07/28/2012 10/28/2014 Herpes exposure 07/17/2011 02/19/2020 Overview: 10/28/14 - patient has never had an outbreak - KJ Cutaneous skin tags 10/14/2010 10/28/2014 Skin tags 10/05/2010 10/28/2014 Benign neoplasm of skin of trunk, except scrotum 10/05/2010 10/28/2014 Supervision of other high-risk (V23.89) 10/29/2008 03/29/2009 Previous delivery, antepartum condition or complication 08/13/2008 03/29/2009 Supervision of other normal 10/24/2006 08/13/2008 documented as of this encounter (statuses as of 09/11/2021) [facility] History of Past illness Narrative* Problem Noted Date Resolved Date Rh negative state in antepartum period 5 02/19/2020 Need for rhogam due to Rh negative mother 201411/16/2014 History of LEEP (loop electr osurgical excision procedure) of cervix complicating 10/28/2014 02/19/2020 Overview: 10/28/14 - needs baseline cervical length - KJ History of section complicating pregnan cy 10/28/2014 02/19/2020 Overview: 11/11/14 - 2 prior c-sections, proceed with repeat - KJ History of depression, currently preg nant 10/28/2014 02/19/2020 Tobacco use during 10/28/201406/2019 Overview: 12/09/14 - patient wants to stop smoking & requests nicotine patch, she is aware that she can't smoke while using the nicotine patch - KJ 10/28/14 - counseled on risks & cessation - KJ Supervision of high-risk 10/28/2014 02/19/2020 Overview: 10/28/14 - needs PNB with CF & HIV once viable IUP established - KJ Patient requested diagnostic testing 10/28/2014 02/19/2020 Overview: 10/28/14 - desires NT, will order once has viable IUP - KJ Family history of defect 10/28/2014 1 Overview: 10/28/14 - son born with hole in his heart, he had surgical correction done - KJ Anxiety 07/28/2012 10/28/2014 Diverticulitis 07/28/2012 10/28/2014 Herpes exposure 07/17/2011 02/19/2020 Overview: 10/28/14 - patient has never had an outbreak - KJ Cutaneous skin tags 10/14/2010 10/28/2014 Skin tags 10/05/2010 10/28/2014 Benign neoplasm of skin of trunk, except scrotum 10/05/2010 10/28/2014 Supervision of other high-risk (V23.89) 10/29/2008 03/29/2009 Previous delivery, antepartum condition or complication 08/13/2008 03/29/2009 Supervision of other normal 10/24/2006 08/13/2008 documented as of this encounter (statuses as of 09/25/2021) [facility] History of Past illness Narrative* Problem Noted Date Resolved Date Rh negative state in antepartum period 5 02/19/2020 Need for rhogam due to Rh negative mother 201411/16/2014 History of LEEP (loop electr osurgical excision procedure) of cervix complicating 10/28/2014 02/19/2020 Overview: 10/28/14 - needs baseline cervical length - KJ History of section complicating pregnan cy 10/28/2014 02/19/2020 Overview: 11/11/14 - 2 prior c-sections, proceed with repeat - KJ History of depression, currently preg nant 10/28/2014 02/19/2020 Tobacco use during 10/28/201406/2019 Overview: 12/09/14 - patient wants to stop smoking & requests nicotine patch, she is aware that she can't smoke while using the nicotine patch - KJ 10/28/14 - counseled on risks & cessation - KJ Supervision of high-risk 10/28/2014 02/19/2020 Overview: 10/28/14 - needs PNB with CF & HIV once viable IUP established - KJ Patient requested diagnostic testing 10/28/2014 02/19/2020 Overview: 10/28/14 - desires NT, will order once has viable IUP - KJ Family history of defect 10/28/2014 1 Overview: 10/28/14 - son born with hole in his heart, he had surgical correction done - KJ Anxiety 07/28/2012 10/28/2014 Diverticulitis 07/28/2012 10/28/2014 Herpes exposure 07/17/2011 02/19/2020 Overview: 10/28/14 - patient has never had an outbreak - KJ Cutaneous skin tags 10/14/2010 10/28/2014 Skin tags 10/05/2010 10/28/2014 Benign neoplasm of skin of trunk, except scrotum 10/05/2010 10/28/2014 Supervision of other high-risk (V23.89) 10/29/2008 03/29/2009 Previous delivery, antepartum condition or complication 08/13/2008 03/29/2009 Supervision of other normal 10/24/2006 08/13/2008 documented as of this encounter (statuses as of 09/30/2021) [facility] History of Past illness Narrative* Problem Noted Date Resolved Date Rh negative state in antepartum period 5 02/19/2020 Need for rhogam due to Rh negative mother 201411/16/2014 History of LEEP (loop electr osurgical excision procedure) of cervix complicating 10/28/2014 02/19/2020 Overview: 10/28/14 - needs baseline cervical length - KJ History of section complicating pregnan cy 10/28/2014 02/19/2020 Overview: 11/11/14 - 2 prior c-sections, proceed with repeat - KJ History of depression, currently preg nant 10/28/2014 02/19/2020 Tobacco use during 10/28/201406/2019 Overview: 12/09/14 - patient wants to stop smoking & requests nicotine patch, she is aware that she can't smoke while using the nicotine patch - KJ 10/28/14 - counseled on risks & cessation - KJ Supervision of high-risk 10/28/2014 02/19/2020 Overview: 10/28/14 - needs PNB with CF & HIV once viable IUP established - KJ Patient requested diagnostic testing 10/28/2014 02/19/2020 Overview: 10/28/14 - desires NT, will order once has viable IUP - KJ Family history of defect 10/28/2014 1 Overview: 10/28/14 - son born with hole in his heart, he had surgical correction done - KJ Anxiety 07/28/2012 10/28/2014 Diverticulitis 07/28/2012 10/28/2014 Herpes exposure 07/17/2011 02/19/2020 Overview: 10/28/14 - patient has never had an outbreak - KJ Cutaneous skin tags 10/14/2010 10/28/2014 Skin tags 10/05/2010 10/28/2014 Benign neoplasm of skin of trunk, except scrotum 10/05/2010 10/28/2014 Supervision of other high-risk (V23.89) 10/29/2008 03/29/2009 Previous delivery, antepartum condition or complication 08/13/2008 03/29/2009 Supervision of other normal 10/24/2006 08/13/2008 documented as of this encounter (statuses as of 10/02/2021) [facility] History of Past illness Narrative* Problem Noted Date Resolved Date Rh negative state in antepartum period 5 02/19/2020 Need for rhogam due to Rh negative mother 201411/16/2014 History of LEEP (loop electr osurgical excision procedure) of cervix complicating 10/28/2014 02/19/2020 Overview: 10/28/14 - needs baseline cervical length - KJ History of section complicating pregnan cy 10/28/2014 02/19/2020 Overview: 11/11/14 - 2 prior c-sections, proceed with repeat - History of depression, currently preg nant 10/28/2014 02/19/2020 Tobacco use during 10/28/201406/2019 Overview: 12/09/14 - patient wants to stop smoking & requests nicotine patch, she is aware that she can't smoke while using the nicotine patch - KJ 10/28/14 - counseled on risks & cessation - Supervision of high-risk 10/28/2014 02/19/2020 Overview: 10/28/14 - needs PNB with CF & HIV once viable IUP established - Patient requested diagnostic testing 10/28/2014 02/19/2020 Overview: 10/28/14 - desires NT, will order once has viable IUP - KJ Family history of defect 10/28/2014 1 Overview: 10/28/14 - son born with hole in his heart, he had surgical correction done - KJ Anxiety 07/28/2012 10/28/2014 Diverticulitis 07/28/2012 10/28/2014 Herpes exposure 07/17/2011 02/19/2020 Overview: 10/28/14 - patient has never had an outbreak - KJ Cutaneous skin tags 10/14/2010 10/28/2014 Skin tags 10/05/2010 10/28/2014 Benign neoplasm of skin of trunk, except scrotum 10/05/2010 10/28/2014 Supervision of other high-risk (V23.89) 10/29/2008 03/29/2009 Previous delivery, antepartum condition or complication 08/13/2008 03/29/2009 Supervision of other normal 10/24/2006 08/13/2008 documented as of this encounter (statuses as of 11/27/2021) [facility] History of Past illness Narrative* Problem Noted Date Resolved Date Rh negative state in antepartum period 5 02/19/2020 Need for rhogam due to Rh negative mother 201411/16/2014 History of LEEP (loop electr osurgical excision procedure) of cervix complicating 10/28/2014 02/19/2020 Overview: 10/28/14 - needs baseline cervical length - KJ History of section complicating pregnan cy 10/28/2014 02/19/2020 Overview: 11/11/14 - 2 prior c-sections, proceed with repeat - KJ History of depression, currently preg nant 10/28/2014 02/19/2020 Tobacco use during 10/28/201406/2019 Overview: 12/09/14 - patient wants to stop smoking & requests nicotine patch, she is aware that she can't smoke while using the nicotine patch - KJ 10/28/14 - counseled on risks & cessation - KJ Supervision of high-risk 10/28/2014 02/19/2020 Overview: 10/28/14 - needs PNB with CF & HIV once viable IUP established - KJ Patient requested diagnostic testing 10/28/2014 02/19/2020 Overview: 10/28/14 - desires NT, will order once has viable IUP - KJ Family history of defect 10/28/2014 1 Overview: 10/28/14 - son born with hole in his heart, he had surgical correction done - KJ Anxiety 07/28/2012 10/28/2014 Diverticulitis 07/28/2012 10/28/2014 Herpes exposure 07/17/2011 02/19/2020 Overview: 10/28/14 - patient has never had an outbreak - KJ Cutaneous skin tags 10/14/2010 10/28/2014 Skin tags 10/05/2010 10/28/2014 Benign neoplasm of skin of trunk, except scrotum 10/05/2010 10/28/2014 Supervision of other high-risk (V23.89) 10/29/2008 03/29/2009 Previous delivery, antepartum condition or complication 08/13/2008 03/29/2009 Supervision of other normal 10/24/2006 08/13/2008 documented as of this encounter (statuses as of 12/18/2021) [facility] History of Past illness Narrative* Problem Noted Date Resolved Date Rh negative state in antepartum period 5 02/19/2020 Need for rhogam due to Rh negative mother 201411/16/2014 History of LEEP (loop electr osurgical excision procedure) of cervix complicating 10/28/2014 02/19/2020 Overview: 10/28/14 - needs baseline cervical length - KJ History of section complicating pregnan cy 10/28/2014 02/19/2020 Overview: 11/11/14 - 2 prior c-sections, proceed with repeat - KJ History of depression, currently preg nant 10/28/2014 02/19/2020 Tobacco use during 10/28/201406/2019 Overview: 12/09/14 - patient wants to stop smoking & requests nicotine patch, she is aware that she can't smoke while using the nicotine patch - KJ 10/28/14 - counseled on risks & cessation - KJ Supervision of high-risk 10/28/2014 02/19/2020 Overview: 10/28/14 - needs PNB with CF & HIV once viable IUP established - KJ Patient requested diagnostic testing 10/28/2014 02/19/2020 Overview: 10/28/14 - desires NT, will order once has viable IUP - KJ Family history of defect 10/28/2014 1 Overview: 10/28/14 - son born with hole in his heart, he had surgical correction done - KJ Anxiety 07/28/2012 10/28/2014 Diverticulitis 07/28/2012 10/28/2014 Herpes exposure 07/17/2011 02/19/2020 Overview: 10/28/14 - patient has never had an outbreak - KJ Cutaneous skin tags 10/14/2010 10/28/2014 Skin tags 10/05/2010 10/28/2014 Benign neoplasm of skin of trunk, except scrotum 10/05/2010 10/28/2014 Supervision of other high-risk (V23.89) 10/29/2008 03/29/2009 Previous delivery, antepartum condition or complication 08/13/2008 03/29/2009 Supervision of other normal 10/24/2006 08/13/2008 documented as of this encounter (statuses as of 12/23/2021) [facility] History of Past illness Narrative* Problem Noted Date Resolved Date Rh negative state in antepartum period 5 02/19/2020 Need for rhogam due to Rh negative mother 201411/16/2014 History of LEEP (loop electr osurgical excision procedure) of cervix complicating 10/28/2014 02/19/2020 Overview: 10/28/14 - needs baseline cervical length - KJ History of section complicating pregnan cy 10/28/2014 02/19/2020 Overview: 11/11/14 - 2 prior c-sections, proceed with repeat - KJ History of depression, currently preg nant 10/28/2014 02/19/2020 Tobacco use during 10/28/201406/2019 Overview: 12/09/14 - patient wants to stop smoking & requests nicotine patch, she is aware that she can't smoke while using the nicotine patch - KJ 10/28/14 - counseled on risks & cessation - KJ Supervision of high-risk 10/28/2014 02/19/2020 Overview: 10/28/14 - needs PNB with CF & HIV once viable IUP established - KJ Patient requested diagnostic testing 10/28/2014 02/19/2020 Overview: 10/28/14 - desires NT, will order once has viable IUP - KJ Family history of defect 10/28/2014 1 Overview: 10/28/14 - son born with hole in his heart, he had surgical correction done - KJ Anxiety 07/28/2012 10/28/2014 Diverticulitis 07/28/2012 10/28/2014 Herpes exposure 07/17/2011 02/19/2020 Overview: 10/28/14 - patient has never had an outbreak - KJ Cutaneous skin tags 10/14/2010 10/28/2014 Skin tags 10/05/2010 10/28/2014 Benign neoplasm of skin of trunk, except scrotum 10/05/2010 10/28/2014 Supervision of other high-risk (V23.89) 10/29/2008 03/29/2009 Previous delivery, antepartum condition or complication 08/13/2008 03/29/2009 Supervision of other normal 10/24/2006 08/13/2008 documented as of this encounter (statuses as of 01/04/2022) [facility] History of Past illness Narrative* Problem Noted Date Resolved Date Rh negative state in antepartum period 5 02/19/2020 Need for rhogam due to Rh negative mother 201411/16/2014 History of LEEP (loop electr osurgical excision procedure) of cervix complicating 10/28/2014 02/19/2020 Overview: 10/28/14 - needs baseline cervical length - KJ History of section complicating pregnan cy 10/28/2014 02/19/2020 Overview: 11/11/14 - 2 prior c-sections, proceed with repeat - KJ History of depression, currently preg nant 10/28/2014 02/19/2020 Tobacco use during 10/28/201406/2019 Overview: 12/09/14 - patient wants to stop smoking & requests nicotine patch, she is aware that she can't smoke while using the nicotine patch - KJ 10/28/14 - counseled on risks & cessation - KJ Supervision of high-risk 10/28/2014 02/19/2020 Overview: 10/28/14 - needs PNB with CF & HIV once viable IUP established - KJ Patient requested diagnostic testing 10/28/2014 02/19/2020 Overview: 10/28/14 - desires NT, will order once has viable IUP - KJ Family history of defect 10/28/2014 1 Overview: 10/28/14 - son born with hole in his heart, he had surgical correction done - KJ Anxiety 07/28/2012 10/28/2014 Diverticulitis 07/28/2012 10/28/2014 Herpes exposure 07/17/2011 02/19/2020 Overview: 10/28/14 - patient has never had an outbreak - KJ Cutaneous skin tags 10/14/2010 10/28/2014 Skin tags 10/05/2010 10/28/2014 Benign neoplasm of skin of trunk, except scrotum 10/05/2010 10/28/2014 Supervision of other high-risk (V23.89) 10/29/2008 03/29/2009 Previous delivery, antepartum condition or complication 08/13/2008 03/29/2009 Supervision of other normal 10/24/2006 08/13/2008 documented as of this encounter (statuses as of 01/09/2022) [facility] Past illness Narrative* Problem Noted Date Resolved Date Rh negative state in antepartum period 5 02/19/2020 Need for rhogam due to Rh negative mother 201411/16/2014 History of LEEP (loop electr osurgical excision procedure) of cervix complicating 10/28/2014 02/19/2020 Overview: 10/28/14 - needs baseline cervical length - KJ History of section complicating pregnan cy 10/28/2014 02/19/2020 Overview: 11/11/14 - 2 prior c-sections, proceed with repeat - KJ History of depression, currently preg nant 10/28/2014 02/19/2020 Tobacco use during 10/28/201406/2019 Overview: 12/09/14 - patient wants to stop smoking & requests nicotine patch, she is aware that she can't smoke while using the nicotine patch - KJ 10/28/14 - counseled on risks & cessation - KJ Supervision of high-risk 10/28/2014 02/19/2020 Overview: 10/28/14 - needs PNB with CF & HIV once viable IUP established - KJ Patient requested diagnostic testing 10/28/2014 02/19/2020 Overview: 10/28/14 - desires NT, will order once has viable IUP - KJ Family history of defect 10/28/2014 1 Overview: 10/28/14 - son born with hole in his heart, he had surgical correction done - KJ Anxiety 07/28/2012 10/28/2014 Diverticulitis 07/28/2012 10/28/2014 Herpes exposure 07/17/2011 02/19/2020 Overview: 10/28/14 - patient has never had an outbreak - KJ Cutaneous skin tags 10/14/2010 10/28/2014 Skin tags 10/05/2010 10/28/2014 Benign neoplasm of skin of trunk, except scrotum 10/05/2010 10/28/2014 Supervision of other high-risk (V23.89) 10/29/2008 03/29/2009 Previous delivery, antepartum condition or complication 08/13/2008 03/29/2009 Supervision of other normal 10/24/2006 08/13/2008 documented as of this encounter (statuses as of 02/08/2022) [facility] Past illness Narrative* Problem Noted Date Resolved Date Rh negative state in antepartum period 5 02/19/2020 Need for rhogam due to Rh negative mother 201411/16/2014 History of LEEP (loop electr osurgical excision procedure) of cervix complicating 10/28/2014 02/19/2020 Overview: 10/28/14 - needs baseline cervical length - KJ History of section complicating pregnan cy 10/28/2014 02/19/2020 Overview: 11/11/14 - 2 prior c-sections, proceed with repeat - KJ History of depression, currently preg nant 10/28/2014 02/19/2020 Tobacco use during 10/28/201406/2019 Overview: 12/09/14 - patient wants to stop smoking & requests nicotine patch, she is aware that she can't smoke while using the nicotine patch - KJ 10/28/14 - counseled on risks & cessation - KJ Supervision of high-risk 10/28/2014 02/19/2020 Overview: 10/28/14 - needs PNB with CF & HIV once viable IUP established - KJ Patient requested diagnostic testing 10/28/2014 02/19/2020 Overview: 10/28/14 - desires NT, will order once has viable IUP - KJ Family history of defect 10/28/2014 1 Overview: 10/28/14 - son born with hole in his heart, he had surgical correction done - KJ Anxiety 07/28/2012 10/28/2014 Diverticulitis 07/28/2012 10/28/2014 Herpes exposure 07/17/2011 02/19/2020 Overview: 10/28/14 - patient has never had an outbreak - KJ Cutaneous skin tags 10/14/2010 10/28/2014 Skin tags 10/05/2010 10/28/2014 Benign neoplasm of skin of trunk, except scrotum 10/05/2010 10/28/2014 Supervision of other high-risk (V23.89) 10/29/2008 03/29/2009 Previous delivery, antepartum condition or complication 08/13/2008 03/29/2009 Supervision of other normal 10/24/2006 08/13/2008 documented as of this encounter (statuses as of 03/02/2022) [facility] History of Past illness Narrative* Problem Noted Date Resolved Date Rh negative state in antepartum period 5 02/19/2020 Need for rhogam due to Rh negative mother 201411/16/2014 History of LEEP (loop electr osurgical excision procedure) of cervix complicating 10/28/2014 02/19/2020 Overview: 10/28/14 - needs baseline cervical length - KJ History of section complicating pregnan cy 10/28/2014 02/19/2020 Overview: 11/11/14 - 2 prior c-sections, proceed with repeat - KJ History of depression, currently preg nant 10/28/2014 02/19/2020 Tobacco use during 10/28/201406/2019 Overview: 12/09/14 - patient wants to stop smoking & requests nicotine patch, she is aware that she can't smoke while using the nicotine patch - KJ 10/28/14 - counseled on risks & cessation - KJ Supervision of high-risk 10/28/2014 02/19/2020 Overview: 10/28/14 - needs PNB with CF & HIV once viable IUP established - KJ Patient requested diagnostic testing 10/28/2014 02/19/2020 Overview: 10/28/14 - desires NT, will order once has viable IUP - KJ Family history of defect 10/28/2014 1 Overview: 10/28/14 - son born with hole in his heart, he had surgical correction done - KJ Anxiety 07/28/2012 10/28/2014 Diverticulitis 07/28/2012 10/28/2014 Herpes exposure 07/17/2011 02/19/2020 Overview: 10/28/14 - patient has never had an outbreak - KJ Cutaneous skin tags 10/14/2010 10/28/2014 Skin tags 10/05/2010 10/28/2014 Benign neoplasm of skin of trunk, except scrotum 10/05/2010 10/28/2014 Supervision of other high-risk (V23.89) 10/29/2008 03/29/2009 Previous delivery, antepartum condition or complication 08/13/2008 03/29/2009 Supervision of other normal 10/24/2006 08/13/2008 documented as of this encounter (statuses as of 03/05/2022) [facility] History of Past illness Narrative* Problem Noted Date Resolved Date Rh negative state in antepartum period 5 02/19/2020 Need for rhogam due to Rh negative mother 201411/16/2014 History of LEEP (loop electr osurgical excision procedure) of cervix complicating 10/28/2014 02/19/2020 Overview: 10/28/14 - needs baseline cervical length - KJ History of section complicating pregnan cy 10/28/2014 02/19/2020 Overview: 11/11/14 - 2 prior c-sections, proceed with repeat - KJ History of depression, currently preg nant 10/28/2014 02/19/2020 Tobacco use during 10/28/201406/2019 Overview: 12/09/14 - patient wants to stop smoking & requests nicotine patch, she is aware that she can't smoke while using the nicotine patch - KJ 10/28/14 - counseled on risks & cessation - KJ Supervision of high-risk 10/28/2014 02/19/2020 Overview: 10/28/14 - needs PNB with CF & HIV once viable IUP established - KJ Patient requested diagnostic testing 10/28/2014 02/19/2020 Overview: 10/28/14 - desires NT, will order once has viable IUP - KJ Family history of defect 10/28/2014 1 Overview: 10/28/14 - son born with hole in his heart, he had surgical correction done - KJ Anxiety 07/28/2012 10/28/2014 Diverticulitis 07/28/2012 10/28/2014 Herpes exposure 07/17/2011 02/19/2020 Overview: 10/28/14 - patient has never had an outbreak - KJ Cutaneous skin tags 10/14/2010 10/28/2014 Skin tags 10/05/2010 10/28/2014 Benign neoplasm of skin of trunk, except scrotum 10/05/2010 10/28/2014 Supervision of other high-risk (V23.89) 10/29/2008 03/29/2009 Previous delivery, antepartum condition or complication 08/13/2008 03/29/2009 Supervision of other normal 10/24/2006 08/13/2008 documented as of this encounter (statuses as of 03/14/2022) [facility] History of Past illness Narrative* Problem Noted Date Resolved Date Rh negative state in antepartum period 5 02/19/2020 Need for rhogam due to Rh negative mother 201411/16/2014 History of LEEP (loop electr osurgical excision procedure) of cervix complicating 10/28/2014 02/19/2020 Overview: 10/28/14 - needs baseline cervical length - KJ History of section complicating pregnan cy 10/28/2014 02/19/2020 Overview: 11/11/14 - 2 prior c-sections, proceed with repeat - KJ History of depression, currently preg nant 10/28/2014 02/19/2020 Tobacco use during 10/28/201406/2019 Overview: 12/09/14 - patient wants to stop smoking & requests nicotine patch, she is aware that she can't smoke while using the nicotine patch - KJ 10/28/14 - counseled on risks & cessation - KJ Supervision of high-risk 10/28/2014 02/19/2020 Overview: 10/28/14 - needs PNB with CF & HIV once viable IUP established - KJ Patient requested diagnostic testing 10/28/2014 02/19/2020 Overview: 10/28/14 - desires NT, will order once has viable IUP - KJ Family history of defect 10/28/2014 1 Overview: 10/28/14 - son born with hole in his heart, he had surgical correction done - KJ Anxiety 07/28/2012 10/28/2014 Diverticulitis 07/28/2012 10/28/2014 Herpes exposure 07/17/2011 02/19/2020 Overview: 10/28/14 - patient has never had an outbreak - KJ Cutaneous skin tags 10/14/2010 10/28/2014 Skin tags 10/05/2010 10/28/2014 Benign neoplasm of skin of trunk, except scrotum 10/05/2010 10/28/2014 Supervision of other high-risk (V23.89) 10/29/2008 03/29/2009 Previous delivery, antepartum condition or complication 08/13/2008 03/29/2009 Supervision of other normal 10/24/2006 08/13/2008 documented as of this encounter (statuses as of 03/19/2022) [facility] History of Past illness Narrative* Problem Noted Date Resolved Date Rh negative state in antepartum period 5 02/19/2020 Need for rhogam due to Rh negative mother 201411/16/2014 History of LEEP (loop electr osurgical excision procedure) of cervix complicating 10/28/2014 02/19/2020 Overview: 10/28/14 - needs baseline cervical length - KJ History of section complicating pregnan cy 10/28/2014 02/19/2020 Overview: 11/11/14 - 2 prior c-sections, proceed with repeat - KJ History of depression, currently preg nant 10/28/2014 02/19/2020 Tobacco use during 10/28/201406/2019 Overview: 12/09/14 - patient wants to stop smoking & requests nicotine patch, she is aware that she can't smoke while using the nicotine patch - KJ 10/28/14 - counseled on risks & cessation - KJ Supervision of high-risk 10/28/2014 02/19/2020 Overview: 10/28/14 - needs PNB with CF & HIV once viable IUP established - KJ Patient requested diagnostic testing 10/28/2014 02/19/2020 Overview: 10/28/14 - desires NT, will order once has viable IUP - KJ Family history of defect 10/28/2014 1 Overview: 10/28/14 - son born with hole in his heart, he had surgical correction done - KJ Anxiety 07/28/2012 10/28/2014 Diverticulitis 07/28/2012 10/28/2014 Herpes exposure 07/17/2011 02/19/2020 Overview: 10/28/14 - patient has never had an outbreak - KJ Cutaneous skin tags 10/14/2010 10/28/2014 Skin tags 10/05/2010 10/28/2014 Benign neoplasm of skin of trunk, except scrotum 10/05/2010 10/28/2014 Supervision of other high-risk (V23.89) 10/29/2008 03/29/2009 Previous delivery, antepartum condition or complication 08/13/2008 03/29/2009 Supervision of other normal 10/24/2006 08/13/2008 documented as of this encounter (statuses as of 04/16/2022) [facility] History of Past illness Narrative* Problem Noted Date Resolved Date Rh negative state in antepartum period 5 02/19/2020 Need for rhogam due to Rh negative mother 201411/16/2014 History of LEEP (loop electr osurgical excision procedure) of cervix complicating 10/28/2014 02/19/2020 Overview: 10/28/14 - needs baseline cervical length - KJ History of section complicating pregnan cy 10/28/2014 02/19/2020 Overview: 11/11/14 - 2 prior c-sections, proceed with repeat - KJ History of depression, currently preg nant 10/28/2014 02/19/2020 Tobacco use during 10/28/201406/2019 Overview: 12/09/14 - patient wants to stop smoking & requests nicotine patch, she is aware that she can't smoke while using the nicotine patch - KJ 10/28/14 - counseled on risks & cessation - KJ Supervision of high-risk 10/28/2014 02/19/2020 Overview: 10/28/14 - needs PNB with CF & HIV once viable IUP established - KJ Patient requested diagnostic testing 10/28/2014 02/19/2020 Overview: 10/28/14 - desires NT, will order once has viable IUP - KJ Family history of defect 10/28/2014 1 Overview: 10/28/14 - son born with hole in his heart, he had surgical correction done - KJ Anxiety 07/28/2012 10/28/2014 Diverticulitis 07/28/2012 10/28/2014 Herpes exposure 07/17/2011 02/19/2020 Overview: 10/28/14 - patient has never had an outbreak - KJ Cutaneous skin tags 10/14/2010 10/28/2014 Skin tags 10/05/2010 10/28/2014 Benign neoplasm of skin of trunk, except scrotum 10/05/2010 10/28/2014 Supervision of other high-risk (V23.89) 10/29/2008 03/29/2009 Previous delivery, antepartum condition or complication 08/13/2008 03/29/2009 Supervision of other normal 10/24/2006 08/13/2008 documented as of this encounter (statuses as of 04/17/2022) [facility] History of Past illness Narrative* Problem Noted Date Resolved Date Rh negative state in antepartum period 5 02/19/2020 Need for rhogam due to Rh negative mother 201411/16/2014 History of LEEP (loop electr osurgical excision procedure) of cervix complicating 10/28/2014 02/19/2020 Overview: 10/28/14 - needs baseline cervical length - KJ History of section complicating pregnan cy 10/28/2014 02/19/2020 Overview: 11/11/14 - 2 prior c-sections, proceed with repeat - KJ History of depression, currently preg nant 10/28/2014 02/19/2020 Tobacco use during 10/28/201406/2019 Overview: 12/09/14 - patient wants to stop smoking & requests nicotine patch, she is aware that she can't smoke while using the nicotine patch - KJ 10/28/14 - counseled on risks & cessation - KJ Supervision of high-risk 10/28/2014 02/19/2020 Overview: 10/28/14 - needs PNB with CF & HIV once viable IUP established - KJ Patient requested diagnostic testing 10/28/2014 02/19/2020 Overview: 10/28/14 - desires NT, will order once has viable IUP - KJ Family history of defect 10/28/2014 1 Overview: 10/28/14 - son born with hole in his heart, he had surgical correction done - KJ Anxiety 07/28/2012 10/28/2014 Diverticulitis 07/28/2012 10/28/2014 Herpes exposure 07/17/2011 02/19/2020 Overview: 10/28/14 - patient has never had an outbreak - KJ Cutaneous skin tags 10/14/2010 10/28/2014 Skin tags 10/05/2010 10/28/2014 Benign neoplasm of skin of trunk, except scrotum 10/05/2010 10/28/2014 Supervision of other high-risk (V23.89) 10/29/2008 03/29/2009 Previous delivery, antepartum condition or complication 08/13/2008 03/29/2009 Supervision of other normal 10/24/2006 08/13/2008 documented as of this encounter (statuses as of 04/18/2022) [facility] History of Past illness Narrative* Problem Noted Date Resolved Date Rh negative state in antepartum period 5 02/19/2020 Need for rhogam due to Rh negative mother 201411/16/2014 History of LEEP (loop electr osurgical excision procedure) of cervix complicating 10/28/2014 02/19/2020 Overview: 10/28/14 - needs baseline cervical length - KJ History of section complicating pregnan cy 10/28/2014 02/19/2020 Overview: 6/25/15 - 2 prior c-sections, proceed with repeat - KJ History of depression, currently preg nant 10/28/2014 02/19/2020 Tobacco use during 10/28/201406/2019 Overview: 12/09/14 - patient wants to stop smoking & requests nicotine patch, she is aware that she can't smoke while using the nicotine patch - KJ 10/28/14 - counseled on risks & cessation - KJ Supervision of high-risk 10/28/2014 02/19/2020 Overview: 10/28/14 - needs PNB with CF & HIV once viable IUP established - KJ Patient requested diagnostic testing 10/28/2014 02/19/2020 Overview: 10/28/14 - desires NT, will order once has viable IUP - KJ Family history of defect 10/28/2014 1 Overview: 10/28/14 - son born with hole in his heart, he had surgical correction done - KJ Anxiety 07/28/2012 10/28/2014 Diverticulitis 07/28/2012 10/28/2014 Herpes exposure 07/17/2011 02/19/2020 Overview: 10/28/14 - patient has never had an outbreak - KJ Cutaneous skin tags 10/14/2010 10/28/2014 Skin tags 10/05/2010 10/28/2014 Benign neoplasm of skin of trunk, except scrotum 10/05/2010 10/28/2014 Supervision of other high-risk (V23.89) 10/29/2008 03/29/2009 Previous delivery, antepartum condition or complication 08/13/2008 03/29/2009 Supervision of other normal 10/24/2006 08/13/2008 documented as of this encounter (statuses as of 04/25/2022) [facility] History of Past illness Narrative* Problem Noted Date Resolved Date Rh negative state in antepartum period 5 02/19/2020 Need for rhogam due to Rh negative mother 201411/16/2014 History of LEEP (loop electr osurgical excision procedure) of cervix complicating 10/28/2014 02/19/2020 Overview: 10/28/14 - needs baseline cervical length - KJ History of section complicating pregnan cy 10/28/2014 02/19/2020 Overview: 11/11/14 - 2 prior c-sections, proceed with repeat - KJ History of depression, currently preg nant 10/28/2014 02/19/2020 Tobacco use during 10/28/201406/2019 Overview: 12/09/14 - patient wants to stop smoking & requests nicotine patch, she is aware that she can't smoke while using the nicotine patch - KJ 10/28/14 - counseled on risks & cessation - KJ Supervision of high-risk 10/28/2014 02/19/2020 Overview: 10/28/14 - needs PNB with CF & HIV once viable IUP established - KJ Patient requested diagnostic testing 10/28/2014 02/19/2020 Overview: 10/28/14 - desires NT, will order once has viable IUP - KJ Family history of defect 10/28/2014 1 Overview: 10/28/14 - son born with hole in his heart, he had surgical correction done - KJ Anxiety 07/28/2012 10/28/2014 Diverticulitis 07/28/2012 10/28/2014 Herpes exposure 07/17/2011 02/19/2020 Overview: 10/28/14 - patient has never had an outbreak - KJ Cutaneous skin tags 10/14/2010 10/28/2014 Skin tags 10/05/2010 10/28/2014 Benign neoplasm of skin of trunk, except scrotum 10/05/2010 10/28/2014 Supervision of other high-risk (V23.89) 10/29/2008 03/29/2009 Previous delivery, antepartum condition or complication 08/13/2008 03/29/2009 Supervision of other normal 10/24/2006 08/13/2008 documented as of this encounter (statuses as of 05/01/2022) [facility] History of Past illness Narrative* Problem Noted Date Resolved Date Rh negative state in antepartum period 5 02/19/2020 Need for rhogam due to Rh negative mother 201411/16/2014 History of LEEP (loop electr osurgical excision procedure) of cervix complicating 10/28/2014 02/19/2020 Overview: 10/28/14 - needs baseline cervical length - KJ History of section complicating pregnan cy 10/28/2014 02/19/2020 Overview: 11/11/14 - 2 prior c-sections, proceed with repeat - KJ History of depression, currently preg nant 10/28/2014 02/19/2020 Tobacco use during 10/28/201406/2019 Overview: 12/09/14 - patient wants to stop smoking & requests nicotine patch, she is aware that she can't smoke while using the nicotine patch - KJ 10/28/14 - counseled on risks & cessation - KJ Supervision of high-risk 10/28/2014 02/19/2020 Overview: 10/28/14 - needs PNB with CF & HIV once viable IUP established - KJ Patient requested diagnostic testing 10/28/2014 02/19/2020 Overview: 10/28/14 - desires NT, will order once has viable IUP - KJ Family history of defect 10/28/2014 1 Overview: 10/28/14 - son born with hole in his heart, he had surgical correction done - KJ Anxiety 07/28/2012 10/28/2014 Diverticulitis 07/28/2012 10/28/2014 Herpes exposure 07/17/2011 02/19/2020 Overview: 10/28/14 - patient has never had an outbreak - KJ Cutaneous skin tags 10/14/2010 10/28/2014 Skin tags 10/05/2010 10/28/2014 Benign neoplasm of skin of trunk, except scrotum 10/05/2010 10/28/2014 Supervision of other high-risk (V23.89) 10/29/2008 03/29/2009 Previous delivery, antepartum condition or complication 08/13/2008 03/29/2009 Supervision of other normal 10/24/2006 08/13/2008 documented as of this encounter (statuses as of 05/01/2022) [facility] History of Past illness Narrative* Problem Noted Date Resolved Date Rh negative state in antepartum period 5 02/19/2020 Need for rhogam due to Rh negative mother 201411/16/2014 History of LEEP (loop electr osurgical excision procedure) of cervix complicating 10/28/2014 02/19/2020 Overview: 10/28/14 - needs baseline cervical length - KJ History of section complicating pregnan cy 10/28/2014 02/19/2020 Overview: 11/11/14 - 2 prior c-sections, proceed with repeat - KJ History of depression, currently preg nant 10/28/2014 02/19/2020 Tobacco use during 10/28/201406/2019 Overview: 12/09/14 - patient wants to stop smoking & requests nicotine patch, she is aware that she can't smoke while using the nicotine patch - KJ 10/28/14 - counseled on risks & cessation - KJ Supervision of high-risk 10/28/2014 02/19/2020 Overview: 10/28/14 - needs PNB with CF & HIV once viable IUP established - KJ Patient requested diagnostic testing 10/28/2014 02/19/2020 Overview: 10/28/14 - desires NT, will order once has viable IUP - KJ Family history of defect 10/28/2014 1 Overview: 10/28/14 - son born with hole in his heart, he had surgical correction done - KJ Anxiety 07/28/2012 10/28/2014 Diverticulitis 07/28/2012 10/28/2014 Herpes exposure 07/17/2011 02/19/2020 Overview: 10/28/14 - patient has never had an outbreak - KJ Cutaneous skin tags 10/14/2010 10/28/2014 Skin tags 10/05/2010 10/28/2014 Benign neoplasm of skin of trunk, except scrotum 10/05/2010 10/28/2014 Supervision of other high-risk (V23.89) 10/29/2008 03/29/2009 Previous delivery, antepartum condition or complication 08/13/2008 03/29/2009 Supervision of other normal 10/24/2006 08/13/2008 documented as of this encounter (statuses as of 05/01/2022) [facility] History of Past illness Narrative* Problem Noted Date Resolved Date Rh negative state in antepartum period 5 02/19/2020 Need for rhogam due to Rh negative mother 201411/16/2014 History of LEEP (loop electr osurgical excision procedure) of cervix complicating 10/28/2014 02/19/2020 Overview: 10/28/14 - needs baseline cervical length - KJ History of section complicating pregnan cy 10/28/2014 02/19/2020 Overview: 11/11/14 - 2 prior c-sections, proceed with repeat - KJ History of depression, currently preg nant 10/28/2014 02/19/2020 Tobacco use during 10/28/201406/2019 Overview: 12/09/14 - patient wants to stop smoking & requests nicotine patch, she is aware that she can't smoke while using the nicotine patch - KJ 10/28/14 - counseled on risks & cessation - KJ Supervision of high-risk 10/28/2014 02/19/2020 Overview: 10/28/14 - needs PNB with CF & HIV once viable IUP established - KJ Patient requested diagnostic testing 10/28/2014 02/19/2020 Overview: 10/28/14 - desires NT, will order once has viable IUP - KJ Family history of defect 10/28/2014 1 Overview: 10/28/14 - son born with hole in his heart, he had surgical correction done - KJ Anxiety 07/28/2012 10/28/2014 Diverticulitis 07/28/2012 10/28/2014 Herpes exposure 07/17/2011 02/19/2020 Overview: 10/28/14 - patient has never had an outbreak - KJ Cutaneous skin tags 10/14/2010 10/28/2014 Skin tags 10/05/2010 10/28/2014 Benign neoplasm of skin of trunk, except scrotum 10/05/2010 10/28/2014 Supervision of other high-risk (V23.89) 10/29/2008 03/29/2009 Previous delivery, antepartum condition or complication 08/13/2008 03/29/2009 Supervision of other normal 10/24/2006 08/13/2008 documented as of this encounter (statuses as of 05/04/2022) [facility] History of Past illness Narrative* Problem Noted Date Resolved Date Rh negative state in antepartum period 5 02/19/2020 Need for rhogam due to Rh negative mother 201411/16/2014 History of LEEP (loop electr osurgical excision procedure) of cervix complicating 10/28/2014 02/19/2020 Overview: 10/28/14 - needs baseline cervical length - KJ History of section complicating pregnan cy 10/28/2014 02/19/2020 Overview: 11/11/14 - 2 prior c-sections, proceed with repeat - KJ History of depression, currently preg nant 10/28/2014 02/19/2020 Tobacco use during 10/28/201406/2019 Overview: 12/09/14 - patient wants to stop smoking & requests nicotine patch, she is aware that she can't smoke while using the nicotine patch - KJ 10/28/14 - counseled on risks & cessation - KJ Supervision of high-risk 10/28/2014 02/19/2020 Overview: 10/28/14 - needs PNB with CF & HIV once viable IUP established - KJ Patient requested diagnostic testing 10/28/2014 02/19/2020 Overview: 10/28/14 - desires NT, will order once has viable IUP - KJ Family history of defect 10/28/2014 1 Overview: 10/28/14 - son born with hole in his heart, he had surgical correction done - KJ Anxiety 07/28/2012 10/28/2014 Diverticulitis 07/28/2012 10/28/2014 Herpes exposure 07/17/2011 02/19/2020 Overview: 10/28/14 - patient has never had an outbreak - KJ Cutaneous skin tags 10/14/2010 10/28/2014 Skin tags 10/05/2010 10/28/2014 Benign neoplasm of skin of trunk, except scrotum 10/05/2010 10/28/2014 Supervision of other high-risk (V23.89) 10/29/2008 03/29/2009 Previous delivery, antepartum condition or complication 08/13/2008 03/29/2009 Supervision of other normal 10/24/2006 08/13/2008 documented as of this encounter (statuses as of 05/22/2022) [facility] History of Past illness Narrative* Problem Noted Date Resolved Date Rh negative state in antepartum period 5 02/19/2020 Need for rhogam due to Rh negative mother 201411/16/2014 History of LEEP (loop electr osurgical excision procedure) of cervix complicating 10/28/2014 02/19/2020 Overview: 10/28/14 - needs baseline cervical length - KJ History of section complicating pregnan cy 10/28/2014 02/19/2020 Overview: 11/11/14 - 2 prior c-sections, proceed with repeat - KJ History of depression, currently preg nant 10/28/2014 02/19/2020 Tobacco use during 10/28/201406/2019 Overview: 12/09/14 - patient wants to stop smoking & requests nicotine patch, she is aware that she can't smoke while using the nicotine patch - KJ 10/28/14 - counseled on risks & cessation - KJ Supervision of high-risk 10/28/2014 02/19/2020 Overview: 10/28/14 - needs PNB with CF & HIV once viable IUP established - KJ Patient requested diagnostic testing 10/28/2014 02/19/2020 Overview: 10/28/14 - desires NT, will order once has viable IUP - KJ Family history of defect 10/28/2014 1 Overview: 10/28/14 - son born with hole in his heart, he had surgical correction done - KJ Anxiety 07/28/2012 10/28/2014 Diverticulitis 07/28/2012 10/28/2014 Herpes exposure 07/17/2011 02/19/2020 Overview: 10/28/14 - patient has never had an outbreak - KJ Cutaneous skin tags 10/14/2010 10/28/2014 Skin tags 10/05/2010 10/28/2014 Benign neoplasm of skin of trunk, except scrotum 10/05/2010 10/28/2014 Supervision of other high-risk (V23.89) 10/29/2008 03/29/2009 Previous delivery, antepartum condition or complication 08/13/2008 03/29/2009 Supervision of other normal 10/24/2006 08/13/2008 documented as of this encounter (statuses as of 05/26/2022) [facility] History of Past illness Narrative* Problem Noted Date Resolved Date Rh negative state in antepartum period 5 02/19/2020 Need for rhogam due to Rh negative mother 201411/16/2014 History of LEEP (loop electr osurgical excision procedure) of cervix complicating 10/28/2014 02/19/2020 Overview: 10/28/14 - needs baseline cervical length - KJ History of section complicating pregnan cy 10/28/2014 02/19/2020 Overview: 11/11/14 - 2 prior c-sections, proceed with repeat - KJ History of depression, currently preg nant 10/28/2014 02/19/2020 Tobacco use during 10/28/201406/2019 Overview: 12/09/14 - patient wants to stop smoking & requests nicotine patch, she is aware that she can't smoke while using the nicotine patch - KJ 10/28/14 - counseled on risks & cessation - KJ Supervision of high-risk 10/28/2014 02/19/2020 Overview: 10/28/14 - needs PNB with CF & HIV once viable IUP established - KJ Patient requested diagnostic testing 10/28/2014 02/19/2020 Overview: 10/28/14 - desires NT, will order once has viable IUP - KJ Family history of defect 10/28/2014 1 Overview: 10/28/14 - son born with hole in his heart, he had surgical correction done - KJ Anxiety 07/28/2012 10/28/2014 Diverticulitis 07/28/2012 10/28/2014 Herpes exposure 07/17/2011 02/19/2020 Overview: 10/28/14 - patient has never had an outbreak - KJ Cutaneous skin tags 10/14/2010 10/28/2014 Skin tags 10/05/2010 10/28/2014 Benign neoplasm of skin of trunk, except scrotum 10/05/2010 10/28/2014 Supervision of other high-risk (V23.89) 10/29/2008 03/29/2009 Previous delivery, antepartum condition or complication 08/13/2008 03/29/2009 Supervision of other normal 10/24/2006 08/13/2008 documented as of this encounter (statuses as of 08/03/2022) [facility] History of Past illness Narrative* Problem Noted Date Resolved Date Rh negative state in antepartum period 5 02/19/2020 Need for rhogam due to Rh negative mother 201411/16/2014 History of LEEP (loop electr osurgical excision procedure) of cervix complicating 10/28/2014 02/19/2020 Overview: 10/28/14 - needs baseline cervical length - KJ History of section complicating pregnan cy 10/28/2014 02/19/2020 Overview: 11/11/14 - 2 prior c-sections, proceed with repeat - KJ History of depression, currently preg nant 10/28/2014 02/19/2020 Tobacco use during 10/28/201406/2019 Overview: 12/09/14 - patient wants to stop smoking & requests nicotine patch, she is aware that she can't smoke while using the nicotine patch - KJ 10/28/14 - counseled on risks & cessation - KJ Supervision of high-risk 10/28/2014 02/19/2020 Overview: 10/28/14 - needs PNB with CF & HIV once viable IUP established - KJ Patient requested diagnostic testing 10/28/2014 02/19/2020 Overview: 10/28/14 - desires NT, will order once has viable IUP - KJ Family history of defect 10/28/2014 1 Overview: 10/28/14 - son born with hole in his heart, he had surgical correction done - KJ Anxiety 07/28/2012 10/28/2014 Diverticulitis 07/28/2012 10/28/2014 Herpes exposure 07/17/2011 02/19/2020 Overview: 10/28/14 - patient has never had an outbreak - KJ Cutaneous skin tags 10/14/2010 10/28/2014 Skin tags 10/05/2010 10/28/2014 Benign neoplasm of skin of trunk, except scrotum 10/05/2010 10/28/2014 Supervision of other high-risk (V23.89) 10/29/2008 03/29/2009 Previous delivery, antepartum condition or complication 08/13/2008 03/29/2009 Supervision of other normal 10/24/2006 08/13/2008 documented as of this encounter (statuses as of 08/07/2022) [facility] History of Past illness Narrative* Problem Noted Date Resolved Date Rh negative state in antepartum period 5 02/19/2020 Need for rhogam due to Rh negative mother 201411/16/2014 History of LEEP (loop electr osurgical excision procedure) of cervix complicating 10/28/2014 02/19/2020 Overview: 10/28/14 - needs baseline cervical length - KJ History of section complicating pregnan cy 10/28/2014 02/19/2020 Overview: 11/11/14 - 2 prior c-sections, proceed with repeat - KJ History of depression, currently preg nant 10/28/2014 02/19/2020 Tobacco use during 10/28/201406/2019 Overview: 12/09/14 - patient wants to stop smoking & requests nicotine patch, she is aware that she can't smoke while using the nicotine patch - KJ 10/28/14 - counseled on risks & cessation - KJ Supervision of high-risk 10/28/2014 02/19/2020 Overview: 10/28/14 - needs PNB with CF & HIV once viable IUP established - KJ Patient requested diagnostic testing 10/28/2014 02/19/2020 Overview: 10/28/14 - desires NT, will order once has viable IUP - KJ Family history of defect 10/28/2014 1 Overview: 10/28/14 - son born with hole in his heart, he had surgical correction done - KJ Anxiety 07/28/2012 10/28/2014 Diverticulitis 07/28/2012 10/28/2014 Herpes exposure 07/17/2011 02/19/2020 Overview: 10/28/14 - patient has never had an outbreak - KJ Cutaneous skin tags 10/14/2010 10/28/2014 Skin tags 10/05/2010 10/28/2014 Benign neoplasm of skin of trunk, except scrotum 10/05/2010 10/28/2014 Supervision of other high-risk (V23.89) 10/29/2008 03/29/2009 Previous delivery, antepartum condition or complication 08/13/2008 03/29/2009 Supervision of other normal 10/24/2006 08/13/2008 documented as of this encounter (statuses as of 09/30/2022) [facility] History of Past illness Narrative* Problem Noted Date Resolved Date Rh negative state in antepartum period 5 02/19/2020 Need for rhogam due to Rh negative mother 201411/16/2014 History of LEEP (loop electr osurgical excision procedure) of cervix complicating 10/28/2014 02/19/2020 Overview: 10/28/14 - needs baseline cervical length - KJ History of section complicating pregnan cy 10/28/2014 02/19/2020 Overview: 11/11/14 - 2 prior c-sections, proceed with repeat - KJ History of depression, currently preg nant 10/28/2014 02/19/2020 Tobacco use during 10/28/201406/2019 Overview: 12/09/14 - patient wants to stop smoking & requests nicotine patch, she is aware that she can't smoke while using the nicotine patch - KJ 10/28/14 - counseled on risks & cessation - KJ Supervision of high-risk 10/28/2014 02/19/2020 Overview: 10/28/14 - needs PNB with CF & HIV once viable IUP established - KJ Patient requested diagnostic testing 10/28/2014 02/19/2020 Overview: 10/28/14 - desires NT, will order once has viable IUP - KJ Family history of defect 10/28/2014 1 Overview: 10/28/14 - son born with hole in his heart, he had surgical correction done - KJ Anxiety 07/28/2012 10/28/2014 Diverticulitis 07/28/2012 10/28/2014 Herpes exposure 07/17/2011 02/19/2020 Overview: 10/28/14 - patient has never had an outbreak - KJ Cutaneous skin tags 10/14/2010 10/28/2014 Skin tags 10/05/2010 10/28/2014 Benign neoplasm of skin of trunk, except scrotum 10/05/2010 10/28/2014 Supervision of other high-risk (V23.89) 10/29/2008 03/29/2009 Previous delivery, antepartum condition or complication 08/13/2008 03/29/2009 Supervision of other normal 10/24/2006 08/13/2008 documented as of this encounter (statuses as of 11/12/2022) [facility] History of Past illness Narrative* Problem Noted Date Diagnosed Date Resolved Date Rh negative state in antepartum period 11/16/2014 02/19/2020 Need for rhogam due to Rh negative mother 11/15/2014 11/16/2014 History of LEEP (loop electr osurgical excision procedure) of cervix complicating 10/28/2014 02/19/2020 Overview: 10/28/14 - needs baseline cervical length - KJ History of section complicating 10/28/2014 02/19/2020 Overview: 11/11/14 - 2 prior c-sections, proceed with repeat - KJ History of depres rachael, currently 10/28/2014 02/19/2020 Tobacco use during 10/28/2014 02/19/2020 Overview: 12/09/14 - patient wants to stop smoking & requests nicotine patch, she is aware that she can't smoke while using the nicotine patch - KJ 10/28/14 - counseled on risks & cessation - KJ Supervision of high-risk 10/28/2014 02/19/2020 Overview: 10/28/14 - needs PNB with CF & HIV once viable IUP established - KJ Patient requested diagnostic testing 10/28/2014 02/19/2020 Overview: 10/28/14 - desires NT, will order once has viable IUP - KJ Family history of defect 10/28/2014 02/19/2020 Overview: 10/28/14 - son born with hole in his heart, he had surgical correction done - KJ Anxiety 07/28/2012 10/28/2014 Diverticulitis 07/28/2012 10/28/2014 Herpes exposure 07/17/2011 02/19/2020 Overview: 10/28/14 - patient has never had an outbreak - KJ Cutaneous skin tags 10/14/2010 10/29/19 15 Skin tags 10/05/2010 10/28/2014 Benign neoplasm of skin of t runk, except scrotum 10/05/2010 10/28/2014 Supervision of other high-ri sk (V23.89) 10/29/2008 03/29/2009 Previous delivery, antepartum condition or complication 08/13/2008 03/29/2009 Supervision of other normal 10/24/2006 08/13/2008 documented as of this encounter (statuses as of 01/23/2023) [facility] History of Past illness Narrative* Problem Noted Date Diagnosed Date Resolved Date Rh negative state in antepartum period 11/16/2014 02/19/2020 Need for rhogam due to Rh negative mother 11/15/2014 11/16/2014 History of LEEP (loop electr osurgical excision procedure) of cervix complicating 10/28/2014 02/19/2020 Overview: 10/28/14 - needs baseline cervical length - KJ History of section complicating 10/28/2014 02/19/2020 Overview: 11/11/14 - 2 prior c-sections, proceed with repeat - KJ History of mani cano, currently 10/28/2014 02/19/2020 Tobacco use during 10/28/2014 02/19/2020 Overview: 12/09/14 - patient wants to stop smoking & requests nicotine patch, she is aware that she can't smoke while using the nicotine patch - KJ 10/28/14 - counseled on risks & cessation - KJ Supervision of high-risk 10/28/2014 02/19/2020 Overview: 10/28/14 - needs PNB with CF & HIV once viable IUP established - KJ Patient requested diagnostic testing 10/28/2014 02/19/2020 Overview: 10/28/14 - desires NT, will order once has viable IUP - KJ Family history of defect 10/28/2014 02/19/2020 Overview: 10/28/14 - son born with hole in his heart, he had surgical correction done - KJ Anxiety 07/28/2012 10/28/2014 Diverticulitis 07/28/2012 10/28/2014 Herpes exposure 07/17/2011 02/19/2020 Overview: 10/28/14 - patient has never had an outbreak - KJ Cutaneous skin tags 10/14/2010 10/29/19 15 Skin tags 10/05/2010 10/28/2014 Benign neoplasm of skin of t runk, except scrotum 10/05/2010 10/28/2014 Supervision of other high-ri sk (V23.89) 10/29/2008 03/29/2009 Previous delivery, antepartum condition or complication 08/13/2008 03/29/2009 Supervision of other normal 10/24/2006 08/13/2008 documented as of this encounter (statuses as of 02/28/2023) [facility] History of Past illness Narrative* Problem Noted Date Diagnosed Date Resolved Date Rh negative state in antepartum period 11/16/2014 02/19/2020 Need for rhogam due to Rh negative mother 11/15/2014 11/16/2014 History of LEEP (loop electr osurgical excision procedure) of cervix complicating 10/28/2014 02/19/2020 Overview: 10/28/14 - needs baseline cervical length - KJ History of section complicating 10/28/2014 02/19/2020 Overview: 11/11/14 - 2 prior c-sections, proceed with repeat - KJ History of mani cano, currently 10/28/2014 02/19/2020 Tobacco use during 10/28/2014 02/19/2020 Overview: 12/09/14 - patient wants to stop smoking & requests nicotine patch, she is aware that she can't smoke while using the nicotine patch - KJ 10/28/14 - counseled on risks & cessation - KJ Supervision of high-risk 10/28/2014 02/19/2020 Overview: 10/28/14 - needs PNB with CF & HIV once viable IUP established - KJ Patient requested diagnostic testing 10/28/2014 02/19/2020 Overview: 10/28/14 - desires NT, will order once has viable IUP - KJ Family history of defect 10/28/2014 02/19/2020 Overview: 10/28/14 - son born with hole in his heart, he had surgical correction done - KJ Anxiety 07/28/2012 10/28/2014 Diverticulitis 07/28/2012 10/28/2014 Herpes exposure 07/17/2011 02/19/2020 Overview: 10/28/14 - patient has never had an outbreak - KJ Cutaneous skin tags 10/14/2010 10/29/19 15 Skin tags 10/05/2010 10/28/2014 Benign neoplasm of skin of t runk, except scrotum 10/05/2010 10/28/2014 Supervision of other high-ri sk (V23.89) 10/29/2008 03/29/2009 Previous delivery, antepartum condition or complication 08/13/2008 03/29/2009 Supervision of other normal 10/24/2006 08/13/2008 documented as of this encounter (statuses as of 03/19/2023) [facility] History of Past illness Narrative* Problem Noted Date Diagnosed Date Resolved Date Rh negative state in antepartum period 11/16/2014 02/19/2020 Need for rhogam due to Rh negative mother 11/15/2014 11/16/2014 History of LEEP (loop electr osurgical excision procedure) of cervix complicating 10/28/2014 02/19/2020 Overview: 10/28/14 - needs baseline cervical length - KJ History of section complicating 10/28/2014 02/19/2020 Overview: 11/11/14 - 2 prior c-sections, proceed with repeat - KJ History of mani cano, currently 10/28/2014 02/19/2020 Tobacco use during 10/28/2014 02/19/2020 Overview: 12/09/14 - patient wants to stop smoking & requests nicotine patch, she is aware that she can't smoke while using the nicotine patch - KJ 10/28/14 - counseled on risks & cessation - KJ Supervision of high-risk 10/28/2014 02/19/2020 Overview: 10/28/14 - needs PNB with CF & HIV once viable IUP established - KJ Patient requested diagnostic testing 10/28/2014 02/19/2020 Overview: 10/28/14 - desires NT, will order once has viable IUP - KJ Family history of defect 10/28/2014 02/19/2020 Overview: 10/28/14 - son born with hole in his heart, he had surgical correction done - KJ Anxiety 07/28/2012 10/28/2014 Diverticulitis 07/28/2012 10/28/2014 Herpes exposure 07/17/2011 02/19/2020 Overview: 10/28/14 - patient has never had an outbreak - KJ Cutaneous skin tags 10/14/2010 10/29/19 15 Skin tags 10/05/2010 10/28/2014 Benign neoplasm of skin of t [place], except scrotum 10/05/2010 10/28/2014 Supervision of other high-ri sk (V23.89) 10/29/2008 03/29/2009 Previous delivery, antepartum condition or complication 08/13/2008 03/29/2009 Supervision of other normal 10/24/2006 08/13/2008 documented as of this encounter (statuses as of 03/21/2023) [facility] History of Past illness Narrative* Problem Noted Date Diagnosed Date Resolved Date Rh negative state in antepartum period 11/16/2014 02/19/2020 Need for rhogam due to Rh negative mother 11/15/2014 11/16/2014 History of LEEP (loop electr osurgical excision procedure) of cervix complicating 10/28/2014 02/19/2020 Overview: 10/28/14 - needs baseline cervical length - KJ History of section complicating 10/28/2014 02/19/2020 Overview: 11/11/14 - 2 prior c-sections, proceed with repeat - KJ History of mani cano, currently 10/28/2014 02/19/2020 Tobacco use during 10/28/2014 02/19/2020 Overview: 12/09/14 - patient wants to stop smoking & requests nicotine patch, she is aware that she can't smoke while using the nicotine patch - KJ 10/28/14 - counseled on risks & cessation - KJ Supervision of high-risk 10/28/2014 02/19/2020 Overview: 10/28/14 - needs PNB with CF & HIV once viable IUP established - KJ Patient requested diagnostic testing 10/28/2014 02/19/2020 Overview: 10/28/14 - desires NT, will order once has viable IUP - KJ Family history of defect 10/28/2014 02/19/2020 Overview: 10/28/14 - son born with hole in his heart, he had surgical correction done - KJ Anxiety 07/28/2012 10/28/2014 Diverticulitis 07/28/2012 10/28/2014 Herpes exposure 07/17/2011 02/19/2020 Overview: 10/28/14 - patient has never had an outbreak - KJ Cutaneous skin tags 10/14/2010 10/29/19 15 Skin tags 10/05/2010 10/28/2014 Benign neoplasm of skin of t runk, except scrotum 10/05/2010 10/28/2014 Supervision of other high-ri sk (V23.89) 10/29/2008 03/29/2009 Previous delivery, antepartum condition or complication 08/13/2008 03/29/2009 Supervision of other normal 10/24/2006 08/13/2008 documented as of this encounter (statuses as of 03/24/2023) [facility] History of Past illness Narrative* Problem Noted Date Diagnosed Date Resolved Date Rh negative state in antepartum period 11/16/2014 02/19/2020 Need for rhogam due to Rh negative mother 11/15/2014 11/16/2014 History of LEEP (loop electr osurgical excision procedure) of cervix complicating 10/28/2014 02/19/2020 Overview: 10/28/14 - needs baseline cervical length - KJ History of section complicating 10/28/2014 02/19/2020 Overview: 11/11/14 - 2 prior c-sections, proceed with repeat - KJ History of depres rachael, currently 10/28/2014 02/19/2020 Tobacco use during 10/28/2014 02/19/2020 Overview: 12/09/14 - patient wants to stop smoking & requests nicotine patch, she is aware that she can't smoke while using the nicotine patch - KJ 10/28/14 - counseled on risks & cessation - KJ Supervision of high-risk 10/28/2014 02/19/2020 Overview: 10/28/14 - needs PNB with CF & HIV once viable IUP established - KJ Patient requested diagnostic testing 10/28/2014 02/19/2020 Overview: 10/28/14 - desires NT, will order once has viable IUP - KJ Family history of defect 10/28/2014 02/19/2020 Overview: 10/28/14 - son born with hole in his heart, he had surgical correction done - KJ Anxiety 07/28/2012 10/28/2014 Diverticulitis 07/28/2012 10/28/2014 Herpes exposure 07/17/2011 02/19/2020 Overview: 10/28/14 - patient has never had an outbreak - KJ Cutaneous skin tags 10/14/2010 10/29/19 15 Skin tags 10/05/2010 10/28/2014 Benign neoplasm of skin of t runk, except scrotum 10/05/2010 10/28/2014 Supervision of other high-ri sk (V23.89) 10/29/2008 03/29/2009 Previous delivery, antepartum condition or complication 08/13/2008 03/29/2009 Supervision of other normal 10/24/2006 08/13/2008 documented as of this encounter (statuses as of 03/24/2023) [facility] Past illness Narrative* Problem Noted Date Diagnosed Date Resolved Date Rh negative state in antepartum period 11/16/2014 02/19/2020 Need for rhogam due to Rh negative mother 11/15/2014 11/16/2014 History of LEEP (loop electr osurgical excision procedure) of cervix complicating 10/28/2014 02/19/2020 Overview: 10/28/14 - needs baseline cervical length - KJ History of section complicating 10/28/2014 02/19/2020 Overview: 11/11/14 - 2 prior c-sections, proceed with repeat - KJ History of mani cano, currently 10/28/2014 02/19/2020 Tobacco use during 10/28/2014 02/19/2020 Overview: 12/09/14 - patient wants to stop smoking & requests nicotine patch, she is aware that she can't smoke while using the nicotine patch - KJ 10/28/14 - counseled on risks & cessation - KJ Supervision of high-risk 10/28/2014 02/19/2020 Overview: 10/28/14 - needs PNB with CF & HIV once viable IUP established - KJ Patient requested diagnostic testing 10/28/2014 02/19/2020 Overview: 10/28/14 - desires NT, will order once has viable IUP - KJ Family history of defect 10/28/2014 02/19/2020 Overview: 10/28/14 - son born with hole in his heart, he had surgical correction done - KJ Anxiety 07/28/2012 10/28/2014 Diverticulitis 07/28/2012 10/28/2014 Herpes exposure 07/17/2011 02/19/2020 Overview: 10/28/14 - patient has never had an outbreak - KJ Cutaneous skin tags 10/14/2010 10/29/19 15 Skin tags 10/05/2010 10/28/2014 Benign neoplasm of skin of t runk, except scrotum 10/05/2010 10/28/2014 Supervision of other high-ri sk (V23.89) 10/29/2008 03/29/2009 Previous delivery, antepartum condition or complication 08/13/2008 03/29/2009 Supervision of other normal 10/24/2006 08/13/2008 documented as of this encounter (statuses as of 04/02/2023) [facility] Past illness Narrative* Problem Noted Date Diagnosed Date Resolved Date Rh negative state in antepartum period 11/16/2014 02/19/2020 Need for rhogam due to Rh negative mother 11/15/2014 11/16/2014 History of LEEP (loop electr osurgical excision procedure) of cervix complicating 10/28/2014 02/19/2020 Overview: 10/28/14 - needs baseline cervical length - KJ History of section complicating 10/28/2014 02/19/2020 Overview: 11/11/14 - 2 prior c-sections, proceed with repeat - KJ History of mani cano, currently 10/28/2014 02/19/2020 Tobacco use during 10/28/2014 02/19/2020 Overview: 12/09/14 - patient wants to stop smoking & requests nicotine patch, she is aware that she can't smoke while using the nicotine patch - KJ 10/28/14 - counseled on risks & cessation - KJ Supervision of high-risk 10/28/2014 02/19/2020 Overview: 10/28/14 - needs PNB with CF & HIV once viable IUP established - KJ Patient requested diagnostic testing 10/28/2014 02/19/2020 Overview: 10/28/14 - desires NT, will order once has viable IUP - KJ Family history of defect 10/28/2014 02/19/2020 Overview: 10/28/14 - son born with hole in his heart, he had surgical correction done - KJ Anxiety 07/28/2012 10/28/2014 Diverticulitis 07/28/2012 10/28/2014 Herpes exposure 07/17/2011 02/19/2020 Overview: 10/28/14 - patient has never had an outbreak - KJ Cutaneous skin tags 10/14/2010 10/29/19 15 Skin tags 10/05/2010 10/28/2014 Benign neoplasm of skin of t runk, except scrotum 10/05/2010 10/28/2014 Supervision of other high-ri sk (V23.89) 10/29/2008 03/29/2009 Previous delivery, antepartum condition or complication 08/13/2008 03/29/2009 Supervision of other normal 10/24/2006 08/13/2008 documented as of this encounter (statuses as of 05/03/2023) [facility] + Plan note No data available for this section [facility] Evaluation note* Diagnosis Vaginal discharge- Primary Leukorrhea, not specified as infective Pelvic pain in female Unspecified symptom associated with female genital organs Screening examination for STD (sexually transmitted disease) Screening examination for venereal disease Urinary frequency documented in this encounter [facility] note* Diagnosis Pelvic pain in female- Primary Unspecified symptom associated with female genital organs IUD (intrauterine device) in place Presence of intrauterine contraceptive device documented in this encounter [facility] note* Diagnosis Hospital discharge follow-up- Primary Other follow-up examination Left flank pain Abdominal pain, unspecified site Fatigue, unspecified type SOB (shortness of breath) Shortness of breath Screening for colon cancer Special screening for malignant neoplasms, colon documented in this encounter [facility]* Diagnosis Left flank pain Abdominal pain, unspecified site documented in this encounter [facility] note* Diagnosis Bloating- Primary Flatulence, eructation, and gas pain Left lower quadrant abdominal pain Nausea Nausea alone Early satiety Diverticular disease Diverticulosis of colon (without mention of hemorrhage) documented in this encounter [facility] note* Diagnosis Left lower quadrant abdominal pain Bloating Flatulence, eructation, and gas pain Nausea Nausea alone documented in this encounter [facility] note* Diagnosis Neck muscle spasm Spasm of muscle documented in this encounter [facility] note* Diagnosis Dense breasts- Primary Inconclusive mammogram documented in this encounter [facility]* Diagnosis Gastroesophageal reflux disease, unspecified whether esophagitis present- Primary Generalized anxiety disorder Smoker Tobacco use disorder Anxiety Anxiety state, unspecified Vitamin D deficiency Unspecified vitamin D deficiency Situational depression Adjustment disorder with depressed mood SOB (shortness of breath) Shortness of breath documented in this encounter [facility] note* Diagnosis Acute sinusitis, recurrence not specified, unspecified location- Primary [facility] Diagnosis Anxiety- Primary Anxiety state, unspecified Gastroesophageal reflux disease, unspecified whether esophagitis present [facility]* Diagnosis Loose stools- Primary Abnormal feces RUQ pain Abdominal pain, right upper quadrant [facility] Diagnosis RUQ pain- Primary Abdominal pain, right upper quadrant Constipation, unspecified constipation type [facility] Diagnosis Encounter for gynecological examination (general) (routine) without abnormal findings- Primary Screening for cervical cancer Screening for malignant neoplasm of the cervix Encounter for screening for human papillomavirus (HPV) Special screening examination for human papillomavirus (HPV) Screening examination for STD (sexually transmitted disease) Screening examination for venereal disease Vaginal discharge Leukorrhea, not specified as infective History of ovarian cyst Personal history of other genital system and obstetric disorders [facility] Diagnosis Loose stools- Primary Abnormal feces [facility] Diagnosis Pelvic pain in female- Primary Unspecified symptom associated with female genital organs IUD (intrauterine device) in place Presence of intrauterine contraceptive device Ovarian cyst, right Other and unspecified ovarian cyst documented [facility] Diagnosis ASCUS with positive high risk HPV cervical- Primary Cervical high risk human papillomavirus (HPV) DNA test positive documented [facility]* Diagnosis History of ovarian cyst Personal history of other genital system and obstetric disorders [facility] Diagnosis Acute non-recurrent sinusitis, unspecified location- Primary Exacerbation of asthma, unspecified asthma severity, unspecified whether persistent [facility] Diagnosis Cyst of right ovary Other and unspecified ovarian cyst Pelvic pain in female Unspecified symptom associated with female genital organs IUD (intrauterine device) in place Presence of intrauterine contraceptive device [facility] Diagnosis [place] eye disease of left eye- Primary [facility] Diagnosis Abdominal bloating- Primary Flatulence, eructation, and gas pain Irritable bowel syndrome with both constipation and diarrhea [facility] Diagnosis Encounter for screening mammogram for malignant neoplasm of breast- Primary Other screening mammogram Dense breast tissue [facility] Diagnosis Internal hemorrhoids- Primary Internal hemorrhoids without mention of complication [facility] Diagnosis Encounter for gynecological examination (general) (routine) with abnormal findings- Primary Screening for cervical cancer Screening for malignant neoplasm of the cervix Encounter for screening for human papillomavirus (HPV) Special screening examination for human papillomavirus (HPV) Encounter for screening mammogram for breast cancer Dense breast tissue History of ovarian cyst Personal history of other genital system and obstetric disorders [facility] Diagnosis Encounter for screening mammogram for malignant neoplasm of breast Other screening mammogram Dense breast tissue [facility] Diagnosis Loose stools Abnormal feces RUQ pain Abdominal pain, right upper quadrant documented [facility] Diagnosis Cervical high risk HPV (human papillomavirus) test positive- Primary Cervical high risk human papillomavirus (HPV) DNA test positive Need for prophylactic vaccination/inoculation against viral disease Need for prophylactic vaccination and inoculation against other viral diseases [facility] No data available for this section [facility] Progress note No data available for this section [facility] Reason for referral (narrative)* Diagnostic Procedure Only (Routine) - Authorized Specialty Diagnoses / Procedures Referred By Karen pruitt Referred To Contact [facility] Diagnoses Pelvic pain in female Procedures PELVIC US WHI US PELVIC NONOBSTETRIC REAL-TIME IMAGE COMPLETE Lindy Cash APRN.CNM [address] [place] [address] [address] Referral ID Status Reason Start Date Expiration Date Visits Requested Visits Authorized [id number] Authorized Auto-Generat ed Referral 09/06/2021 09/06/2022 1 1 [facility] Diagnostic Procedure Only (Routine) - Pending Review Specialty Diagnoses / Procedures Referred By Karen pruitt Referred To Contact [facility] Diagnoses Left flank pain Procedures US KIDNEY/BLADDER US RETROPERITONEAL REAL TIME W/IMAGE COMPLETE Amparo Arteaga APRN.FRAME STRIPPER [address] [place] [address] [facility] Referral ID Status Reason Start Date Expiration Date Visits Requested Visits Authorized [id number] Pending Review Auto-Generat ed Referral 09/25/2021 10/25/2022 1 1 * Medication Prior Authorization - Closed Specialty Diagnoses / Procedures Referred By Contac t Referred To Contact Diagnoses SOB (shortness of breath) Amparo Arteaga APRN.CNP [address] [place] [address] Referral ID Status Reason Start Date Expiration Date Visits Re quested Visits Authorized [id number] Closed [address] [facility] for referral (narrative)* Diagnostic Procedure Only (Routine) - Closed Specialty Diagnoses / Procedures Referred By Contscott t Referred To Contact [facility] Diagnoses Left flank pain Procedures US KIDNEY/BLADDER US RETROPERITONEAL REAL TIME W/IMAGE COMPLETE Amparo Arteaga APRN.FRAME STRIPPER [address] [place] [address] Us Imaging Referral ID Status Reason Start Date Expiration Date V isits Requested Visits Authorized [id number] Closed Auto-Generate d Referral 09/25/2021 10/25/[address] [facility] for referral (narrative)* Outpatient Procedure (Routine) - Pending Review Specialty Diagnoses / Procedures Referred By Contac t Referred To Contact [facility] Diagnoses Left lower quadrant abdominal pain Bloating Nausea Procedures EGD DIAGNOSTIC ESOPHAGOGASTRODUODENOSC OPY TRANSORAL DIAGNOSTIC Analy Romero APRN.FRAME STRIPPER [address] [place] [address] [facility] [address] [place] [address] Referral ID Status Reason Start Date Expiration Date Visits Requested Visits Authorized [id number] Pending Review Auto-Generat ed Referral 11/27/2021 11/27/[address] [facility] for referral (narrative)* Outpatient Procedure (Routine) - Closed Specialty Diagnoses / Procedures Referred By Contac t Referred To Contact [facility] Diagnoses Left lower quadrant abdominal pain Bloating Nausea Procedures EGD DIAGNOSTIC ESOPHAGOGASTRODUODENOSC OPY TRANSORAL DIAGNOSTIC Analy Romero APRN.FRAME STRIPPER [address] [place] [address] [facility] [address] [place] [address] Referral ID Status Reason Start Date Expiration Date V isits Requested Visits Authorized [id number] Closed Auto-Generate d Referral 11/27/2021 11/27/[address] [facility] for referral (narrative)* Diagnostic Procedure Only (Routine) - Pending Review Specialty Diagnoses / Procedures Referred By Contac t Referred To Contact [facility] Diagnoses Loose stools RUQ pain Procedures US ABD RT UPPER QUADRANT US ABDOMINAL REAL TIME W/IMAGE LIMITED Analy Romero APRN.FRAME STRIPPER [address] [place] [address] Us Imaging Referral ID Status Reason Start Date Expiration Date Visits Requested Visits Authorized [id number] Pending Review Auto-Generat ed Referral 04/18/[address] [facility] for referral (narrative)* Diagnostic Procedure Only (Routine) - Authorized Specialty Diagnoses / Procedures Referred By Contac t Referred To Contact [facility] Diagnoses History of ovarian cyst Procedures PELVIC US WHI US PELVIC NONOBSTETRIC REAL-TIME IMAGE COMPLETE Lindy Cash APRN.CNM [address] [place] [address] [facility] [address] [place] [address] Referral ID Status Reason Start Date Expiration Date Visits Requested Visits Authorized [id number] Authorized Auto-Generat ed Referral 2 04/17/[address] [facility] for referral (narrative)* Outpatient Procedure (Routine) - Pending Review Specialty Diagnoses / Procedures Referred By Contac t Referred To Contact [facility] Diagnoses ASCUS with positive high risk HPV cervical Procedures COLPOSCOPY COLPOSCOPY CERVIX BX CERVIX & ENDOCRV CURRETAGE Kandy Metzger MD [address] [place] [address] [id number] [place] [address] Referral ID Status Reason Start Date Expiration Date Visits Requested Visits Authorized [id number] Pending Review Auto-Generat ed Referral 2 05/04/2023 1 1 [facility] Diagnostic Procedure Only (Routine) - Pending Review Specialty Diagnoses / Procedures Referred By Karen pruitt Referred To Contact [facility] Diagnoses Abdominal bloating Procedures US ABDOMEN COMPLETE US ABDOMINAL REAL TIME W/IMAGE DOCUMENTATION Aurea Contreras PA-C [address] [place] [address] Us Imaging Referral ID Status Reason Start Date Expiration Date Visits Requested Visits Authorized [id number] Pending Review Auto-Generat ed Referral 11/12/2022 12/12/[address] [facility] for referral (narrative)* Diagnostic Procedure Only (Routine) - Authorized Specialty Diagnoses / Procedures Referred By Karen pruitt Referred To Contact [facility] Diagnoses Encounter for screening mammogram for malignant neoplasm of breast Dense breast tissue Procedures TAB SCREENING W BLAYNE SCREENING DIGITAL BREAST TOMOSYNTHESIS BI SCREENING MAMMOGRAPHY BI 2-VIEW BREAST INC Jeferson Narvaez MD [address] [place] [address] [facility] [address] [place] [address] Referral ID Status Reason Start Date Expiration Date Visits Requested Visits Authorized [id number] Authorized Auto-Generat ed Referral 01/22/2023 02/21/[address] [facility] for referral (narrative)* Diagnostic Procedure Only (Routine) - Pending Review Specialty Diagnoses / Procedures Referred By Contac t Referred To Contact [facility] Diagnoses Encounter for screening mammogram for breast cancer Dense breast tissue Procedures TAB SCREENING W BLAYNE SCREENING DIGITAL BREAST TOMOSYNTHESIS BI SCREENING MAMMOGRAPHY BI 2-VIEW BREAST INC CAD Lindy Cash APRN.CNM [address] [place] [address] [facility] [address] [place] [address] Referral ID Status Reason Start Date Expiration Date Visits Requested Visits Authorized [id number] Pending Review Auto-Generat ed Referral 04/16/2024 1 1 [facility] ([facility] Diagnostic Procedure Only (Routine) - Closed Specialty Diagnoses / Procedures Referred By Contac t Referred To Contact [facility] Diagnoses Encounter for screening mammogram for malignant neoplasm of breast Dense breast tissue Procedures TAB SCREENING W BLAYNE SCREENING DIGITAL BREAST TOMOSYNTHESIS BI SCREENING MAMMOGRAPHY BI 2-VIEW BREAST INC Jeferson Narvaez MD [address] [place] [address] [facility] [address] [place] [address] Referral ID Status Reason Start Date Expiration Date V isits Requested Visits Authorized [id number] Closed Auto-Generate d Referral 01/22/2023 02/21/[address] [facility] for referral (narrative)* Diagnostic Procedure Only (Routine) - Closed Specialty Diagnoses / Procedures Referred By Contac t Referred To Contact [facility] Diagnoses Loose stools RUQ pain Procedures US ABD RT UPPER QUADRANT US ABDOMINAL REAL TIME W/IMAGE LIMITED Analy Romero APRN.FRAME STRIPPER [address] [place] [address] [place] [address] Referral ID Status Reason Start Date Expiration Date V isits Requested Visits Authorized [id number] Closed Auto-Generate d Referral 03/19/2022 04/18/[address] [facility] for visit Narrative* Diagnostic Procedure Only (Routine) - Closed Specialty Diagnoses / Procedures Referred By Contac t Referred To Contact [facility] Diagnoses Left flank pain Procedures US KIDNEY/BLADDER US RETROPERITONEAL REAL TIME W/IMAGE COMPLETE Amparo Arteaga APRN.FRAME STRIPPER [address] [place] [address] Us Imaging Referral ID Status Reason Start Date Expiration Date V isits Requested Visits Authorized [id number] Closed Auto-Generate d Referral 09/25/2021 10/25/[address] [facility] for visit Narrative* Outpatient Procedure (Routine) - Closed Specialty Diagnoses / Procedures Referred By Contac t Referred To Contact [facility] Diagnoses Left lower quadrant abdominal pain Bloating Nausea Procedures EGD DIAGNOSTIC ESOPHAGOGASTRODUODENOSC OPY TRANSORAL DIAGNOSTIC Analy Romero APRN.FRAME STRIPPER [address] [place] [address] [facility] [address] [place] [address] Referral ID Status Reason Start Date Expiration Date V isits Requested Visits Authorized [id number] Closed Auto-Generate d Referral 11/27/2021 11/27/[address] [facility] for visit Narrative* Diagnostic Procedure Only (Routine) - Closed Specialty Diagnoses / Procedures Referred By Contac t Referred [facility] Diagnoses History of ovarian cyst Procedures PELVIC US WHI US PELVIC NONOBSTETRIC REAL-TIME IMAGE COMPLETE Lindy Cash APRN.CNM [address] [place] [address] [facility] [address] [place] [address] Referral ID Status Reason Start Date Expiration Date V isits Requested Visits Authorized [id number] Closed Auto-Generate d Referral 04/17/2022 04/17/[address] [facility] for visit Narrative* Diagnostic Procedure Only (Routine) - Closed Specialty Diagnoses / Procedures Referred By Karen pruitt Referred To Contact [facility] Diagnoses Cyst of right ovary Procedures PELVIC US I US PELVIC NONOBSTETRIC REAL-TIME IMAGE COMPLETE Lindy Cash APRN.CNM [address] [place] [place] [address] [facility] [address] [place] [address] Referral ID Status Reason Start Date Expiration Date V isits Requested Visits Authorized [id number] Closed Auto-Generate d Referral 08/02/2022 05/04/[address] [facility] for visit Narrative* Diagnostic Procedure Only (Routine) - Closed Specialty Diagnoses / Procedures Referred By Karen pruitt Referred To Contact [facility] Diagnoses Encounter for screening mammogram for malignant neoplasm of breast Dense breast tissue Procedures TAB SCREENING W BLAYNE SCREENING DIGITAL BREAST TOMOSYNTHESIS BI SCREENING MAMMOGRAPHY BI 2-VIEW BREAST INC CAD Jeferson Glez MD [address] [place] [place] [address] [facility] [address] [place] [address] Referral ID Status Reason Start Date Expiration Date V isits Requested Visits Authorized [id number] Closed Auto-Generate d Referral 01/22/2023 02/21/2024 1 1 [facility] Reason for Referral Specialty Diagnoses / Procedures Referred By Karen pruitt Referred To Contact Diagnoses SOB (shortness of breath) Milagro Mohamud, TIE MAKER.[employer]HOLE BORER [address] [place] [address] Referral ID Status Reason Start Date Expiration Date Visits Re quested Visits Authorized [id number] Closed 1 1 Summary Purpose Family History No Family History Records Found No data available for this section No Family History Records Found Advance Directives No Advanced Directives Records FoundNo Advanced Directives Records Found Additional Source Comments Source Comments (unrecognize d section and content) In the event this informatio n is protected by the Federal Confidentiality of Alcohol and Drug Abuse Patient Records regulations: The Federal rules restrict any use of the information to criminally investigate or prosecute any alcohol or drug abuse patient.[facility] the event this information is protected by the Federal Confidentiality of Alcohol and Drug Abuse Patient Records regulations: The Federal rules restrict any use of the information to criminally investigate or prosecute any alcohol or drug abuse patient.[facility] the event this information is protected by the Federal Confidentiality of Alcohol and Drug Abuse Patient Records regulations: The Federal rules restrict any use of the information to criminally investigate or prosecute any alcohol or drug abuse patient.[facility] the event this information is protected by the Federal Confidentiality of Alcohol and Drug Abuse Patient Records regulations: The Federal rules restrict any use of the information to criminally investigate or prosecute any alcohol or drug abuse patient.[facility] the event this information is protected by the Federal Confidentiality of Alcohol and Drug Abuse Patient Records regulations: The Federal rules restrict any use of the information to criminally investigate or prosecute any alcohol or drug abuse patient.[facility] the event this information is protected by the Federal Confidentiality of Alcohol and Drug Abuse Patient Records regulations: The Federal rules restrict any use of the information to criminally investigate or prosecute any alcohol or drug abuse patient.[facility] the event this information is protected by the Federal Confidentiality of Alcohol and Drug Abuse Patient Records regulations: The Federal rules restrict any use of the information to criminally investigate or prosecute any alcohol or drug abuse patient.[facility] the event this information is protected by the Federal Confidentiality of Alcohol and Drug Abuse Patient Records regulations: The Federal rules restrict any use of the information to criminally investigate or prosecute any alcohol or drug abuse patient.[facility] the event this information is protected by the Federal Confidentiality of Alcohol and Drug Abuse Patient Records regulations: The Federal rules restrict any use of the information to criminally investigate or prosecute any alcohol or drug abuse patient.[facility] the event this information is protected by the Federal Confidentiality of Alcohol and Drug Abuse Patient Records regulations: The Federal rules restrict any use of the information to criminally investigate or prosecute any alcohol or drug abuse patient.[facility] the event this information is protected by the Federal Confidentiality of Alcohol and Drug Abuse Patient Records regulations: The Federal rules restrict any use of the information to criminally investigate or prosecute any alcohol or drug abuse patient.[facility] the event this information is protected by the Federal Confidentiality of Alcohol and Drug Abuse Patient Records regulations: The Federal rules restrict any use of the information to criminally investigate or prosecute any alcohol or drug abuse patient.[facility] the event this information is protected by the Federal Confidentiality of Alcohol and Drug Abuse Patient Records regulations: The Federal rules restrict any use of the information to criminally investigate or prosecute any alcohol or drug abuse patient.[facility] the event this information is protected by the Federal Confidentiality of Alcohol and Drug Abuse Patient Records regulations: The Federal rules restrict any use of the information to criminally investigate or prosecute any alcohol or drug abuse patient.[facility] the event this information is protected by the Federal Confidentiality of Alcohol and Drug Abuse Patient Records regulations: The Federal rules restrict any use of the information to criminally investigate or prosecute any alcohol or drug abuse patient.[facility] the event this information is protected by the Federal Confidentiality of Alcohol and Drug Abuse Patient Records regulations: The Federal rules restrict any use of the information to criminally investigate or prosecute any alcohol or drug abuse patient.[facility] the event this information is protected by the Federal Confidentiality of Alcohol and Drug Abuse Patient Records regulations: The Federal rules restrict any use of the information to criminally investigate or prosecute any alcohol or drug abuse patient.[facility] the event this information is protected by the Federal Confidentiality of Alcohol and Drug Abuse Patient Records regulations: The Federal rules restrict any use of the information to criminally investigate or prosecute any alcohol or drug abuse patient.[facility] the event this information is protected by the Federal Confidentiality of Alcohol and Drug Abuse Patient Records regulations: The Federal rules restrict any use of the information to criminally investigate or prosecute any alcohol or drug abuse patient.[facility] the event this information is protected by the Federal Confidentiality of Alcohol and Drug Abuse Patient Records regulations: The Federal rules restrict any use of the information to criminally investigate or prosecute any alcohol or drug abuse patient.[facility] the event this information is protected by the Federal Confidentiality of Alcohol and Drug Abuse Patient Records regulations: The Federal rules restrict any use of the information to criminally investigate or prosecute any alcohol or drug abuse patient.[facility] the event this information is protected by the Federal Confidentiality of Alcohol and Drug Abuse Patient Records regulations: The Federal rules restrict any use of the information to criminally investigate or prosecute any alcohol or drug abuse patient.[facility] the event this information is protected by the Federal Confidentiality of Alcohol and Drug Abuse Patient Records regulations: The Federal rules restrict any use of the information to criminally investigate or prosecute any alcohol or drug abuse patient.[facility] the event this information is protected by the Federal Confidentiality of Alcohol and Drug Abuse Patient Records regulations: The Federal rules restrict any use of the information to criminally investigate or prosecute any alcohol or drug abuse patient.[facility] the event this information is protected by the Federal Confidentiality of Alcohol and Drug Abuse Patient Records regulations: The Federal rules restrict any use of the information to criminally investigate or prosecute any alcohol or drug abuse patient.[facility] the event this information is protected by the Federal Confidentiality of Alcohol and Drug Abuse Patient Records regulations: The Federal rules restrict any use of the information to criminally investigate or prosecute any alcohol or drug abuse patient.[facility] the event this information is protected by the Federal Confidentiality of Alcohol and Drug Abuse Patient Records regulations: The Federal rules restrict any use of the information to criminally investigate or prosecute any alcohol or drug abuse patient.[facility] the event this information is protected by the Federal Confidentiality of Alcohol and Drug Abuse Patient Records regulations: The Federal rules restrict any use of the information to criminally investigate or prosecute any alcohol or drug abuse patient.[facility] the event this information is protected by the Federal Confidentiality of Alcohol and Drug Abuse Patient Records regulations: The Federal rules restrict any use of the information to criminally investigate or prosecute any alcohol or drug abuse patient.[facility] the event this information is protected by the Federal Confidentiality of Alcohol and Drug Abuse Patient Records regulations: The Federal rules restrict any use of the information to criminally investigate or prosecute any alcohol or drug abuse patient.[facility] the event this information is protected by the Federal Confidentiality of Alcohol and Drug Abuse Patient Records regulations: The Federal rules restrict any use of the information to criminally investigate or prosecute any alcohol or drug abuse patient.[facility] the event this information is protected by the Federal Confidentiality of Alcohol and Drug Abuse Patient Records regulations: The Federal rules restrict any use of the information to criminally investigate or prosecute any alcohol or drug abuse patient.[facility] HospitalIn the event this information is protected by the Federal Confidentiality of Alcohol and Drug Abuse Patient Records regulations: The Federal rules restrict any use of the information to criminally investigate or prosecute any alcohol or drug abuse patient.[facility] HospitalIn the event this information is protected by the Federal Confidentiality of Alcohol and Drug Abuse Patient Records regulations: The Federal rules restrict any use of the information to criminally investigate or prosecute any alcohol or drug abuse patient.[facility] HospitalIn the event this information is protected by the Federal Confidentiality of Alcohol and Drug Abuse Patient Records regulations: The Federal rules restrict any use of the information to criminally investigate or prosecute any alcohol or drug abuse patient.[facility] HospitalIn the event this information is protected by the Federal Confidentiality of Alcohol and Drug Abuse Patient Records regulations: The Federal rules restrict any use of the information to criminally investigate or prosecute any alcohol or drug abuse patient.[facility] HospitalIn the event this information is protected by the Federal Confidentiality of Alcohol and Drug Abuse Patient Records regulations: The Federal rules restrict any use of the information to criminally investigate or prosecute any alcohol or drug abuse patient.[facility] HospitalIn the event this information is protected by the Federal Confidentiality of Alcohol and Drug Abuse Patient Records regulations: The Federal rules restrict any use of the information to criminally investigate or prosecute any alcohol or drug abuse patient.[facility] HospitalIn the event this information is protected by the Federal Confidentiality of Alcohol and Drug Abuse Patient Records regulations: The Federal rules restrict any use of the information to criminally investigate or prosecute any alcohol or drug abuse patient.[facility] Reason for Visit (unrecogniz ed section and content) Reason Comments Appointment Reason Comments 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 Reason [facility] Reason Comments Results Reason Comments GERD taking with prilosec Diverticulitis 2012 last major flar e up Irritable Bowel Syndrome questionable bu t never diagnosis Abdominal Pain on left side off and on with bloating and gasy gluten intolerance Specialty Diagnoses / Procedures Referred By Karen t Referred To Contact Gastroenterology Diagnoses Left lower quadrant abdominal pain Procedures CONSULT TO GASTROENTEROLOGY NEW PATIENT VISIT LEVEL 5 Lindy Pritchett, MEHRENE.FRAME STRIPPER [address] [place] [address] Referral ID Status Reason Start Date Expiration Date V isits Requested Visits Authorized [id number] Closed PCP Requested Referral 02/16/2021 02/16/2022 1 1 Reason Comments calling for results Results Reason Onset Date Comments Refill Request 12/28/2021 Reason Comments Breast Problem Reason Comments Follow Up Reason Comments Cough Sinus pain and press ure, PAUL, BRIANA ear pressure x1 week Reason Comments Pain bloating, pelvic silke n radiates to under ribs Reason Comments Patient Question Reason Comments Procedure Follow Up EGD 12/22/21 Labs 11/27 Reason Comments Abdominal Pain Reason Comments Well Woman Reason Comments Orders Reason Comments Colposcopy Reason Comments Ear Pain Right ear pain, St, cough, PAUL and fatigue x 1 week Reason Comments Conjunctivitis Left eye. With right ear clogged Reason Comments abdominal bloating after meals, discuss possible sibo Reason Comments Orders Reason Comments Rectal Problem Reason Comments Yearly Exam Reason Comments Radiology US Specialty Diagnoses / Procedures Referred By Karen t Referred To Contact US IMAGING Diagnoses Loose stools RUQ pain Procedures US ABD RT UPPER QUADRANT US ABDOMINAL REAL TIME W/IMAGE LIMITED Romero, Analy, TIE MAKER.FRAME STRIPPER [address] [place] [address] [place] [address] Referral ID Status Reason Start Date Expiration Date V isits Requested Visits Authorized [id number] Closed Auto-Generate d Referral 03/19/2022 04/18/2023 1 1 Reason Onset Date Comments Colposcopy Gardasil Injection 05/02/2023 Specialty Diagnoses / Procedures Referred By Karen pruitt Referred To Contact [facility] Diagnoses Cervical high risk HPV (human papillomavirus) test positive History of abnormal cervical Pap smear Procedures COLPOSCOPY COLPOSCOPY CERVIX BX CERVIX & ENDOCRV Lindy Winters APRN.CNM [address] [place] [address] [facility] [address] [place] [address] Referral ID Status Reason Start Date Expiration Date V isits Requested Visits Authorized [id number] Closed Auto-Generate d Referral 04/01/2023 03/31/2024 1 1 Care Teams (unrecognized sec tion and content) Rn Lactation Consultant Relationship Specialty Start Date End Date Rod Amaya MD [address] [place] [address] PCP - General 10/25/09 Rn Lactation Consultant Relationship Specialty Start Date End Date Rod Amaya MD [address] [place] [address] PCP - General 10/25/09 Rn Lactation Consultant Relationship Specialty Start Date End Date Rod Amaya MD [address] [place] [address] PCP - General 10/25/09 Rn Lactation Consultant Relationship Specialty Start Date End Date Rod Amaya MD [address] [place] [address] PCP - General 10/25/09 Rn Lactation Consultant Relationship Specialty Start Date End Date Rod Amaya MD [facility] [place] [place] [address] PCP - General 10/25/09 Rn Lactation Consultant Relationship Specialty Start Date End Date Rod Amaya MD [address] [place] [address], [place] [address] PCP - General 10/25/09 Rn Lactation Consultant Relationship Specialty Start Date End Date Rod Amaya MD [address] [place] [address], [place] [address] PCP - General 10/25/09 Rn Lactation Consultant Relationship Specialty Start Date End Date Rod Amaya MD [address] [place] [address], [place] [address] PCP - General 10/25/09 Rn Lactation Consultant Relationship Specialty Start Date End Date Rod Amaya MD [address] [place] [address], [place] [address] PCP - General 10/25/09 Rn Lactation Consultant Relationship Specialty Start Date End Date Rod Amaya MD [address] [place] [address], [place] [address] PCP - General 10/25/09 Rn Lactation Consultant Relationship Specialty Start Date End Date Rod Amaya MD [address] [place] [address], [place] [address] PCP - General 10/25/09 Rn Lactation Consultant Relationship Specialty Start Date End Date Rod Amaya MD [address] [place] [address], [place] [address] PCP - General 10/25/09 Rn Lactation Consultant Relationship Specialty Start Date End Date Rod Amaya MD [address] [place] [address], [place] [address] PCP - General 10/25/09 Rn Lactation Consultant Relationship Specialty Start Date End Date Rod Amaya MD [address] [facility] [place] [address] PCP - General 10/25/09 Rn Lactation Consultant Relationship Specialty [place] [address] [place] [address], [place] [address] PCP - General 10/25/09 Rn Lactation Consultant Relationship Specialty Start Date End Date Rod Amaya MD [address] [place] [address], [place] [address] PCP - General 10/25/09 Rn Lactation Consultant Relationship Specialty Start Date End Date Rod Amaya MD [address] [place] [address], [place] [address] PCP - General 10/25/09 Rn Lactation Consultant Relationship Specialty Start Date End Date Rod Amaya MD [address] [place] [address], [place] [address] PCP - General 10/25/09 Rn Lactation Consultant Relationship Specialty Start Date End Date Rod Amaya MD [address] [place] [address], [place] [address] PCP - General 10/25/09 Rn Lactation Consultant Relationship Specialty Start Date End Date Rod Amaya MD [address] [place] [address], [place] [address] PCP - General 10/25/09 Rn Lactation Consultant Relationship Specialty Start Date End Date Rod Amaya MD [address] [place] [address], [place] [address] PCP - General 10/25/09 Rn Lactation Consultant Relationship Specialty Start Date End Date Rod Amaya MD [address] [place] [address], [place] [address] PCP - General 10/25/09 Rn Lactation Consultant Relationship Specialty Start Date End Date Rod Amaya MD [address] [place] [address] PCP - General 10/25/09 Rn Lactation Consultant Relationship Specialty Start Date End Date Rod Amaya MD [address] [place] [address] PCP - General 10/25/09 Rn Lactation Consultant Relationship Specialty Start Date End Date Rod Amaya MD [address] [place] [address] PCP - General 10/25/09 Rn Lactation Consultant Relationship Specialty Start Date End Date Rod Amaya MD [address] [place] [address] PCP - General 10/25/09 Rn Lactation Consultant Relationship Specialty Start Date End Date Rod Amaya MD [address] [place] [address] PCP - General 10/25/09 Rn Lactation Consultant Relationship Specialty Start Date End Date Rod Amaya MD [address] [place] [address] PCP - General 10/25/09 Rn Lactation Consultant Relationship Specialty Start Date End Date Rod Amaya MD [address] [place], [place] [id number] PCP - General 10/25/09 Care Team (unrecognized sect ion and content) Care Team Personnel Name: ROD AMAYA MD Member Role: Primary Care Physician Address: Address: [address] [place], [place] [address] Care Team Related Persons Name: ZAVALA, BASIA Name: ZAVALA, BASIA Name: ZAVALA, BASIA Name: ZAVALA, BASIA Name: ZAVALA, BASIA Name: ZAVALA, BASIA Name: SALLY, BASIA Name: LUKASZ OTERO Address: Home [address] [id number] Name: DARIA IQBAL Address: Home [address] Care Team Personnel Name: ROD AMAYA MD Member Role: Primary Care Physician Address: Address: [address] [place] [address] Care Team Related Persons Name: ZAVALA, BASIA Name: ZAVALA, BASIA Name: ZAVALA, BASIA Name: ZAVALA, BASIA Name: ZAVALA, BASIA Name: ZAVALA, BASIA Name: VEGA ZAVALAE Name: LUKASZ OTERO Address: Home [address] [place] [address] [place] Name: DARIA IQBAL Address: Home [address] Care Team Personnel Name: ROD AMAYA MD Member Role: Primary Care Physician Address: Address: [address] [place] [address] Name: Josefa Freeman RN Position: AO RN Member Role: RN Name: ESTELA DORMAN MD Position: ED Physician Member Role: Attending Physician Address: Address: [facility] [address] [place] [address] Care Team Related Persons Name: ZAVALA, BASIA Name: ZAVALA, BASIA Name: ZAVALA, BASIA Name: ZAVALA, BASIA Name: ZAVALA, BASIA Name: ZAVALA, BASIA Name: ZAVALA, BASIA Name: LUKASZ OTERO Address: Home [address] [place] [address] [place] Name: DARIA IQBAL Address: Home [address] [place] [address] [place] INFORMATION SOURCE (unrecogn ized section and content) DATE CREATED AUTHOR AUTHOR'S ORGANIZ ATION 06/07/2023 [facility] ([place] FOR RECORDS PERTAINING TO PATIENTS WHO ARE OR HAVE BEEN ENROLLED IN A CHEMICAL DEPENDENCY/SUBSTANCEABUSE PROGRAM, SOME INFORMATION MAY BE OMITTED. This clinical summary was aggregated from multiple sources. Caution should be exercised in using it in the provision of clinical care. This summary normalizes information from multiple sources, and as a consequence, information in this document may materially change the coding, format and clinical context of patient data. In addition, data may be omitted in some cases. CLINICAL DECISIONS SHOULD BE BASED ON THE PRIMARY CLINICAL RECORDS. [facility] [employer] [facility]. provides no warranty or guarantee of the accuracy or completeness of information in this document.
[2023-06-07 22:09] VITALS: BP 122/60; PULSE 82; RESP 16; O2SAT 98
== END 2023-06-07 22:10 | disposition home or self-care (01) ==
PROVIDERS: Emergency Provider Student in an Organized Health Care Education/Training Program; PCP Internal Medicine; Visit Provider Student in an Organized Health Care Education/Training Program
DX: R21 Rash and other nonspecific skin eruption (principal); F17.210 Nicotine dependence, cigarettes, uncomplicated; M25.561 Pain in right knee; X58.XXXA Exposure to other specified factors, initial encounter; Y93.51 Activity, roller skating (inline) and skateboarding
CPT/HCPCS: 99282

== ENCOUNTER 2024-02-11 21:05 | Emergency (ER) | payer MEDICAID, SELFPAY ==
[2024-02-11 21:06] VITALS: BP 128/66; PULSE 69; RESP 18; TEMP 36.1; O2SAT 97; BMI 27.8
--- NOTE | 2024-02-11 21:27 | CT_ITS ---
INDICATION: barron, dizzy, n/v EXAMINATION: CTA CAROTIDS AND BRAIN - CTA Head WO/W Contrast Injection TECHNIQUE: Routine CTA of the head and neck was performed with post processing of the angiographic images for volumetric reconstructions. In addition, images were obtained of the Ramona of Leung. Nascet criteria using the distal ICAs for comparison were used for evaluation of stenoses. 3D reconstructions were reviewed. A radiation dose optimization technique was used for this scan. IV Contrast dosage and agent: 75 mL Isovue-370 COMPARISON: None. FINDINGS: --- Noncontrast CT head: No intracranial hemorrhage, mass, or focal mass effect. Lin-white matter differentiation is preserved. No hydrocephalus. No scalp hematoma. Metallic nasal and ear piercings. Mastoid air cells and paranasal sinuses are clear. No acute osseous finding. --HEAD: --Anterior circulation: ICAs: No significant stenosis at the intracranial/visualized segments. ACAs: No significant stenosis at the visualized segments. ACOM: Present. MCAs: No significant stenosis at the visualized segments. --Posterior circulation: PCOMs: Intact bilaterally guest advisor: No significant stenosis at the visualized segments. BASILAR ARTERY: No significant stenosis. VERTEBRAL ARTERIES: No significant stenosis at the intradural/visualized segments. No evidence of intracranial aneurysm or vascular malformation. CT/CTA Head W/WO Contrast IMPRESSION: No CT evidence of acute intracranial hemorrhage or injury. No CT evidence of intracranial aneurysm or proximal vascular stenosis. Electronically Signed: Luis Eduardo Allen MD at 22:28 EDT ,
--- NOTE | 2024-02-11 21:28 | EDS_ITS ---
HPI History of Present Illness Chief Complaint: Flank Pain Detail of Chief Complaint: Right flank pain, headache, dizziness Informant: patient Narrative Narrative: Patient presents to the emergency department with complaint initially of alonzoa dacalonzo that started about 11 days ago and came on gradually. She has been complaining of dizziness and feeling lightheaded and feeling off balance. She was seen by her primary care physician and also has been urgent care. At urgent care she was diagnosed with a left ear infection and was started on Augmentin and some prednisone. Yesterday started complaining of right-sided back pain. Went to urgent care again today and told to come to the ED to get evaluated for kidney stone. She denies dysuria urgency or frequency. She denies hematuria. Patient took a COVID test at home and it was negative today. She denies significant cough or sore throat. [facility] Medical History (Updated 02/11/24 @ 23:[address] Slade Hernández, DO) GERD (gastroesophageal reflux disease) Asthma Home Medications ?Medication ?Instructions ?Recorded ?Last Taken ?Type Omeprazole [Prilosec] 40 mg PO BID 02/19/13 05/30/17 History cyclobenzaprine 10 mg tablet 10 mg PO TID PRN PRN Pain 07/27/15 05/30/17 History levonorgestrel 21 mcg/24 hr (up to 1 ea IY X1 06/22/16 08/19/15 History 8 years) 52 mg intrauterine device (Mirena) albuterol sulfate 90 mcg/actuation 1 - 2 puff Inhalation Q4H PRN PRN 08/30/18 Unknown Rx aerosol inhaler Wheezing ##1 ibuprofen 600 mg tablet 600 mg PO Q8H PRN PRN Pain #30 tabs 06/26/20 Unknown Rx loratadine 10 mg capsule 10 mg PO DAILY 06/26/20 Unknown History prednisone 50 mg tablet 50 mg PO DAILY #3 tabs 06/07/23 Unknown Rx cyclobenzaprine 10 mg tablet 10 mg PO TID PRN Muscle Spasm #20 02/11/24 Unknown Rx TABLETS hydrocodone-acetaminophen 5-325mg 1 tab PO Q4H PRN PRN Pain 2 days 02/11/24 Unknown Rx 5mg-325mg #10 TABLETS Allergy/AdvReac Type Severity Reaction Status Date / Time tramadol Allergy Hives Verified 02/11/24 21:06 Social History Smoking Status: Current every day smoker tobacco type: cigarettes and smokeless tobacco ROS ROS ED Review of Systems ROS Unobtainable: other Constitutional Constitutional ED: Reports lethargy; Denies chills, fever(s), sweats or weight loss Eyes Eyes: Denies blurry vision, change in vision or diplopia ENT ENT ED: Denies rhinorrhea or sore throat Cardiovascular Cardiovascular: Reports chest pain and racing heartbeat; Denies orthopnea Respiratory/Chest Respiratory/Chest: Denies cough, dyspnea, dyspnea on exertion, orthopnea or sputum Gastrointestinal Gastrointestinal: Denies abdominal pain, diarrhea, nausea or vomiting Genitourinary Genitourinary ED: Denies dysuria, hematuria or urinary frequency Musculoskeletal Musculoskeletal: Reports back pain; Denies arthralgias, myalgias or neck pain Integumentary Denies abscess, Abrasions or rash Neurologic Neurologic: Reports headache(s) and other Details: Lightheadedness and feeling off balance ; Denies weakness Psychiatric Psychiatric: Denies anxiety, depression or suicidal thoughts Endocrine Endocrinology: Denies polydipsia, polyphagia or polyuria Hematologic/Lymphatic Hematologic/Lymphatic: Denies easy bleeding, easy bruising or lymphadenopathy Allergic/Immunologic Allergic/Immunologic ED: Denies mouth swelling, tongue swelling or urticaria EXAM Physical Exam Const Vital Signs: 02/11/24 21:06 Temperature 97 F L Temperature Source Temporal Pulse Rate 69 Respiratory Rate 18 Blood Pressure 128/66 H Blood Pressure Mean 86 Pulse Ox 97 Oxygen Delivery Method Room Air Positive well nourished and well developed General Appearance ED: well developed and NAD HEENT Reports TM's clear and moist mucous membranes normocephalic and atraumatic; Negative for trauma or tenderness Tympanic Membrane ED: Yes TM's clear Eyes PERRL and EOMs intact bilaterally General Eye ED: Negative for pale conjunctiva or scleral icterus Neck no lymphadenopathy, supple and no JVD General: Negative for tenderness Chest Wall inspection of chest normal and palpation of chest normal Chest: Negative for tenderness Resp normal respiratory effort and clear to auscultation bilaterally Effort and Inspection: Negative for respiratory distress or pain with movement Auscultation: Negative for rhonchi, wheezes or diminished lung sounds Cardio regular rate, regular rhythm, S1 normal heart sound, S2 normal heart sound and no murmurs Peripheral Pulses: pulses 2+ throughout GI normal to inspection, nondistended, normoactive bowel sounds, soft to palpation, non-tender, non-distended and no masses Back/Spine no thoracic nor lumbar tenderness General Back: CVA tenderness left Extremity normal to inspection General Extremety ED: Negative for edema General Extremity: Negative for edema Neuro oriented x3, CN's II-XII intact bilaterally, no sensory deficits noted and gait normal Neuro Narrative: Finger-nose and heel lópez testing within normal limits, negative Romberg, negative pronator drift, fundi benign. Hallpike maneuver performed was negative for nystagmus. Sensorium / Orientation: awake, alert, oriented to person, oriented to place and oriented to time Motor Exam: strength 5/5 throughout and strength abnormal Psych mental status grossly normal Skin no rashes or lesions noted and no wounds MDM MDM MDM Narrative Medical decision making narrative: Patient presents with complaint of headache as well as feeling off balance and complain now of back pain. Clinically looks well. In the differential would be intracranial hemorrhage versus headache related to viral illness or tension headache. Migraine in the differential. Brain aneurysm in the differential. Brain tumor. Regarding her back pain this may be musculoskeletal versus kidney stone or UTI. IV line established. CBC with differential obtained showed a white count of 8.2 with hemoglobin 13 and platelet count of 295. Chemistries unremarkable. BUN 14 and creatinine 0.72. Urinalysis was normal. CTA of the brain was obtained which showed no evidence of intracranial hemorrhage or brain tumor or aneurysm or any other acute process. Patient also had a CT scan of the abdomen pelvis without contrast which was negative for kidney stone or any acute process. While in department she received Toradol. At this point she will be discharged to home. She will be given a prescription for few Kermit for pain for her back. Patient advised to keep her appointment with her primary care gia covington. Advised to return if worsening headache, difficulty with balance or speech, worsening back pain or weakness to the extremities or condition should worsen anyway. Lab Data Labs: Laboratory Results - last 24 hr 02/11/24 02/11/24 21:53 22:08 WBC 8.2 RBC 4.21 Hgb 13.0 Hct 38.6 MCV 91.7 MCH 30.9 MCHC 33.7 RDW Std Deviation 38.4 RDW Coeff of Jeri 11.4 L Plt Count 295 MPV 9.5 Immature Gran % (Auto) 0.200 Neut % (Auto) 44.5 L Lymph % (Auto) 46.3 H Dorado % (Auto) 5.9 Eos % (Auto) 2.5 Baso % (Auto) 0.6 Absolute Neuts (auto) 3.6 Absolute Lymphs (auto) 3.77 Nucleated RBC % 0 Sodium 138 Potassium 3.7 Chloride 105 Carbon Dioxide 28.0 Anion Gap 5 BUN 14 Creatinine 0.72 Estim Creat Clear Calc 90.84 Est GFR (MDRD) Af Amer 115 Est GFR (MDRD) Non-Af 95 BUN/Creatinine Ratio 19.3 Glucose 100 Calcium 9.6 Urine Color Yellow Urine Clarity Sl. Cloudy Urine pH 7.0 Ur Specific [place] 1.015 Urine Protein Negative Urine Glucose (UA) Normal Urine Ketones Negative Urine Occult Blood Negative Urine Nitrite Negative Urine Bilirubin Negative Urine Urobilinogen Normal Ur Leukocyte Esterase Negative Urine RBC 0 SEEN Urine WBC 0 SEEN Ur Squamous Epith Cells 0-5 SEEN Amorphous Sediment 1+ Urine Bacteria RARE Urine Mucus 0 SEEN Radiography Diagnostic Testing: Clinical Impression(s) from Imaging Studies Abdomen/Pelvis CT 02/11/24 21:28 IMPRESSION: No specific finding for right flank pain. Colonic diverticulosis without evidence of diverticulitis. Nonobstructive left nephrolithiasis. No evidence of current ureteral stone Electronically Signed: Luis Eduardo Allen MD at 22:36 EDT Reading Location ID and State: [facility] / [place] Tel , Service support , Discharge Plan Triage Chief Complaint: Flank Pain ED Provider: Slade Hernández Dx/Rx/DC Orders Clinical Impression: Headache, Back pain Instructions: Self-Care for Headaches, ED Back Pain (Acute or Chronic), ED Pain, Acute, Uncertain Cause Prescriptions: New cyclobenzaprine 10 mg tablet 10 mg PO TID PRN (Reason: Muscle Spasm) Qty: 20 0RF hydrocodone-acetaminophen 5-325 mg tablet 1 tab PO Q4H PRN PRN (Reason: Pain) 2 Days Qty: 10 0RF No Action Omeprazole [Prilosec] 40 MG capsule 40 mg PO BID Patient Comments: GERD cyclobenzaprine 10 MG tablet 10 mg PO TID PRN PRN (Reason: Pain) Patient Comments: FLEXERIL Mirena 1 EACH intrauterine device 1 ea IY X1 albuterol sulfate 1 INHALER inhaler 1 - 2 puff Inhalation Q4H PRN PRN (Reason: Wheezing) Qty: 1 0RF loratadine 10 MG capsule 10 mg PO DAILY ibuprofen 600 MG tablet 600 mg PO Q8H PRN PRN (Reason: Pain) Qty: 30 0RF prednisone 50 mg tablet 50 mg PO DAILY Qty: 3 0RF Stand Alone Forms: ED Work / School Excuse Primary Care Provider: Khushi Raman Referrals: Khushi Raman MD [Primary Care Provider] - 1-2 Days if not improving Print Language: Malay Disposition Disposition: Home, Self Care
--- NOTE | 2024-02-11 21:28 | CT_ITS ---
INDICATION: rt flank pain EXAMINATION: CT ABDOMEN AND PELVIS WITHOUT CONTRAST - CT Abdomen And Pelvis W/O Contrast Injection TECHNIQUE: Helically acquired images were obtained of the abdomen and pelvis without oral or IV contrast. A radiation dose optimization technique was used for this scan. IV Contrast dosage and agent: None. Oral contrast: None. COMPARISON: CT June 26, 2020. FINDINGS: LOWER CHEST: Lung bases are clear. No cardiomegaly or pericardial effusion. LIVER: Homogeneous. No focal mass. GALLBLADDER AND BILIARY TREE: No calcified gallstones. No gallbladder distension or wall edema. No intra- or extrahepatic biliary ductal dilation. PANCREAS: No focal cystic or solid mass. SPLEEN: Normal size without focal cystic or solid mass. ADRENAL GLANDS: No nodules. KIDNEYS AND URETERS: 2 mm left renal lower pole nonobstructive stone. No right nephrolithiasis. Normal renal size and position. No hydronephrosis. Right inferior pelvic phlebolith noted. PERITONEUM: No ascites or free air. No other fluid collection. BOWEL: No acute gastric finding. No small bowel distention or focal wall thickening. Normal appendix. Moderate colonic stool burden. Distal colonic diverticulosis without evidence of diverticulitis. . LYMPH NODES: No enlarged mesenteric or retroperitoneal lymph nodes. VESSELS: Aorta is non-dilated. URINARY BLADDER: Unremarkable. REPRODUCTIVE ORGANS: Anteverted uterus. Intrauterine device in appropriate position. Symmetric ovaries with small follicles. Vaginal tampon. Partially seen 7 mm right vaginal cyst suggested inferior to the pubic symphysis, axial image 164. ABDOMINAL WALL: No discrete abdominal or pelvic wall hernia. BONES: No lytic or blastic abnormality. CT/Abdomen/Pelvis without Cont IMPRESSION: No specific finding for right flank pain. Colonic diverticulosis without evidence of diverticulitis. Nonobstructive left nephrolithiasis. No evidence of current ureteral stone Electronically Signed: Luis Eduardo Allen MD at 22:36 EDT ,
[2024-02-11 22:13] LABS: Mucous, Urine 0 SEEN /hpf (<or=2+); White Blood Cells 0 SEEN /hpf (0-5)
[2024-02-11 22:15] LABS: Color, Urine Yellow (Yellow); Glucose, Dipstick Normal (Normal); Ketone-Dipstick Negative (Negative); Leukocyte Esterase-Dipstick Negative /ul (Negative); Nitrite-Dipstick Negative (Negative); Occult Blood-Urine Negative /ul (Negative); Protein-Dipstick Negative (Negative); Specific Gravity, Urine 1.015 (1.002-1.030); Urine Bilirubin Dipstick Negative (Negative); Urine Clarity Sl. Cloudy (Clear); Urine Urobilinogen Normal (Normal)
[2024-02-11 22:23] LABS: Absolute Lymphocyte Count 3.77 X10^3/uL (0.83-4.51); Absolute Neutrophil Count 3.6 X10^3/uL (2.0-7.7); Basophil# 0.05 X10^3/uL; Basophil% 0.6 % (0-1); Eosinophils% 2.5 % (0-5); Hematocrit 38.6 % (37-47); Lymphocyte # 3.77 X10^3/ul (0.83-4.51); Lymphocyte % 46.3 % (19-41); Mean Corp Hgb Conc 33.7 g/dL (32-36); Mean Corpuscular Hgb 30.9 pg (27.0-32.0); Mean Corpuscular Volume 91.7 fL (81-99); Mean Platelet Vol. 9.5 fl (6.2-12.0); Monocyte# 0.48 X10^3/uL; Monocyte% 5.9 % (0-10); NRBC Flagged by Analyzer 0 % (0-5); Neutrophil # 3.63 X10^3/uL (2.7-7.7); Neutrophil % 44.5 % (47-70); Platelet Count 295 K/mm3 (150-450); RBC Distribution Width CV 11.4 % (11.6-14.6); RBC Distribution Width SD 38.4 fl (35.1-43.9); Red Blood Count 4.21 M/mm3 (4.2-5.4); White Blood Count 8.2 K/mm3 (4.4-11.0)
[2024-02-11 22:29] LABS: Amorphous Sediment 1+; Squamous Epithelial Cells - UA 0-5 SEEN /hpf (5-10)
[2024-02-11 22:30] LABS: Bacteria RARE /hpf (None Seen); Red Blood Cells-Urine 0 SEEN /hpf (0-5)
[2024-02-11] MEDS: Ketorolac 30 MG/ML Syringe IV (22:32)
[2024-02-11 22:58] LABS: Anion Gap 5 (5-15); BUN 14 mg/dL (7-18); BUN/Creat Ratio 19.3 RATIO (10-20); Calcium,Total 9.6 mg/dL (8.5-10.1); Chloride 105 mmol/L (98-107); Creatinine, Serum 0.72 mg/dL (0.55-1.02); EST Glomerular Filtration Rate 95 mL/min (>60); Est Glom Filt Rate - Afr Amer 115 mL/min (>60); Estimated Creatinine Clearance 90.84 ml/min; Glucose 100 mg/dL (74-106); Potassium 3.7 mmol/L (3.5-5.1); Sodium Level 138 mmol/L (136-145)
[2024-02-11 23:06] VITALS: PULSE 62; RESP 18; O2SAT 98
[2024-02-11 23:25] VITALS: BP 115/66; PULSE 53; RESP 18; TEMP 36.4; O2SAT 97
== END 2024-02-11 23:26 | disposition home or self-care (01) ==
PROVIDERS: Emergency Provider Emergency Medicine; PCP Internal Medicine; Visit Provider Emergency Medicine
DX: R10.9 Unspecified abdominal pain (principal); M54.9 Dorsalgia, unspecified; R51.9 Headache, unspecified; R42 Dizziness and giddiness; F17.210 Nicotine dependence, cigarettes, uncomplicated; K21.9 Gastro-esophageal reflux disease without esophagitis; Z79.899 Other long term (current) drug therapy; F17.220 Nicotine dependence, chewing tobacco, uncomplicated
CPT/HCPCS: 70496; 74176; 80048; 81001; 85025; 96374; 99283; Q9967; A4216

== ENCOUNTER 2024-08-29 00:32 | Emergency (ER) | payer MEDICAID, SELFPAY ==
[2024-08-29 00:33] VITALS: BP 127/62; PULSE 120; RESP 18; TEMP 37.2; O2SAT 98; BMI 28.5
--- NOTE | 2024-08-29 00:38 | EX.ED.DYSGE1 ---
HPI History of Present Illness Chief Complaint: Syncope [facility] Medical History GERD (gastroesophageal reflux disease) Asthma Home Medications ?Medication ?Instructions ?Recorded ?Last Taken ?Type Omeprazole [Prilosec] 40 mg PO BID 02/19/13 05/30/17 History cyclobenzaprine 10 mg tablet 10 mg PO TID PRN PRN Pain 07/27/15 05/30/17 History levonorgestrel (Mirena) 1 ea IY X1 06/22/16 08/19/15 History albuterol sulfate 90 mcg/actuation 1 - 2 puff Inhalation Q4H PRN PRN 08/30/18 Unknown Rx aerosol inhaler Wheezing ##1 ibuprofen 600 mg tablet 600 mg PO Q8H PRN PRN Pain #30 tabs 06/26/20 Unknown Rx loratadine 10 mg capsule 10 mg PO DAILY 06/26/20 Unknown History prednisone 50 mg tablet 50 mg PO DAILY #3 tabs 06/07/23 Unknown Rx cyclobenzaprine 10 mg tablet 10 mg PO TID PRN Muscle Spasm #20 02/11/24 Unknown Rx TABLETS hydrocodone-acetaminophen 5-325mg 1 tab PO Q4H PRN PRN Pain 2 days 02/11/24 Unknown Rx 5mg-325mg #10 TABLETS Allergy/AdvReac Type Severity Reaction Status Date / Time tramadol Allergy Hives Verified 08/29/24 00:33 Social History (Updated 08/29/24 @ 00:42 by Jo-Ann Medley) household members: spouse housing: house Smoking Status: Current every day smoker tobacco type: cigarettes and smokeless tobacco EXAM Physical Exam Const Vital Signs: 08/29/24 00:33 08/29/24 00:42 Temperature 99.0 F Temperature Source Oral Pulse Rate 120 H Respiratory Rate 18 Respiratory Effort Normal Non-Labored Respiratory Pattern Normal Blood Pressure 127/62 H Blood Pressure Mean 83 Pulse Ox 98 MDM MDM MDM Narrative Medical decision making narrative: HISTORY OF PRESENT ILLNESS: Chief complaint: Syncope 38-year-old female presents concern for losing consciousness after drinking 6 shots of fireball. She notes she lost consciousness and that she may have fallen forwards. Denies history of heart attacks. Denies taking blood thinners. Denies prodromal symptoms of chest pain or shortness of breath. The patient denies recent surgery in the last 4 weeks or immobilization in the last 3 days, denies previous diagnosis of DVT or PE, hemoptysis, unilateral leg swelling or malignancy with treatment the last 6 months or palliative. No estrogen use noted. Patient denies sudden onset of pain, no tearing sensation, no migratory symptoms, no new numbness, weakness or loss of sensation. Patient denies family history or personal history of Connective tissue disorders (Marfan's Syndrome, Rod Danlos etc) REVIEW OF SYSTEMS: Pertinent positives: Syncope Pertinent negatives: PHYSICAL EXAM: Nursing triage notes reviewed, Vital signs reviewed Constitutional: please see mdm HENT: MMM Eyes: Pupils equal round and reactive to light, Extraocular muscles intact Neck: No stridor, no JVD, full neck ROM Lungs: Clear to auscultation, No wheezing or rales. No increased work of breathing, no conversational dyspnea, no accessory muscle use, no nasal flaring. No respiratory distress noted Heart: Regular rate and rhythm, No murmurs, No rubs and No gallops, 2+ distal pulses (radial, femoral, posterior tibial) in all extremities Abdomen: Soft, there is no tenderness, rigidity, rebound or guarding, no obvious peritoneal signs, no palpable pulsatile abdominal masses, no auscultated abdominal bruit : No CVAT Extremities: No edema Neuro: No new focal neurological deficits, cranial nerves II through XII intact, 5/5 strength in all present extremities. Intact sensation to light touch in all present extremities, 2+ reflexes bilateral patella tendons. Skin: No rash or lesions noted MEDICAL DECISION MAKING: Chief Complaint: please see HPI External records reviewed: Reviewed prior cardiovascular testing Factors affecting care: GERD, asthma Social determinants of health: Alcohol abuse History obtained from others: Significant other, sober ride Consults: none [facility] Narrative: Patient was initially tachycardic rate 120 otherwise afebrile and nontoxic-appearing. Exam unremarkable. Patient did appear clinically intoxicated. I considered the following differential diagnosis: ACS, arrhythmia, anemia, electrolyte disturbance, PE, dissection Considered PE and aortic dissection the patient's history and physical exam not consistent with these etiologies ALL IMAGES (IF OBTAINED) HAVE BEEN PERSONALLY REVIEWED AND INTERPRETED BY MYSELF. EKG with normal sinus rhythm rate 86, normal axis, no intervals, no STEMI High-sensitivity troponin is negative, no evidence of myocardial ischemia CBC without leukocytosis, severe anemia, no thrombocytopenia. Urine test is High-sensitivity troponin is negative, no evidence of myocardial ischemia CMP without evidence of acute kidney injury, significant electrolyte abnormality, anion gap to suggest end organ hypo-perfusion, no evidence of metabolic acidosis with a normal bicarbonate, no evidence of hepatobiliary obstructive pathology. Initial workup negative however prior to completion of reassessment, delta troponin and remainder of workup patient eloped the emergency department. She was in the presence of a sober ride namely a family member who brought her in. They decided to leave prior to ED evaluation complete. The patient and/or family, caregivers express understanding. The patient and/or family, caregivers agrees with the plan. Shared decision making: I will have a discussion with the patient and or visitors regarding risk/benefits of further testing or admission. They will be made aware of of the risk/benefits inherent in this decision they will be given the opportunity to voice understanding. Total critical care time today provided was at least 0 minutes. This excludes separately billable procedures. Critical care time (if documented) is secondary to the patient having high probability of clinically significant/life threatening deterioration in the patient's condition which required my urgent intervention. Impression: 1. Syncope 2. Alcohol abuse 3. Eloped from the emergency department Dispo: Discharge home This note was generated with [employer] dictation software. It may contain incorrect words, spelling, and punctuation that were not noted in review of the chart prior to signing. Lab Data Labs: Laboratory Results - last 24 hr 08/29/24 08/29/24 00:36 00:47 WBC 7.4 RBC 4.17 L Hgb 13.3 Hct 37.6 MCV 90.2 MCH 31.9 MCHC 35.4 RDW Std Deviation 37.2 RDW Coeff of Jeri 11.4 L Plt Count 263 MPV 8.9 Sodium 140 Potassium 3.4 Chloride 105 Carbon Dioxide 19.6 L Anion Gap 15 BUN 13 Creatinine 0.68 L Estim Creat Clear Calc 97.29 Est GFR (MDRD) Non-Af 113 BUN/Creatinine Ratio 18.6 Glucose 158 H Calcium 9.6 Total Bilirubin < 0.15 AST 19 ALT 17 Alkaline Phosphatase 78 Troponin T High Sens < 6 Total Protein 7.5 Albumin 4.6 Globulin 2.9 Albumin/Globulin Ratio 1.6 Urine Test Negative Discharge Plan Triage Chief Complaint: Syncope ED Provider: Thi,Remi Dx/Rx/DC Orders Prescriptions: No Action Omeprazole [Prilosec] 40 MG capsule 40 mg PO BID Patient Comments: GERD cyclobenzaprine 10 MG tablet 10 mg PO TID PRN PRN (Reason: Pain) Patient Comments: FLEXERIL Mirena 1 EACH intrauterine device 1 ea IY X1 albuterol sulfate 1 INHALER inhaler 1 - 2 puff Inhalation Q4H PRN PRN (Reason: Wheezing) Qty: 1 0RF loratadine 10 MG capsule 10 mg PO DAILY ibuprofen 600 MG tablet 600 mg PO Q8H PRN PRN (Reason: Pain) Qty: 30 0RF prednisone 50 mg tablet 50 mg PO DAILY Qty: 3 0RF cyclobenzaprine 10 mg tablet 10 mg PO TID PRN (Reason: Muscle Spasm) Qty: 20 0RF hydrocodone-acetaminophen 5-325 mg tablet 1 tab PO Q4H PRN PRN (Reason: Pain) 2 Days Qty: 10 0RF Primary Care Provider: Khushi Raman Referrals: Khushi Raman MD [Primary Care Provider] - Print Language: German Disposition Disposition: Elopement Discharge Date/Time: 08/29/24 01:29
--- NOTE | 2024-08-29 00:40 | EKG12_ITS ---
Test Reason : DYSRHYTHMIA Blood Pressure : */* mmHG Vent. Rate : 86 BPM Atrial Rate : 86 BPM P-R Int : 178 ms QRS Dur : 94 ms QT Int : 374 ms P-R-T Axes : 47 21 53 degrees QTcB Int : 447 ms Normal sinus rhythm Incomplete right bundle branch block Borderline ECG Confirmed by Elieser Horton ([id number]), editor publications LILLY GLOVER ([id number]) on 08/31/2024 6:56:40 AM Referred By: VERNON Confirmed By: Elieser Horton
[2024-08-29 00:47] LABS: Hematocrit 37.6 % (37-47); Hemoglobin 13.3 g/dL (12.0-15.0); Mean Corp Hgb Conc 35.4 g/dL (32-36); Mean Corpuscular Hgb 31.9 pg (27.0-32.0); Mean Corpuscular Volume 90.2 fL (81-99); Mean Platelet Vol. 8.9 fl (6.2-12.0); Platelet Count 263 K/mm3 (150-450); RBC Distribution Width CV 11.4 % (11.6-14.6); RBC Distribution Width SD 37.2 fl (35.1-43.9); Red Blood Count 4.17 M/mm3 (4.2-5.4); White Blood Count 7.4 K/mm3 (4.4-11.0)
[2024-08-29 01:02] LABS: Internal QC Validated? YES +Cl - CLEAR BKGD; Pregnancy, Urine Negative Negative
[2024-08-29 01:09] LABS: Troponin T High Sensitivity < 6 ng/L (<=14)
[2024-08-29 01:14] LABS: ALB/GLOB Ratio 1.6 RATIO (0.9-2.4); AST(SGOT) 19 U/L (<=31); Alanine Aminotransfer ALT/SGPT 17 U/L (<=34); Albumin, Serum 4.6 g/dL (3.5-5.0); Alkaline Phosphatase 78 U/L (35-104); Anion Gap 15 (5-15); BUN 13 mg/dL (4-19); BUN/Creat Ratio 18.6 RATIO (10-20); Calcium,Total 9.6 mg/dL (7.6-11.0); Carbon Dioxide 19.6 mmol/L (21.0-32.0); Chloride 105 mmol/L (98-108); Creatinine, Serum 0.68 mg/dL (0.70-1.20); EST Glomerular Filtration Rate 113 (>60); Estimated Creatinine Clearance 97.29 ml/min (50-250); Globulin 2.9 g/dL (2.2-4.2); Glucose 158 mg/dL (70-99); Potassium 3.4 mmol/L (3.3-5.1); Protein, Total 7.5 g/dL (5.9-8.4); Sodium Level 140 mmol/L (133-145); Total Bilirubin < 0.15 mg/dL (0.00-1.30)
--- NOTE | 2024-08-29 01:16 | ED.RN ---
Family member walks out of room to the nurses station states that she is leaving. This RN goes to bedside, patient had gotten herself dressed and was walking around the room. This RN states that I need to remove her IV. Patient is yelling with slurred words stating she doesn't like our doctor and that she will never come back again. This RN offered emotional support. Her IV was d/c'd and clean dry dressing applied. This RN asks patient if there is anything more I can do for her. She continues yelling about the doctor not caring about her. She walks out of department with family member. Dr Ness notified of patients elopement.
== END 2024-08-29 01:29 | disposition left against medical advice (07) ==
LOC: ED 01:05
PROVIDERS: Emergency Provider Emergency Medicine; PCP Internal Medicine; Visit Provider Emergency Medicine
DX: R55 Syncope and collapse (principal); F10.10 Alcohol abuse, uncomplicated; F17.210 Nicotine dependence, cigarettes, uncomplicated; K21.9 Gastro-esophageal reflux disease without esophagitis; F17.220 Nicotine dependence, chewing tobacco, uncomplicated; Z79.899 Other long term (current) drug therapy
CPT/HCPCS: 93005; 99284; A4216; J2405